=== PATIENT | female | born 1960 | race Caucasian/White ===

== ENCOUNTER 2020-12-31 13:24 | Inpatient (IN) | payer OTHER ==
--- OUTSIDE RECORDS SUMMARY | 2020-12-31 13:26 | XMS REPORT | Continuity of Care Document ---
:1960 Author Organization [facility] t Address [address] [place] [address] Care Team Providers Name Role Phone Unavailable Unavailable Unavailable Problems This patient has no known problems. Allergies, Adverse Reactions, Alerts This patient has no known allergies or adverse reactions. Medications This patient has no known medications. Procedures This patient has no known procedures. Encounters Start End Encounter Admission Attending Care Care Encounter Source Date/Time Date/Time Type Type Clinicians Facility Department ID 2020-11-30 2020-11-30 Outpatient [facility] [id number] [facility] 2020-10-19 2020-10-19 Outpatient [facility] [id number] [facility] 2020-10-19 2020-10-19 Outpatient [facility] [id number] [facility] 2020-08-22 2020-08-22 Outpatient [facility] [id number] [facility] Results This patient has no known results.
[2020-12-31 14:54] LABS: Absolute Lymphocytes (CBC) 1.3 K/uL (0.7-4.9); Basophils % 0.3 % (0-1.3); Hematocrit 36.8 % (36.0-45.0); Lymphocytes % 12.3 % (15.3-44.8); MPV 7.8 fL (7.6-11.3); RBC Red Blood Cell Count 4.13 M/uL (3.86-4.86)
[2020-12-31 15:06] LABS: Potassium 3.5 mmol/L (3.5-5.1)
--- NOTE | 2020-12-31 15:22 | RAD REPORT ---
EXAM DESCRIPTION: RAD - Chest Pa And Lat (2 Views) - 12/31/2020 3:02 pm CLINICAL HISTORY: DYSPNEA COMPARISON: None TECHNIQUE: Frontal and lateral views of the chest were obtained. FINDINGS: The lungs are underinflated. Large body habitus further limits the examination. Bilateral lung base interstitial and alveolar opacities are present. Heart size is upper normal. Vasculature is mildly prominent. No pleural effusion or pneumothorax seen. No acute bony finding noted. No aort ic abnormality. IMPRESSION: Bilateral lung bases present on this baseline examination. Failure or volume overload would be most common etiology. Lung base pneumonia is certainly possible and needs correlation with any clinical or laboratory findings for pneumonia.
[2020-12-31] MEDS ORDERED: METHYLPREDNISOLONE 125 MG INJ ONE ×2 (16:06→18:09)
[2020-12-31] MEDS ORDERED: MORPHINE 2 MG/ML SYR IV PRN (16:46)
[2020-12-31] MEDS ORDERED: ONDANSETRON 4 MG/2 ML VIAL IV PRN (16:46)
[2020-12-31] MEDS ORDERED: ACETAMINOPHEN 500 MG TAB PO PRN (16:46)
--- NOTE | 2020-12-31 16:57 | P.HP ---
Certification for Inpatient Patient admitted to: Inpatient With expected LOS: >2 Midnights Patient will require the following post-hospital care: None Practitioner: I am a practitioner with admitting privileges, knowledge of patient current condition, hospital course, and medical plan of care. Services: Services provided to patient in accordance with Admission requirements found in Title 42 Section 412.3 of the Code of Federal Regulations Patient History Date of Service: 12/31/20 Reason for admission: Hypoxemia History of Present Illness: Patient is a 60-year-old female who presents to the hospital with fever and difficulty breathing. Patient was vaccinated in September of this year by the MODERNA vaccine. She had been doing well up until last week. She thought she had an upper respiratory or allergy symptoms. Patient has been slightly febrile. On chest x-ray patient appears to have a pneumonia and patient's oxygen level are 89%. Patient had a COVID-19 test in the emergency room which is positive. Patient be admitted to the hospital for COVID-19 pneumonia. Allergies No Known Allergies Allergy (Verified 01/01/21 05:04) Home Medications: Bupropion HCl [Wellbutrin Xl] 1 tab PO DAILY 09/05/16 Dexmethylphenidate HCl [Focalin] 1 tab PO DAILY 09/05/16 Icosapent Ethyl [Vascepa] 1 tab PO BID 09/05/16 Lisinopril [Zestril] 1 tab PO DAILY 09/05/16 Multivit-Min/Iron/Folic/Lutein [Centrum Silver Women Tablet] 1 tab PO DAILY 09/05/16 Sertraline [Zoloft*] 1 tab PO DAILY 09/05/16 lamoTRIgine [Lamictal] 100 tab PO DAILY 09/05/16 Atomoxetine HCl 60 mg PO DAILY 01/01/21 Calcium Carbonate [Calcium] 600 mg PO DAILY 01/01/21 Cholecalciferol (Vitamin D3) [Vitamin D3] 2,000 unit PO DAILY 01/01/21 Fish Oil/Borage/Flax/Om3,6,9 1 [[place] 3-6-9 Complex Softgel] 2 g PO BID 01/01/21 Lamotrigine [Lamictal] 150 mg PO DAILY 01/01/21 Metformin HCl 500 mg PO BID 01/01/21 Niacin [Slo-Niacin] 650 mg PO DAILY 01/01/21 - Past Medical/Surgical History -: Depression -: ADD -: Bipolar disorder -: Diabetes type 2 Past Surgical History: Patient denies surgical history - Family History Father Family History: Reviewed- Non-Contributory - Social History Smoking Status: Former smoker Alcohol use: No CD- Drugs: No Review of Systems 10-point ROS is otherwise unremarkable Physical Examination - Vital Signs Temperature: 98 F Blood Pressure: 140/80 Pulse: 80 Respirations: 18 Pulse Ox (%): 99 - Physical Exam General: Alert, In no apparent distress, Confused HEENT: Atraumatic, PERRLA, Mucous membr. moist/pink, EOMI, Sclerae nonicteric Neck: Supple, 2+ carotid pulse no bruit, No LAD, Without JVD or thyroid abnormality Respiratory: Diminished Cardiovascular: Regular rate/rhythm, Normal S1 S2, No murmurs Gastrointestinal: Normal bowel sounds, Soft and benign, Non-distended, No tenderness Musculoskeletal: No clubbing, No swelling, No tenderness Integumentary: No rashes Neurological: Normal gait, Normal speech, Normal strength at 5/5 x4 extr, Normal tone, Sensation intact, Cranial nerves 3-12 intact, Normal affect Lymphatics: No axilla or inguinal lymphadenopathy - Studies Laboratory Data (last 24 hrs) 12/31/20 14:38: Sodium 137, Potassium 3.5, BUN 17, Creatinine 1.05, Glucose 101 12/31/20 14:38: WBC 10.50, Hgb 12.3, Hct 36.8, Plt Count 341 Microbiology Data (last 24 hrs): 12/31/20 14:04 Nasopharnyx Influenza Type A Antigen Screen - Final 12/31/20 14:04 Nasopharnyx Influenza Type B Antigen Screen - Final Assessment & Plan - Problems (Diagnosis) (1) Pneumonia due to COVID-19 virus Current Visit: Yes Status: Acute (2) Hypoxemia Current Visit: Yes Status: Acute - Plan 1. Continue with IV steroids 2. Monitor inflammatory markers 3. Repeat chest x-ray is symptoms are progressively worsening 4. O2 per protocol 5. Pulmonary consultation 6. Continue with albuterol inhaler therapy; also supportive care 7. Monitor LFTs 8. GI and DVT prophylaxis Discharge Plan: Home Plan to discharge in: Greater than 2 days - Advance Directives Does patient have a Living Will: No Does patient have a Durable POA for Healthcare: No - Code Status/Comfort Care Code Status Assessed: Yes Code Status: Full Code Critical Care: No Time Spent Managing PTS Care (In Minutes): 45
[2020-12-31] MEDS: METHYLPREDNISOLONE 125 MG INJ IV SCH ×2 (17:00→21:38)
[2020-12-31] MEDS: NA CHLORIDE 0.9% 1,000 ML IV SCH ×2 (17:00→20:00)
[2020-12-31 18:15] LABS: Protime INR 1.15
[2020-12-31 18:55] LABS: ALT/SGPT 43 U/L (12-78); AST/SGOT 42 U/L (15-37); Albumin 2.5 g/dL (3.4-5.0); Alkaline Phosphatase 54 U/L (45-117); Bilirubin Direct 0.1 mg/dL (0-0.2); Bilirubin Total 0.2 mg/dL (0.2-1.0); Ferritin 415.9 ng/mL (8-388); Lipase 87 U/L (73-393); Troponin (Emerg Dept Use Only) < 0.02 ng/mL (0.0-0.045)
[2020-12-31] MEDS ORDERED: APIXABAN 2.5 MG TABLET PO SCH (21:00)
[2020-12-31] MEDS: FAMOTIDINE 20 MG/2 ML VIAL IV SCH (21:35)
[2020-12-31] MEDS ORDERED: APIXABAN 5 MG TABLET ONE (21:40)
[2020-12-31] MEDS ORDERED: METHYLPREDNISOLONE 40 MG INJ ONE (21:41)
[2020-12-31] MEDS ORDERED: FAMOTIDINE 20 MG/2 ML VIAL IV ONE (21:41)
[2020-12-31 22:18] VITALS: BMI 48.4
[2021-01-01 04:49] LABS: Absolute Lymphocytes (CBC) 0.9 K/uL (0.7-4.9); Basophils % 0.2 % (0-1.3); Hematocrit 35.2 % (36.0-45.0); MPV 7.8 fL (7.6-11.3); RBC Red Blood Cell Count 3.95 M/uL (3.86-4.86)
[2021-01-01 05:29] LABS: Albumin 2.6 g/dL (3.4-5.0); Bilirubin Total 0.2 mg/dL (0.2-1.0); C-Reactive Protein 85.2 mg/L (<3.00); Ferritin 508.2 ng/mL (8-388); Potassium 3.6 mmol/L (3.5-5.1); Protein, Total 7.5 g/dL (6.4-8.2)
[2021-01-01] MEDS: NA CHLORIDE 0.9% 1,000 ML IV SCH ×2 (06:20→19:40)
[2021-01-01 07:12] LABS: Blood Morphology Comment NOT SEEN (NOT SEEN); Platelet Estimate ADEQ; White Blood Cell Scan OK (OK)
--- NOTE | 2021-01-01 08:00 | EKG ---
Test Date: 2020-12-31 Test Time: 18:36:12 Wharf Tender Helper: EDWIN MEASUREMENT RESULTS: Intervals: Rate: 91 NH: 128 QRSD: 84 QT: 370 QTc: 455 [place]: P: 27 NH: 128 QRS: -3 T: 39 INTERPRETIVE STATEMENTS: Normal sinus rhythm Possible Anterior infarct, age undetermined Abnormal ECG No previous ECG available for comparison Electronically Signed On 01-01-21 07:57:43 CDT by Lonnie Cordova
[2021-01-01] MEDS ORDERED: METHYLPREDNISOLONE 40 MG INJ ONE (08:29)
[2021-01-01] MEDS ORDERED: FAMOTIDINE 20 MG/2 ML VIAL IV ONE ×3 (08:29→22:46)
[2021-01-01] MEDS ORDERED: NA CHLORIDE 0.9% 1,000 ML ONE (08:29)
[2021-01-01] MEDS: APIXABAN 5 MG TABLET PO SCH ×2 (09:00→22:51)
[2021-01-01] MEDS: FAMOTIDINE 20 MG/2 ML VIAL IV SCH ×2 (09:00→22:51)
[2021-01-01] MEDS: METHYLPREDNISOLONE 125 MG INJ IV SCH ×2 (09:00→22:51)
--- NOTE | 2021-01-01 17:29 | ER ---
Nurse's Notes [facility] Name: Bette Soto Age: 60 yrs Sex: Female : 1960 Arrival Date: 12/31/2020 Time: 13:26 Bed 20 Private MD: Diagnosis: Hypoxia;Coronavirus infection, unspecified Presentation: 12/31 13:48 Chief complaint: Patient states: SOB and cough x 8 days. Coronavirus screen: Client kg denies travel out of the [place] in the last 14 days. At this time, unable to obtain information related to travel outside the [place] Client presents with at least one sign or symptom that may indicate coronavirus-19. Standard/surgical mask placed on the client. Provider contacted for isolation considerations. Ebola Screen: Patient negative for fever greater than or equal to 101.5 degrees Fahrenheit, and additional compatible Ebola Virus Disease symptoms Patient denies exposure to infectious person. Patient denies travel to an Ebola-affected area in the 21 days before illness onset. Patient positive for the following Ebola Virus Disease associated symptoms:. Initial Sepsis Screen: Does the patient meet any 2 criteria? No. Patient's initial sepsis screen is negative. Does the patient have a suspected source of infection? No. Patient's initial sepsis screen is negative. Risk Assessment: Do you want to hurt yourself or someone else? Patient reports no desire to harm self or others. Onset of symptoms was December 23, 2020. 13:48 Method Of Arrival: Wheelchair kg 13:48 Acuity: JOYCE 3 kg Triage Assessment: 13:51 General: Appears in no apparent distress. Behavior is calm, cooperative, appropriate kg for age, quiet. Pain: Denies pain. EENT: No deficits noted. Respiratory: Reports shortness of breath at rest on exertion since 12/23 cough that is non-productive, Onset: The symptoms/episode began/occurred gradually, the patient has mild shortness of breath. Historical: - Allergies: 13:51 No Known Allergies; kg - PMHx: 13:51 NDDM; Depressive disorder; Anxiety; ADHD; Bipolar disorder; kg - PSHx: 13:51 section; tubal ligation; kg - Immunization history:: Adult Immunizations up to date, Client reports receiving the 2nd dose of the Covid vaccine. - Social history:: Smoking status: Patient denies any tobacco usage or history of. Screenin:11 Abuse screen: Denies threats or abuse. Nutritional screening: No deficits noted. ap3 Tuberculosis screening: No symptoms or risk factors identified. Fall Risk No fall in past 12 months (0 pts). Secondary diagnosis (15 points) impaired mobility, No IV (0 pts). Ambulatory Aid- Crutches/Cane/Walker (15 pts). Gait- Weak (10 pts.). Mental Status- Oriented to own ability (0 pts). Total Trevino Fall Scale indicates Low Risk Score (25-44 pts). Fall prevention measures have been instituted. Side Rails Up X 2 Placed close to Nursing Station Frequent Obs/Assesments occuring As available Patient and Family Educated on Fall Prevention Program and strategies. Assessment: 14:10 General: Appears comfortable, Behavior is calm, cooperative, appropriate for age. ap3 General: Reports feeling ill for > 3 days. Pain: Denies pain. Neuro: Level of Consciousness is awake, alert, obeys commands, Oriented to person, place, time, situation, Appropriate for age Weakness Gait is unsteady, Speech is normal. Cardiovascular: Denies chest pain. Respiratory: Airway is patent Respiratory effort is even, labored, Respiratory pattern is symmetrical, Breath sounds are clear bilaterally. GI: No signs and/or symptoms were reported involving the gastrointestinal system. : No signs and/or symptoms were reported regarding the genitourinary system. EENT: No signs and/or symptoms were reported regarding the EENT system. Derm: No signs and/or symptoms reported regarding the dermatologic system. 14:45 Cardiovascular: Rhythm is regular. ap3 Vital Signs: 13:48 BP 110 / 66; Pulse 94; Resp 21; Temp 98.8(O); Pulse Ox 90% on R/A; Weight 128.19 kg; kg Height 5 ft. 4 in. (162.56 cm) (R); Pain 0/10; 14:21 BP 97 / 85 LA Sitting (auto/lg); Pulse 94; Resp 19; Pulse Ox 93% on 4 lpm NC; ap3 15:31 BP 152 / 93; Pulse 90; Resp 19; Pulse Ox 96% on 4 lpm NC; ap3 13:48 Body Mass Index 48.51 (128.19 kg, 162.56 cm) kg ED Course: 13:26 Patient arrived in ED. rg4 13:44 Purvi Leslie FNP-C is [facility]. kb 13:44 Yusef Hi MD is Attending Physician. kb 13:51 Triage completed. kg 13:51 Arm band placed on. kg 13:52 Georgette Gandhi, RN is Primary Nurse. ap3 14:12 Patient has correct armband on for positive identification. Bed in low position. Call ap3 light in reach. Side rails up X 1. Pulse ox on. NIBP on. Door closed. Noise minimized. 14:45 No provider procedures requiring assistance completed. IV discontinued, intact, ap3 bleeding controlled, No redness/swelling at site. Pressure dressing applied. 15:02 Chest Pa And Lat (2 Views) XRAY In Process Unspecified. EDMS 15:59 Inserted saline lock: 20 gauge in left antecubital area, using aseptic technique. Blood ap3 collected. 16:32 Micky Yadav MD is Hospitalizing Provider. kb 01/04 19:54 Primary Nurse role handed off by Georgette Gandhi, YELITZA mw2 Administered Medications: 12/31 15:46 Drug: SOLU-Medrol (methylPrednisoLONE) 125 mg Route: IVP; Site: right antecubital; ap3 17:59 Follow up: Response: No adverse reaction ap3 18:00 Drug: SOLU-Medrol (methylPrednisoLONE) 125 mg Route: IVP; Site: left antecubital; ap3 19:47 Follow up: Response: No adverse reaction ad5 Outcome: 14:45 Discharged to home ambulatory, with family. ap3 14:45 Condition: good 14:45 Discharge instructions given to patient, family, Instructed on discharge instructions, follow up and referral plans. medication usage, Demonstrated understanding of instructions, follow-up care. 16:32 Decision to Hospitalize by Provider. kb 01/05 21:54 Patient left the ED. mw Signatures: Dispatcher [employer] EDMS Purvi Leslie FNP-C FNP-Ckb Webb, Martha RN YELITZA Zaria Roy rg4 Georgette Gandhi RN RN ap3 Bijal Vences mw2 Kalyn Mosqueda RN RN kg Lui Schmitz ad5
--- NOTE | 2021-01-01 17:29 | EDPHYS ---
Physician Documentation [facility] Name: Bette Soto Age: 60 yrs Sex: Female : 1960 Arrival Date: 12/31/2020 Time: 13:26 Bed 20 Private MD: ED Physician Yusef Hi HPI: 12/31 15:08 This 60 yrs old Female presents to ER via Wheelchair with complaints of kb Shortness Of Breath. 15:08 The patient has shortness of breath at rest. Onset: The symptoms/episode began/occurred kb 8 day(s) ago. Duration: The symptoms are continuous. The patient's shortness of breath is aggravated by exertion, is alleviated by nothing. Associated signs and symptoms: Pertinent positives: non-productive cough, fever. Severity of symptoms: At their worst the symptoms were moderate in the emergency department the symptoms are unchanged. The patient has not experienced similar symptoms in the past. The patient has been recently seen by a physician: the patient's primary care provider, with similar presenting complaints, and was sent to the [facility] Emergency Department for further evaluation. Patient reports shortness of breath and fever. Went to PCP today was sent for outpatient chest x-ray then to the ER for worsening shortness of breath. Historical: - Allergies: 13:51 No Known Allergies; kg - PMHx: 13:51 NDDM; Depressive disorder; Anxiety; ADHD; Bipolar disorder; kg - PSHx: 13:51 section; tubal ligation; kg - Immunization history:: Adult Immunizations up to date, Client reports receiving the 2nd dose of the Covid vaccine. - Social history:: Smoking status: Patient denies any tobacco usage or history of. ROS: 15:09 Abdomen/GI: Negative for abdominal pain, nausea, vomiting, diarrhea, and constipation. kb 15:09 Constitutional: Positive for fever. 15:09 Respiratory: Positive for cough, dyspnea on exertion, shortness of breath. 15:09 All other systems are negative. Exam: 15:09 Constitutional: This is a well developed, well nourished patient who is awake, alert, kb and in no acute distress. Head/Face: Normocephalic, atraumatic. ENT: Moist Mucous membranes Cardiovascular: Regular rate and rhythm with a normal S1 and S2. No gallops, murmurs, or rubs. No pulse deficits. Skin: Warm, dry with normal turgor. Normal color. MS/ Extremity: Pulses equal, no cyanosis. Neurovascular intact. Full, normal range of motion. Neuro: Awake and alert, GCS 15, oriented to person, place, time, and situation. Moves all extremities. Normal gait. Psych: Awake, alert, with orientation to person, place and time. Behavior, mood, and affect are within normal limits. 16:29 Respiratory: mild respiratory distress is noted, Respirations: labored breathing, that kb is mild, Breath sounds: decreased breath sounds, that are mild, are located in both bases. Vital Signs: 13:48 BP 110 / 66; Pulse 94; Resp 21; Temp 98.8(O); Pulse Ox 90% on R/A; Weight 128.19 kg; kg Height 5 ft. 4 in. (162.56 cm) (R); Pain 0/10; 14:21 BP 97 / 85 LA Sitting (auto/lg); Pulse 94; Resp 19; Pulse Ox 93% on 4 lpm NC; ap3 15:31 BP 152 / 93; Pulse 90; Resp 19; Pulse Ox 96% on 4 lpm NC; ap3 13:48 Body Mass Index 48.51 (128.19 kg, 162.56 cm) kg MDM: 14:00 Patient medically screened. kb 15:10 Data reviewed: vital signs, nurses notes. Data interpreted: Pulse oximetry: on room air kb is 89 %. Interpretation: hypoxia. 16:29 Counseling: I had a detailed discussion with the patient and/or guardian regarding: the kb historical points, exam findings, and any diagnostic results supporting the discharge/admit diagnosis, lab results, radiology results, the need for further work-up and treatment in the hospital. 16:29 Physician consultation: Micky Yadav MD was contacted at 16:31, regarding admission, kb to the telemetry unit. patient's condition, and will see patient. 12/31 13:54 Order name: COVID-19 : Document "Date of Symptom Onset" if Symptomatic. 12/31 13:54 Order name: Flu; Complete Time: 15:07 12/31 14:35 Order name: Blood Culture Adult (2) 12/31 14:35 Order name: CBC with Diff; Complete Time: 15:07 12/31 14:35 Order name: Basic Metabolic Panel; Complete Time: 15:07 kb 12/31 14:35 Order name: BNP; Complete Time: 15:07 kb 12/31 16:13 Order name: SARS-COV-2 RT PCR; Complete Time: 16:13 EDMS 12/31 16:27 Order name: C-Reactive Protein; Complete Time: 18:24 kb 12/31 16:27 Order name: D-Dimer; Complete Time: 18:24 kb 12/31 16:27 Order name: Ferritin; Complete Time: 18:24 kb 12/31 16:27 Order name: LFT's; Complete Time: 18:24 kb 12/31 16:27 Order name: Lactate; Complete Time: 18:24 kb 12/31 16:27 Order name: Lipase; Complete Time: 18:24 kb 12/31 16:27 Order name: PT-INR; Complete Time: 18:24 kb 12/31 16:27 Order name: Procalcitonin; Complete Time: 18:24 kb 12/31 16:27 Order name: Ptt, Activated; Complete Time: 18:24 kb 12/31 16:27 Order name: Troponin (emerg Dept Use Only); Complete Time: 18:24 kb 12/31 16:49 Order name: C-Reactive Protein EDMS 12/31 16:49 Order name: C-Reactive Protein; Complete Time: 18:24 EDMS 12/31 16:49 Order name: CBC with Automated Diff 12/31 16:49 Order name: CBC with Automated Diff; Complete Time: 18:24 EDMS 12/31 16:49 Order name: Comprehensive Metabolic Panel ED12/31 16:49 Order name: Comprehensive Metabolic Panel; Complete Time: 18:24 EDMS 12/31 16:49 Order name: Ferritin MS 12/31 16:49 Order name: Ferritin; Complete Time: 18:24 EDMS 12/31 16:49 Order name: Lipid Profile EDMS 12/31 16:49 Order name: Lipid Profile; Complete Time: 18:24 EDMS 01/01 07:12 Order name: CBC Smear Scan; Complete Time: 18:24 EDMS 01/05 05:42 Order name: CBC with Automated Diff EDMS 12/31 14:35 Order name: IV Start; Complete Time: 14:37 kb 12/31 14:42 Order name: Chest Pa And Lat (2 Views) XRAY; Complete Time: 15:22 kb 12/31 16:27 Order name: EKG; Complete Time: 16:27 kb 12/31 16:27 Order name: Cardiac monitoring; Complete Time: 18:35 kb 12/31 16:27 Order name: Droplet/Contact Precautions; Complete Time: 17:29 kb 12/31 16:27 Order name: EKG - Nurse/Tech; Complete Time: 18:35 kb 12/31 16:27 Order name: Labs collected and sent; Complete Time: 17:59 kb 12/31 16:27 Order name: O2 Per Protocol; Complete Time: 17:27 kb 12/31 16:27 Order name: O2 Sat Monitoring; Complete Time: 17:27 kb 12/31 16:49 Order name: CONS Physician Consult EDWA 12/31 16:49 Order name: Heart Healthy [facility] 01/02 10:31 Order name: CT; Complete Time: 18:24 [facility] 01/05 06:01 Order name: Comprehensive Metabolic Panel [facility] 01/05 06:01 Order name: C-Reactive Protein EDWA 01/05 06:01 Order name: Ferritin EDWA 01/05 06:58 Order name: CBC Smear Scan EDWA 01/05 07:43 Order name: RAD EDWA Administered Medications: 15:46 Drug: SOLU-Medrol (methylPrednisoLONE) 125 mg Route: IVP; Site: right antecubital; ap3 17:59 Follow up: Response: No adverse reaction ap3 18:00 Drug: SOLU-Medrol (methylPrednisoLONE) 125 mg Route: IVP; Site: left antecubital; ap3 19:47 Follow up: Response: No adverse reaction ad5 Disposition: 01/06 07:00 Co-signature as Attending Physician, Yusef Hi MD I agree with the assessment and rn plan of care. Attestation: The patient's history, exam findings, diagnostics, and a summary of any interventions or procedures was reviewed in detail with Purvi SINGH. Disposition Summary: 12/31/20 16:32 Hospitalization Ordered Hospitalization Status: Inpatient Admission kb Provider: Micky Yadav Condition: Stable kb Problem: new kb Symptoms: are unchanged kb Bed/Room Type: Standard Location: [facility] ER HOLD(12/31/20 18:59) aa5 Room Assignment: ERHOLD-(12/31/20 18:59) aa5 Diagnosis - Hypoxia kb - Coronavirus infection, unspecified kb Forms: - Medication Reconciliation Form kb - SBAR form kb Signatures: Dispatcher [employer] EDWA Purvi Leslie, FRANCISCO LEIVA-Yusef Castro MD MD rn Calderon, Audri RN RN aa5 Georgette Gandhi RN RN ap3 Kalyn Mosqueda RN RN kg Lui Schmitz Corrections: (The following items were deleted from the chart) 12/31 14:16 13:54 Chest Pa And Lat (2 Views)+[email or web address] ordered. EDMS EDMS 14:58 13:54 CORONAVIRUS ordered. EDMS EDMS 16:29 15:09 Constitutional: This is a well developed, well nourished patient who is awake, kb alert, and in no acute distress. Head/Face: Normocephalic, atraumatic. ENT: Moist Mucous membranes Cardiovascular: Regular rate and rhythm with a normal S1 and S2. No gallops, murmurs, or rubs. No pulse deficits. Respiratory: Respirations even and unlabored. No increased work of breathing, no retractions or nasal flaring. Skin: Warm, dry with normal turgor. Normal color. MS/ Extremity: Pulses equal, no cyanosis. Neurovascular intact. Full, normal range of motion. Neuro: Awake and alert, GCS 15, oriented to person, place, time, and situation. Moves all extremities. Normal gait. Psych: Awake, alert, with orientation to person, place and time. Behavior, mood, and affect are within normal limits. kb 16:31 15:10 Data interpreted: Pulse oximetry: on room air is 90 %. Interpretation: kb borderline. kb 18:59 16:32 Telemetry/MedSurg (Inpatient) kb aa5 18:59 16:32 kb aa5
--- NOTE | 2021-01-01 17:32 | P.PN ---
Subjective Date of Service: 01/01/21 Patient is clinically doing better. Review of Systems 10-point ROS is otherwise unremarkable Physical Examination - Vital Signs Temperature: 98 F Blood Pressure: 140/80 Pulse: 80 Respirations: 18 Pulse Ox (%): 99 - Physical Exam General: Alert, In no apparent distress, Oriented x3 Respiratory: Diminished, Expiratory wheezes Cardiovascular: Regular rate/rhythm, Normal S1 S2, No murmurs Gastrointestinal: Normal bowel sounds, Soft and benign, Non-distended, No tenderness Musculoskeletal: No clubbing, No swelling, No tenderness Neurological: Sensation intact, Cranial nerves 3-12 intact - Studies Microbiology Data (last 24 hrs): 12/31/20 14:04 Nasopharnyx Influenza Type A Antigen Screen - Final 12/31/20 14:04 Nasopharnyx Influenza Type B Antigen Screen - Final Medications List Reviewed: Yes Assessment & Plan - Problems (Diagnosis) (1) Pneumonia due to COVID-19 virus Current Visit: Yes Status: Acute (2) Hypoxemia Current Visit: Yes Status: Acute - Plan Continue with plan of care as mentioned below: 1. Continue with IV steroids 2. Monitor inflammatory markers 3. Repeat chest x-ray is symptoms are progressively worsening 4. O2 per protocol 5. Pulmonary consultation appreciated 6. Continue with albuterol inhaler therapy; also supportive care 7. Monitor LFTs 8. GI and DVT prophylaxis Discharge Plan: Home Plan to discharge in: Greater than 2 days - Advance Directives Does patient have a Living Will: No Does patient have a Durable POA for Healthcare: No - Code Status/Comfort Care Code Status: Full Code Critical Care: No Time Spent Managing PTS Care (In Minutes): 35
--- NOTE | 2021-01-01 21:38 | P.CNS ---
Date of Consult: 01/01/21 (Pt agreed to TV) Reason for Consult: COVID penumonia/ pt vacinated Chief Complaint: COVID penumonia History of Present Illness: Pt is 60 AW COVID penumonia. [place] this year with Moderna/ Feeling well/ AW res p failure and COVID pneumonia Allergies No Known Allergies Allergy (Verified 01/01/21 05:04) Home Medications: Bupropion HCl [Wellbutrin Xl] 1 tab PO DAILY 09/05/16 Dexmethylphenidate HCl [Focalin] 1 tab PO DAILY 09/05/16 Icosapent Ethyl [Vascepa] 1 tab PO BID 09/05/16 Lisinopril [Zestril] 1 tab PO DAILY 09/05/16 Multivit-Min/Iron/Folic/Lutein [Centrum Silver Women Tablet] 1 tab PO DAILY 09/05/16 Sertraline [Zoloft*] 1 tab PO DAILY 09/05/16 lamoTRIgine [Lamictal] 100 tab PO DAILY 09/05/16 Atomoxetine HCl 60 mg PO DAILY 01/01/21 Calcium Carbonate [Calcium] 600 mg PO DAILY 01/01/21 Cholecalciferol (Vitamin D3) [Vitamin D3] 2,000 unit PO DAILY 01/01/21 Fish Oil/Borage/Flax/Om3,6,9 1 [Spencer 3-6-9 Complex Softgel] 2 g PO BID 01/01/21 Lamotrigine [Lamictal] 150 mg PO DAILY 01/01/21 Metformin HCl 500 mg PO BID 01/01/21 Niacin [Slo-Niacin] 650 mg PO DAILY 01/01/21 - Past Medical/Surgical History -: Depression -: ADD -: Bipolar disorder -: Diabetes type 2 -: ADHD - Family History Father Family History: Reviewed- Non-Contributory - Social History Alcohol use: No CD- Drugs: No Place of Residence: Home Review of Systems General: Weakness Respiratory: Shortness of Breath Physical Examination Temp Pulse Resp BP Pulse Ox 98 F 80 18 140/80 99 01/01/21 17:32 01/01/21 17:32 01/01/21 17:32 01/01/21 17:32 01/01/21 17:32 General: Other (looks well, no distress alert coperative and responsive) - Problems (1) Pneumonia due to COVID-19 virus Current Visit: Yes Status: Acute Plan: Age 60 AW COVID penumonia/cSP vacination with Moderna// labs reviewed/Ferrtin and CRP elevated/ Add Barcitnib/ ivermectin/DC IVF/ CT angio am/ LAbs reviewed
[2021-01-01] MEDS ORDERED: METHYLPREDNISOLONE 125 MG INJ ONE (22:00)
[2021-01-01] MEDS ORDERED: APIXABAN 5 MG TABLET ONE (22:00)
[2021-01-01] MEDS: lamoTRIgine 150 MG TAB PO SCH (22:51)
[2021-01-01] MEDS ORDERED: lamoTRIgine 100 MG TAB ONE (22:53)
[2021-01-02] MEDS: METHYLPREDNISOLONE 125 MG INJ IV SCH ×2 (08:58→21:01)
[2021-01-02] MEDS: FAMOTIDINE 20 MG/2 ML VIAL IV SCH ×2 (08:58→21:00)
[2021-01-02] MEDS: APIXABAN 5 MG TABLET PO SCH ×2 (08:58→21:00)
[2021-01-02] MEDS: IVERMECTIN 3 MG TABLET PO SCH (08:58)
[2021-01-02] MEDS ORDERED: FAMOTIDINE 20 MG TAB ONE (09:17)
[2021-01-02] MEDS ORDERED: METHYLPREDNISOLONE 125 MG INJ ONE ×2 (09:17→20:43)
[2021-01-02] MEDS ORDERED: APIXABAN 5 MG TABLET ONE ×2 (09:17→20:43)
[2021-01-02] MEDS: BARICITINIB 2 MG TABLET PO SCH (10:30)
--- NOTE | 2021-01-02 10:31 | RAD REPORT ---
EXAM DESCRIPTION: CT - Chest Angio - 01/02/2021 9:31 am CLINICAL HISTORY: Chest pain. RO PE. DX COVID COMPARISON: No comparisons TECHNIQUE: CT angiogram of the pulmonary arteries was performed with MIP. All CT scans are performed using dose optimization technique as appropriate and may include automated exposure control or mA/KV adjustment according to patient size. FINDINGS: No evidence of pulmonary thromboembolism. No acute aortic finding demonstrated. There is extensive alveolar lung opacities present in both lungs particularly along the periphery. Th is pattern is compatible with COVID-19 infection. No significant pericardial or pleural fluid. No concerning bony finding. Several right adrenal masses are present. IMPRESSION: No evidence of pulmonary thromboembolism. Extensive alveolar lung opacities compatible with underlying COVID-19 infection. Nonspecific right adrenal masses. MRI adrenal protocol would be recommended for further evaluation.
--- NOTE | 2021-01-02 16:49 | P.PN ---
Subjective Date of Service: 01/02/21 Chief Complaint: COVID penumonia Subjective: Worsening (Condition worsening More hypoxic feels better) Review of Systems Respiratory: Shortness of Breath Physical Examination - Vital Signs Temperature: 98.1 F Blood Pressure: 124/72 Pulse: 88 Respirations: 18 Pulse Ox (%): 93 - Physical Exam General: Alert, In no apparent distress, Cooperative - Studies Medications List Reviewed: Yes Assessment & Plan - Problems (Diagnosis) (1) Pneumonia due to COVID-19 virus Current Visit: Yes Status: Acute Plan: Res failure worsening/ CW present TX/ on Barcitinib/ labs rev
--- NOTE | 2021-01-02 18:26 | P.PN ---
Date of Service: 01/02/21 Subjective Patient remains very hypoxic. Patient is tachypneic as well. Started Baricitinib Review of Systems 10-point ROS is otherwise unremarkable Physical Examination - Vital Signs Reviewed - Physical Exam General: Alert, In no apparent distress, Oriented x3 Respiratory: Diminished, Expiratory wheezes Cardiovascular: Regular rate/rhythm, Normal S1 S2, No murmurs Gastrointestinal: Normal bowel sounds, Soft and benign, Non-distended, No tenderness Musculoskeletal: No clubbing, No swelling, No tenderness Neurological: Sensation intact, Cranial nerves 3-12 intact Assessment & Plan - Problems (Diagnosis) (1) Pneumonia due to COVID-19 virus Current Visit: Yes Status: Acute (2) Hypoxemia Current Visit: Yes Status: Acute - Plan Continue with plan of care as mentioned below: 1. Continue with IV steroids 2. Monitor inflammatory markers 3. CT scan with diffuse alveolar infiltrates 4. O2 per protocol; AIRVO 5. Pulmonary consultation appreciated 6. Continue with albuterol inhaler therapy; also supportive care 7. GI and DVT prophylaxis
[2021-01-02] MEDS ORDERED: FAMOTIDINE 20 MG/2 ML VIAL IV ONE ×2 (20:43→21:04)
[2021-01-02] MEDS: lamoTRIgine 150 MG TAB PO SCH (21:00)
[2021-01-03] MEDS: FAMOTIDINE 20 MG/2 ML VIAL IV SCH ×2 (08:41→21:43)
[2021-01-03] MEDS: BARICITINIB 2 MG TABLET PO SCH (08:42)
[2021-01-03] MEDS: METHYLPREDNISOLONE 125 MG INJ IV SCH ×2 (08:42→21:44)
[2021-01-03] MEDS: APIXABAN 5 MG TABLET PO SCH ×2 (08:42→21:44)
[2021-01-03] MEDS ORDERED: FAMOTIDINE 20 MG TAB ONE (09:03)
[2021-01-03] MEDS ORDERED: METHYLPREDNISOLONE 125 MG INJ ONE ×2 (09:03→21:39)
[2021-01-03] MEDS ORDERED: lamoTRIgine 150 MG TAB PO SCH (13:35)
[2021-01-03] MEDS: ATOMOXETINE HCL 60 MG PO SCH (13:46)
[2021-01-03] MEDS: SERTRALINE HCL 50 MG TAB PO SCH (17:05)
[2021-01-03] MEDS ORDERED: METFORMIN HCL 500 MG TAB ONE (21:39)
[2021-01-03] MEDS ORDERED: FAMOTIDINE 20 MG/2 ML VIAL IV ONE (21:39)
[2021-01-03] MEDS: lamoTRIgine 150 MG TAB PO SCH (21:44)
[2021-01-03] MEDS: METFORMIN HCL 500 MG TAB PO SCH (21:44)
[2021-01-03] MEDS: ROSUVASTATIN 10 MG TAB PO SCH (21:44)
--- NOTE | 2021-01-04 06:49 | P.PN ---
Date of Service: 01/03/21 Subjective Patient remains in pretty good spirits. She got to visit with her son who is doing poorly in the intensive care unit. She remains on high-flow at 30 liters/minute and FiO2 of 90%. Her sats her higher today and just talking to her I noticed her sats were going into the 95-99% range. Hopefully we can wean down the FiO2 a little more aggressively. Review of Systems 10-point ROS is otherwise unremarkable Physical Examination - Vital Signs Reviewed - Physical Exam General: Alert, In no apparent distress, Oriented x3 Respiratory: Diminished, Expiratory wheezes Cardiovascular: Regular rate/rhythm, Normal S1 S2, No murmurs Gastrointestinal: Normal bowel sounds, Soft and benign, Non-distended, No t enderness Musculoskeletal: No clubbing, No swelling, No tenderness Neurological: Sensation intact, Cranial nerves 3-12 intact Assessment & Plan - Problems (Diagnosis) (1) Pneumonia due to COVID-19 virus Current Visit: Yes Status: Acute (2) Hypoxemia Current Visit: Yes Status: Acute (3) Metabolic syndrome Current Visit: Yes Status: Chronic (4) Bipolar disorder/depression Current Visit: Yes Status: Chronic (5) ADD Current Visit: Yes Status: Chronic - Plan Continue with plan of care as mentioned below: 1. Continue with IV steroids 2. Monitor inflammatory markers 3. CT scan with diffuse alveolar infiltrates 4. O2 per protocol; AIRVO 5. Pulmonary consultation appreciated 6. Continue with albuterol inhaler therapy; also supportive care 7. Resume bipolar medications and depressive medications 8. Control blood sugar and blood pressure 9. GI and DVT prophylaxis
[2021-01-04] MEDS: ATOMOXETINE HCL 60 MG PO SCH (08:58)
[2021-01-04] MEDS: BARICITINIB 2 MG TABLET PO SCH (08:58)
[2021-01-04] MEDS: IVERMECTIN 3 MG TABLET PO SCH (08:59)
[2021-01-04] MEDS: BUPROPION HCL XL 150 MG TAB PO SCH (08:59)
[2021-01-04] MEDS: NIACIN 500 MG SR TAB PO SCH (08:59)
[2021-01-04] MEDS: lamoTRIgine 100 MG TAB PO SCH (08:59)
[2021-01-04] MEDS: APIXABAN 5 MG TABLET PO SCH ×2 (08:59→20:31)
[2021-01-04] MEDS: DOCOSAHEXANOIC AC/EPA 1000 MG PO SCH (08:59)
[2021-01-04] MEDS: CALCIUM CARBONATE 500 MG TAB PO SCH (09:00)
[2021-01-04] MEDS: FAMOTIDINE 20 MG/2 ML VIAL IV SCH ×2 (09:13→20:37)
[2021-01-04] MEDS: METHYLPREDNISOLONE 125 MG INJ IV SCH ×2 (09:13→20:32)
[2021-01-04] MEDS: VITAMIN D 1000 UNIT TAB PO SCH (09:13)
[2021-01-04] MEDS: METFORMIN HCL 500 MG TAB PO SCH ×2 (09:13→20:31)
[2021-01-04] MEDS: MULTIVITAMIN TAB PO SCH (09:13)
[2021-01-04] MEDS: lisinopriL 10 MG TAB PO SCH (09:13)
[2021-01-04] MEDS ORDERED: METHYLPREDNISOLONE 125 MG INJ ONE (09:29)
[2021-01-04] MEDS ORDERED: MULTIVITAMIN TAB PO ONE (09:29)
[2021-01-04] MEDS ORDERED: FAMOTIDINE 20 MG/2 ML VIAL IV ONE (09:30)
[2021-01-04] MEDS ORDERED: METFORMIN HCL 500 MG TAB ONE ×2 (09:30→20:41)
[2021-01-04] MEDS ORDERED: lisinopriL 10 MG TAB ONE (09:30)
[2021-01-04] MEDS ORDERED: VITAMIN D 1000 UNIT TAB ONE (09:30)
[2021-01-04] MEDS: SERTRALINE HCL 50 MG TAB PO SCH (09:56)
[2021-01-04] MEDS: ROSUVASTATIN 10 MG TAB PO SCH (20:33)
[2021-01-04] MEDS: lamoTRIgine 150 MG TAB PO SCH (20:38)
[2021-01-04] MEDS ORDERED: METHYLPREDNISOLONE 40 MG INJ ONE (20:42)
[2021-01-04] MEDS ORDERED: FAMOTIDINE 20 MG TAB ONE (20:57)
[2021-01-05 05:34] LABS: Absolute Lymphocytes (CBC) 1.9 K/uL (0.7-4.9); Basophils % 0.5 % (0-1.3); Hematocrit 36.8 % (36.0-45.0); Lymphocytes % 11.2 % (15.3-44.8); MPV 7.4 fL (7.6-11.3); RBC Red Blood Cell Count 4.14 M/uL (3.86-4.86)
[2021-01-05 06:01] LABS: Albumin 2.4 g/dL (3.4-5.0); Bilirubin Total 0.3 mg/dL (0.2-1.0); C-Reactive Protein 3.24 mg/L (<3.00); Ferritin 230.2 ng/mL (8-388); Potassium 4.2 mmol/L (3.5-5.1); Protein, Total 6.6 g/dL (6.4-8.2)
[2021-01-05 06:58] LABS: Blood Morphology Comment NOT SEEN (NOT SEEN); Platelet Estimate ADEQ; White Blood Cell Scan OK (OK)
--- NOTE | 2021-01-05 07:42 | RAD REPORT ---
EXAM DESCRIPTION: RAD - Chest Single View - 01/05/2021 7:07 am CLINICAL HISTORY: pneumonia COMPARISON: Chest Pa And Lat (2 Views) dated 12/31/2020; Chest Angio dated 01/02/2021 FINDINGS: Widespread interstitial and airspace opacities bilaterally. The aeration of the lungs has worsened since 12/31/2020 with areas of increased consolidation. Cardiomegaly.No acute osseous abnorm ality. No significant pleural effusions or pneumothorax. IMPRESSION: Worsening airspace disease compared with 01/02/2021 concerning for multifocal pneumonia.
[2021-01-05] MEDS: ATOMOXETINE HCL 60 MG PO SCH (07:45)
[2021-01-05] MEDS: APIXABAN 5 MG TABLET PO SCH ×2 (09:58→20:43)
[2021-01-05] MEDS: DOCOSAHEXANOIC AC/EPA 1000 MG PO SCH (09:58)
[2021-01-05] MEDS: BUPROPION HCL XL 150 MG TAB PO SCH (09:59)
[2021-01-05] MEDS: CALCIUM CARBONATE 500 MG TAB PO SCH (09:59)
[2021-01-05] MEDS: NIACIN 500 MG SR TAB PO SCH (09:59)
[2021-01-05] MEDS: SERTRALINE HCL 50 MG TAB PO SCH (09:59)
[2021-01-05] MEDS: BARICITINIB 2 MG TABLET PO SCH (09:59)
[2021-01-05] MEDS: lamoTRIgine 100 MG TAB PO SCH (09:59)
[2021-01-05] MEDS: FAMOTIDINE 20 MG/2 ML VIAL IV SCH ×2 (10:00→20:43)
[2021-01-05] MEDS: METHYLPREDNISOLONE 125 MG INJ IV SCH ×2 (10:00→20:44)
[2021-01-05] MEDS: METFORMIN HCL 500 MG TAB PO SCH ×2 (10:00→20:43)
[2021-01-05] MEDS: MULTIVITAMIN TAB PO SCH (10:00)
[2021-01-05] MEDS: lisinopriL 10 MG TAB PO SCH (10:00)
[2021-01-05] MEDS: VITAMIN D 1000 UNIT TAB PO SCH (10:01)
[2021-01-05] MEDS ORDERED: METHYLPREDNISOLONE 125 MG INJ ONE (10:13)
[2021-01-05] MEDS ORDERED: MULTIVITAMIN TAB PO ONE (10:13)
[2021-01-05] MEDS ORDERED: METFORMIN HCL 500 MG TAB ONE ×2 (10:14→20:48)
[2021-01-05] MEDS ORDERED: VITAMIN D 1000 UNIT TAB ONE (10:14)
[2021-01-05] MEDS ORDERED: lisinopriL 10 MG TAB ONE (10:14)
[2021-01-05] MEDS ORDERED: FAMOTIDINE 20 MG/2 ML VIAL IV ONE ×2 (10:14→20:49)
--- NOTE | 2021-01-05 11:39 | P.PN ---
Subjective Date of Service: 01/05/21 Chief Complaint: COVID penumonia Subjective: Improving (Doign much better O2 requirement decllining) Review of Systems Respiratory: Shortness of Breath Physical Examination - Vital Signs Temperature: 98.2 F Blood Pressure: 151/80 Pulse: 72 Respirations: 14 Pulse Ox (%): 97 - Physical Exam General: Alert, In no apparent distress, Oriented x3 - Studies Medications List Reviewed: Yes Assessment & Plan - Problems (Diagnosis) (1) Pneumonia due to COVID-19 virus Current Visit: Yes Status: Acute Plan: Much better improving/ titrate O2 down and plan to wean down on O2 / poss Dc AM LD dainionolactone
[2021-01-05] MEDS ORDERED: SPIRONOLACTONE 25 MG TABLET ONE (12:23)
[2021-01-05] MEDS: SPIRONOLACTONE 25 MG TABLET PO SCH (12:35)
[2021-01-05] MEDS ORDERED: APIXABAN 5 MG TABLET ONE (20:48)
[2021-01-05] MEDS ORDERED: METHYLPREDNISOLONE 40 MG INJ ONE (20:49)
[2021-01-05] MEDS: ROSUVASTATIN 10 MG TAB PO SCH (21:00)
[2021-01-05] MEDS: lamoTRIgine 150 MG TAB PO SCH (21:00)
[2021-01-06 08:29] LABS: Absolute Lymphocytes (CBC) 2.3 K/uL (0.7-4.9); Basophils % 0.4 % (0-1.3); Hematocrit 40.3 % (36.0-45.0); Lymphocytes % 12.4 % (15.3-44.8); MPV 7.6 fL (7.6-11.3); RBC Red Blood Cell Count 4.51 M/uL (3.86-4.86)
[2021-01-06 08:54] LABS: Albumin 2.8 g/dL (3.4-5.0); Bilirubin Total 0.3 mg/dL (0.2-1.0); C-Reactive Protein 3.73 mg/L (<3.00); Ferritin 218.4 ng/mL (8-388); Potassium 4.2 mmol/L (3.5-5.1); Protein, Total 7.3 g/dL (6.4-8.2)
[2021-01-06] MEDS: ATOMOXETINE HCL 60 MG PO SCH (09:00)
[2021-01-06] MEDS: METHYLPREDNISOLONE 125 MG INJ IV SCH ×2 (10:17→20:09)
[2021-01-06] MEDS: SPIRONOLACTONE 25 MG TABLET PO SCH (10:17)
[2021-01-06] MEDS: FAMOTIDINE 20 MG/2 ML VIAL IV SCH ×2 (10:17→20:09)
[2021-01-06] MEDS: MULTIVITAMIN TAB PO SCH (10:18)
[2021-01-06] MEDS: VITAMIN D 1000 UNIT TAB PO SCH (10:18)
[2021-01-06] MEDS: APIXABAN 5 MG TABLET PO SCH ×2 (10:18→20:09)
[2021-01-06] MEDS: SERTRALINE HCL 50 MG TAB PO SCH (10:18)
[2021-01-06] MEDS: CALCIUM CARBONATE 500 MG TAB PO SCH (10:18)
[2021-01-06] MEDS: lisinopriL 10 MG TAB PO SCH (10:18)
[2021-01-06] MEDS: METFORMIN HCL 500 MG TAB PO SCH ×2 (10:18→20:09)
[2021-01-06] MEDS: DOCOSAHEXANOIC AC/EPA 1000 MG PO SCH (10:18)
[2021-01-06] MEDS: NIACIN 500 MG SR TAB PO SCH (14:27)
[2021-01-06] MEDS: BUPROPION HCL XL 150 MG TAB PO SCH (14:27)
[2021-01-06] MEDS: BARICITINIB 2 MG TABLET PO SCH (14:27)
[2021-01-06] MEDS: lamoTRIgine 100 MG TAB PO SCH (14:27)
--- NOTE | 2021-01-06 16:36 | P.PN ---
Date of Service: 01/04/21 Subjective We have been able the wean down the FiO2 to 80%. Patient is starting to feel better. Be in pretty good spirits. She was able to will visit with her son earlier in the week Review of Systems 10-point ROS is otherwise unremarkable Physical Examination - Vital Signs Reviewed - Physical Exam General: Alert, In no apparent distress, Oriented x3 Respiratory: Diminished but clear Cardiovascular: Regular rate/rhythm, Normal S1 S2, No murmurs Gastrointestinal: Normal bowel sounds, Soft and benign, Non-distended, No tenderness Musculoskeletal: No clubbing, No swelling, No tenderness Neurological: Sensation intact, Cranial nerves 3-12 intact Assessment & Plan - Problems (Diagnosis) (1) Pneumonia due to COVID-19 virus Current Visit: Yes Status: Acute (2) Hypoxemia Current Visit: Yes Status: Acute (3) Metabolic syndrome Current Visit: Yes Status: Chronic (4) Bipolar disorder/depression Current Visit: Yes Status: Chronic (5) ADD Current Visit: Yes Status: Chronic - Plan Continue with plan of care as mentioned below: 1. Continue with IV steroids 2. Continue monitoring labs 3. CT scan with diffuse alveolar infiltrates 4. O2 per protocol; AIRVO; will continue to wean down 5. Pulmonary consultation appreciated 6. Continue with albuterol inhaler therapy; also supportive care 7. Resume bipolar medications and depressive medications 8. Control blood sugar and blood pressure 9. GI and DVT prophylaxis
--- NOTE | 2021-01-06 16:37 | P.PN ---
Date of Service: 01/05/21 Subjective Patient doing much better. Patient's oxygenation has improved and now on 6 L of oxygen. Continues it to improve. Review of Systems 10-point ROS is otherwise unremarkable Physical Examination - Vital Signs Reviewed - Physical Exam General: Alert, In no apparent distress, Oriented x3 Respiratory: Diminished but clear Cardiovascular: Regular rate/rhythm, Normal S1 S2, No murmurs Gastrointestinal: Normal bowel sounds, Soft and benign, Non-distended, No tenderness Musculoskeletal: No clubbing, No swelling, No tenderness Neurological: Sensation intact, Cranial nerves 3-12 intact Assessment & Plan - Problems (Diagnosis) (1) Pneumonia due to COVID-19 virus Current Visit: Yes Status: Acute (2) Hypoxemia Current Visit: Yes Status: Acute (3) Metabolic syndrome Current Visit: Yes Status: Chronic (4) Bipolar disorder/depression Current Visit: Yes Status: Chronic (5) ADD Current Visit: Yes Status: Chronic - Plan Continue with plan of care as mentioned below: 1. Continue with IV steroids 2. Continue monitoring labs 3. CT scan with diffuse alveolar infiltrates; continue with steroids 4. O2 per protocol; weaned down to 6 L oxygen 5. Pulmonary consultation appreciated 6. Continue with albuterol inhaler therapy; also supportive care 7. Resume bipolar medications and depressive medications 8. Control blood sugar and blood pressure 9. GI and DVT prophylaxis
--- NOTE | 2021-01-06 16:38 | P.PN ---
Date of Service: 01/06/21 Subjective Patient continues to improve. She remains on 5 L oxygen. Hopefully we can decrease it to 3-4 L tomorrow and try to get her ready for discharge over the next 24-48 hrs. Review of Systems 10-point ROS is otherwise unremarkable Physical Examination - Vital Signs Reviewed - Physical Exam General: Alert, In no apparent distress, Oriented x3 Respiratory: Diminished but clear Cardiovascular: Regular rate/rhythm, Normal S1 S2, No murmurs Gastrointestinal: Normal bowel sounds, Soft and benign, Non-distended, No tenderness Musculoskeletal: No clubbing, No swelling, No tenderness Neurological: Sensation intact, Cranial nerves 3-12 intact Assessment & Plan - Problems (Diagnosis) (1) Pneumonia due to COVID-19 virus Current Visit: Yes Status: Acute (2) Hypoxemia Current Visit: Yes Status: Acute (3) Metabolic syndrome Current Visit: Yes Status: Chronic (4) Bipolar disorder/depression Current Visit: Yes Status: Chronic (5) ADD Current Visit: Yes Status: Chronic - Plan Continue with plan of care as mentioned below: 1. Continue with IV steroids; can probably wean down the oral steroids 2. Continue monitoring labs 3. CT scan with diffuse alveolar infiltrates; continue with steroids 4. O2 per protocol; weaned down to 5 L oxygen from 6 L today. 5. Pulmonary consultation appreciated 6. Continue with albuterol inhaler therapy; also supportive care; will go ahead and get nebulizers arranged 7. Resume bipolar medications and depressive medications 8. Control blood sugar and blood pressure 9. GI and DVT prophylaxis
--- NOTE | 2021-01-06 19:10 | RAD REPORT ---
EXAM DESCRIPTION: RAD - Knee Right 2 View - 01/06/2021 6:35 pm CLINICAL HISTORY: knee pain Pain and swelling COMPARISON: No comparisons FINDINGS: No evidence of fracture or dislocation.
[2021-01-06] MEDS: lamoTRIgine 150 MG TAB PO SCH (20:08)
[2021-01-06] MEDS: ROSUVASTATIN 10 MG TAB PO SCH (20:08)
[2021-01-07 03:59] LABS: Absolute Lymphocytes (CBC) 1.6 K/uL (0.7-4.9); Basophils % 0.4 % (0-1.3); Hematocrit 37.4 % (36.0-45.0); Lymphocytes % 9.3 % (15.3-44.8); MPV 7.6 fL (7.6-11.3); RBC Red Blood Cell Count 4.23 M/uL (3.86-4.86)
[2021-01-07 04:22] LABS: Albumin 2.6 g/dL (3.4-5.0); Bilirubin Total 0.3 mg/dL (0.2-1.0); C-Reactive Protein 3.21 mg/L (<3.00); Ferritin 198.2 ng/mL (8-388); Potassium 4.5 mmol/L (3.5-5.1); Protein, Total 6.7 g/dL (6.4-8.2)
[2021-01-07] MEDS: ATOMOXETINE HCL 60 MG PO SCH (09:00)
[2021-01-07] MEDS: DOCOSAHEXANOIC AC/EPA 1000 MG PO SCH (10:26)
[2021-01-07] MEDS: VITAMIN D 1000 UNIT TAB PO SCH (10:26)
[2021-01-07] MEDS: CALCIUM CARBONATE 500 MG TAB PO SCH (10:27)
[2021-01-07] MEDS: APIXABAN 5 MG TABLET PO SCH ×2 (10:27→21:01)
[2021-01-07] MEDS: SPIRONOLACTONE 25 MG TABLET PO SCH (10:27)
[2021-01-07] MEDS: SERTRALINE HCL 50 MG TAB PO SCH (10:27)
[2021-01-07] MEDS: METHYLPREDNISOLONE 125 MG INJ IV SCH ×2 (10:27→21:02)
[2021-01-07] MEDS: MULTIVITAMIN TAB PO SCH (10:28)
[2021-01-07] MEDS: lisinopriL 10 MG TAB PO SCH ×2 (10:28→10:29)
[2021-01-07] MEDS: FAMOTIDINE 20 MG/2 ML VIAL IV SCH ×2 (10:29→21:01)
[2021-01-07] MEDS: METFORMIN HCL 500 MG TAB PO SCH ×2 (10:29→21:01)
[2021-01-07] MEDS: BARICITINIB 2 MG TABLET PO SCH (10:32)
[2021-01-07] MEDS: NIACIN 500 MG SR TAB PO SCH (10:32)
[2021-01-07] MEDS: BUPROPION HCL XL 150 MG TAB PO SCH (10:33)
[2021-01-07] MEDS: lamoTRIgine 100 MG TAB PO SCH (10:33)
--- NOTE | 2021-01-07 17:26 | P.PN ---
Subjective Date of Service: 01/07/21 Chief Complaint: COVID penumonia Subjective: Improving Physical Examination - Vital Signs Temperature: 98.5 F Blood Pressure: 144/77 Pulse: 99 Respirations: 18 Pulse Ox (%): 93 - Studies Medications List Reviewed: Yes Assessment & Plan Discharge Plan: Home Plan to discharge in: Greater than 2 days Physician Review Additional Text: COVID: Positive CT chest: COMPARISON: No comparisons TECHNIQUE: CT angiogram of the pulmonary arteries was performed with MIP. All CT scans are performed using dose optimization technique as appropriate and may include automated exposure control or mA/KV adjustment according to patient size. FINDINGS: No evidence of pulmonary thromboembolism. No acute aortic finding demonstrated. There is extensive alveolar lung opacities present in both lungs particularly along the periphery. This pattern is compatible with COVID-19 infection. No significant pericardial or pleural fluid. No concerning bony finding. Several right adrenal masses are present. IMPRESSION: No evidence of pulmonary thromboembolism. Extensive alveolar lung opacities compatible with underlying COVID-19 infection. Nonspecific right adrenal masses. MRI adrenal protocol would be recommended for further evaluation. Chest x-ray: COMPARISON: Chest Pa And Lat (2 Views) dated 12/31/2020; Chest Angio dated 01/02/2021 FINDINGS: Widespread interstitial and airspace opacities bilaterally. The aeration of the lungs has worsened since 12/31/2020 with areas of increased consolidation. Cardiomegaly.No acute osseous abnormality. No significant pleural effusions or pneumothorax. IMPRESSION: Worsening airspace disease compared with 01/02/2021 concerning for multifocal pneumonia. Physical exam General: Alert, In no apparent distress, Oriented x3 Respiratory: Diminished but clear currently on 4 L per nasal cannula Cardiovascular: Regular rate/rhythm, Normal S1 S2, No murmurs Gastrointestinal: Normal bowel sounds, Soft and benign, Non-distended, No tenderness Musculoskeletal: No clubbing, No swelling, No tenderness Neurological: Sensation intact, Cranial nerves 3-12 intact Impression: Acute respiratory failure secondary to COVID-19 pneumonia with hypoxia Bipolar disorder ADD Hypertension Diabetes mellitus type 2 Hyperlipidemia Plan: Continue with plan of care as mentioned below: 1. Continue with IV steroids; continue supplementation. Patient on baricitinib. 2. Continue monitoring labsCRP and ferritin 3. Will monitor chest x-ray. 4. O2 per protocol; continue to wean off oxygen. 5. Pulmonary consultation appreciated 6. Continue with albuterol inhaler therapy; also supportive care; will go ahead and get nebulizers arranged 7. Resume bipolar medications and depressive medications 8. Control blood sugar and blood pressure 9. GI and DVT prophylaxis 10 continue blood pressure medication. Continue diabetes medication. Will monitor and adjust medication appropriately. Continue cholesterol medication. CODE STATUS: Full code DVT prophylaxis: Lovenox [facility] care [id number] minutes: Home at discharge Time Spent Managing Pts Care (In Minutes): 55
[2021-01-07] MEDS: ROSUVASTATIN 10 MG TAB PO SCH (21:01)
[2021-01-07] MEDS: lamoTRIgine 150 MG TAB PO SCH (21:01)
[2021-01-08 04:31] LABS: Absolute Lymphocytes (CBC) 1.2 K/uL (0.7-4.9); Basophils % 0.2 % (0-1.3); Hematocrit 39.3 % (36.0-45.0); Lymphocytes % 8.2 % (15.3-44.8); MPV 7.7 fL (7.6-11.3); RBC Red Blood Cell Count 4.37 M/uL (3.86-4.86)
[2021-01-08 04:58] LABS: ALT/SGPT 48 U/L (12-78); AST/SGOT 18 U/L (15-37); Albumin 2.6 g/dL (3.4-5.0); Alkaline Phosphatase 65 U/L (45-117); BUN Blood Urea Nitrogen 20 mg/dL (7-18); Bicarbonate 25 mmol/L (21-32); Bilirubin Total 0.3 mg/dL (0.2-1.0); Ferritin 198.1 ng/mL (8-388); Glucose Level 150 mg/dL (74-106); Magnesium 2.2 mg/dL (1.8-2.4); Potassium 4.2 mmol/L (3.5-5.1); Protein, Total 6.7 g/dL (6.4-8.2); Sodium Level 140 mmol/L (136-145)
[2021-01-08 05:10] LABS: C-Reactive Protein < 2.90 mg/L (<3.00)
--- NOTE | 2021-01-08 06:17 | P.PN ---
Subjective Date of Service: 01/08/21 Primary Care Provider: Dr. Sandoval Chief Complaint: COVID penumonia Subjective: Improving, Doing well Physical Examination - Vital Signs Temperature: 97.6 F Blood Pressure: 141/77 Pulse: 92 Respirations: 19 Pulse Ox (%): 92 - Studies Medications List Reviewed: Yes Assessment & Plan Discharge Plan: Home Plan to discharge in: 24 Hours Physician Review Additional Text: COVID: Positive CT chest: COMPARISON: No comparisons TECHNIQUE: CT angiogram of the pulmonary arteries was performed with MIP. All CT scans are performed using dose optimization technique as appropriate and may include automated exposure control or mA/KV adjustment according to patient size. FINDINGS: No evidence of pulmonary thromboembolism. No acute aortic finding demonstrated. There is extensive alveolar lung opacities present in both lungs particularly along the periphery. This pattern is compatible with COVID-19 infection. No significant pericardial or pleural fluid. No concerning bony finding. Several right adrenal masses are present. IMPRESSION: No evidence of pulmonary thromboembolism. Extensive alveolar lung opacities compatible with underlying COVID-19 infection. Nonspecific right adrenal masses. MRI adrenal protocol would be recommended for further evaluation. Chest x-ray: COMPARISON: Chest Pa And Lat (2 Views) dated 12/31/2020; Chest Angio dated 01/02/2021 FINDINGS: Widespread interstitial and airspace opacities bilaterally. The aeration of the lungs has worsened since 12/31/2020 with areas of increased consolidation. Cardiomegaly.No acute osseous abnormality. No significant pleural effusions or pneumothorax. IMPRESSION: Worsening airspace disease compared with 01/02/2021 concerning for multifocal pneumonia. Physical exam General: Alert, In no apparent distress, Oriented x3 Respiratory: Diminished but clear currently on 3 L per nasal cannula Cardiovascular: Regular rate/rhythm, Normal S1 S2, No murmurs Gastrointestinal: Normal bowel sounds, Soft and benign, Non-distended, No tenderness Musculoskeletal: No clubbing, No swelling, No tenderness Neurological: Sensation intact, Cranial nerves 3-12 intact Impression: Acute respiratory failure secondary to COVID-19 pneumonia with hypoxia Bipolar disorder ADD Hypertension Diabetes mellitus type 2 Hyperlipidemia Plan: Continue with plan of care as mentioned below: Home today if able to move appropriately. 1. Continue with IV steroids; continue supplementation. Patient on baricitinib. 2. Continue monitoring labsCRP and ferritin 3. Will monitor chest x-ray. 4. O2 per protocol; continue to wean off oxygen. 5. Pulmonary consultation appreciated 6. Continue with albuterol inhaler therapy; also supportive care; will go ahead and get nebulizers arranged 7. Resume bipolar medications and depressive medications 8. Control blood sugar and blood pressure 9. GI and DVT prophylaxis 10 continue blood pressure medication. Continue diabetes medication. Will monitor and adjust medication appropriately. Continue cholesterol medication. CODE STATUS: Full code DVT prophylaxis: Lovenox Advance care [id number] minutes: Home at discharge Time Spent Managing Pts Care (In Minutes): 55
--- NOTE | 2021-01-08 07:32 | RAD REPORT ---
EXAM DESCRIPTION: RAD - Chest Single View - 01/08/2021 7:21 am CLINICAL HISTORY: Follow-up Covid COMPARISON: Chest Single View dated 01/05/2021; Chest Pa And Lat (2 Views) dated 12/31/2020 FINDINGS: Ill-defined bilateral airspace opacities are similar to 01/05/2021. The heart size is with in normal limits.No acute osseous abnormality. No significant pleural effusions or pneumothorax. IMPRESSION: Bilateral airspace disease concerning for pneumonia and which is similar to 01/05/2021.
[2021-01-08] MEDS: SERTRALINE HCL 50 MG TAB PO SCH (08:45)
[2021-01-08] MEDS: MULTIVITAMIN TAB PO SCH (08:45)
[2021-01-08] MEDS: SPIRONOLACTONE 25 MG TABLET PO SCH (08:45)
[2021-01-08] MEDS: VITAMIN D 1000 UNIT TAB PO SCH (08:46)
[2021-01-08] MEDS: DOCOSAHEXANOIC AC/EPA 1000 MG PO SCH (08:46)
[2021-01-08] MEDS: METHYLPREDNISOLONE 125 MG INJ IV SCH (08:46)
[2021-01-08] MEDS: METFORMIN HCL 500 MG TAB PO SCH (08:46)
[2021-01-08] MEDS: CALCIUM CARBONATE 500 MG TAB PO SCH (08:46)
[2021-01-08] MEDS: lamoTRIgine 100 MG TAB PO SCH (08:46)
[2021-01-08] MEDS: BUPROPION HCL XL 150 MG TAB PO SCH (08:47)
[2021-01-08] MEDS: NIACIN 500 MG SR TAB PO SCH (08:47)
[2021-01-08] MEDS: BARICITINIB 2 MG TABLET PO SCH (08:47)
[2021-01-08] MEDS: ATOMOXETINE HCL 60 MG PO SCH (08:48)
[2021-01-08] MEDS: APIXABAN 5 MG TABLET PO SCH (08:50)
[2021-01-08] MEDS: FAMOTIDINE 20 MG/2 ML VIAL IV SCH (08:51)
[2021-01-08 12:54] VITALS: O2SAT 89
[2021-01-08 13:04] VITALS: BP 141/77; TEMP 97.6
--- NOTE | 2021-01-08 13:06 | P.DS ---
Admission Date: 12/31/20 Discharge Date: 01/08/21 Primary Care Provider: Dr. Sandoval Disposition: ROUTINE DISCHARGE Discharge Condition: GOOD Reason for Admission: COVID penumonia Consultations: Pulmonary-Dr. Gar Procedures: COVID: Positive CT chest: COMPARISON: No comparisons TECHNIQUE: CT angiogram of the pulmonary arteries was performed with MIP. All CT scans are performed using dose optimization technique as appropriate and may include automated exposure control or mA/KV adjustment according to patient size. FINDINGS: No evidence of pulmonary thromboembolism. No acute aortic finding demonstrated. There is extensive alveolar lung opacities present in both lungs particularly along the periphery. This pattern is compatible with COVID-19 infection. No significant pericardial or pleural fluid. No concerning bony finding. Several right adrenal masses are present. IMPRESSION: No evidence of pulmonary thromboembolism. Extensive alveolar lung opacities compatible with underlying COVID-19 infection. Nonspecific right adrenal masses. MRI adrenal protocol would be recommended for further evaluation. Follow up Chest x-ray: CLINICAL HISTORY: Follow-up Covid COMPARISON: Chest Single View dated 01/05/2021; Chest Pa And Lat (2 Views) dated 12/31/2020 FINDINGS: Ill-defined bilateral airspace opacities are similar to 01/05/2021. The heart size is within normal limits.No acute osseous abnormality. No significant pleural effusions or pneumothorax. IMPRESSION: Bilateral airspace disease concerning for pneumonia and which is similar to 01/05/2021. Medical Problem list: Acute respiratory failure secondary to COVID-19 pneumonia with hypoxia, vaccinated Bipolar disorder ADD Hypertension Diabetes mellitus type [address] scan showing nonspecific right adrenal masses Brief History of Present Illness: 60-year-old female presented with increased shortness of breath and fever. Patient was vaccinated in September of this year with maternal vaccine. Patient found to have bilateral Covid pneumonia with hypoxia. Patient admitted for treatment. Hospital Course: Patient presented with acute respiratory failure with hypoxia secondary to COVID-19 pneumonia. Patient had been vaccinated in September of this year. Patient was admitted for treatment. During the course of her stay her condition improved. Patient received IV steroids, vitamin supplementation and bariciti nib. Patient was seen and evaluated by pulmonology. No further intervention was required. The patient continued to improve. At discharge she is currently on 3 L per nasal cannula. At discharge the patient will continue with home oxygen to maintain sats above 93%. Patient currently on 3 L per nasal cannula. Patient will need to limit her activities. At discharge patient will continue with prednisone 20 mg 1 pill twice daily for 7 days then 1 pill once daily for 7 days. The patient will continue with aspirin 81 mg daily, Tessalon Perles 100 mg 3 times a day as needed for cough and albuterol 2 puffs 3 times a day as needed for shortness of breath. The patient will continue with vitamin supplementation including thiamine 100 mg 1 pill twice daily, zinc 220 mg 1 pill daily, vitamin C 500 mg 1 pill 3 times a day and vitamin D 2000 units daily. Recommend to continue COVID-19 quarantine. Patient will continue with proning, incentive spirometer use, facemask use, handwashing and social distancing. Patient will continue with COVID-19 education. At discharge patient will follow up with pulmonology in 1 week to follow-up this hospitalization and continue her care. Pulmonology will help wean her off of oxygen. Recommend follow-up with PCP in 1 week to follow-up this hospitalization as well. Patient with bipolar disorder and ADD. At discharge she will continue with her current medications including atomoxetine 60 mg daily, Wellbutrin XL 300 mg daily, Lamictal 100 mg daily and 150 mg at bedtime, and Zoloft 50 mg daily. Patient with hypertension. At discharge we will continue with her current medicationlisinopril 10 mg daily. Recommend to maintain blood pressure less than 130/80. Further adjustment can be done by her PCP. Patient with diabetes mellitus type 2. At discharge patient will continue with her current medicationMetformin 500 mg 1 pill twice daily. Recommend to maintain blood sugar less than 140 fasting and less than 200 after meals. Recomm end to recheck hemoglobin A1c every 3 months to monitor her progress. Further adjustment in medication can be done by her PCP. Patient with hyperlipidemia. At discharge she will continue with her current medicationniacin 500 mg daily, omega fish oil 2000 mg 1 pill twice daily, and Crestor [address] scan revealed nonspecific right adrenal masses. Recommend follow-up with PCP to further evaluate. Patient will need MRI adrenal protocol in the future to further evaluate. This can be done with the help of her PCP. Vital Signs/Physical Exam: Temp Pulse Resp BP Pulse Ox 97.6 F 92 H 19 141/77 H 92 01/08/21 13:04 01/08/21 13:04 01/08/21 13:04 01/08/21 13:04 01/08/21 13:04 General: Alert, In no apparent distress, Oriented x3, Cooperative HEENT: Atraumatic Neck: Supple Respiratory: Clear to auscultation bilaterally, Other (Currently on 3 L per nasal cannula.) Cardiovascular: Normal pulses, Regular rate/rhythm Gastrointestinal: Normal bowel sounds, No tenderness, No masses, No rebound, No guarding Musculoskeletal: No erythema, No tenderness, No warmth Integumentary: No tenderness/swelling Neurological: Normal speech, Normal strength at 5/5 x4 extr, Normal tone, Normal affect Laboratory Data at Discharge: WBC 14.80 K/uL (4.3-10.9) H D 01/08/21 03:49 Hgb 12.9 g/dL (12.0-15.0) 01/08/21 03:49 Hct 39.3 % (36.0-45.0) 01/08/21 03:49 Plt Count 568 K/uL (152-406) H 01/08/21 03:49 PT 13.3 SECONDS (9.5-12.5) H 12/31/20 17:52 INR 1.15 12/31/20 17:52 APTT 21.6 SECONDS (24.3-36.9) L 12/31/20 17:52 Sodium 140 mmol/L (136-145) 01/08/21 03:49 Potassium 4.2 mmol/L (3.5-5.1) 01/08/21 03:49 BUN 20 mg/dL (7-18) H 01/08/21 03:49 Creatinine 1.00 mg/dL (0.55-1.3) 01/08/21 03:49 Glucose 150 mg/dL (74-106) H 01/08/21 03:49 Magnesium 2.2 mg/dL (1.8-2.4) 01/08/21 03:49 Total Bilirubin 0.3 mg/dL (0.2-1.0) 01/08/21 03:49 AST 18 U/L (15-37) 01/08/21 03:49 ALT 48 U/L (12-78) 01/08/21 03:49 Alkaline Phosphatase 65 U/L (45-117) 01/08/21 03:49 Triglycerides 104 mg/dL (<150) 01/01/21 04:22 Cholesterol 133 mg/dL (<200) 01/01/21 04:22 HDL Cholesterol 28 mg/dL (40-60) L 01/01/21 04:22 Cholesterol/HDL Ratio 4.75 01/01/21 04:22 Lipase 87 U/L (73-393) 12/31/20 17:52 Home Medications: Atomoxetine HCl 60 mg PO DAILY 01/02/21 Bupropion HCl [Wellbutrin Xl] 300 mg PO DAILY 01/02/21 Calcium Carbonate [Calcium] 600 mg PO DAILY 01/02/21 Cholecalciferol (Vitamin D3) [Vitamin D 1000 Iu Tab*] 2,000 unit PO DAILY 01/02/21 Lisinopril [Zestril] 10 mg PO DAILY 01/02/21 Metformin HCl [Glucophage*] 500 mg PO BID 01/02/21 Multivitamin [Daily Multivitamin] 1 tab PO DAILY 01/02/21 Niacinamide [Niacin] 650 mg PO DAILY 01/02/21 [place]-3 Acid Ethyl Esters 2 gm PO BID 01/02/21 Rosuvastatin [Crestor*] 10 mg PO DAILY 01/02/21 Sertraline [Zoloft*] 50 mg PO DAILY 01/02/21 lamoTRIgine [Lamictal*] 100 mg PO DAILY 01/02/21 lamoTRIgine [Lamictal*] 150 mg PO BEDTIME 01/02/21 Albuterol Inhaler [Ventolin Inhaler*] 2 puff IH TID PRN #1 hfa.aer.ad 01/08/21 Ascorbate Calcium [Vitamin C] 500 mg PO TID #90 tablet 01/08/21 Aspirin [Aspirin EC 81 MG] 81 mg PO DAILY #30 tablet. 01/08/21 Benzonatate [Tessalon Perle] 100 mg PO TID PRN #10 cap 01/08/21 Thiamine HCl 100 mg PO BID #60 tablet 01/08/21 Zinc Sulfate [Zinc Sulfate*] 220 mg PO DAILY #30 cap 01/08/21 predniSONE [Prednisone*] 20 mg PO SEECOM #21 tab 01/08/21 New Medications: Aspirin [Aspirin EC 81 MG] 81 mg PO DAILY #30 tablet. predniSONE [Prednisone*] 20 mg PO SEECOM #21 tab Benzonatate [Tessalon Perle] 100 mg PO TID PRN #10 cap PRN Reason: Cough Thiamine HCl 100 mg PO BID #60 tablet Albuterol Inhaler [Ventolin Inhaler*] 2 puff IH TID PRN #1 hfa.aer.ad PRN Reason: Shortness Of Breath Ascorbate Calcium [Vitamin C] 500 mg PO TID #90 tablet Zinc Sulfate [Zinc Sulfate*] 220 mg PO DAILY #30 cap Physician Discharge Instructions: Patient presented with acute respiratory failure with hypoxia secondary to COVID-19 pneumonia. Patient had been vaccinated in September of this year. Patient was admitted for treatment. During the course of her stay her condition improved. Patient received IV steroids, vitamin supplementation and baricitinib. Patient was seen and evaluated by pulmonology. No further intervention was required. The patient continued to improve. At discharge she is currently on 3 L per nasal cannula. At discharge the patient will continue with home oxygen to maintain sats above 93%. Patient currently on 3 L per nasal cannula. Patient will need to limit her activities. At discharge patient will continue with prednisone 20 mg 1 pill twice daily for 7 days then 1 pill once daily for 7 days. The patient will continue with aspirin 81 mg daily, Tessalon Perles 100 mg 3 times a day as needed for cough and albuterol 2 puffs 3 times a day as needed for shortness of breath. The patient will continue with vitamin supplementation including thiamine 100 mg 1 pill twice daily, zinc 220 mg 1 pill daily, vitamin C 500 mg 1 pill 3 times a day and vitamin D 2000 units daily. Recommend to continue COVID-19 quarantine. Patient will continue with proning, incentive spirometer use, facemask use, handwashing and social distancing. Patient will continue with COVID-19 education. At discharge patient will follow up with pulmonology in 1 week to follow-up this hospitalization and continue her care. Pulmonology will help wean her off of oxygen. Recommend follow-up with PCP in 1 week to follow-up this hospitalization as well. Patient with bipolar disorder and ADD. At discharge she will continue with her current medications including atomoxetine 60 mg daily, Wellbutrin XL 300 mg daily, Lamictal 100 mg daily and 150 mg at bedtime, and Zoloft 50 mg daily. Patient with hypertension. At discharge we will continue with her current medicationlisinopril 10 mg daily. Recommend to maintain blood pressure less than 130/80. Further adjustment can be done by her PCP. Patient with diabetes mellitus type 2. At discharge patient will continue with her current medicationMetformin 500 mg 1 pill twice daily. Recommend to maintain blood sugar less than 140 fasting and less than 200 after meals. Recommend to recheck hemoglobin A1c every 3 months to monitor her progress. Further adjustment in medication can be done by her PCP. Patient with hyperlipidemia. At discharge she will continue with her current medicationniacin 500 mg daily, omega fish oil 2000 mg 1 pill twice daily, and Crestor [address] scan revealed nonspecific right adrenal masses. Recommend follow-up with PCP to further evaluate. Patient will need MRI adrenal protocol in the future to further evaluate. This can be done with the help of her PCP. Diet: ADA Activity: Ad wolf Followup: Alpesh Sandoval DO [Primary Care Provider] - Time spent managing pt's care (in minutes): 55
== END 2021-01-08 17:21 | disposition home or self-care (01) | DRG 177 ==
LOC: ER 13:24 → ERHOLD 16:47 → 4TH 01-05 21:39
PROVIDERS: ADMIT Hospitalist; ATTEND Hospitalist
DX: U07.1 COVID-19 (principal); J12.82 Pneumonia due to coronavirus disease 2019; J96.01 Acute respiratory failure with hypoxia; F31.9 Bipolar disorder, unspecified; F98.8 Other specified behavioral and emotional disorders with onset usually occurring in childhood and adolescence; I10 Essential (primary) hypertension; E11.9 Type 2 diabetes mellitus without complications; E78.5 Hyperlipidemia, unspecified; E27.8 Other specified disorders of adrenal gland; E88.81 Metabolic syndrome and other insulin resistance
CPT/HCPCS: 36415; 71045; 71046; 71275; 80048; 80053; 80061; 80076; 82728; 83605; 83690; 83735; 83880; 84145; 84484; 85025; 85379; 85610; 85730; 86140; 87040; 87804; 93005; 94002; 94003; 94760; 99284; J2920; J2930; J7030; Q9967; U0003

== ENCOUNTER 2022-10-16 11:01 | Emergency (ER) | payer OTHER ==
--- OUTSIDE RECORDS SUMMARY | 2022-10-16 11:06 | XMS REPORT | Continuity of Care Document ---
:1960 Author Organization [facility] t Address [address] [facility] [address] [place] [address] Care Team Providers Name Role Phone Alpesh Sandoval Attending Clinician Unavailable Payers Payer Name Policy Type Policy Number Effective Date Expiration Date S ource Ambetter from [id number] 2020 [facility] 00:00:00 - [facility] Ambetter from [id number] 2020 [facility] 00:00:00 - [facility] Ambetter from [id number] 2020 [facility] 00:00:00 [facility] Problems Condition Condition Condition Status Onset Resolution Last Treating Co mments Source Name Details Category Date Date Treatment Clinician Date [id number] Metabolic Problem Com mon syndrome [facility] - [facility] [id number] Hypercalce Problem Com mon chelo [facility] - [facility] [id number] Current Problem Common moderate [facility] episode of - [facility] major depressive [facility] disorder [facility] prior episode [id number] Attention Problem Comm on deficit [facility] hyperactiv - [facility] ity [facility] (ADHD)[facility] inattentiv e type [id number] Type 2 Problem Common diabetes Spirit mellitus - [facility] with hyperglyce [facility] long-term current use of insulin [id number] LADAN Problem Common (generaliz Spirit ed anxiety - [facility] disorder) [facility] [id number] Vitamin D Problem Comm on deficiency Spirit disease - [facility] [id number] Mixed Problem Common hyperlipid Spirit emia - [facility] [id number] 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 [id number] Essential Problem Comm on hypertensi Spirit on - [facility] [id number] Non-season Problem Com mon al [facility] allergic [facility], [id number] Body mass Problem Com [facility] index Spirit [BMI] - [facility] 50.0-59.9, [facility] [id number] Right Problem Commo n [id number] adrenal Spirit mass [facility] Allergies, Adverse Reactions, Alerts This patient has no known allergies or adverse reactions. Social History Social Habit Start Date Stop Date Quantity Comments Source History of Tobacco Use Co mmon [facility] Sex Assigned At Com mon [facility] Smoking Status Start Date Stop Date Source Former Smoker 2022-07-04 00:00:00 2022-07-04 00:00:00 Common S pirit [facility] Medications Ordered Filled Start Stop Current Ordering Indication Dosage Frequency Signature Comments Components Source Medication Medication Date Date Medication? Clinician (SIG) Name Name Lisinopril Lisinopril No 1{table QD Lisinopril 20 MG 20 MG 6-17 t} 20 MG 00:00: 00 Atorvastati Atorvastati No 1{table QD n Calcium n Calcium t} 10 MG 10 MG Naproxen Naproxen No Kori Kori No Lisinopril Lisinopril No 10 MG 10 MG Vitamin D3 Vitamin D3 No buPROPion buPROPion No 1{table QD HCl ER (XL) HCl ER (XL) t_in_th 300 MG 300 MG e_morni ng} Sertraline Sertraline No 1{table QD HCl 50 MG HCl 50 MG t} Acetaminoph Acetaminoph No en en Calcium 500 Calcium 500 No 1{table BID MG MG t_with_ meals} [place]-3-aci [place]-3-aci No d Ethyl d Ethyl Esters 1 GM Esters 1 GM Atorvastati Atorvastati No n Calcium n Calcium 10 MG 10 MG Atomoxetine Atomoxetine No 1{capsu QD HCl 60 MG HCl 60 MG le_in_t he_morn ing} Multivitami Multivitami No n n metFORMIN metFORMIN No 1{table BID HCl 500 MG HCl 500 MG t_with_ a_meal} metFORMIN metFORMIN No HCl 500 MG HCl 500 MG lamoTRIgine lamoTRIgine No QD 100 MG 100 MG Acetaminoph Acetaminoph No en en [place] 3 [place] 3 No Atorvastati Atorvastati No 1{table QD Atorvastat n Calcium n Calcium t} in Calcium 10 MG 10 MG 10 MG Naproxen Naproxen No Naproxen Kori Kori No Kori Lisinopril Lisinopril No Lisinopril 10 MG 10 MG 10 MG Vitamin D3 Vitamin D3 No Vitamin D3 buPROPion buPROPion No 1{table QD buPROPion HCl ER (XL) HCl ER (XL) t_in_th HCl ER 300 MG 300 MG e_morni (XL) 300 ng} MG Sertraline Sertraline No 1{table QD Sertraline HCl 50 MG HCl 50 MG t} HCl 50 MG Acetaminoph Acetaminoph No Acetaminop en en hen Calcium 500 Calcium 500 No 1{table BID Calcium MG MG t_with_ 500 MG meals} [place]-3-aci [place]-3-aci No [place]-3-ac d Ethyl d Ethyl id Ethyl Esters 1 GM Esters 1 GM Esters 1 GM Atorvastati Atorvastati No Atorvastat n Calcium n Calcium in Calcium 10 MG 10 MG 10 MG Atomoxetine Atomoxetine No 1{capsu QD Atomoxetin HCl 60 MG HCl 60 MG le_in_t e HCl 60 he_morn MG ing} Multivitami Multivitami No Multivitam n n in metFORMIN metFORMIN No 1{table BID metFORMIN HCl 500 MG HCl 500 MG t_with_ HCl 500 MG a_meal} metFORMIN metFORMIN No metFORMIN HCl 500 MG HCl 500 MG HCl 500 MG lamoTRIgine lamoTRIgine No QD lamoTRIgin 100 MG 100 MG e 100 MG Acetaminoph Acetaminoph No Acetaminop en en hen [place] 3 [place] 3 No [place] 3 Calcium 500 Calcium 500 No 1{table BID Calcium MG MG t_with_ 500 MG meals} Acetaminoph Acetaminoph No Acetaminop en en hen [place]-3-aci [place]-3-aci No [place]-3-ac d Ethyl d Ethyl id Ethyl Esters 1 GM Esters 1 GM Esters 1 GM Sertraline Sertraline No 1{table QD Sertraline HCl 50 MG HCl 50 MG t} HCl 50 MG lamoTRIgine lamoTRIgine No QD lamoTRIgin 100 MG 100 MG e 100 MG Lisinopril Lisinopril No 1{table QD Lisinopril 10 MG 10 MG t} 10 MG Atomoxetine Atomoxetine No 1{capsu QD Atomoxetin HCl 60 MG HCl 60 MG le_in_t e HCl 60 he_morn MG ing} buPROPion buPROPion No 1{table QD buPROPion HCl ER (XL) HCl ER (XL) t_in_th HCl ER 300 MG 300 MG e_morni (XL) 300 ng} MG metFORMIN metFORMIN No metFORMIN HCl 500 MG HCl 500 MG HCl 500 MG Atorvastati Atorvastati No Atorvastat n Calcium n Calcium in Calcium 10 MG 10 MG 10 MG Acetaminoph Acetaminoph No Acetaminop en en hen Atorvastati Atorvastati No 1{table QD Atorvastat n Calcium n Calcium t} in Calcium 10 MG 10 MG 10 MG metFORMIN metFORMIN No 1{table BID metFORMIN HCl 500 MG HCl 500 MG t_with_ HCl 500 MG a_meal} Naproxen Naproxen No Naproxen Multivitami Multivitami No Multivitam n n in Kori Kori No Kori Lisinopril Lisinopril No Lisinopril 20 MG 20 MG 20 MG [place] 3 [place] 3 No [place] 3 Vitamin D3 Vitamin D3 No Vitamin D3 Vitamin C Vitamin C No Vitamin C 500 MG 500 MG 500 MG Calcium 500 Calcium 500 No 1{table BID Calcium MG MG t_with_ 500 MG meals} metFORMIN metFORMIN No 1{table BID metFORMIN HCl 500 MG HCl 500 MG t_with_ HCl 500 MG a_meal} [place]-3-aci [place]-3-aci No [place]-3-ac d Ethyl d Ethyl id Ethyl Esters 1 GM Esters 1 GM Esters 1 GM Naproxen Naproxen No Naproxen [place] 3 [place] 3 No [place] 3 lamoTRIgine lamoTRIgine No QD lamoTRIgin 100 MG 100 MG e 100 MG Atorvastati Atorvastati No Atorvastat n Calcium n Calcium in Calcium 10 MG 10 MG 10 MG Atorvastati Atorvastati No 1{table QD Atorvastat n Calcium n Calcium t} in Calcium 10 MG 10 MG 10 MG Kori Kori No Kori Sertraline Sertraline No 1{table QD Sertraline HCl 50 MG HCl 50 MG t} HCl 50 MG Vitamin C Vitamin C No Vitamin C 500 MG 500 MG 500 MG Multivitami Multivitami No Multivitam n n in Atomoxetine Atomoxetine No 1{capsu QD Atomoxetin HCl 60 MG HCl 60 MG le_in_t e HCl 60 he_morn MG ing} Lisinopril Lisinopril No 1{table QD Lisinopril 10 MG 10 MG t} 10 MG buPROPion buPROPion No 1{table QD buPROPion HCl ER (XL) HCl ER (XL) t_in_th HCl ER 300 MG 300 MG e_morni (XL) 300 ng} MG Lisinopril Lisinopril No Lisinopril 10 MG 10 MG 10 MG metFORMIN metFORMIN No metFORMIN HCl 500 MG HCl 500 MG HCl 500 MG Vitamin D3 Vitamin D3 No Vitamin D3 Acetaminoph Acetaminoph No Acetaminop en en hen Acetaminoph Acetaminoph No Acetaminop en en hen [place] 3 [place] 3 No [place] 3 Calcium 500 Calcium 500 No 1{table BID Calcium MG MG t_with_ 500 MG meals} [place]-3-aci [place]-3-aci No [place]-3-ac d Ethyl d Ethyl id Ethyl Esters 1 GM Esters 1 GM Esters 1 GM Naproxen Naproxen No Naproxen Lisinopril Lisinopril No 1{table QD Lisinopril 20 MG 20 MG t} 20 MG lamoTRIgine lamoTRIgine No QD lamoTRIgin 100 MG 100 MG e 100 MG Atorvastati Atorvastati No Atorvastat n Calcium n Calcium in Calcium 10 MG 10 MG 10 MG Atorvastati Atorvastati No 1{table QD Atorvastat n Calcium n Calcium t} in Calcium 10 MG 10 MG 10 MG Kori Kori No Kori Sertraline Sertraline No 1{table QD Sertraline HCl 50 MG HCl 50 MG t} HCl 50 MG Vitamin C Vitamin C No Vitamin C 500 MG 500 MG 500 MG Multivitami Multivitami No Multivitam n n in Atomoxetine Atomoxetine No 1{capsu QD Atomoxetin HCl 60 MG HCl 60 MG le_in_t e HCl 60 he_morn MG ing} Acetaminoph Acetaminoph No Acetaminop en en hen buPROPion buPROPion No 1{table QD buPROPion HCl ER (XL) HCl ER (XL) t_in_th HCl ER 300 MG 300 MG e_morni (XL) 300 ng} MG Lisinopril Lisinopril No Lisinopril 10 MG 10 MG 10 MG metFORMIN metFORMIN No metFORMIN HCl 500 MG HCl 500 MG HCl 500 MG Vitamin D3 Vitamin D3 No Vitamin D3 Acetaminoph Acetaminoph No Acetaminop en en hen metFORMIN metFORMIN No 1{table BID metFORMIN HCl 500 MG HCl 500 MG t_with_ HCl 500 MG a_meal} buPROPion buPROPion No 1{table QD buPROPion HCl ER (XL) HCl ER (XL) t_in_th HCl ER 300 MG 300 MG e_morni (XL) 300 ng} MG Acetaminoph Acetaminoph No Acetaminop en en hen Atomoxetine Atomoxetine No 1{capsu QD Atomoxetin HCl 60 MG HCl 60 MG le_in_t e HCl 60 he_morn MG ing} Vitamin C Vitamin C No Vitamin C 500 MG 500 MG 500 MG [place] 3 [place] 3 No [place] 3 Vitamin D3 Vitamin D3 No Vitamin D3 Acetaminoph Acetaminoph No Acetaminop en en hen Sertraline Sertraline No 1{table QD Sertraline HCl 50 MG HCl 50 MG t} HCl 50 MG Lisinopril Lisinopril No Lisinopril 10 MG 10 MG 10 MG Calcium 500 Calcium 500 No 1{table BID Calcium MG MG t_with_ 500 MG meals} Multivitami Multivitami No Multivitam n n in metFORMIN metFORMIN No 1{table BID metFORMIN HCl 500 MG HCl 500 MG t_with_ HCl 500 MG a_meal} Kori Kori No Kori Lisinopril Lisinopril No 1{table QD Lisinopril 10 MG 10 MG t} 10 MG Atorvastati Atorvastati No Atorvastat n Calcium n Calcium in Calcium 10 MG 10 MG 10 MG [place]-3-aci [place]-3-aci No [place]-3-ac d Ethyl d Ethyl id Ethyl Esters 1 GM Esters 1 GM Esters 1 GM metFORMIN metFORMIN No metFORMIN HCl 500 MG HCl 500 MG HCl 500 MG lamoTRIgine lamoTRIgine No QD lamoTRIgin 100 MG 100 MG e 100 MG Atorvastati Atorvastati No 1{table QD Atorvastat n Calcium n Calcium t} in Calcium 10 MG 10 MG 10 MG Naproxen Naproxen No Naproxen buPROPion buPROPion No 1{table QD buPROPion HCl ER (XL) HCl ER (XL) t_in_th HCl ER 300 MG 300 MG e_morni (XL) 300 ng} MG Acetaminoph Acetaminoph No Acetaminop en en hen Atomoxetine Atomoxetine No 1{capsu QD Atomoxetin HCl 60 MG HCl 60 MG le_in_t e HCl 60 he_morn MG ing} Vitamin C Vitamin C No Vitamin C 500 MG 500 MG 500 MG [place] 3 [place] 3 No [place] 3 Vitamin D3 Vitamin D3 No Vitamin D3 Acetaminoph Acetaminoph No Acetaminop en en hen Sertraline Sertraline No 1{table QD Sertraline HCl 50 MG HCl 50 MG t} HCl 50 MG Lisinopril Lisinopril No Lisinopril 10 MG 10 MG 10 MG Calcium 500 Calcium 500 No 1{table BID Calcium MG MG t_with_ 500 MG meals} Multivitami Multivitami No Multivitam n n in metFORMIN metFORMIN No 1{table BID metFORMIN HCl 500 MG HCl 500 MG t_with_ HCl 500 MG a_meal} Kori Kori No Kori Lisinopril Lisinopril No 1{table QD Lisinopril 10 MG 10 MG t} 10 MG Atorvastati Atorvastati No Atorvastat n Calcium n Calcium in Calcium 10 MG 10 MG 10 MG [place]-3-aci [place]-3-aci No [place]-3-ac d Ethyl d Ethyl id Ethyl Esters 1 GM Esters 1 GM Esters 1 GM metFORMIN metFORMIN No metFORMIN HCl 500 MG HCl 500 MG HCl 500 MG lamoTRIgine lamoTRIgine No QD lamoTRIgin 100 MG 100 MG e 100 MG Atorvastati Atorvastati No 1{table QD Atorvastat n Calcium n Calcium t} in Calcium 10 MG 10 MG 10 MG Naproxen Naproxen No Naproxen [place] 3 [place] 3 No [place] 3 buPROPion buPROPion No 1{table QD buPROPion HCl ER (XL) HCl ER (XL) t_in_th HCl ER 300 MG 300 MG e_morni (XL) 300 ng} MG Acetaminoph Acetaminoph No Acetaminop en en hen Vitamin C Vitamin C No Vitamin C 500 MG 500 MG 500 MG Atomoxetine Atomoxetine No 1{capsu QD Atomoxetin HCl 60 MG HCl 60 MG le_in_t e HCl 60 he_morn MG ing} metFORMIN metFORMIN No metFORMIN HCl 500 MG HCl 500 MG HCl 500 MG Sertraline Sertraline No 1{table QD Sertraline HCl 50 MG HCl 50 MG t} HCl 50 MG Vitamin D3 Vitamin D3 No Vitamin D3 Calcium 500 Calcium 500 No 1{table BID Calcium MG MG t_with_ 500 MG meals} Multivitami Multivitami No Multivitam n n in metFORMIN metFORMIN No 1{table BID metFORMIN HCl 500 MG HCl 500 MG t_with_ HCl 500 MG a_meal} Kori Kori No Kori Naproxen Naproxen No Naproxen Atorvastati Atorvastati No Atorvastat n Calcium n Calcium in Calcium 10 MG 10 MG 10 MG [place]-3-aci [place]-3-aci No [place]-3-ac d Ethyl d Ethyl id Ethyl Esters 1 GM Esters 1 GM Esters 1 GM lamoTRIgine lamoTRIgine No QD lamoTRIgin 100 MG 100 MG e 100 MG Atorvastati Atorvastati No 1{table QD Atorvastat n Calcium n Calcium t} in Calcium 10 MG 10 MG 10 MG Acetaminoph Acetaminoph No Acetaminop en en hen [place] 3 [place] 3 No [place] 3 buPROPion buPROPion No 1{table QD buPROPion HCl ER (XL) HCl ER (XL) t_in_th HCl ER 300 MG 300 MG e_morni (XL) 300 ng} MG Acetaminoph Acetaminoph No Acetaminop en en hen Vitamin C Vitamin C No Vitamin C 500 MG 500 MG 500 MG Atomoxetine Atomoxetine No 1{capsu QD Atomoxetin HCl 60 MG HCl 60 MG le_in_t e HCl 60 he_morn MG ing} Kori Kori No Kori metFORMIN metFORMIN No metFORMIN HCl 500 MG HCl 500 MG HCl 500 MG Sertraline Sertraline No 1{table QD Sertraline HCl 50 MG HCl 50 MG t} HCl 50 MG Vitamin D3 Vitamin D3 No Vitamin D3 Calcium 500 Calcium 500 No 1{table BID Calcium MG MG t_with_ 500 MG meals} [place]-3-aci [place]-3-aci No 2{capsu BID [place]-3-ac d Ethyl d Ethyl les} id Ethyl Esters 1 GM Esters 1 GM Esters 1 GM metFORMIN metFORMIN No 1{table BID metFORMIN HCl 500 MG HCl 500 MG t_with_ HCl 500 MG a_meal} Atorvastati Atorvastati No 1{table QD Atorvastat n Calcium n Calcium t} in Calcium 10 MG 10 MG 10 MG Naproxen Naproxen No Naproxen Lisinopril Lisinopril No Lisinopril 20 MG 20 MG 20 MG Multivitami Multivitami No Multivitam n n in lamoTRIgine lamoTRIgine No QD lamoTRIgin 100 MG 100 MG e 100 MG Atorvastati Atorvastati No Atorvastat n Calcium n Calcium in Calcium 10 MG 10 MG 10 MG Acetaminoph Acetaminoph No Acetaminop en en hen [place] 3 [place] 3 No [place] 3 buPROPion buPROPion No 1{table QD buPROPion HCl ER (XL) HCl ER (XL) t_in_th HCl ER 300 MG 300 MG e_morni (XL) 300 ng} MG Acetaminoph Acetaminoph No Acetaminop en en hen Vitamin C Vitamin C No Vitamin C 500 MG 500 MG 500 MG Atomoxetine Atomoxetine No 1{capsu QD Atomoxetin HCl 60 MG HCl 60 MG le_in_t e HCl 60 he_morn MG ing} Kori Kori No Kori metFORMIN metFORMIN No metFORMIN HCl 500 MG HCl 500 MG HCl 500 MG Sertraline Sertraline No 1{table QD Sertraline HCl 50 MG HCl 50 MG t} HCl 50 MG Vitamin D3 Vitamin D3 No Vitamin D3 Calcium 500 Calcium 500 No 1{table BID Calcium MG MG t_with_ 500 MG meals} [place]-3-aci [place]-3-aci No 2{capsu BID [place]-3-ac d Ethyl d Ethyl les} id Ethyl Esters 1 GM Esters 1 GM Esters 1 GM metFORMIN metFORMIN No 1{table BID metFORMIN HCl 500 MG HCl 500 MG t_with_ HCl 500 MG a_meal} Atorvastati Atorvastati No 1{table QD Atorvastat n Calcium n Calcium t} in Calcium 10 MG 10 MG 10 MG Naproxen Naproxen No Naproxen Lisinopril Lisinopril No Lisinopril 20 MG 20 MG 20 MG Multivitami Multivitami No Multivitam n n in lamoTRIgine lamoTRIgine No QD lamoTRIgin 100 MG 100 MG e 100 MG Atorvastati Atorvastati No Atorvastat n Calcium n Calcium in Calcium 10 MG 10 MG 10 MG Acetaminoph Acetaminoph No Acetaminop en en hen [place] 3 [place] 3 No [place] 3 buPROPion buPROPion No 1{table QD buPROPion HCl ER (XL) HCl ER (XL) t_in_th HCl ER 300 MG 300 MG e_morni (XL) 300 ng} MG Acetaminoph Acetaminoph No Acetaminop en en hen Vitamin C Vitamin C No Vitamin C 500 MG 500 MG 500 MG Atomoxetine Atomoxetine No 1{capsu QD Atomoxetin HCl 60 MG HCl 60 MG le_in_t e HCl 60 he_morn MG ing} Kori Kori No Kori metFORMIN metFORMIN No metFORMIN HCl 500 MG HCl 500 MG HCl 500 MG Sertraline Sertraline No 1{table QD Sertraline HCl 50 MG HCl 50 MG t} HCl 50 MG Vitamin D3 Vitamin D3 No Vitamin D3 Calcium 500 Calcium 500 No 1{table BID Calcium MG MG t_with_ 500 MG meals} [place]-3-aci [place]-3-aci No 2{capsu BID [place]-3-ac d Ethyl d Ethyl les} id Ethyl Esters 1 GM Esters 1 GM Esters 1 GM metFORMIN metFORMIN No 1{table BID metFORMIN HCl 500 MG HCl 500 MG t_with_ HCl 500 MG a_meal} Atorvastati Atorvastati No 1{table QD Atorvastat n Calcium n Calcium t} in Calcium 10 MG 10 MG 10 MG Naproxen Naproxen No Naproxen Lisinopril Lisinopril No Lisinopril 20 MG 20 MG 20 MG Multivitami Multivitami No Multivitam n n in lamoTRIgine lamoTRIgine No QD lamoTRIgin 100 MG 100 MG e 100 MG Atorvastati Atorvastati No Atorvastat n Calcium n Calcium in Calcium 10 MG 10 MG 10 MG Acetaminoph Acetaminoph No Acetaminop en en hen metFORMIN metFORMIN No metFORMIN HCl 500 MG HCl 500 MG HCl 500 MG Lisinopril Lisinopril No 1{table QD Lisinopril 10 MG 10 MG t} 10 MG Atorvastati Atorvastati No Atorvastat n Calcium n Calcium in Calcium 10 MG 10 MG 10 MG Vitamin D3 Vitamin D3 No Vitamin D3 metFORMIN metFORMIN No 1{table BID metFORMIN HCl 500 MG HCl 500 MG t_with_ HCl 500 MG a_meal} Lisinopril Lisinopril No Lisinopril 20 MG 20 MG 20 MG lamoTRIgine lamoTRIgine No QD lamoTRIgin 100 MG 100 MG e 100 MG Multivitami Multivitami No Multivitam n n in [place]-3-aci [place]-3-aci No 2{capsu BID [place]-3-ac d Ethyl d Ethyl les} id Ethyl Esters 1 GM Esters 1 GM Esters 1 GM buPROPion buPROPion No 1{table QD buPROPion HCl ER (XL) HCl ER (XL) t_in_th HCl ER 300 MG 300 MG e_morni (XL) 300 ng} MG Atorvastati Atorvastati No 1{table QD Atorvastat n Calcium n Calcium t} in Calcium 10 MG 10 MG 10 MG Sertraline Sertraline No 1{table QD Sertraline HCl 50 MG HCl 50 MG t} HCl 50 MG Calcium 500 Calcium 500 No 1{table BID Calcium MG MG t_with_ 500 MG meals} Acetaminoph Acetaminoph No Acetaminop en en hen Acetaminoph Acetaminoph No Acetaminop en en hen Kori Kori No Kori Atomoxetine Atomoxetine No 1{capsu QD Atomoxetin HCl 60 MG HCl 60 MG le_in_t e HCl 60 he_morn MG ing} Vitamin C Vitamin C No Vitamin C 500 MG 500 MG 500 MG Naproxen Naproxen No Naproxen [place] 3 [place] 3 No [place] 3 Sertraline Sertraline No 1{table QD Sertraline HCl 50 MG HCl 50 MG t} HCl 50 MG lamoTRIgine lamoTRIgine No QD lamoTRIgin 100 MG 100 MG e 100 MG metFORMIN metFORMIN No 1{table BID metFORMIN HCl 500 MG HCl 500 MG t_with_ HCl 500 MG a_meal} Lisinopril Lisinopril No Lisinopril 20 MG 20 MG 20 MG Atomoxetine Atomoxetine No 1{capsu QD Atomoxetin HCl 60 MG HCl 60 MG le_in_t e HCl 60 he_morn MG ing} Calcium 500 Calcium 500 No 1{table BID Calcium MG MG t_with_ 500 MG meals} Lisinopril Lisinopril No 1{table QD Lisinopril 10 MG 10 MG t} 10 MG Naproxen Naproxen No Naproxen Acetaminoph Acetaminoph No Acetaminop en en hen Multivitami Multivitami No Multivitam n n in metFORMIN metFORMIN No metFORMIN HCl 500 MG HCl 500 MG HCl 500 MG Atorvastati Atorvastati No 1{table QD Atorvastat n Calcium n Calcium t} in Calcium 10 MG 10 MG 10 MG Vitamin D3 Vitamin D3 No Vitamin D3 Acetaminoph Acetaminoph No Acetaminop en en hen Kori Kori No Kori Atorvastati Atorvastati No Atorvastat n Calcium n Calcium in Calcium 10 MG 10 MG 10 MG buPROPion buPROPion No 1{table QD buPROPion HCl ER (XL) HCl ER (XL) t_in_th HCl ER 300 MG 300 MG e_morni (XL) 300 ng} MG Vitamin C Vitamin C No Vitamin C 500 MG 500 MG 500 MG [place]-3-aci [place]-3-aci No 2{capsu BID [place]-3-ac d Ethyl d Ethyl les} id Ethyl Esters 1 GM Esters 1 GM Esters 1 GM [place] 3 [place] 3 No [place] 3 metFORMIN metFORMIN No metFORMIN HCl 500 MG HCl 500 MG HCl 500 MG Lisinopril Lisinopril No 1{table QD Lisinopril 10 MG 10 MG t} 10 MG Atorvastati Atorvastati No Atorvastat n Calcium n Calcium in Calcium 10 MG 10 MG 10 MG Vitamin D3 Vitamin D3 No Vitamin D3 metFORMIN metFORMIN No 1{table BID metFORMIN HCl 500 MG HCl 500 MG t_with_ HCl 500 MG a_meal} Lisinopril Lisinopril No Lisinopril 20 MG 20 MG 20 MG lamoTRIgine lamoTRIgine No QD lamoTRIgin 100 MG 100 MG e 100 MG Multivitami Multivitami No Multivitam n n in [place]-3-aci [place]-3-aci No 2{capsu BID [place]-3-ac d Ethyl d Ethyl les} id Ethyl Esters 1 GM Esters 1 GM Esters 1 GM buPROPion buPROPion No 1{table QD buPROPion HCl ER (XL) HCl ER (XL) t_in_th HCl ER 300 MG 300 MG e_morni (XL) 300 ng} MG Atorvastati Atorvastati No 1{table QD Atorvastat n Calcium n Calcium t} in Calcium 10 MG 10 MG 10 MG Sertraline Sertraline No 1{table QD Sertraline HCl 50 MG HCl 50 MG t} HCl 50 MG Calcium 500 Calcium 500 No 1{table BID Calcium MG MG t_with_ 500 MG meals} Acetaminoph Acetaminoph No Acetaminop en en hen Acetaminoph Acetaminoph No Acetaminop en en hen Kori Kori No Kori Atomoxetine Atomoxetine No 1{capsu QD Atomoxetin HCl 60 MG HCl 60 MG le_in_t e HCl 60 he_morn MG ing} Vitamin C Vitamin C No Vitamin C 500 MG 500 MG 500 MG Naproxen Naproxen No Naproxen [place] 3 [place] 3 No [place] 3 Immunizations Ordered Immunization Filled Immunization Date Status Commen ts Source Name Name Afluria Afluria 2021-04-08 [facility] Afluria Afluria 2021-04-08 [facility] Afluria Afluria 2021-04-08 [facility]00 [facility] Afluria Afluria 2021-04-08 [facility]00 [facility] Afluria Afluria 2021-04-08 [facility] 10:38[facility]00 [facility] Afluria Afluria 2021-04-08 [facility] 10:38:00 [facility] Afluria Afluria 2021-04-08 [facility]pleted [facility] 10:38:00 [facility] Afluria Afluria 2021-04-08 [facility]pleted [facility] 10:38:00 [facility] Afluria Afluria 2021-04-08 Completed [facility] 10:38:00 [facility] Afluria Afluria 2021-04-08 Com[facility]38:[facility] Afluria Afluria 2021-04-08 Com[facility] Afluria Afluria 2021-04-08 Completed [facility] 10:38:00 - [facility] Shingrix Shingrix 2020-06-07 Completed [facility] 11:13:[facility] - [facility] Shingrix Shingrix 2020-06-07 Completed [facility]:13:[facility] Shingrix Shingrix 2020-06-07 Com[facility]:13:[facility] Shingrix Shingrix 2020-06-07 Com[facility]:13:[facility] - [facility] Shingrix Shingrix 2020-06-07 Completed [facility]:13:[facility] Shingrix Shingrix 2020-06-07 Com[facility]:13:[facility] - [facility] Shingrix Shingrix 2020-06-07 Com[facility]:13:[facility] Shingrix Shingrix 2020-06-07 Com[facility]:13:[facility] Shingrix Shingrix 2020-06-07 Completed [facility]:13:[facility] Shingrix Shingrix 2020-06-07 Com[facility]:13:[facility] - [facility] Shingrix Shingrix 2020-06-07 Completed [facility]:13:00 - [facility] Shingrix Shingrix 2020-06-07 Completed [facility]:13:[facility] - [facility] Shingrix Shingrix 2020-06-07 Com[facility]:13:[facility] - [facility] Shingrix Shingrix 2020-06-07 Completed [facility]:13:00 - [facility] Prevnar 13 (PCV13) Prevnar 13 (PCV13) 2020-06-07 Completed [facility]:12:[facility] - [facility] Prevnar 13 (PCV13) Prevnar 13 (PCV13) 2020-06-07 Completed [facility]:12:[facility] Prevnar 13 (PCV13) Prevnar 13 (PCV13) 2020-06-07 Completed [facility]:12:00 - [facility] Prevnar 13 (PCV13) Prevnar 13 (PCV13) 2020-06-07 Completed [facility] 11:12:00 - [facility] Prevnar 13 (PCV13) Prevnar 13 (PCV13) 2020-06-07 [facility]pleted [facility] 11:12:00 - [facility] Prevnar 13 (PCV13) Prevnar 13 (PCV13) 2020-06-07 Completed [facility]:12:00 - [facility] Prevnar 13 (PCV13) Prevnar 13 (PCV13) 2020-06-07 Completed [facility] 11:12:00 - [facility] Prevnar 13 (PCV13) Prevnar 13 (PCV13) 2020-06-07 Completed [facility] 11:12:00 - [facility] Prevnar 13 (PCV13) Prevnar 13 (PCV13) 2020-06-07 Completed [facility] 11:12:00 - [facility] Prevnar 13 (PCV13) Prevnar 13 (PCV13) 2020-06-07 Completed [facility] 11:12:00 - [facility] Prevnar 13 (PCV13) Prevnar 13 (PCV13) 2020-06-07 Completed [facility] 11:12:00 - [facility] Prevnar 13 (PCV13) Prevnar 13 (PCV13) 2020-06-07 Completed [facility] 11:12:00 - [facility] Prevnar 13 (PCV13) Prevnar 13 (PCV13) 2020-06-07 Completed [facility] 11:12:00 - [facility] Prevnar 13 (PCV13) Prevnar 13 (PCV13) 2020-06-07 Completed [facility] 11:12:00 - [facility] Afluria single dose Afluria single dose 2020-04-07 Completed [facility] 11:12:00 - [facility] Afluria single dose Afluria single dose 2020-04-07 Completed [facility] 11:12:00 - [facility] Afluria single dose Afluria single dose 2020-04-07 Completed [facility] 11:12:00 - [facility] Afluria single dose Afluria single dose 2020-04-07 Completed [facility] 11:12:00 [facility] Afluria single dose Afluria single dose 2020-04-07 Completed [facility] 11:12:00 [facility] Afluria single dose Afluria single dose 2020-04-07 Completed [facility] 11:12:00 [facility] Afluria single dose Afluria single dose 2020-04-07 Completed [facility] 11:12:00 [facility] Afluria single dose Afluria single dose 2020-04-07 Completed [facility] 11:12:00 [facility] Afluria single dose Afluria single dose 2020-04-07 Completed [facility] 11:12:00 [facility] Afluria single dose Afluria single dose 2020-04-07 Completed [facility] 11:12:00 [facility] Afluria single dose Afluria single dose 2020-04-07 Completed [facility] 11:12:00 [facility] Afluria single dose Afluria single dose 2020-04-07 Completed [facility] 11:12:00 [facility] Afluria single dose Afluria single dose 2020-04-07 Completed [facility] 11:12:00 [facility] Afluria single dose Afluria single dose 2020-04-07 Completed [facility] 11:12:00 [facility] Vital Signs Vital Name Observation Time Observation Value Comments Source height 2022-07-08 09:40:00 64 [in_i] [facility] weight 2022-07-08 09:40:00 297.8 [lb_av] [facility] temperature 2022-07-08 09:40:00 96.6 [degF] [facility] bmi 2022-07-08 09:40:00 51.11 kg/m2 [facility] oximetry 2022-07-08 09:40:00 99 % [facility] respiratory rate 2022-07-08 09:40:00 18 /min Comm on [facility] blood pressure 2022-07-08 09:40:00 124 mm[Hg] [facility] blood pressure 2022-07-08 09:40:00 77 mm[Hg] [facility] - diastolic [facility] height 2022-03-04 15:50:00 64 [in_i] [facility] weight 2022-03-04 15:50:00 285.6 [lb_av] [facility] temperature 2022-03-04 15:50:00 96.4 [degF] [facility] bmi 2022-03-04 15:50:00 49.02 kg/m2 [facility] oximetry 2022-03-04 15:50:00 96 % [facility] respiratory rate 2022-03-04 15:50:00 17 /min Comm on [facility] blood pressure 2022-03-04 15:50:00 138 mm[Hg] [facility] - systolic [facility] blood pressure 2022-03-04 15:50:00 71 mm[Hg] [facility] - diastolic [facility] height 2021-11-05 08:30:00 64 [in_i] [facility] weight 2021-11-05 08:30:00 294.2 [lb_av] [facility] temperature 2021-11-05 08:30:00 98.1 [degF] [facility] bmi 2021-11-05 08:30:00 50.49 kg/m2 [facility] oximetry 2021-11-05 08:30:00 97 % [facility] respiratory rate 2021-11-05 08:30:00 17 /min Comm on [facility] blood pressure 2021-11-05 08:30:00 133 mm[Hg] [facility] - systolic [facility] blood pressure 2021-11-05 08:30:00 68 mm[Hg] [facility] - diastolic [facility] height 2021-08-07 08:30:00 64 [in_i] [facility] weight 2021-08-07 08:30:00 298.8 [lb_av] [facility] temperature 2021-08-07 08:30:00 97.7 [degF] [facility] bmi 2021-08-07 08:30:00 51.28 kg/m2 [facility] oximetry 2021-08-07 08:30:00 94 % [facility] respiratory rate 2021-08-07 08:30:00 16 /min Comm on [facility] blood pressure 2021-08-07 08:30:00 135 mm[Hg] [facility] - systolic [facility] blood pressure 2021-08-07 08:30:00 67 mm[Hg] [facility] diastolic [facility] height 2021-05-06 10:30:00 64 [in_i] [facility] weight 2021-05-06 10:30:00 293.0 [lb_av] [facility] temperature 2021-05-06 10:30:00 98.2 [degF] [facility] bmi 2021-05-06 10:30:00 50.29 kg/m2 [facility] oximetry 2021-05-06 10:30:00 96 % [facility] respiratory rate 2021-05-06 10:30:00 18 /min Comm on [facility] blood pressure 2021-05-06 10:30:00 136 mm[Hg] [facility] systolic [facility] blood pressure 2021-05-06 10:30:00 76 mm[Hg] [facility] diastolic [facility] Procedures This patient has no known procedures. Encounters Start End Encounter Admission Attending Care Care Encounter Source Date/Time Date/Time Type Type Clinicians Facility Department ID 2022-07-04 Outpatient Sandoval, [facility] [id number] [facility] 10:20:01 [facility] [id number] [facility] 2021-11-18 Outpatient Sandoval, STLMLC ST[facility]C [id number] [facility] 14:16:[id number] [facility] 2021-07-03 Outpatient Sandoval, STLMLC STLMLC [id number] [facility] 13:30:[id number] [facility] 2021-07-03 Outpatient Sandoval, STLMLC STLMLC [id number] [facility] 12:41:[id number] [facility] 2022-07-08 2022-07-08 OFFICE STLMLC STLMLC [id number] [facility] 00:00:00 00:00:00 VISIT [facility] PT - CHI LEVEL 4 [facility] 2022-03-04 2022-03-04 OFFICE STLMLC STLMLC [id number] Co m[facility] 00:00:00 00:00:00 VISIT [facility] PT - CHI LEVEL 4 [facility] 2022-01-23 2022-01-23 (WEB) STLMLC STLMLC [id number] [facility] 00:00:00 00:00:00 [facility] 2021-12-15 2021-12-15 (WEB) STLMLC STLMLC [id number] [facility] 00:00:00 00:00:00 [facility] 2021-12-15 2021-12-15 (WEB) STLMLC STLMLC [id number] [facility] 00:00:00 00:00:00 [facility] 2021-11-22 2021-11-22 (WEB) STLMLC STLMLC [id number] [facility] 00:00:00 00:00:00 [facility] 2021-11-15 2021-11-15 (TEL) STLMLC STLMLC [id number] [facility] 00:00:00 00:00:00 [facility] 2021-11-05 2021-11-05 PREV VISIT STLMLC STLMLC [id number] [facility] 00:00:00 00:00:00 EST AGE [facility] [id number] [facility] 2021-08-25 2021-08-25 (WEB) STLMLC ST[facility]C [id number] [facility] 00:00:00 00:00:00 [facility] 2021-08-07 2021-08-07 OFFICE STLMLC STLMLC [id number] [facility] 00:00:00 00:00:00 VISIT [facility] PT - CHI LEVEL 4 [facility] 2021-05-06 2021-05-06 OFFICE STLMLC STLMLC [id number] [facility] 00:00:00 00:00:00 VISIT [facility] PT - CHI LEVEL 4 [facility] 2021-04-17 2021-04-17 (WEB) STLMLC STLMLC [id number] [facility] 00:00:00 00:00:00 [facility] 2021-04-17 2021-04-17 (WEB) STLMLC ST[facility]C [id number] [facility] 00:00:00 00:00:00 [facility] 2021-02-27 2021-02-27 Outpatient [facility]C ST[facility]C [id number] [facility] 00:00:00 00:00:00 [facility] 2021-02-22 2021-02-22 Outpatient STLMLC ST[facility]C [id number] [facility] 00:00:00 00:00:00 [facility] 2021-01-22 2021-01-22 Outpatient [facility]C ST[facility] [id number] [facility] 00:00:00 00:00:00 [facility] 2021-01-15 2021-01-15 Outpatient [facility]C [facility]C [id number] [facility] 00:00:00 00:00:00 [facility] 2021-01-09 2021-01-09 Outpatient [facility]LMLC ST[facility]C [id number] [facility] 00:00:00 00:00:00 [facility] 2020-12-31 2020-12-31 Outpatient STLMLC ST[facility]C [id number] [facility] 00:00:00 00:00:00 [facility] 2020-12-31 2020-12-31 Outpatient STLMLC ST[facility]C [id number] [facility] 00:00:00 00:00:00 [facility] 2020-11-30 2020-11-30 Outpatient STLMLC ST[facility]C [id number] [facility] 00:00:00 00:00:00 [facility] 2020-10-19 2020-10-19 Outpatient [facility]LMLC ST[facility]C [id number] [facility] 00:00:00 00:00:00 [facility] 2020-10-19 2020-10-19 Outpatient STLMLC STL[facility]C [id number] [facility] 00:00:00 00:00:00 [facility] 2020-08-22 2020-08-22 Outpatient STLMLC STLMLC [id number] [facility] 00:00:00 00:00:00 [facility] Results This patient has no known results.
[2022-10-16 11:43] LABS: Absolute Lymphocytes (CBC) 2.4 K/uL (0.7-4.9); Lymphocytes % 26.7 % (15.3-44.8); MPV 8.1 fL (7.6-11.3); RBC Red Blood Cell Count 4.22 M/uL (3.86-4.86)
[2022-10-16 12:04] LABS: Albumin 3.4 g/dL (3.4-5.0); Bilirubin Total 0.1 mg/dL (0.2-1.0); Potassium 3.9 mEq/L (3.5-5.1); Protein, Total 7.1 g/dL (6.4-8.2); Troponin High Sensitivity 6.4 pg/mL (<58.9)
--- NOTE | 2022-10-16 12:13 | RAD REPORT ---
EXAM DESCRIPTION: MARIA LChest Single View10/16/2022 12:03 pm CLINICAL HISTORY: edema COMPARISON: Chest Single View dated 01/08/2021; Chest Single View dated 01/05/2021; Chest Pa And Lat (2 Views) dated 12/31/2020 TECHNIQUE: Portable AP view of the chest. FINDINGS: The lungs are clear, with near complete resolution of bilateral patchy opacities. No pneum othorax or effusion. The cardiomediastinal contours are unremarkable. IMPRESSION: No acute cardiopulmonary process.
--- NOTE | 2022-10-16 12:34 | ER ---
Nurse's Notes [facility] Name: Bette Soto Age: 62 yrs Sex: Female : 1960 Arrival Date: 10/16/2022 Time: 11:01 Bed 12 Private MD: Diagnosis: Lymphedema, not elsewhere classified Presentation: 10/16 11:17 Chief complaint: Patient states: he has swelling and blisters on her legs X 4 weeks. iw Coronavirus screen: At this time, the client does not indicate any symptoms associated with coronavirus-19. Ebola Screen: Patient negative for fever greater than or equal to 101.5 degrees Fahrenheit, and additional compatible Ebola Virus Disease symptoms Patient denies exposure to infectious person. Patient denies travel to an Ebola-affected area in the 21 days before illness onset. No symptoms or risks identified at this time. Initial Sepsis Screen: Does the patient meet any 2 criteria? No. Patient's initial sepsis screen is negative. Does the patient have a suspected source of infection? No. Patient's initial sepsis screen is negative. Risk Assessment: Do you want to hurt yourself or someone else? Patient reports no desire to harm self or others. Onset of symptoms was August 2022. 11:17 Method Of Arrival: Ambulatory iw 11:17 Acuity: JOYCE 3 iw Historical: - Allergies: 11:20 No Known Allergies; iw - PMHx: 11:18 adhd; Anxiety; Bipolar disorder; depressive disorder; NDDM; iw - PSHx: 11:18 section; tubal ligation; iw - Family history:: not pertinent. Screenin:41 [facility] ED Fall Risk Assessment (Adult) History of falling in the last 3 months, iw including since admission. Abuse screen: Denies threats or abuse. Denies injuries from another. Nutritional screening: No deficits noted. Tuberculosis screening: No symptoms or risk factors identified. Assessment: 11:40 General: Appears in no apparent distress. Behavior is calm, cooperative. Pain: Denies iw pain. Neuro: Level of Consciousness is awake, alert, obeys commands, Oriented to person, place, time, situation, Moves all extremities. Full function. Cardiovascular: Derm:. Musculoskeletal: Range of motion: intact in all extremities, Swelling present in right leg and left leg. 12:30 Visitor restriction implemented due to in-person visitations may lead to the iw transmission of an infectious agent. Restricted visitation is valid for not more than 5 days unless renewed by the attending provider. Reassessment: Patient appears in no apparent distress at this time. Patient and/or family updated on plan of care and expected duration. Pain level reassessed. Patient is alert, oriented x 3, equal unlabored respirations, skin warm/dry/pink. Vital Signs: 11:17 BP 141 / 80; Pulse 96; Resp 18; Temp 97.5; Pulse Ox 98% on R/A; iw ED Course: 11:05 Patient arrived in ED. mr 11:06 Curtis Mathew MD is Attending Physician. rt 11:18 Triage completed. iw 11:19 Arm band placed on. iw 11:40 Galina Gonzales RN is Primary Nurse. iw 11:43 Initial lab(s) drawn, by me. Inserted saline lock: 20 gauge in right antecubital area, iw using aseptic technique. Blood collected. 12:04 Chest Single View XRAY In Process Unspecified. EDMS 12:30 Patient has correct armband on for positive identification. iw 12:54 No provider procedures requiring assistance completed. IV discontinued, intact, iw bleeding controlled, No redness/swelling at site. Pressure dressing applied. Administered Medications: No medications were administered Medication: 11:41 VIS not applicable for this client. iw Outcome: 12:33 Discharge ordered by . rt 12:54 Discharged to home ambulatory. iw 12:54 Condition: good 12:54 Discharge instructions given to patient, Instructed on discharge instructions, follow up and referral plans. medication usage, Demonstrated understanding of instructions, follow-up care, medications, Prescriptions given X 1. 12:54 Patient left the ED. iw Signatures: Dispatcher [employer] [facility] Sandy Barnett mr Galina Gonzales, RN RN iw Curtis Mathew MD MD rt
--- NOTE | 2022-10-16 12:34 | EDPHYS ---
Physician Documentation [facility] Name: Bette Soto Age: 62 yrs Sex: Female : 1960 Arrival Date: 10/16/2022 Time: 11:01 Bed 12 Private MD: ED Physician Curtis Mathew HPI: 10/16 12:04 This 62 yrs old Female presents to ER via Ambulatory with complaints of Leg Swelling. rt 12:04 Presents to the ED with 4 weeks of symmetric bilateral lower extremity edema with some rt fluid blistering. She denies any chest pain, shortness of breath. She is not currently taking any diuretics. She denies other symptoms at this time. States that her PCP did treat her for cellulitis and that some of the redness has improved. Denies any fever, chills, other acute complaints. Symptoms are moderate in severity, no other aggravating or alleviating factors.. Historical: - Allergies: 11:20 No Known Allergies; iw - PMHx: 11:18 adhd; Anxiety; Bipolar disorder; depressive disorder; NDDM; iw - PSHx: 11:18 section; tubal ligation; iw - Family history:: not pertinent. ROS: 12:04 Constitutional: Negative for fever, chills, and weight loss, Respiratory: Negative for rt shortness of breath, cough, wheezing, and pleuritic chest pain, Abdomen/GI: Negative for abdominal pain, nausea, vomiting, diarrhea, and constipation, Skin: Negative for injury, rash, and discoloration, Neuro: Negative for headache, weakness, numbness, tingling, and seizure, Psych: Negative for depression, anxiety, suicide ideation, homicidal ideation, and hallucinations. 12:04 Cardiovascular: Positive for edema, Negative for chest pain. 12:04 MS/extremity: Positive for swelling, Negative for injury or acute deformity. Exam: 12:04 Constitutional: This is a well developed, well nourished patient who is awake, alert, rt and in no acute distress. Chest/axilla: Normal chest wall appearance and motion. Nontender with no deformity. No lesions are appreciated. Cardiovascular: Regular rate and rhythm with a normal S1 and S2. No gallops, murmurs, or rubs. Normal PMI, no JVD. No pulse deficits. Respiratory: Lungs have equal breath sounds bilaterally, clear to auscultation and percussion. No rales, rhonchi or wheezes noted. No increased work of breathing, no retractions or nasal flaring. Abdomen/GI: Soft, non-tender, with normal bowel sounds. No distension or tympany. No guarding or rebound. No evidence of tenderness throughout. Neuro: Awake and alert, GCS 15, oriented to person, place, time, and situation. Cranial nerves II-XII grossly intact. Motor strength 5/5 in all extremities. Sensory grossly intact. Cerebellar exam normal. Normal gait. Psych: Awake, alert, with orientation to person, place and time. Behavior, mood, and affect are within normal limits. 12:04 ECG was reviewed by the Attending Physician. 12:04 Musculoskeletal/extremity: 3+ pitting bilateral lower extremity edema with no skin changes consistent with a cellulitis, pulses, motor, sensation intact, no tenderness.. Vital Signs: 11:17 BP 141 / 80; Pulse 96; Resp 18; Temp 97.5; Pulse Ox 98% on R/A; iw MDM: 11:22 Patient medically screened. rt 13:24 Differential Diagnosis CHF, DVT, lymphedema. Data reviewed: vital signs, lab test rt result(s), EKG, radiologic studies. Consideration of Admission/Observation Escalation of care including admission/observation considered. Independent interpretation of the following test(s) in the Emergency Department X-Ray: My interpretation is No edema seen on my interpretation of the chest x-ray images. Test considered but Not performed: Ultrasound Swelling is bilateral, symmetric, not consistent with DVT, ultrasound not indicated. Care significantly affected by the following chronic conditions: Diabetes. Counseling: I had a detailed discussion with the patient and/or guardian regarding: the historical points, exam findings, and any diagnostic results supporting the discharge/admit diagnosis, lab results, radiology results, the need for outpatient follow up. 10/16 11:23 Order name: CBC with Diff; Complete Time: 12:09 rt 10/16 11:23 Order name: CMP; Complete Time: 12:09 rt 10/16 11:23 Order name: Troponin High Sensitivity; Complete Time: 12:09 rt 10/16 11:23 Order name: BNP; Complete Time: 12:09 rt 10/16 11:23 Order name: Chest Single View XRAY; Complete Time: 12:15 rt 10/16 11:23 Order name: EKG; Complete Time: 24 rt 10/16 11:23 Order name: EKG - Nurse/Tech; Complete Time: 11:45 rt EC:04 Rate is 88 beats/min. Rhythm is regular, Normal Sinus Rhythm with No ectopy. Left axis rt deviation noted. SD interval is normal. QRS interval is normal. QT interval is normal. No Q waves. Clinical impression: NSR w/ Non-specific ST/T Changes. Interpreted by me. Administered Medications: No medications were administered Disposition Summary: 10/16/22 12:33 Discharge Ordered Location: Home rt Problem: new rt Symptoms: are unchanged rt Condition: Stable rt Diagnosis - Lymphedema, not elsewhere classified rt Followup: rt - With: Private Physician - When: 5 - 6 days - Reason: Discharge Instructions: - Discharge Summary Sheet rt - Lymphedema rt Forms: - Medication Reconciliation Form rt - Thank You Letter rt - Antibiotic Education rt - Prescription Opioid Use rt Prescriptions: - Lasix 40 mg Oral Tablet - take 1 tablet by ORAL route once daily for 7 days; 7 tablet; Refills: 0, rt Product Selection Permitted Signatures: Dispatcher [employer] Galina Ochoa, Curtis Pérez RN, MD MD rt
[2022-10-16 13:33] VITALS: BP 141/80; TEMP 97.5; O2SAT 98
--- NOTE | 2022-10-17 05:35 | EKG ---
Test Date: 2022-10-16 Test Time: 11:53:18 Child And Adolescent Psychologist: HONG MEASUREMENT RESULTS: Intervals: Rate: 88 OK: 142 QRSD: 90 QT: 368 QTc: 445 [place]: P: 57 OK: 142 QRS: -32 T: 34 INTERPRETIVE STATEMENTS: Normal sinus rhythm Left axis deviation Low voltage QRS Inferior infarct, age undetermined Cannot rule out Anterior infarct, age undetermined Abnormal ECG Compared to ECG 12/31/2020 18:36:12 Left-axis deviation now present Low QRS voltage now present Myocardial infarct finding still present Electronically Signed On 10-17-22 05:33:07 CDT by Lonnie Cordova
--- NOTE | 2022-10-21 07:51 | EKG ---
Test Date: 2022-10-16 Test Time: 11:53:48 [employer] Operator: HONG MEASUREMENT RESULTS: Intervals: Rate: 89 NH: 146 QRSD: 96 QT: 374 QTc: 455 [place]: P: 54 NH: 146 QRS: -32 T: 36 INTERPRETIVE STATEMENTS: Normal sinus rhythm Left axis deviation Low voltage QRS Inferior infarct, age undetermined Cannot rule out Anterior infarct, age undetermined Abnormal ECG Electronically Signed On 10-21-22 07:46:37 CDT by Lonnie Cordova
== END 2022-10-16 12:54 | disposition home or self-care (01) ==
LOC: ER 11:01
DX: I89.0 Lymphedema, not elsewhere classified (principal)
CPT/HCPCS: 36415; 71045; 80053; 83880; 84484; 85025; 93005; 99284

== ENCOUNTER 2023-05-02 08:48 | Inpatient (IN) | payer OTHER ==
--- OUTSIDE RECORDS SUMMARY | 2023-05-02 08:53 | XMS REPORT | Continuity of Care Document ---
:1960 Author Organization [facility] t Address [address] [facility] [address] [place] [id number] Care Team Providers Name Role Phone Alpesh Sandoval Attending Clinician Unavailable [email or web address] Attending Clinician Unavailable [email or web address] Admitting Clinician Unavailable Payers Payer Name Policy Type Policy Number Effective Date Expiration Date S monroe MONTIEL - [id number] AMBETTER FROM [facility] (EPO) Ambetter from [id number] 2020 [facility] 00:00:00 [facility] Ambetter from [id number] [facility] 00:00:00 [facility] Ambetter from [id number] 2020 [facility] 00:00:00 [facility] Problems Condition Condition Condition Status Onset Resolution Last Treating Co mments Source Name Details Category Date Date Treatment Clinician Date [id number] Metabolic Problem Com mon syndrome [facility] [id number] Hypercalce Problem Com mon chelo [facility] [id number] Edema of Problem Comm on lower [facility] extremity [facility] [id number] Cellulitis Problem Co mmon of lower [facility] leg [facility] [id number] Sleep Problem Common apnea in [facility] adult [facility] [id number] Current Problem Common moderate Spirit episode of - [facility] major depressive [facility] disorder [facility] without [facility] prior episode [id number] Attention Problem Comm on deficit Spirit hyperactiv - [facility]I ity disorder 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 [id number] Essential Problem Comm on hypertensi Spirit on - CHI [facility] [id number] Non-season Problem Com mon al [id number] Body mass Problem Com mon index Spirit [BMI] - [facility]I 50.0-59.9, [facility] [id number] Right Problem Commo n [id number] adrenal Spirit mass - [facility] [id number] Type 2 Problem Common diabetes Spirit mellitus - [facility] with [facility] kidney Center disease Allergies, Adverse Reactions, Alerts This patient has no known allergies or adverse reactions. Social History Social Habit Start Date Stop Date Quantity Comments Source History of Tobacco Use Co mmon [facility] Sex Assigned At Com mon [facility] Smoking Status Start Date Stop Date Source Former Smoker 2023-04-23 00:00:00 2023-04-23 00:00:00 [facility] - [facility] Medications Ordered Filled Start Stop Current Ordering Indication Dosage Frequency Signature Comments Components Source Medication Medication Date Date Medication? Clinician (SIG) Name Name Ozempic Ozempic No Ozempic 0.25 or 0.5 0.25 or 0.5 8-23 0.25 or MG/DOSE MG/DOSE 00:00: 0.5 00 MG/DOSE Ozempic Ozempic 2022-0 No Ozempic 0.25 or 0.5 0.25 or 0.5 8-23 0.25 or MG/DOSE MG/DOSE 00:00: 0.5 00 MG/DOSE Ozempic Ozempic 2022-0 No Ozempic 0.25 or 0.5 0.25 or 0.5 8-23 0.25 or MG/DOSE MG/DOSE 00:00: 0.5 00 MG/DOSE Ozempic Ozempic 2022-0 No Ozempic 0.25 or 0.5 0.25 or 0.5 8-23 0.25 or MG/DOSE MG/DOSE 00:00: 0.5 00 MG/DOSE Ozempic Ozempic 2022-0 No Ozempic 0.25 or 0.5 0.25 or 0.5 8-23 0.25 or MG/DOSE MG/DOSE 00:00: 0.5 00 MG/DOSE Ozempic Ozempic 2022-0 No Ozempic 0.25 or 0.5 0.25 or 0.5 8-23 0.25 or MG/DOSE MG/DOSE 00:00: 0.5 00 MG/DOSE Ozempic Ozempic 2022-0 No Ozempic 0.25 or 0.5 0.25 or 0.5 8-23 0.25 or MG/DOSE MG/DOSE 00:00: 0.5 00 MG/DOSE Ozempic Ozempic 2022-0 No Ozempic 0.25 or 0.5 0.25 or 0.5 8-23 0.25 or MG/DOSE MG/DOSE 00:00: 0.5 00 MG/DOSE Furosemide Furosemide 2022-0 No 1{table QD Furosemide 40 MG 40 MG 08-12 t} 40 MG 00:00: 00 Furosemide Furosemide 2022-0 No 1{table QD Furosemide 40 MG 40 MG 08-12 t} 40 MG 00:00: 00 Furosemide Furosemide 2022-0 No 1{table QD Furosemide 40 MG 40 MG 3-07 t} 40 MG 00:00: 00 Furosemide Furosemide 2022-0 No 1{table QD Furosemide 40 MG 40 MG 08-12 t} 40 MG 00:00: 00 Furosemide Furosemide 2022-0 No 1{table QD Furosemide 40 MG 40 MG 3-07 t} 40 MG 00:00: 00 Furosemide Furosemide 2022-0 No 1{table QD Furosemide 40 MG 40 MG 08-12 t} 40 MG 00:00: 00 Furosemide Furosemide 2022-0 No 1{table QD Furosemide 40 MG 40 MG 08-12 t} 40 MG 00:00: 00 Furosemide Furosemide 2022-0 No 1{table QD Furosemide 40 MG 40 MG 08-12 t} 40 MG 00:00: 00 Lisinopril Lisinopril 2021-0 No 1{table QD Lisinopril 20 MG 20 MG 17 t} 20 MG 00:00: 00 Atorvastati Atorvastati [...] No 1{table BID MG MG t_with_ meals} Winslow-3-aci Winslow-3-aci No d Ethyl d Ethyl Esters 1 [...] 100 MG Acetaminoph Acetaminoph No en en Winslow 3 Winslow 3 No Atorvastati Atorvastati No 1{table QD [...] Calcium MG MG t_with_ 500 MG meals} Winslow-3-aci Winslow-3-aci No Winslow-3-ac d Ethyl d Ethyl id Ethyl Esters [...] Acetaminoph Acetaminoph No Acetaminop en en hen Winslow 3 Winslow 3 No Winslow 3 Calcium 500 Calcium 500 No 1{table BID Calcium MG MG t_with_ 500 MG meals} Acetaminoph Acetaminoph No Acetaminop en en hen Winslow-3-aci Winslow-3-aci No Winslow-3-ac d Ethyl d Ethyl id Ethyl Esters [...] Lisinopril 20 MG 20 MG 20 MG Winslow 3 Winslow 3 No Winslow 3 Vitamin D3 Vitamin D3 No Vitamin D3 Vitamin C Vitamin C No Vitamin C 500 MG 500 MG 500 MG Calcium 500 Calcium 500 No 1{table BID Calcium MG MG t_with_ 500 MG meals} metFORMIN metFORMIN No 1{table BID metFORMIN HCl 500 MG HCl 500 MG t_with_ HCl 500 MG a_meal} Winslow-3-aci Winslow-3-aci No Winslow-3-ac d Ethyl d Ethyl id Ethyl Esters 1 GM Esters 1 GM Esters 1 GM Naproxen Naproxen No Naproxen Winslow 3 Winslow 3 No Winslow 3 lamoTRIgine lamoTRIgine No QD lamoTRIgin 100 [...] Acetaminoph Acetaminoph No Acetaminop en en hen Winslow 3 Winslow 3 No Winslow 3 Calcium 500 Calcium 500 No 1{table BID Calcium MG MG t_with_ 500 MG meals} Winslow-3-aci Winslow-3-aci No Winslow-3-ac d Ethyl d Ethyl id Ethyl Esters [...] C 500 MG 500 MG 500 MG Winslow 3 Winslow 3 No Winslow 3 Vitamin D3 Vitamin D3 No Vitamin [...] Calcium 10 MG 10 MG 10 MG Winslow-3-aci Winslow-3-aci No Winslow-3-ac d Ethyl d Ethyl id Ethyl Esters [...] C 500 MG 500 MG 500 MG Winslow 3 Winslow 3 No Winslow 3 Vitamin D3 Vitamin D3 No Vitamin [...] Calcium 10 MG 10 MG 10 MG Winslow-3-aci Winslow-3-aci No Winslow-3-ac d Ethyl d Ethyl id Ethyl Esters 1 GM Esters 1 GM Esters 1 GM metFORMIN metFORMIN No metFORMIN HCl 500 MG HCl 500 MG HCl 500 MG lamoTRIgine lamoTRIgine No QD lamoTRIgin 100 MG 100 MG e 100 MG Atorvastati Atorvastati No 1{table QD Atorvastat n Calcium n Calcium t} in Calcium 10 MG 10 MG 10 MG Naproxen Naproxen No Naproxen Winslow 3 Winslow 3 No Winslow 3 buPROPion buPROPion No 1{table QD buPROPion [...] Calcium 10 MG 10 MG 10 MG Winslow-3-aci Winslow-3-aci No Winslow-3-ac d Ethyl d Ethyl id Ethyl Esters 1 GM Esters 1 GM Esters 1 GM lamoTRIgine lamoTRIgine No QD lamoTRIgin 100 MG 100 MG e 100 MG Atorvastati Atorvastati No 1{table QD Atorvastat n Calcium n Calcium t} in Calcium 10 MG 10 MG 10 MG Acetaminoph Acetaminoph No Acetaminop en en hen Winslow 3 Winslow 3 No Winslow 3 buPROPion buPROPion No 1{table QD buPROPion [...] Calcium MG MG t_with_ 500 MG meals} Winslow-3-aci Winslow-3-aci No 2{capsu BID Winslow-3-ac d Ethyl d Ethyl les} id Ethyl [...] Acetaminoph Acetaminoph No Acetaminop en en hen Winslow 3 Winslow 3 No Winslow 3 buPROPion buPROPion No 1{table QD buPROPion [...] Calcium MG MG t_with_ 500 MG meals} Winslow-3-aci Winslow-3-aci No 2{capsu BID Winslow-3-ac d Ethyl d Ethyl les} id Ethyl [...] Acetaminoph Acetaminoph No Acetaminop en en hen Winslow 3 Winslow 3 No Winslow 3 buPROPion buPROPion No 1{table QD buPROPion [...] Calcium MG MG t_with_ 500 MG meals} Winslow-3-aci Winslow-3-aci No 2{capsu BID Winslow-3-ac d Ethyl d Ethyl les} id Ethyl [...] Multivitami Multivitami No Multivitam n n in Winslow-3-aci Winslow-3-aci No 2{capsu BID Winslow-3-ac d Ethyl d Ethyl les} id Ethyl [...] MG 500 MG Naproxen Naproxen No Naproxen Winslow 3 Winslow 3 No Winslow 3 Sertraline Sertraline No 1{table QD Sertraline [...] C 500 MG 500 MG 500 MG Winslow-3-aci Winslow-3-aci No 2{capsu BID Winslow-3-ac d Ethyl d Ethyl les} id Ethyl Esters 1 GM Esters 1 GM Esters 1 GM Winslow 3 Winslow 3 No Winslow 3 Winslow 3 Winslow 3 No Winslow 3 Sertraline Sertraline No 1{table QD Sertraline HCl 50 MG HCl 50 MG t} HCl 50 MG Vitamin C Vitamin C No Vitamin C 500 MG 500 MG 500 MG Calcium 500 Calcium 500 No 1{table BID Calcium MG MG t_with_ 500 MG meals} Naproxen Naproxen No 1{table Naproxen 250 MG 250 MG t_with_ 250 MG food_or _milk} metFORMIN metFORMIN No 1{table BID metFORMIN HCl 500 MG HCl 500 MG t_with_ HCl 500 MG a_meal} Acetaminoph Acetaminoph No Acetaminop en en hen Winslow-3-aci Winslow-3-aci No Winslow-3-ac d Ethyl d Ethyl id Ethyl Esters 1 GM Esters 1 GM Esters 1 GM Atorvastati Atorvastati No Atorvastat n Calcium n Calcium in Calcium 10 MG 10 MG 10 MG Lisinopril Lisinopril No 1{table QD Lisinopril 10 MG 10 MG t} 10 MG lamoTRIgine lamoTRIgine No QD lamoTRIgin 100 MG 100 MG e 100 MG Kori Kori No Kori Atomoxetine Atomoxetine No 1{capsu QD Atomoxetin HCl 60 MG HCl 60 MG le_in_t e HCl 60 he_morn MG ing} Multivitami Multivitami No Multivitam n n in Vitamin D3 Vitamin D3 No Vitamin D3 Atorvastati Atorvastati No 1{table QD Atorvastat n Calcium n Calcium t} in Calcium 10 MG 10 MG 10 MG Ketoconazol Ketoconazol No 1{appli BID Ketoconazo e 2 % e 2 % cation_ le 2 % to_affe cted_ar ea} metFORMIN metFORMIN No metFORMIN HCl 500 MG HCl 500 MG HCl 500 MG Acetaminoph Acetaminoph No Acetaminop en en hen Lisinopril Lisinopril No 1{table QD Lisinopril 20 MG 20 MG t} 20 MG Winslow 3 Winslow 3 No Winslow 3 Sertraline Sertraline No 1{table QD Sertraline HCl 50 MG HCl 50 MG t} HCl 50 MG Vitamin C Vitamin C No Vitamin C 500 MG 500 MG 500 MG Calcium 500 Calcium 500 No 1{table BID Calcium MG MG t_with_ 500 MG meals} Naproxen Naproxen No 1{table Naproxen 250 MG 250 MG t_with_ 250 MG food_or _milk} metFORMIN metFORMIN No 1{table BID metFORMIN HCl 500 MG HCl 500 MG t_with_ HCl 500 MG a_meal} Acetaminoph Acetaminoph No Acetaminop en en hen Winslow-3-aci Winslow-3-aci No Winslow-3-ac d Ethyl d Ethyl id Ethyl Esters 1 GM Esters 1 GM Esters 1 GM Atorvastati Atorvastati No Atorvastat n Calcium n Calcium in Calcium 10 MG 10 MG 10 MG Lisinopril Lisinopril No 1{table QD Lisinopril 10 MG 10 MG t} 10 MG lamoTRIgine lamoTRIgine No QD lamoTRIgin 100 MG 100 MG e 100 MG Kori Kori No Kori Atomoxetine Atomoxetine No 1{capsu QD Atomoxetin HCl 60 MG HCl 60 MG le_in_t e HCl 60 he_morn MG ing} Multivitami Multivitami No Multivitam n n in Vitamin D3 Vitamin D3 No Vitamin D3 Atorvastati Atorvastati No 1{table QD Atorvastat n Calcium n Calcium t} in Calcium 10 MG 10 MG 10 MG Ketoconazol Ketoconazol No 1{appli BID Ketoconazo e 2 % e 2 % cation_ le 2 % to_affe cted_ar ea} metFORMIN metFORMIN No metFORMIN HCl 500 MG HCl 500 MG HCl 500 MG Acetaminoph Acetaminoph No Acetaminop en en hen Lisinopril Lisinopril No 1{table QD Lisinopril 20 MG 20 MG t} 20 MG Winslow 3 Winslow 3 No Winslow 3 Sertraline Sertraline No 1{table QD Sertraline HCl 50 MG HCl 50 MG t} HCl 50 MG Vitamin C Vitamin C No Vitamin C 500 MG 500 MG 500 MG Calcium 500 Calcium 500 No 1{table BID Calcium MG MG t_with_ 500 MG meals} Naproxen Naproxen No 1{table Naproxen 250 MG 250 MG t_with_ 250 MG food_or _milk} metFORMIN metFORMIN No 1{table BID metFORMIN HCl 500 MG HCl 500 MG t_with_ HCl 500 MG a_meal} Acetaminoph Acetaminoph No Acetaminop en en hen Winslow-3-aci Winslow-3-aci No Winslow-3-ac d Ethyl d Ethyl id Ethyl Esters 1 GM Esters 1 GM Esters 1 GM Atorvastati Atorvastati No Atorvastat n Calcium n Calcium in Calcium 10 MG 10 MG 10 MG Lisinopril Lisinopril No 1{table QD Lisinopril 10 MG 10 MG t} 10 MG lamoTRIgine lamoTRIgine No QD lamoTRIgin 100 MG 100 MG e 100 MG Kori Kori No Kori Atomoxetine Atomoxetine No 1{capsu QD Atomoxetin HCl 60 MG HCl 60 MG le_in_t e HCl 60 he_morn MG ing} Multivitami Multivitami No Multivitam n n in Vitamin D3 Vitamin D3 No Vitamin D3 Atorvastati Atorvastati No 1{table QD Atorvastat n Calcium n Calcium t} in Calcium 10 MG 10 MG 10 MG Ketoconazol Ketoconazol No 1{appli BID Ketoconazo e 2 % e 2 % cation_ le 2 % to_affe cted_ar ea} metFORMIN metFORMIN No metFORMIN HCl 500 MG HCl 500 MG HCl 500 MG Acetaminoph Acetaminoph No Acetaminop en en hen Lisinopril Lisinopril No 1{table QD Lisinopril 20 MG 20 MG t} 20 MG Winslow 3 Winslow 3 No Winslow 3 Sertraline Sertraline No 1{table QD Sertraline HCl 50 MG HCl 50 MG t} HCl 50 MG Vitamin C Vitamin C No Vitamin C 500 MG 500 MG 500 MG Calcium 500 Calcium 500 No 1{table BID Calcium MG MG t_with_ 500 MG meals} Naproxen Naproxen No 1{table Naproxen 250 MG 250 MG t_with_ 250 MG food_or _milk} metFORMIN metFORMIN No 1{table BID metFORMIN HCl 500 MG HCl 500 MG t_with_ HCl 500 MG a_meal} Acetaminoph Acetaminoph No Acetaminop en en hen Winslow-3-aci Winslow-3-aci No Winslow-3-ac d Ethyl d Ethyl id Ethyl Esters 1 GM Esters 1 GM Esters 1 GM Atorvastati Atorvastati No Atorvastat n Calcium n Calcium in Calcium 10 MG 10 MG 10 MG Lisinopril Lisinopril No 1{table QD Lisinopril 10 MG 10 MG t} 10 MG lamoTRIgine lamoTRIgine No QD lamoTRIgin 100 MG 100 MG e 100 MG Kori Kori No Kori Atomoxetine Atomoxetine No 1{capsu QD Atomoxetin HCl 60 MG HCl 60 MG le_in_t e HCl 60 he_morn MG ing} Multivitami Multivitami No Multivitam n n in Vitamin D3 Vitamin D3 No Vitamin D3 Atorvastati Atorvastati No 1{table QD Atorvastat n Calcium n Calcium t} in Calcium 10 MG 10 MG 10 MG Ketoconazol Ketoconazol No 1{appli BID Ketoconazo e 2 % e 2 % cation_ le 2 % to_affe cted_ar ea} metFORMIN metFORMIN No metFORMIN HCl 500 MG HCl 500 MG HCl 500 MG Acetaminoph Acetaminoph No Acetaminop en en hen Lisinopril Lisinopril No 1{table QD Lisinopril 20 MG 20 MG t} 20 MG Winslow 3 Winslow 3 No Winslow 3 Sertraline Sertraline No 1{table QD Sertraline HCl 50 MG HCl 50 MG t} HCl 50 MG Vitamin C Vitamin C No Vitamin C 500 MG 500 MG 500 MG Calcium 500 Calcium 500 No 1{table BID Calcium MG MG t_with_ 500 MG meals} Naproxen Naproxen No 1{table Naproxen 250 MG 250 MG t_with_ 250 MG food_or _milk} metFORMIN metFORMIN No 1{table BID metFORMIN HCl 500 MG HCl 500 MG t_with_ HCl 500 MG a_meal} Acetaminoph Acetaminoph No Acetaminop en en hen Winslow-3-aci Winslow-3-aci No Winslow-3-ac d Ethyl d Ethyl id Ethyl Esters 1 GM Esters 1 GM Esters 1 GM Atorvastati Atorvastati No Atorvastat n Calcium n Calcium in Calcium 10 MG 10 MG 10 MG Lisinopril Lisinopril No 1{table QD Lisinopril 10 MG 10 MG t} 10 MG lamoTRIgine lamoTRIgine No QD lamoTRIgin 100 MG 100 MG e 100 MG Kori Kori No Kori Atomoxetine Atomoxetine No 1{capsu QD Atomoxetin HCl 60 MG HCl 60 MG le_in_t e HCl 60 he_morn MG ing} Multivitami Multivitami No Multivitam n n in Vitamin D3 Vitamin D3 No Vitamin D3 Atorvastati Atorvastati No 1{table QD Atorvastat n Calcium n Calcium t} in Calcium 10 MG 10 MG 10 MG Ketoconazol Ketoconazol No 1{appli BID Ketoconazo e 2 % e 2 % cation_ le 2 % to_affe cted_ar ea} metFORMIN metFORMIN No metFORMIN HCl 500 MG HCl 500 MG HCl 500 MG Acetaminoph Acetaminoph No Acetaminop en en hen Lisinopril Lisinopril No 1{table QD Lisinopril 20 MG 20 MG t} 20 MG Winslow 3 Winslow 3 No Winslow 3 Sertraline Sertraline No 1{table QD Sertraline HCl 50 MG HCl 50 MG t} HCl 50 MG Vitamin C Vitamin C No Vitamin C 500 MG 500 MG 500 MG Calcium 500 Calcium 500 No 1{table BID Calcium MG MG t_with_ 500 MG meals} Naproxen Naproxen No 1{table Naproxen 250 MG 250 MG t_with_ 250 MG food_or _milk} metFORMIN metFORMIN No 1{table BID metFORMIN HCl 500 MG HCl 500 MG t_with_ HCl 500 MG a_meal} Acetaminoph Acetaminoph No Acetaminop en en hen Winslow-3-aci Winslow-3-aci No Winslow-3-ac d Ethyl d Ethyl id Ethyl Esters 1 GM Esters 1 GM Esters 1 GM Atorvastati Atorvastati No Atorvastat n Calcium n Calcium in Calcium 10 MG 10 MG 10 MG Lisinopril Lisinopril No 1{table QD Lisinopril 10 MG 10 MG t} 10 MG lamoTRIgine lamoTRIgine No QD lamoTRIgin 100 MG 100 MG e 100 MG Kori Kori No Kori Atomoxetine Atomoxetine No 1{capsu QD Atomoxetin HCl 60 MG HCl 60 MG le_in_t e HCl 60 he_morn MG ing} Multivitami Multivitami No Multivitam n n in Vitamin D3 Vitamin D3 No Vitamin D3 Atorvastati Atorvastati No 1{table QD Atorvastat n Calcium n Calcium t} in Calcium 10 MG 10 MG 10 MG Ketoconazol Ketoconazol No 1{appli BID Ketoconazo e 2 % e 2 % cation_ le 2 % to_affe cted_ar ea} metFORMIN metFORMIN No metFORMIN HCl 500 MG HCl 500 MG HCl 500 MG Acetaminoph Acetaminoph No Acetaminop en en hen Lisinopril Lisinopril No 1{table QD Lisinopril 20 MG 20 MG t} 20 MG Winslow 3 Winslow 3 No Winslow 3 Sertraline Sertraline No 1{table QD Sertraline HCl 50 MG HCl 50 MG t} HCl 50 MG Vitamin C Vitamin C No Vitamin C 500 MG 500 MG 500 MG Calcium 500 Calcium 500 No 1{table BID Calcium MG MG t_with_ 500 MG meals} Naproxen Naproxen No 1{table Naproxen 250 MG 250 MG t_with_ 250 MG food_or _milk} metFORMIN metFORMIN No 1{table BID metFORMIN HCl 500 MG HCl 500 MG t_with_ HCl 500 MG a_meal} Acetaminoph Acetaminoph No Acetaminop en en hen Winslow-3-aci Winslow-3-aci No Winslow-3-ac d Ethyl d Ethyl id Ethyl Esters 1 GM Esters 1 GM Esters 1 GM Atorvastati Atorvastati No Atorvastat n Calcium n Calcium in Calcium 10 MG 10 MG 10 MG Lisinopril Lisinopril No 1{table QD Lisinopril 10 MG 10 MG t} 10 MG lamoTRIgine lamoTRIgine No QD lamoTRIgin 100 MG 100 MG e 100 MG Kori Kori No Kori Atomoxetine Atomoxetine No 1{capsu QD Atomoxetin HCl 60 MG HCl 60 MG le_in_t e HCl 60 he_morn MG ing} Multivitami Multivitami No Multivitam n n in Vitamin D3 Vitamin D3 No Vitamin D3 Atorvastati Atorvastati No 1{table QD Atorvastat n Calcium n Calcium t} in Calcium 10 MG 10 MG 10 MG Ketoconazol Ketoconazol No 1{appli BID Ketoconazo e 2 % e 2 % cation_ le 2 % to_affe cted_ar ea} metFORMIN metFORMIN No metFORMIN HCl 500 MG HCl 500 MG HCl 500 MG Acetaminoph Acetaminoph No Acetaminop en en hen Lisinopril Lisinopril No 1{table QD Lisinopril 20 MG 20 MG t} 20 MG Winslow 3 Winslow 3 No Winslow 3 Sertraline Sertraline No 1{table QD Sertraline HCl 50 MG HCl 50 MG t} HCl 50 MG Vitamin C Vitamin C No Vitamin C 500 MG 500 MG 500 MG Calcium 500 Calcium 500 No 1{table BID Calcium MG MG t_with_ 500 MG meals} Naproxen Naproxen No 1{table Naproxen 250 MG 250 MG t_with_ 250 MG food_or _milk} metFORMIN metFORMIN No 1{table BID metFORMIN HCl 500 MG HCl 500 MG t_with_ HCl 500 MG a_meal} Acetaminoph Acetaminoph No Acetaminop en en hen Winslow-3-aci Winslow-3-aci No Winslow-3-ac d Ethyl d Ethyl id Ethyl Esters 1 GM Esters 1 GM Esters 1 GM Atorvastati Atorvastati No Atorvastat n Calcium n Calcium in Calcium 10 MG 10 MG 10 MG Lisinopril Lisinopril No 1{table QD Lisinopril 10 MG 10 MG t} 10 MG lamoTRIgine lamoTRIgine No QD lamoTRIgin 100 MG 100 MG e 100 MG Kori Kori No Kori Atomoxetine Atomoxetine No 1{capsu QD Atomoxetin HCl 60 MG HCl 60 MG le_in_t e HCl 60 he_morn MG ing} Multivitami Multivitami No Multivitam n n in Vitamin D3 Vitamin D3 No Vitamin D3 Atorvastati Atorvastati No 1{table QD Atorvastat n Calcium n Calcium t} in Calcium 10 MG 10 MG 10 MG Ketoconazol Ketoconazol No 1{appli BID Ketoconazo e 2 % e 2 % cation_ le 2 % to_affe cted_ar ea} metFORMIN metFORMIN No metFORMIN HCl 500 MG HCl 500 MG HCl 500 MG Acetaminoph Acetaminoph No Acetaminop en en hen Lisinopril Lisinopril No 1{table QD Lisinopril 20 MG 20 MG t} 20 MG Winslow-3-aci Winslow-3-aci No Winslow-3-ac d Ethyl d Ethyl id Ethyl Esters 1 GM Esters 1 GM Esters 1 GM Lisinopril Lisinopril No 1{table QD Lisinopril 10 MG 10 MG t} 10 MG Naproxen Naproxen No 1{table Naproxen 250 MG 250 MG t_with_ 250 MG food_or _milk} Acetaminoph Acetaminoph No Acetaminop en en hen Atorvastati Atorvastati No 1{table QD Atorvastat n Calcium n Calcium t} in Calcium 10 MG 10 MG 10 MG lamoTRIgine lamoTRIgine No QD lamoTRIgin 100 MG 100 MG e 100 MG Sertraline Sertraline No 1{table QD Sertraline HCl 50 MG HCl 50 MG t} HCl 50 MG metFORMIN metFORMIN No 1{table BID metFORMIN HCl 500 MG HCl 500 MG t_with_ HCl 500 MG a_meal} Kori Kori No Kori Atomoxetine Atomoxetine No 1{capsu QD Atomoxetin HCl 60 MG HCl 60 MG le_in_t e HCl 60 he_morn MG ing} Multivitami Multivitami No Multivitam n n in Calcium 500 Calcium 500 No 1{table BID Calcium MG MG t_with_ 500 MG meals} Lisinopril Lisinopril No 1{table QD Lisinopril 20 MG 20 MG t} 20 MG Vitamin D3 Vitamin D3 No Vitamin D3 metFORMIN metFORMIN No metFORMIN HCl 500 MG [...] Multivitami Multivitami No Multivitam n n in Winslow-3-aci Winslow-3-aci No 2{capsu BID Winslow-3-ac d Ethyl d Ethyl les} id Ethyl [...] MG 500 MG Naproxen Naproxen No Naproxen Winslow 3 Winslow 3 No Winslow 3 Immunizations Ordered Filled Immunization Date Status Comments Sourc e Immunization Name Name Abilio Afluria 2021-04-08 [facility] Afluria Afluria 2021-04-08 [facility]00 [facility] Afluria Afluria 2021-04-08 [facility] 10:[facility]:00 [facility] Afluria Afluria 2021-04-08 [facility] 10:38:00 [facility] Afluria Afluria 2021-04-08 [facility]pleted [facility] 10:38:00 [facility] Afluria Afluria 2021-04-08 Completed [facility] 10:38:00 [facility] Afluria Afluria 2021-04-08 Completed [facility] 10:38:00 [facility] Afluria Afluria 2021-04-08 Completed [facility] 10:38:00 [facility] Afluria Afluria 2021-04-08 Completed [facility] 10:38:00 [facility] Afluria Afluria 2021-04-08 Completed [facility] 10:38:00 [facility] Afluria Afluria 2021-04-08 Completed [facility] 10:38:00 [facility] Afluria Afluria 2021-04-08 Completed [facility] 10:38:00 [facility] Shingrix Shingrix 2020-06-07 Completed [facility] - [facility] Shingrix Shingrix 2020-06-07 Com[facility] - [facility] Shingrix Shingrix 2020-06-07 Com[facility]:13:[facility] - [facility] Shingrix Shingrix 2020-06-07 Completed [facility]:13:[facility] - [facility] Shingrix Shingrix 2020-06-07 Com[facility]:13:[facility] - [facility] Shingrix Shingrix 2020-06-07 Com[facility]:13:00 - [facility] Shingrix Shingrix 2020-06-07 Completed [facility] 11:13:00 - [facility] Shingrix Shingrix 2020-06-07 Completed [facility] 11:13:00 - [facility] Shingrix Shingrix 2020-06-07 Completed [facility]:13:00 - [facility] Shingrix Shingrix 2020-06-07 Com[facility]:13:00 - [facility] Shingrix Shingrix 2020-06-07 Completed [facility]:13:00 - [facility] Shingrix Shingrix 2020-06-07 Completed [facility]:13:00 - [facility] Shingrix Shingrix 2020-06-07 Completed [facility]:13:00 - [facility] Shingrix Shingrix 2020-06-07 Completed [facility] 11:13:00 - [facility] Prevnar 13 (PCV13) Prevnar 13 (PCV13) 2020-06-07 Completed [facility] 11:12:00 [facility] Prevnar 13 (PCV13) Prevnar 13 (PCV13) 2020-06-07 Completed [facility] 11:12:00 [facility] Prevnar 13 (PCV13) Prevnar 13 (PCV13) 2020-06-07 [facility] 11:12:00 [facility] Prevnar 13 (PCV13) Prevnar 13 (PCV13) 2020-06-07 Completed [facility] 11:12:00 - [facility] Prevnar 13 (PCV13) Prevnar 13 (PCV13) 2020-06-07 Completed [facility] 11:12:00 - [facility] Prevnar 13 (PCV13) Prevnar 13 (PCV13) 2020-06-07 Completed [facility] 11:12:00 - [facility] Prevnar 13 (PCV13) Prevnar 13 (PCV13) 2020-06-07 Completed [facility] 11:12:00 - [facility] Prevnar 13 (PCV13) Prevnar 13 (PCV13) 2020-06-07 Completed [facility] 11:12:00 - [facility] Prevnar 13 (PCV13) Prevnar 13 (PCV13) 2020-06-07 Completed [facility] 11:12:00 - [facility] Prevnar 13 (PCV13) Prevnar 13 (PCV13) 2020-06-07 Completed [facility] 11:12:00 - [facility] Prevnar 13 (PCV13) Prevnar 13 (PCV13) 2020-06-07 Completed [facility] 11:12:00 - [facility] Prevnar 13 (PCV13) Prevnar 13 (PCV13) 2020-06-07 Completed [facility] 11:12:00 - [facility] Prevnar 13 (PCV13) Prevnar 13 (PCV13) 2020-06-07 Completed [facility] 11:12:00 - [facility] Prevnar 13 (PCV13) Prevnar 13 (PCV13) 2020-06-07 Completed [facility] 11:12:00 - [facility] Afluria single dose Afluria single dose 2020-04-07 Completed [facility] 11:12:00 [facility] Afluria single dose Afluria single dose 2020-04-07 Completed [facility] 11:12:00 [facility] Afluria single dose Afluria single dose 2020-04-07 Completed [facility] 11:12:00 [facility] Afluria single dose Afluria single dose 2020-04-07 Completed [facility] 11:12:00 - [facility] Afluria single dose Afluria single dose 2020-04-07 Completed [facility] 11:12:00 [facility] Afluria single dose Afluria single dose 2020-04-07 Completed [facility] 11:12:00 [facility] Afluria single dose Afluria single dose 2020-04-07 Completed [facility] 11:12:00 [facility] Afluria single dose Afluria single dose 2020-04-07 Completed [facility] 11:12:00 [facility] Afluria single dose Afluria single dose 2020-04-07 Completed [facility] 11:12:00 [facility] Afluria single dose Afluria single dose 2020-04-07 Completed [facility] 11:12:00 [facility] Afluria single dose Afluria single dose 2020-04-07 Completed [facility] 11:12:00 [facility] Afluria single dose Afluria single dose 2020-04-07 Completed [facility] 11:12:00 [facility] Afluria single dose Afluria single dose 2020-04-07 Completed [facility] 11:12:00 [facility] Afluria single dose Afluria single dose 2020-04-07 Completed [facility] 11:12:00 [facility] Afluria single dose Afluria single dose Unknown Completed [facility] Shingrix Shingrix Unknown Completed [facility] Afluria Afluria Unknown Completed [facility] Prevnar 13 (PCV13) Prevnar 13 (PCV13) Unknown Completed [facility] Prevnar 13 (PCV13) Prevnar 13 (PCV13) Unknown Completed [facility] Shingrix Shingrix Unknown Completed [facility] Afluria single dose Afluria single dose Unknown Completed [facility] Afluria Afluria Unknown Completed [facility] Afluria single dose Afluria single dose Unknown Completed [facility] Shingrix Shingrix Unknown Completed [facility] Afluria Afluria Unknown Completed [facility] Prevnar 13 (PCV13) Prevnar 13 (PCV13) Unknown Completed [facility] Afluria single dose Afluria single dose Unknown Completed [facility] Shingrix Shingrix Unknown Completed [facility] Afluria Afluria Unknown Completed [facility] Prevnar 13 (PCV13) Prevnar 13 (PCV13) Unknown Completed [facility] Afluria single dose Afluria single dose Unknown Completed [facility] Shingrix Shingrix Unknown Completed [facility] Afluria Afluria Unknown Completed [facility] Prevnar 13 (PCV13) Prevnar 13 (PCV13) Unknown Completed [facility] Afluria single dose Afluria single dose Unknown Completed [facility] Shingrix Shingrix Unknown Completed [facility] Afluria Afluria Unknown Completed [facility] Prevnar 13 (PCV13) Prevnar 13 (PCV13) Unknown Completed [facility] Afluria single dose Afluria single dose Unknown Completed [facility] Shingrix Shingrix Unknown Completed [facility] Afluria Afluria Unknown Completed [facility] Prevnar 13 (PCV13) Prevnar 13 (PCV13) Unknown Completed [facility] Afluria single dose Afluria single dose Unknown Completed [facility] Shingrix Shingrix Unknown Completed [facility] Afluria Afluria Unknown Completed [facility] Prevnar 13 (PCV13) Prevnar 13 (PCV13) Unknown Completed [facility] Afluria single dose Afluria single dose Unknown Completed [facility] Shingrix Shingrix Unknown Completed [facility] Afluria Afluria Unknown Completed [facility] Prevnar 13 (PCV13) Prevnar 13 (PCV13) Unknown Completed [facility] Vital Signs Vital Name Observation Time Observation Value Comments Source height 2022-10-28 09:30:00 64 [in_i] [facility] weight 2022-10-28 09:30:00 305.2 [lb_av] [facility] temperature 2022-10-28 09:30:00 97.7 [degF] [facility] bmi 2022-10-28 09:30:00 52.38 kg/m2 [facility] oximetry 2022-10-28 09:30:00 98 % [facility] respiratory rate 2022-10-28 09:30:00 16 /min Comm on [facility] blood pressure 2022-10-28 09:30:00 136 mm[Hg] Common [facility] - systolic [facility] blood pressure 2022-10-28 09:30:00 82 mm[Hg] Common [facility] - diastolic [facility] height 2022-10-10 08:20:00 64 [in_i] [facility] weight 2022-10-10 08:20:00 296 [lb_av] [facility] temperature 2022-10-10 08:20:00 98.1 [degF] [facility] bmi 2022-10-10 08:20:00 50.8 kg/m2 [facility] oximetry 2022-10-10 08:20:00 95 % [facility] respiratory rate 2022-10-10 08:20:00 18 /min Comm on [facility] blood pressure 2022-10-10 08:20:00 135 mm[Hg] Common [facility] - systolic [facility] blood pressure 2022-10-10 08:20:00 75 mm[Hg] Common [facility] - diastolic [facility] height 2022-08-12 14:00:00 64 [in_i] Common [facility] weight 2022-08-12 14:00:00 302.0 [lb_av] [facility] temperature 2022-08-12 14:00:00 98.4 [degF] [facility] bmi 2022-08-12 14:00:00 51.83 kg/m2 [facility] oximetry 2022-08-12 14:00:00 97 % [facility] 2022-08-12 14:00:00 18 /min Comm on [facility] blood pressure 2022-08-12 14:00:00 130 mm[Hg] Common [facility] - systolic [facility] blood pressure 2022-08-12 14:00:00 65 mm[Hg] Common [facility] - diastolic [facility] height 2022-07-08 09:40:00 64 [in_i] [facility] weight 2022-07-08 09:40:00 297.8 [lb_av] [facility] temperature 2022-07-08 09:40:00 96.6 [degF] [facility] bmi 2022-07-08 09:40:00 51.11 kg/m2 [facility] oximetry 2022-07-08 09:40:00 99 % [facility] respiratory rate 2022-07-08 09:40:00 18 /min Comm on [facility] blood pressure 2022-07-08 09:40:00 124 mm[Hg] Common [facility] - systolic [facility] blood pressure 2022-07-08 09:40:00 77 mm[Hg] Common [facility] diastolic [facility] height 2022-03-04 15:50:00 64 [in_i] Common [facility] weight 2022-03-04 15:50:00 285.6 [lb_av] [facility] temperature 2022-03-04 15:50:00 96.4 [degF] Common [facility] bmi 2022-03-04 15:50:00 49.02 kg/m2 [facility] S [facility] oximetry 2022-03-04 15:50:00 96 % [facility] respiratory rate 2022-03-04 15:50:00 17 /min Comm on [facility] blood pressure 2022-03-04 15:50:00 138 mm[Hg] Common [facility] - systolic [facility] blood pressure 2022-03-04 15:50:00 71 mm[Hg] Common [facility] - diastolic [facility] height 2021-11-05 08:30:00 64 [in_i] Common S [facility] weight 2021-11-05 08:30:00 294.2 [lb_av] Common [facility] temperature 2021-11-05 08:30:00 98.1 [degF] [facility] bmi 2021-11-05 08:30:00 50.49 kg/m2 [facility] S [facility] oximetry 2021-11-05 08:30:00 97 % [facility] respiratory rate 2021-11-05 08:30:00 17 /min Comm on [facility] blood pressure 2021-11-05 08:30:00 133 mm[Hg] Common [facility] - systolic [facility] blood pressure 2021-11-05 08:30:00 68 mm[Hg] [facility] - diastolic [facility] height 2021-08-07 08:30:00 64 [in_i] [facility] 2021-08-07 08:30:00 298.8 [lb_av] [facility] temperature 2021-08-07 08:30:00 97.7 [degF] [facility] bmi 2021-08-07 08:30:00 51.28 kg/m2 [facility] 2021-08-07 08:30:00 94 % [facility] respiratory rate 2021-08-07 08:30:00 16 /min Comm on [facility] blood pressure 2021-08-07 08:30:00 135 mm[Hg] Common [facility] - systolic [facility] blood pressure 2021-08-07 08:30:00 67 mm[Hg] [facility] - diastolic [facility] height 2021-05-06 10:30:00 64 [in_i] [facility] weight 2021-05-06 10:30:00 293.0 [lb_av] [facility] temperature 2021-05-06 10:30:00 98.2 [degF] [facility] bmi 2021-05-06 10:30:00 50.29 kg/m2 [facility] oximetry 2021-05-06 10:30:00 96 % [facility] respiratory rate 2021-05-06 10:30:00 18 /min Comm on [facility] blood pressure 2021-05-06 10:30:00 136 mm[Hg] [facility] systolic [facility] blood pressure 2021-05-06 10:30:00 76 mm[Hg] [facility] diastolic [facility] Procedures This patient has no known procedures. Encounters Start End Encounter Admission Attending Care Care Encounter Source Date/Time Date/Time Type Type Clinicians Facility Department ID 2023-04-24 Outpatient Sandoval, STLMLC STLMLC [id number] [facility] 09:49:00 Alpesh [id number] [facility] 2023-01-26 Outpatient Sandoval, STLMLC STLMLC [id number] [facility] 08:33:00 Alpesh [id number] [facility] 2022-07-04 Outpatient Sandoval, STLMLC STLMLC [id number] [facility] 10:20:01 Alpesh [id number] [facility] 2021-11-18 Outpatient Sandoval, STLMLC STLMLC [id number] [facility] 14:16:02 Alpesh [id number] [facility] 2021-07-03 Outpatient Sandoval, STLMLC STLMLC [id number] Common 13:30:18 Alpesh [id number] [facility] 2021-07-03 Outpatient Sandoval, STLMLC STLMLC [id number] [facility] 12:41:12 Alpesh [id number] [facility] 2023-03-11 2023-03-11 Outpatient GC_GCBZW_Ka PRIV PRIV [id number] [facility] 00:00:00 00:00:00 diyala_S [id number] Medic al 2023-01-08 2023-01-08 Outpatient SFA SFA [id number] Shan 08:44:37 08:44:37 [id number] F Jim 2023-01-08 2023-01-08 Outpatient GC_GCBZW_Ka PRIV PRIV [id number] [facility] 00:00:00 00:00:00 diyala_S [id number] Medic al 2023-01-08 2023-01-08 Outpatient GC_GCBZW_Ka PRIV PRIV [id number] [facility] 00:00:00 00:00:00 diyala_S [id number] Medic al 2022-12-12 2022-12-12 Outpatient SFA SFA [id number] Shan 08:10:50 08:10:50 [id number] F Jim 2022-11-01 2022-11-01 (WEB) STLMLC STLMLC [id number] Co mmon 00:00:00 00:00:00 [facility] 2022-10-28 2022-10-28 (WELLNESS) STLMLC STLMLC [id number] [facility] 00:00:00 00:00:00 [facility] t [facility] 2022-10-10 2022-10-10 OFFICE STLMLC STLMLC [id number] Co mmon 00:00:00 00:00:00 VISIT [facility] LEVEL 3 [facility] 2022-10-08 2022-10-08 (TEL) STLMLC STLMLC [id number] [facility] 00:00:00 00:00:00 [facility] 2022-09-29 2022-09-29 (WEB) STLMLC STLMLC [id number] [facility] 00:00:00 00:00:00 [facility] 2022-09-12 2022-09-12 (WEB) STLMLC STLMLC [id number] [facility] 00:00:00 00:00:00 [facility] 2022-09-07 2022-09-07 (WEB) STLMLC STLMLC [id number] [facility] 00:00:00 00:00:00 [facility] 2022-08-13 2022-08-13 (WEB) STLMLC STLMLC [id number] [facility] 00:00:00 00:00:00 [facility] 2022-08-12 2022-08-12 OFFICE STLMLC STLMLC [id number] [facility] 00:00:00 00:00:00 VISIT [facility] PT - CHI LEVEL 3 [facility] 2022-07-08 2022-07-08 OFFICE STLMLC STLMLC [id number] [facility] 00:00:00 00:00:00 VISIT [facility] PT - CHI LEVEL 4 [facility] 2022-03-04 2022-03-04 OFFICE STLMLC STLMLC [id number] [facility] 00:00:00 00:00:00 VISIT [facility] PT - CHI LEVEL 4 [facility] 2022-01-23 2022-01-23 (WEB) STLMLC STLMLC [id number] [facility] 00:00:00 00:00:00 [facility] 2021-12-15 2021-12-15 (WEB) STLMLC STLMLC [id number] [facility] 00:00:00 00:00:00 [facility] 2021-12-15 2021-12-15 (WEB) STLMLC STLMLC [id number] [facility] 00:00:00 00:00:00 [facility] 2021-11-22 2021-11-22 (WEB) STLMLC STLMLC [id number] [facility] 00:00:00 00:00:00 [facility] 2021-11-15 2021-11-15 (TEL) STLMLC STLMLC [id number] [facility] 00:00:00 00:00:00 [facility] 2021-11-05 2021-11-05 PREV VISIT STLMLC STLMLC [id number] Common 00:00:00 00:00:00 EST AGE [facility] [id number] [facility] 2021-08-25 2021-08-25 (WEB) STLMLC STLMLC [id number] [facility] 00:00:00 00:00:00 [facility] 2021-08-07 2021-08-07 OFFICE STLMLC STLMLC [id number] [facility] 00:00:00 00:00:00 VISIT [facility] PT - CHI LEVEL 4 [facility] 2021-05-06 2021-05-06 OFFICE STLMLC STLMLC [id number] [facility] 00:00:00 00:00:00 VISIT [facility] PT - CHI LEVEL 4 [facility] 2021-04-17 2021-04-17 (WEB) STLMLC STLMLC [id number] [facility] 00:00:00 00:00:00 [facility] 2021-04-17 2021-04-17 (WEB) STLMLC STLMLC [id number] [facility] 00:00:00 00:00:00 [facility] 2021-02-27 2021-02-27 Outpatient STLMLC STLMLC [id number] [facility] 00:00:00 00:00:00 [facility] 2021-02-22 2021-02-22 Outpatient STLMLC STLMLC [id number] [facility] 00:00:00 00:00:00 [facility] 2021-01-22 2021-01-22 Outpatient STLMLC STLMLC [id number] [facility] 00:00:00 00:00:00 [facility] 2021-01-15 2021-01-15 Outpatient STLMLC STLMLC [id number] [facility] 00:00:00 00:00:00 [facility] 2021-01-09 2021-01-09 Outpatient STLMLC STLMLC [id number] [facility] 00:00:00 00:00:00 [facility] 2020-12-31 2020-12-31 Outpatient STLMLC STLMLC [id number] [facility] 00:00:00 00:00:00 [facility] 2020-12-31 2020-12-31 Outpatient STLMLC STLMLC [id number] [facility] 00:00:00 00:00:00 [facility] 2020-11-30 2020-11-30 Outpatient STLMLC STLMLC [id number] [facility] 00:00:00 00:00:00 [facility] 2020-10-19 2020-10-19 Outpatient STLMLC STLMLC [id number] [facility] 00:00:00 00:00:00 [facility] 2020-10-19 2020-10-19 Outpatient STLMLC STLMLC [id number] [facility] 00:00:00 00:00:00 [facility] 2020-08-22 2020-08-22 Outpatient STLMLC STLMLC [id number] [facility] 00:00:00 00:00:00 [facility] Results This patient has no known results.
[2023-05-02 09:45] LABS: Absolute Lymphocytes (CBC) 0.5 K/uL (0.7-4.9); Hematocrit 37.2 % (36.0-45.0); Lymphocytes % 1.7 % (15.3-44.8); MCV 87.7 fL (80-100); MPV 8.5 fL (7.6-11.3); Platelets 351 thou/uL (152-406); RBC Red Blood Cell Count 4.24 M/uL (3.86-4.86)
[2023-05-02 09:48] LABS: Protime INR 1.11
[2023-05-02] MEDS ORDERED: NA CHLORIDE 0.9% 3,000 ML ONE (09:52)
[2023-05-02] MEDS ORDERED: CEFEPIME 1 GM/VIAL ONE (09:52)
[2023-05-02] MEDS ORDERED: NA CHLORIDE 0.9% 100 ML ONE ×2 (09:52→21:48)
[2023-05-02] MEDS ORDERED: VANCOMYCIN 1 GM/VIAL ONE ×2 (09:52→16:11)
[2023-05-02] MEDS ORDERED: NA CHLORIDE 0.9% 500 ML ONE (09:52)
[2023-05-02] MEDS ORDERED: NA CHLORIDE 0.9% 250 ML ONE ×2 (09:52→16:12)
[2023-05-02 10:05] LABS: Albumin 2.4 g/dL (3.4-5.0); Bilirubin Total 0.9 mg/dL (0.2-1.0); Potassium 3.1 mEq/L (3.5-5.1); Protein, Total 7.8 g/dL (6.4-8.2)
[2023-05-02 10:06] LABS: Troponin High Sensitivity 94.7 pg/mL (<58.9)
[2023-05-02 10:15] LABS: Blood Morphology Comment NOT SEEN (NOT SEEN); Platelet Estimate ADEQ; Toxic Granulation PRESENT
--- NOTE | 2023-05-02 10:18 | RAD REPORT ---
EXAM DESCRIPTION: RAD - Chest Single View - 05/02/2023 9:35 am CLINICAL HISTORY: MALAISE Chest pain. COMPARISON: Chest Single View dated 10/16/2022; Chest Single View dated 01/08/2021; Chest Single View d ated 01/05/2021; Chest Pa And Lat (2 Views) dated 12/31/2020 FINDINGS: Portable technique limits examination quality. Mild interstitial pulmonary edema. The heart is moderately enlarged. No displaced fractures. IMPRESSION: Mild CHF.
--- NOTE | 2023-05-02 10:19 | RAD REPORT ---
EXAM DESCRIPTION: US - Extrem Venous W Compress Wallace - 05/02/2023 10:09 am CLINICAL HISTORY: Pain;Swelling Bilateral leg edema and swelling. COMPARISON: No comparisons TECHNIQUE: Real-time sonographic interrogation of the left and right lower extremity deep venous sys tems was performed. FINDINGS: Normal compressibility, flow augmentation, phasic flow and spontaneous flow is identified in both the left and right lower extremity deep venous systems. IMPRESSION: No sonographic evidence of left or right lower extremity deep venous thrombosis.
--- NOTE | 2023-05-02 11:20 | ER ---
Nurse's Notes [facility] Name: Bette Soto Age: 63 yrs Sex: Female : 1960 Arrival Date: 05/02/2023 Time: 08:48 Bed 4 Private MD: Alpesh Sandoval Diagnosis: Septic shock, cellulitis, EDDI, hyponatremia Presentation: 05/02 09:00 Chief complaint: Patient states: B leg swelling with drainage for at least 3 days. ll1 Worse R side. No known fever. Coronavirus screen: Client denies travel out of the [place] in the last 14 days. At this time, the client does not indicate any symptoms associated with coronavirus-19. Ebola Screen: Patient denies travel to an Ebola-affected area in the 21 days before illness onset. 09:00 Method Of Arrival: Wheelchair ll1 09:11 Initial Sepsis Screen: Does the patient meet any 2 criteria? RR > 20 per min. Systolic ll1 BP < 90 mmHg. HR > 90 bpm. No. Patient's initial sepsis screen is negative. Does the patient have a suspected source of infection? Yes: Skin breakdown/wound. Risk Assessment: Do you want to hurt yourself or someone else? Patient reports no desire to harm self or others. Onset of symptoms was April 29, 2023. 09:11 Acuity: JOYCE 2 ll1 Triage Assessment: 09:12 General: Appears distressed, uncomfortable, ill, Behavior is calm, cooperative, ll1 appropriate for age. Pain: Complains of pain in right leg and left leg Pain currently is 10 out of 10 on a pain scale. Quality of pain is described as aching, pressure, squeezing, throbbing, Pain began 2-3 days ago. Derm: redness, drainage B legs. Historical: - Allergies: 09:00 No Known Allergies; ll1 - PMHx: 09:00 adhd; Anxiety; Bipolar disorder; depressive disorder; NDDM; ll1 - PSHx: 09:00 section; tubal ligation; ll1 - Immunization history:: Adult Immunizations up to date. - Social history:: Smoking status: Patient denies any tobacco usage or history of. Screenin:00 [facility] ED Fall Risk Assessment (Adult) Score/Fall Risk Level 0 - 2 = Low Risk. Abuse eh3 screen: Denies threats or abuse. Denies injuries from another. Nutritional screening: No deficits noted. Tuberculosis screening: No symptoms or risk factors identified. Assessment: 09:00 General: Appears in no apparent distress. uncomfortable, Behavior is calm, cooperative, eh3 appropriate for age. Pain: Denies pain. Neuro: Level of Consciousness is awake, alert, obeys commands, Oriented to person, place, time, situation. Cardiovascular: Capillary refill < 3 seconds Patient's skin is warm and dry. Pulses are all present. Edema is 4+ to left midcalf, left ankle, left foot, right midcalf, right ankle and right foot. Respiratory: Airway is patent Respiratory effort is even, unlabored, Respiratory pattern is regular, symmetrical. GI: Abdomen is round non-distended. Derm: Skin is pink, warm \T\ dry. Wound noted lateral aspect of right calf. Musculoskeletal: Circulation, motion, and sensation intact. 10:59 Reassessment: Patient appears in no apparent distress at this time. No changes from kc6 previously documented assessment. Patient and/or family updated on plan of care and expected duration. Pain level reassessed. Patient is alert, oriented x 3, equal unlabored respirations, skin warm/dry/pink. 11:59 Reassessment: Patient appears in no apparent distress at this time. No changes from kc6 previously documented assessment. Patient and/or family updated on plan of care and expected duration. Pain level reassessed. Patient is alert, oriented x 3, equal unlabored respirations, skin warm/dry/pink. Vital Signs: 09:11 BP 83 / 54; Pulse 119; Resp 22; Temp 97.5; Pulse Ox 100% ; Pain 10/10; ll1 09:18 Weight 113.5 kg; eh3 09:30 BP 84 / 50; Pulse 145; Resp 20; Pulse Ox 97% on R/A; eh3 09:45 BP 81 / 51; Pulse 134; eh3 10:00 BP 80 / 45; Pulse 135; Resp 25; Pulse Ox 100% on R/A; eh3 10:15 BP 93 / 59; Pulse 134; eh3 10:30 BP 90 / 59; Pulse 136; eh3 10:45 BP 114 / 63; Pulse 132; eh3 10:58 BP 92 / 57; Pulse 127; Resp 20 S; Pulse Ox 98% on R/A; kc6 11:15 BP 102 / 55; Pulse 128; Resp 20 S; Pulse Ox 95% on R/A; kc6 12:11 BP 93 / 57; Pulse 131; Resp 19 S; Pulse Ox 95% on R/A; kc6 12:49 BP 102 / 55; Pulse 141; Resp 19 S; Pulse Ox 98% on R/A; kc6 09:11 Pain Scale: Adult ll1 ED Course: 08:52 Patient arrived in ED. as 08:53 Brian Snadoval MD is Attending Physician. sp3 08:53 Alpesh Sandoval DO is Private Physician. as 09:00 Patient has correct armband on for positive identification. Bed in low position. Call eh3 light in reach. Side rails up X2. Provided Education on: use of call purcell. Client placed on continuous cardiac and pulse oximetry monitoring. NIBP monitoring applied. 09:03 Arm band placed on. ll1 09:06 Ginger Munoz, RN is Primary Nurse. eh3 09:12 Triage completed. ll1 09:29 Troponin High Sensitivity Sent. bc6 09:29 Blood Culture Adult (2) Sent. bc6 09:29 CBC with Diff Sent. bc6 09:29 CMP Sent. bc6 09:29 Lactate w/ 2H reflex if indic. Sent. bc6 09:29 Protime (+inr) Sent. bc6 09:29 Ptt, Activated Sent. bc6 09:29 Inserted saline lock: 20 gauge in right antecubital area, using aseptic technique. bc6 Blood collected. 09:37 Chest Single View XRAY In Process Unspecified. EDMS 10:00 Inserted saline lock: 20 gauge in left antecubital area, using aseptic technique. eh3 10:08 US Extremity Venous W Compression Wallace In Process Unspecified. EDMS 10:59 Report received from Ginger Munoz RN. kc6 11:18 Alexandro Hi MD is Hospitalizing Provider. sp3 11:54 Tib Fib Right XRAY In Process Unspecified. EDMS 13:10 Bishop cath inserted, using sterile technique, 16 Fr., by va, balloon inflated, to kc6 gravity drainage, clamped. returned clear yellow urine. Patient tolerated well. criticore. 13:45 Assisted provider with central line placement. Set up central line tray. Triple lumen kc6 line placed in right internal jugular. Line placed by Brian Sandoval MD Placement verified by CXR, blood return, Dressed with 4X4s, Tape, Tegaderm, Patient tolerated well. Before procedure, did Practitioner(s) obtain informed consent? Yes. Patient \T\ family education about procedure, CLABSI prevention and S/S of infection? Yes. Time-out/Briefing performed prior to start of procedure? Yes. Was handwashing/sanitizing done immediately prior to procedure? Yes. Was patient positioned to in a way to prevent air embolism? Yes. Was procedure site sterilized? Yes, with Was the site allowed to dry? Yes. Was local anesthetic and/or sedation utilized? Yes. During the procedure, did the Practitioner(s) maintain a sterile field? Yes. Were unused ports clamped during insertion? Yes. Was blood aspirated from each lumen? Yes. After the procedure, did the Practitioner(s) clean the site and apply a sterile dressing? Yes. 14:18 Chest Single View XRAY In Process Unspecified. EDMS 15:04 Patient admitted, IV remains in place. kc6 Administered Medications: 09:35 Drug: NS 0.9% IV (30 ml/kg) 30 ml/kg IV at bolus once; Sepsis Protocol Route: IV; Rate: eh3 bolus; Site: right antecubital; 11:38 Follow up: Response: No adverse reaction; IV Status: Completed infusion; IV Intake: kc6 3500ml 09:35 Drug: Cefepime IVPB 1 grams IVPB at 200 ml/hr once over 30 mins; (mix in NS 100 mL) eh3 Route: IVPB; Rate: 200 ml/hr; Infused Over: 30 mins; Site: right antecubital; 10:05 Follow up: Response: No adverse reaction; IV Status: Completed infusion; IV Intake: eh3 100ml 10:05 Drug: vancoMYCIN IVPB 1 grams IVPB once over 2 hrs Route: IVPB; Infused Over: 2 hrs; eh3 Site: right antecubital; 12:49 Follow up: Response: No adverse reaction; IV Status: Completed infusion; IV Intake: kc6 250ml Medication: 15:04 VIS not applicable for this client. kc6 Intake: 10:05 IV: 100ml; Total: 100ml. eh3 11:38 IV: 3500ml; Total: 3600ml. kc6 12:49 IV: 250ml; Total: 3850ml. kc6 Outcome: 11:19 Decision to Hospitalize by Provider. sp3 15:04 Admitted to ER Hold. Please see [facility] for further documentation. kc6 15:04 Condition: good 15:04 Instructed on the need for admit, 05/03 00:18 Patient left the ED. jb4 Signatures: Dispatcher [employer] EDMonica Gale James RN RN jb4 Jorje Campbell RN RN ll1 Brian Sandoval MD MD sp3 Ginger Munoz RN RN eh3 Sweta Patterson RN RN kc6 Cate Hernandez 6 Corrections: (The following items were deleted from the chart) 05/02 11:18 11:15 BP 120 / 55; Pulse 128bpm; Resp 20bpm; Spontaneous; Pulse Ox 95% RA; kc6 kc6
--- NOTE | 2023-05-02 11:20 | EDPHYS ---
Physician Documentation [facility] Name: Bette Soto Age: 63 yrs Sex: Female : 1960 Arrival Date: 05/02/2023 Time: 08:48 Bed 4 Private MD: Alpesh Sandoval ED Physician Brian Sandoval HPI: 05/02 09:15 This 63 yrs old Female presents to ER via Wheelchair with complaints of Leg Swelling sp3 and rash on right leg. 09:15 63-year-old female with a history of [id number] diabetes, bipolar disease, sp3 anxiety, bilateral chronic lymphedema now presents to the ED with chief complaint right lower extremity rash and increased swelling and pain. Patient sees Dr. Alpesh Sandoval as PCP. She denies any other symptoms including fever, URI symptoms, headache, neck pain, back pain, shortness of breath, chest pain, abdominal pain, vomiting, diarrhea, syncope, near syncope, other neurological deficits, known sick contacts, travel history, or any other signs or symptoms at this time.. Historical: - Allergies: 09:00 No Known Allergies; ll1 - PMHx: 09:00 adhd; Anxiety; Bipolar disorder; depressive disorder; NDDM; ll1 - PSHx: 09:00 section; tubal ligation; ll1 - Immunization history:: Adult Immunizations up to date. - Social history:: Smoking status: Patient denies any tobacco usage or history of. ROS: 09:17 Constitutional: Negative for fever, chills, and weight loss, Eyes: Negative for injury, sp3 pain, redness, and discharge, ENT: Negative for injury, pain, and discharge, Neck: Negative for injury, pain, and swelling, Cardiovascular: Negative for chest pain, palpitations, and edema, Respiratory: Negative for shortness of breath, cough, wheezing, and pleuritic chest pain, Abdomen/GI: Negative for abdominal pain, nausea, vomiting, diarrhea, and constipation, Back: Negative for injury and pain, Neuro: Negative for headache, weakness, numbness, tingling, and seizure, Psych: Negative for depression, anxiety, suicide ideation, homicidal ideation, and hallucinations, Allergy/Immunology: Negative for hives, rash, and allergies, Endocrine: Negative for neck swelling, polydipsia, polyuria, polyphagia, and marked weight changes, 09:17 All other systems are negative, Exam: 09:18 Constitutional: This is a well developed, well nourished patient who is awake, alert, sp3 and in no acute distress. Head/Face: Normocephalic, atraumatic. Eyes: Pupils equal round and reactive to light, extra-ocular motions intact. Lids and lashes normal. Conjunctiva and sclera are non-icteric and not injected. Cornea within normal limits. Periorbital areas with no swelling, redness, or edema. ENT: Nares patent. No nasal discharge, no septal abnormalities noted. External auditory canals are clear. Oropharynx with no redness, swelling, or masses, exudates, or evidence of obstruction, uvula midline. Mucous membranes moist. Neck: Trachea midline, no thyromegaly or masses palpated, and no cervical lymphadenopathy. Supple, full range of motion without nuchal rigidity, or vertebral point tenderness. No Meningismus. Chest/axilla: Normal chest wall appearance and motion. Nontender with no deformity. No lesions are appreciated. Respiratory: Lungs have equal breath sounds bilaterally, clear to auscultation and percussion. No rales, rhonchi or wheezes noted. No increased work of breathing, no retractions or nasal flaring. Abdomen/GI: Soft, non-tender, with normal bowel sounds. No distension or tympany. No guarding or rebound. No evidence of tenderness throughout. Back: No spinal tenderness. No costovertebral tenderness. Full range of motion. Neuro: Awake and alert, GCS 15, oriented to person, place, time, and situation. Cranial nerves II-XII grossly intact. Motor strength 5/5 in all extremities. Sensory grossly intact. Cerebellar exam normal. Normal gait. Psych: Awake, alert, with orientation to person, place and time. Behavior, mood, and affect are within normal limits. 09:18 Cardiovascular: Rate: tachycardic, 09:18 Musculoskeletal/extremity: Chronic lymphedema with excessive drainage noted bilaterally right greater than left. There is erythematous rash also present the entirety of the right lower extremity. Exam limited secondary to profound obesity and extensive lymphedema. Cap refill present bilateral lower extremities.. 10:02 ECG was reviewed by the Attending Physician. EKG demonstrates sinus tachycardia at 144 sp3 bpm with normal intervals with QTc noted to be 427, normal axis, normal QRS with rate related ST/T abnormalities with no evidence of acute ischemia. Vital Signs: 09:11 BP 83 / 54; Pulse 119; Resp 22; Temp 97.5; Pulse Ox 100% ; Pain 10/10; ll1 09:18 Weight 113.5 kg; eh3 09:30 BP 84 / 50; Pulse 145; Resp 20; Pulse Ox 97% on R/A; eh3 09:45 BP 81 / 51; Pulse 134; eh3 10:00 BP 80 / 45; Pulse 135; Resp 25; Pulse Ox 100% on R/A; eh3 10:15 BP 93 / 59; Pulse 134; eh3 10:30 BP 90 / 59; Pulse 136; eh3 10:45 BP 114 / 63; Pulse 132; eh3 10:58 BP 92 / 57; Pulse 127; Resp 20 S; Pulse Ox 98% on R/A; kc6 11:15 BP 102 / 55; Pulse 128; Resp 20 S; Pulse Ox 95% on R/A; kc6 12:11 BP 93 / 57; Pulse 131; Resp 19 S; Pulse Ox 95% on R/A; kc6 12:49 BP 102 / 55; Pulse 141; Resp 19 S; Pulse Ox 98% on R/A; kc6 09:11 Pain Scale: Adult ll1 Procedures: 13:45 Central Line: Right internal jugular central venous line placed triple-lumen by me at sp3 approximately 1340 hrs. patient was prepped in sterile fashion after consent was obtained. Ultrasound guidance was used in standard Seldinger technique and full sterile fashion with 0 blood loss. Post procedure x-ray pending. MDM: 08:53 Patient medically screened. sp3 09:19 Data reviewed: vital signs, nurses notes, old medical records, lab test result(s), EKG, sp3 radiologic studies. ED course: 63-year-old female with PMH above now presents with right lower extremity cellulitis and septic shock. We will aggressively hydrate with IV fluids, start antibiotics and further supportive care as required. And not highly suspicious for cardiac etiology, DVT, vascular occlusion, or any other pathology at this time. Ultrasound bilateral venous study is also pending. Will admit to hospitalist service with location TBD based on patient response to supportive care.. 11:17 ED course: Blood pressure not responding to IV fluids. Current blood pressure 102/55. sp3 Central line on standby in case Levophed or other pressor as needed. Patient is more alert and heart rate is down slightly. Antibiotics are going and we will admit patient at this time.. 05/02 09:12 Order name: Blood Culture Adult (2) [facility] 05/02 09:12 Order name: CBC with Diff; Complete Time: 10: [facility] 05/02 09:12 Order name: CMP; Complete Time: 10: [facility] 05/02 09:12 Order name: Lactate w/ 2H reflex if indic.; Complete Time: 10: [facility] 05/02 09:12 Order name: Protime (+inr); Complete Time: 10: [facility] 05/02 09:12 Order name: Ptt, Activated; Complete Time: 10: [facility] 05/02 09:12 Order name: Urinalysis w/ reflexes; Complete Time: 22:04 [facility] 05/02 09:14 Order name: Troponin High Sensitivity; Complete Time: 10: [facility] 05/02 10:15 Order name: Manual Differential; Complete Time: 10: [facility] 05/02 13:00 Order name: Lactate Sepsis 2 HR Follow-up; Complete Time: 13:37 [facility] 05/02 13:53 Order name: Troponin High Sensitivity [facility] 05/02 13:53 Order name: Troponin High Sensitivity [facility] 05/02 13:53 Order name: Troponin High Sensitivity [facility] 05/02 14:33 Order name: Urine Culture [facility] 05/02 15:03 Order name: CBC with Automated Diff EDMS 05/02 15:03 Order name: CBC with Automated Diff EDMS 05/02 15:03 Order name: CBC with Automated Diff [facility] 05/02 15:03 Order name: CBC with Automated Diff EDMS 05/02 15:03 Order name: CBC with Automated Diff EDMS 05/02 15:03 Order name: Comprehensive Metabolic Panel [facility] 05/02 15:03 Order name: Comprehensive Metabolic Panel [facility] 05/02 15:03 Order name: Comprehensive Metabolic Panel [facility] 05/02 15:03 Order name: Comprehensive Metabolic Panel [facility] 05/02 15:03 Order name: Comprehensive Metabolic Panel [facility] 05/02 15:03 Order name: Lipid Profile [facility] 05/02 15:03 Order name: Lipid Profile [facility] 05/02 15:03 Order name: Magnesium EDMS 05/02 15:03 Order name: Magnesium EDMS 05/02 15:03 Order name: Magnesium EDMS 05/02 15:03 Order name: Magnesium EDMS 05/02 15:03 Order name: Magnesium EDMS 05/02 15:03 Order name: Phosphorus EDMS 05/02 15:03 Order name: Phosphorus EDMS 05/02 15:03 Order name: Phosphorus EDMS 05/02 15:03 Order name: Phosphorus EDMS 05/02 15:03 Order name: Phosphorus EDMS 05/02 15:03 Order name: T4 Free EDMS 05/02 15:03 Order name: T4 Free EDMS 05/02 15:03 Order name: Thyroid Stimulating Hormone EDMS 05/02 15:03 Order name: Thyroid Stimulating Hormone MS 05/02 17:01 Order name: ABG Arterial Blood Gas; Complete Time: 22:04 EDMS 05/02 17:25 Order name: Glucose, Ancillary Testing; Complete Time: 22:04 EDMS 05/02 17:48 Order name: UR SODIUM; Complete Time: 22: EDMS 05/02 17:48 Order name: UR POTASSIUM; Complete Time: 22:04 EDMS 05/02 17:53 Order name: Ur Protein; Complete Time: 22:04 EDMS 05/02 18:01 Order name: Osmolality, Urine; Complete Time: 22:04 MS 05/02 21:40 Order name: Glucose, Ancillary Testing; Complete Time: 22:04 MS 05/02 22:00 Order name: Basic Metabolic Panel [facility] 05/02 22:03 Order name: Phosphorus; Complete Time: 22:04 MS 05/02 22:03 Order name: NT PRO-BNP; Complete Time: 22:04 EDMS 05/02 22:03 Order name: Magnesium; Complete Time: 22:04 EDMS 05/02 22:10 Order name: Vitamin D, 25 (OH), TOTAL EDMS 05/02 22:11 Order name: Creatine Phosphokinase EDNM 05/02 22:16 Order name: PTH Intact [facility] 05/02 22:24 Order name: Fibrinogen [facility] 05/02 09:12 Order name: Chest Single View XRAY; Complete Time: 10:22 sp3 05/02 09:17 Order name: US Extremity Venous W Compression Wallace; Complete Time: 10:22 sp3 05/02 11:29 Order name: Tib Fib Right XRAY; Complete Time: 13:37 la1 05/02 12:50 Order name: Low Extremity Wo Cont; Complete Time: 22:04 EDMS 05/02 13:40 Order name: Chest Single View XRAY; Complete Time: 22:04 em1 05/02 15:03 Order name: Renal Ultrasound-Complete EDMS 05/02 09:12 Order name: EKG; Complete Time: 09:13 sp3 05/02 09:12 Order name: Accucheck; Complete Time: 09:28 sp3 05/02 09:12 Order name: Cardiac monitoring; Complete Time: 09:17 sp3 05/02 09:12 Order name: EKG - Nurse/Tech; Complete Time: 09:48 sp3 05/02 09:12 Order name: IV Saline Lock - Large Bore; Complete Time: 09:28 3 05/02 09:12 Order name: Labs collected and sent; Complete Time: 09:28 3 05/02 09:12 Order name: O2 Per Protocol; Complete Time: 09: sp3 05/02 09:12 Order name: O2 Sat Monitoring; Complete Time: 09:17 sp3 05/02 09:12 Order name: Vital Signs; Complete Time: 09:17 sp3 05/02 10:36 Order name: Central Line Kit; Complete Time: 11:11 sp3 05/02 10:36 Order name: NPO; Complete Time: 10:48 sp3 05/02 12:45 Order name: EKG - Nurse/Tech; Complete Time: 12:49 ga1 05/02 13:23 Order name: Bishop; Complete Time: 13:[facility] 05/02 14:02 Order name: Misc. Order: OK to use Right IJ central line; Complete Time: 14:54 sp3 Administered Medications: 09:35 Drug: NS 0.9% IV (30 ml/kg) 30 ml/kg IV at bolus once; Sepsis Protocol Route: IV; Rate: eh3 bolus; Site: right antecubital; 11:38 Follow up: Response: No adverse reaction; IV Status: Completed infusion; IV Intake: kc6 3500ml 09:35 Drug: Cefepime IVPB 1 grams IVPB at 200 ml/hr once over 30 mins; (mix in NS 100 mL) eh3 Route: IVPB; Rate: 200 ml/hr; Infused Over: 30 mins; Site: right antecubital; 10:05 Follow up: Response: No adverse reaction; IV Status: Completed infusion; IV Intake: eh3 100ml 10:05 Drug: vancoMYCIN IVPB 1 grams IVPB once over 2 hrs Route: IVPB; Infused Over: 2 hrs; eh3 Site: right antecubital; 12:49 Follow up: Response: No adverse reaction; IV Status: Completed infusion; IV Intake: kc6 250ml Disposition Summary: 05/02/23 11:19 Hospitalization Ordered Notes: Hospitalization Status: Inpatient Admission sp3 Provider: Alexandro Hi sp3 Condition: Stable sp3 Problem: an acute exacerbation sp3 Symptoms: have worsened sp3 Bed/Room Type: Standard sp3 Location: Intensive Care Unit(05/02/23 22:47) cg Room Assignment: -(05/02/23 22:48) cg Diagnosis - Septic shock, cellulitis, EDDI, hyponatremia sp3 Forms: - Medication Reconciliation Form sp3 - SBAR form sp3 - Leadership Thank You Letter sp3 Signatures: Dispatcher [employer] EDMS Purvi Leslie, RECRUITING INTERN-C RECRUITING INTERN-Ckb Edwin Lewis em1 Everardo Maldonado, RECRUITING INTERN-C RECRUITING INTERN-Cla1 Farheen Roy, YELITZA RN cg Jorje Campbell RN RN ll1 Brian Sandoval MD MD sp3 Ginger Munoz RN RN eh3 Sweta Patterson RN kc6 Corrections: (The following items were deleted from the chart) 14:09 11:19 Intensive Care Unit sp3 em1 14:09 11:19 sp3 em1 22:47 14:09 [facility] em[facility] cg 22:47 14:09 ERHOLD- em1 cg 22:48 22:47 cg
--- NOTE | 2023-05-02 12:10 | RAD REPORT ---
EXAM DESCRIPTION: RAD - Tib Fib Right - 05/02/2023 11:52 am CLINICAL HISTORY: cellulitis, eval for gas COMPARISON: No comparisons FINDINGS: Significant soft tissue swelling affects the right leg. No underlying cyst bony abnormalit y. No evidence of soft tissue gas. Prominent calcaneal spurs.
--- NOTE | 2023-05-02 13:50 | P.HP ---
Certification for Inpatient Patient admitted to: Inpatient With expected LOS: >2 Midnights Patient will require the following post-hospital care: None Practitioner: I am a practitioner with admitting privileges, knowledge of patient current condition, hospital course, and medical plan of care. Services: Services provided to patient in accordance with Admission requirements found in Title 42 Section 412.3 of the Code of Federal Regulations <Everardo Maldonado - Last Filed: 05/02/23 13:41> Patient History Date of Service: 05/02/23 Reason for admission: Septic shock, right lower extremity cellulitis History of Present Illness: 63-year-old female with history of prediabetes, lymphedema, anxiety/BPD/depression presents emergency department chief complaint of right lower extremity swelling, erythema. She reports the swelling has been going on for the last couple weeks, worsening drainage and pain the last few days. She was evaluated in the emergency department her labs were significant for white blood cell count 30.4 sodium 128 potassium 3.1 chloride 96 bicarb 18 creatinine 3.69 BUN 35 initial lactic acid 4.3 downtrending to 2.4 high- sensitivity opponent 94.7 urinalysis pending Chest x-ray showed mild CHF pattern venous Doppler negative for DVT tib-fib x- ray was performed which showed soft tissue swelling without evidence of soft tissue gas. CT lower extremity pending for further evaluation. Right lower extremity is markedly edematous, erythematous with blisters to the posterior aspect and lateral aspect. Denies similar episodes in the past. She has been hypotensive and tachycardic, ED staff currently inserting central line to start patient on vasopressors. - Past Medical/Surgical History -: Depression -: ADD -: Bipolar disorder -: Prediabetes -: ADHD -: Lymphedema Past Surgical History: Patient denies surgical history Psychosocial/ Personal History: Lives at home with her - Family History Family History: Reviewed- Non-Contributory - Social History Smoking Status: Unknown if ever smoked Alcohol use: No CD- Drugs: No Caffeine use: Yes Place of Residence: Home <Everardo Maldonado - Last Filed: 05/02/23 13:41> Date of Service: 05/02/23 <Alexandro Hi - Last Filed: 05/02/23 16:22> Allergies No Known Allergies Allergy (Verified 01/01/21 05:04) Home Medications: Atomoxetine HCl 60 mg PO DAILY 01/02/21 Calcium Carbonate [Calcium] 600 mg PO DAILY 01/02/21 Cholecalciferol (Vitamin D3) [Vitamin D 1000 Iu Tab*] 2,000 unit PO DAILY 01/02/21 Lisinopril [Zestril] 10 mg PO DAILY 01/02/21 Metformin HCl [Glucophage*] 500 mg PO BID 01/02/21 Multivitamin [Daily Multivitamin] 1 tab PO DAILY 01/02/21 Niacinamide [Niacin] 650 mg PO DAILY 01/02/21 [place]-3 Acid Ethyl Esters 2 gm PO BID 01/02/21 Rosuvastatin [Crestor*] 10 mg PO DAILY 01/02/21 Sertraline [Zoloft*] 50 mg PO DAILY 01/02/21 buPROPion HCL [Wellbutrin Xl] 300 mg PO DAILY 01/02/21 lamoTRIgine [Lamictal*] 100 mg PO DAILY 01/02/21 lamoTRIgine [Lamictal*] 150 mg PO BEDTIME 01/02/21 Albuterol Inhaler [Ventolin Inhaler*] 2 puff IH TID PRN #1 hfa.aer.ad 01/08/21 Ascorbate Calcium [Vitamin C] 500 mg PO TID #90 tablet 01/08/21 Aspirin [Aspirin EC 81 MG] 81 mg PO DAILY #30 tablet. 01/08/21 Benzonatate [Tessalon Perle] 100 mg PO TID PRN #10 cap 01/08/21 Thiamine HCl 100 mg PO BID #60 tablet 01/08/21 Zinc Sulfate [Zinc Sulfate*] 220 mg PO DAILY #30 cap 01/08/21 predniSONE [Prednisone*] 20 mg PO SEECOM #21 tab 01/08/21 Review of Systems 10-point ROS is otherwise unremarkable General: Weakness, Malaise Cardiovascular: Edema Musculoskeletal: Leg Pain <Everardo Maldonado Benson - Last Filed: 05/02/23 13:41> Physical Examination - Physical Exam General: Alert, In no apparent distress, Oriented x3 HEENT: PERRLA Neck: Supple Respiratory: Diminished Cardiovascular: Edema (Right lower extremity edematous with pitting edema, blistering), Irregular heart rate/rhythm (Tachycardia, regular rate 140s) Gastrointestinal: Normal bowel sounds, No tenderness Musculoskeletal: No tenderness Integumentary: Tenderness/swelling, Erythema (Marked edema, erythema to right lower extremity extending from the medial thigh to the foot with blistering edema) Neurological: Normal speech, Normal strength at 5/5 x4 extr, Normal affect - Studies Laboratory Data (last 24 hrs) 05/02/23 05/02/23 05/02/23 09:25 09:25 09:25 WBC 30.40 H Hgb 12.2 Hct 37.2 Plt Count 351 PT 12.2 INR 1.11 APTT 27.4 Sodium 128 L Potassium 3.1 L BUN 35 H Creatinine 3.69 H Glucose 136 H Total Bilirubin 0.9 AST 107 H ALT 38 Alkaline Phosphatase 82 <Everardo Maldonado - Last Filed: 05/02/23 13:41> - Studies Laboratory Data (last 24 hrs) 05/02/23 05/02/23 05/02/23 09:25 09:25 09:25 WBC 30.40 H Hgb 12.2 Hct 37.2 Plt Count 351 PT 12.2 INR 1.11 APTT 27.4 Sodium 128 L Potassium 3.1 L BUN 35 H Creatinine 3.69 H Glucose 136 H Total Bilirubin 0.9 AST 107 H ALT 38 Alkaline Phosphatase 82 <Alexandro Hi - Last Filed: 05/02/23 16:22> Assessment and Plan - Plan Assessment: Septic shock secondary to right lower extremity cellulitis complicated with underlying chronic lymphedema EDDI with metabolic acidosis, mild hyponatremia secondary to septic shock Prediabetes Elevated troponin Plan: Septic shock secondary to right lower extremity cellulitis complicated with underlying chronic lymphedema Blood cultures obtained, initial lactate 4.7 now downtrending Received 30 cc/kg IV fluid bolus in ED-blood pressure remained low Tachycardic 130s Central line being placed in ED, Levophed ordered Continue broad-spectrum antibiotics with Merrem, vancomycin General surgery consult in place-attending spoke with prior to admission X-ray right tib-fib negative for soft tissue gas, CT pending for further evaluation EDDI with metabolic acidosis, mild hyponatremia secondary to septic shock Received 30 cc/kg IV fluid bolus in ED continue gentle IV fluids nephrology consult in place, notified Obtain renal ultrasound Prediabetes ACHS Accu-Chek, mild sliding scale Elevated troponin Suspect demand ischemia from septic shock Trend troponins, monitor on telemetry Consider cardiology consult for significantly elevated troponin DVT PPX: Heparin subcu Code status: DNR Discharge Plan: Home Plan to discharge in: Greater than 2 days - Advance Directives Does patient have a Living Will: No Does patient have a Durable POA for Healthcare: No - Code Status/Comfort Care Code Status Assessed: Yes (DNR) Critical Care: No Time Spent Managing Pts Care (In Minutes): 70 <Everardo Maldonado - Last Filed: 05/02/23 13:41> - Plan Patient seen and examined in the ED with HIGHWAY RESEARCH ENGINEER Erica. Agree with plan as noted above with the following additions/corrections: Septic shock secondary to RLE cellulitis Severe cellulitis/skin thickening, high risk for necrotizing fasciitis No evidence of compartment syndrome at this time Central line to be placed by ED physician Continue empiric antibiotics, Merrem and vancomycin IV fluids Tachycardia, check EKG Nephrology consulted for EDDI, which is likely prerenal/in setting of shock General surgery, Dr. Lewis consulted, spoke with him around the case and the concern of the severity of this leg Admit to the ICU Physician Review: Patient Assessed, Agree with Above Assessment and Plan <Alexandro Hi - Last Filed: 05/02/23 16:22>
--- NOTE | 2023-05-02 14:25 | RAD REPORT ---
EXAM DESCRIPTION: RAD - Chest Single View - 05/02/2023 2:16 pm CLINICAL HISTORY: central line placement Chest pain. COMPARISON: Chest Single View dated 05/02/2023; Chest Single View dated 10/16/2022; Chest Single View dated 01/08/2021; Chest Single View dated 01/05/2021 FINDINGS: Portable technique limits examination quality. The lungs are grossly clear. The heart is mildly enlarged in size. Right-sided IJ catheter its tip in the SVC.No postprocedure pneumothorax.
[2023-05-02 14:27] LABS: Specific Gravity 1.012 (1.005-1.030); Urine Bacteria <20 /HPF (<20); Urine Bilirubin NEGATIVE (Negative); Urine Blood 3+ (OVER) (Negative); Urine Clarity Extremely Turbid (Clear); Urine Color Yellow (Yellow); Urine Crystals Unidentified Few /HPF (None Seen); Urine Glucose NEGATIVE (Negative); Urine Mucus Slight /HPF (None Seen); Urine Protein 1+ (Negative); Urine RBC 21-50 /HPF (None Seen); Urine Urobilinogen Normal (Normal); Urine pH 5.5 (5.0-7.0)
[2023-05-02] MEDS: NA CHLORIDE 0.9% 1,000 ML IV SCH (15:00)
[2023-05-02] MEDS ORDERED: ONDANSETRON 4 MG/2 ML VIAL IV PRN (15:00)
[2023-05-02] MEDS ORDERED: ACETAMINOPHEN 500 MG TAB PO PRN (15:00)
[2023-05-02] MEDS ORDERED: VANCOMYCIN 1 GM in NA CHLORIDE 0.9% 250 ML IVPB ONE (15:30)
--- NOTE | 2023-05-02 15:40 | P.CNS ---
Date of Consult: 05/02/23 Reason for Consult: Renal failure Requesting Physician: Alexandro Hi Chief Complaint: Septic shock, right lower extremity cellulitis History of Present Illness: 63F w/ PMHx of bipolar disorder, depression, ADHD, prediabetes, and chronic bilateral lower extremity lymphedema, who p/w pain, erythema, drainage, & Increased edema of bilateral lower extremities for the last few days, found to be in septic shock secondary to lower extremity cellulitis. She is referred to nephrology for EDDI. Serum creatinine 3.7 on admission. She has hyponatremia with serum sodium 128 on admission. She received IV fluids and started on empiric IV antibiotics. Allergies No Known Allergies Allergy (Verified 01/01/21 05:04) Home Medications: Atomoxetine HCl 60 mg PO DAILY 01/02/21 Calcium Carbonate [Calcium] 600 mg PO DAILY 01/02/21 Cholecalciferol (Vitamin D3) [Vitamin D 1000 Iu Tab*] 2,000 unit PO DAILY 01/02/21 Lisinopril [Zestril] 10 mg PO DAILY 01/02/21 Metformin HCl [Glucophage*] 500 mg PO BID 01/02/21 Multivitamin [Daily Multivitamin] 1 tab PO DAILY 01/02/21 Niacinamide [Niacin] 650 mg PO DAILY 01/02/21 [place]-3 Acid Ethyl Esters 2 gm PO BID 01/02/21 Rosuvastatin [Crestor*] 10 mg PO DAILY 01/02/21 Sertraline [Zoloft*] 50 mg PO DAILY 01/02/21 buPROPion HCL [Wellbutrin Xl] 300 mg PO DAILY 01/02/21 lamoTRIgine [Lamictal*] 100 mg PO DAILY 01/02/21 lamoTRIgine [Lamictal*] 150 mg PO BEDTIME 01/02/21 Albuterol Inhaler [Ventolin Inhaler*] 2 puff IH TID PRN #1 hfa.aer.ad 01/08/21 Ascorbate Calcium [Vitamin C] 500 mg PO TID #90 tablet 01/08/21 Aspirin [Aspirin EC 81 MG] 81 mg PO DAILY #30 tablet. 01/08/21 Benzonatate [Tessalon Perle] 100 mg PO TID PRN #10 cap 01/08/21 Thiamine HCl 100 mg PO BID #60 tablet 01/08/21 Zinc Sulfate [Zinc Sulfate*] 220 mg PO DAILY #30 cap 01/08/21 predniSONE [Prednisone*] 20 mg PO SEECOM #21 tab 01/08/21 - Past Medical/Surgical History -: Depression -: ADD -: Bipolar disorder -: Prediabetes -: ADHD -: Lymphedema Psychosocial/ Personal History: Lives at home with her - Social History Alcohol use: No CD- Drugs: No Caffeine use: Yes Place of Residence: Home Review of Systems is unable to be obtained (d/t AMS) Physical Examination General: Other (chronically ill-appearing) HEENT: Atraumatic, Normocephalic Neck: Supple Respiratory: Other (symmetric chest expansion) Cardiovascular: No rubs, No murmurs Gastrointestinal: Soft and benign, No guarding Musculoskeletal: Swelling (both lower extremities), Erythema (both lower extremities) Integumentary: Erythema (both legs) Neurological: Normal tone Urinary: Other (no bladder distention) External genitalia: Deferred Rectal: Deferred Laboratory Data (last 24 hrs) 05/02/23 05/02/23 05/02/23 09:25 09:25 09:25 WBC 30.40 H Hgb 12.2 Hct 37.2 Plt Count 351 PT 12.2 INR 1.11 APTT 27.4 Sodium 128 L Potassium 3.1 L BUN 35 H Creatinine 3.69 H Glucose 136 H Total Bilirubin 0.9 AST 107 H ALT 38 Alkaline Phosphatase 82 Conclusions/Impression: # EDDI 2/2 ATN/septic shock + CRS1 from atrial flutter SCr 3.7 on adm Baseline serum creatinine 0.8-1.0 as of October 2022 Urinalysis with proteinuria, hematuria, and pyuria Titrate vasopressor/s to maintain MAP > 65 Hold lisinopril IV hydration # AGMA + acute respi alkalosis ABG pH wnl on 05/02 Monitor # Hypokalemia KCl repletion prn # Septic shock 2/2 BLE cellulitis IV abx Local wound care & multilayer compression therapy F/u cultures # Atrial flutter New-onset Per other services # Prediabetes Per primary team Time spent > 35 minutes
[2023-05-02] MEDS ORDERED: AMIODARONE HCL 150 MG in D5W 100 ML IV STA (15:51)
--- NOTE | 2023-05-02 15:51 | RAD REPORT ---
EXAM DESCRIPTION: CT - Low Extremity Wo Cont - 05/02/2023 3:33 pm CLINICAL HISTORY: RLE cellultis, septic shock COMPARISON: Tib Fib Right dated 05/02/2023 FINDINGS: There is quite severe skin thickening and subcutaneous inflammation involving the entire r ight lower extremity, greatest distally. No soft tissue gas is seen. There is a 4 cm crescentic skin based fluid collection just above the knee level right lateral thigh. This may be a focal pustule. A soft tissue abscess is not identified. No osteomyelitis is seen. No fracture. Mildly enlarged inguinal lymph nodes likely reactive. All CT scans are performed using dose optimization technique as appropriate and may include automated exposure control or mA/KV adjustment according to patient size. IMPRESSION: Quite severe skin thickening subcutaneous inflammation and edema involving the right low er extremity as detailed. There is a possible focal skin based pustule or other fluid collection supe rior to the knee right lateral thigh. Direct inspection may be considered. No definitive soft tissue or deep abscess. No soft tissue gas is present.
[2023-05-02] MEDS ORDERED: NOREPINEPHRINE BITARTRATE/D5W 4 MG/250 ML BAG IV ONE ×2 (16:12→21:48)
[2023-05-02] MEDS ORDERED: NA CHLORIDE 0.9% 1,000 ML ONE (16:12)
[2023-05-02] MEDS ORDERED: AMIODARONE HCL 150 MG/3 ML INJ IV ONE (16:12)
[2023-05-02] MEDS ORDERED: D5W 100 ML IV ONE (16:14)
[2023-05-02] MEDS: INSULIN REGULAR (HUMAN) 100 UNIT/ML SQ SCH ×2 (16:30→21:00)
[2023-05-02] MEDS: NOREPINEPHRINE BITARTRATE/D5W 4 MG/250 ML BAG IV SCH (16:30)
[2023-05-02] MEDS: AMIODARONE HCL 900 MG in Dextrose 5%-Water 482 ML IV SCH (16:38)
[2023-05-02 16:59] LABS: Arterial Blood Carboxyhemoglob 0.9 % (0-1.5); Blood Gas Oxyhemoglobin 93.1 % (94-97); Blood O2 Saturation 95.6 % (92-98.5)
[2023-05-02 17:53] LABS: UR PROTEIN 131.4 mg/dL (<11.9); Urine Protein/Creatinine Ratio 1.34 ratio (<0.15)
--- NOTE | 2023-05-02 20:46 | CON ---
Date of Consultation: 05/02/2023 Diagnoses: Cellulitis, lymphedema, right lower extremity. History Of Present Illness: This is a case of a female with multiple medical problems including bipo lar disorder, diabetes, chronic lymphedema bilaterally who comes to us with cellulitis and exacerbati on of lymphedema of the right lower extremity with fever. Patient was admitted to the hospital for I V antibiotics and a surgical consult was obtained. She does not recall any trauma. She has been [place] more than usual. It is obviously the holiday, sometimes given week, but she states she has not deviated too much from her diet. She has history of chronic lymphedema, but she has not been followe d by any clinic at this moment. Allergies: NONE. Past Medical History: Anxiety; bipolar depressive disorder; diabetes, noninsulin dependent; daquan rausch. Past Surgical History: Include C-sections and tubal ligation. Social History: She does not smoke. She does not drink alcohol. Family History: Noncontributory. Review of Systems: Legs swelling with redness and increased temperature. 10 points are otherwise unremarkable. Physical Examination: General: Patient is awake, alert. HEENT: Pupils are equal and reactive. Anicteric. Neck: Supple. Chest: Clear. Heart: S1, S2. Abdomen: Soft and depressible. Extremities: Right lower extremity shows cellulitis of the thigh and also leg region with lymphedema . Multiple blisters that were partially open were removed with a 4 x 4's in the ER. No cyanosis. D orsalis pedis pulses still present. No Homans signs. Laboratory Data: Blood work shows WBC count of 30, with hemoglobin of 12.2 and platelets of 351. Blood work is still pending. Lactic acid came down from 4.3 to 2.4. Venous Doppler negative for DVT s. Assessment: A -wbrf-fks patient with cellulitis of the entire lower extremity lymphedema a ssociated with it. Multiple blisters partially open. No fluctuance present at this moment. Plan: Antibiotics, leg elevation, Silvadene over the leg with dry gauze on top. We going to see how this delineates. She might have to have surgical intervention for debridement once delineation happ ens. Antibiotics per Infectious Disease. HM/MODL Voice ID: [id number] Report ID: [id number]
[2023-05-02] MEDS ORDERED: ACETAMINOPHEN 500 MG TAB ONE (20:55)
[2023-05-02] MEDS: Meropenem 1,000 MG in NA CHLORIDE 0.9% 100 ML IV SCH (21:00)
[2023-05-02] MEDS: HEPARIN 5000 UNIT/ML 1 ML VIAL SQ SCH (21:00)
[2023-05-02] MEDS ORDERED: HEPARIN 5000 UNIT/ML 1 ML VIAL ONE (21:48)
[2023-05-02] MEDS ORDERED: Meropenem 1000 MG/VIAL IV ONE (21:48)
[2023-05-02 22:00] LABS: Potassium 2.8 mEq/L (3.5-5.1)
[2023-05-02 22:03] LABS: Magnesium 1.8 mg/dL (1.6-2.4); Phosphorus 2.8 mg/dL (2.5-4.9)
[2023-05-02] MEDS ORDERED: METOPROLOL TARTRATE 5 MG/5 ML INJ IV PRN (22:12)
[2023-05-02] MEDS ORDERED: METOPROLOL TARTRATE 5 MG/5 ML INJ IV ONE (22:34)
--- NOTE | 2023-05-02 22:38 | P.PN ---
Date of Service: 05/02/23 Troponin I were slightly more elevated. Patient withAdmission for sepsis and atrial flutter. Patient with stress-induced ischemia. Cardiology input pending.
[2023-05-03] MEDS: NOREPINEPHRINE BITARTRATE/D5W 4 MG/250 ML BAG IV SCH ×2 (02:00→11:18)
[2023-05-03] MEDS: NA CHLORIDE 0.9% 1,000 ML IV SCH (03:30)
[2023-05-03 05:39] LABS: Hematocrit 31.9 % (36.0-45.0); MPV 8.8 fL (7.6-11.3); Platelets 321 thou/uL (152-406); RBC Red Blood Cell Count 3.71 M/uL (3.86-4.86)
[2023-05-03] MEDS ORDERED: VANCOMYCIN 1 GM/VIAL ONE (05:54)
[2023-05-03] MEDS ORDERED: VANCOMYCIN 500 MG/VIAL ONE (05:56)
[2023-05-03 06:00] LABS: Albumin 1.6 g/dL (3.4-5.0); Bilirubin Total 0.8 mg/dL (0.2-1.0); Magnesium 1.9 mg/dL (1.6-2.4); Phosphorus 3.2 mg/dL (2.5-4.9); Protein, Total 6.1 g/dL (6.4-8.2); Thyroid Stimulating Hormone 0.989 uIU/mL (0.358-3.740)
[2023-05-03] MEDS ORDERED: KCL 20 MEQ/100 mL IVPB 20 MEQ/100 ML BAG IV SCH (07:00)
[2023-05-03] MEDS: INSULIN REGULAR (HUMAN) 100 UNIT/ML SQ SCH ×4 (07:30→21:00)
[2023-05-03 07:45] LABS: Platelet Estimate ADEQ; Platelets, Giant FEW; Toxic Granulation PRESENT
[2023-05-03 07:52] LABS: Blood Morphology Comment NOT SEEN (NOT SEEN)
--- NOTE | 2023-05-03 08:30 | RAD REPORT ---
EXAM DESCRIPTION: US - Renal Ultrasound-Complete - 05/03/2023 6:15 am CLINICAL HISTORY: tonny COMPARISON: Mri Abdomen W/Wo Cont dated 02/22/2021 TECHNIQUE: Sonographic grayscale and color flow images of the kidneys and bladder were obtained. FINDINGS: Both kidneys are normal in size, shape, and echotexture. Poor penetration limits evaluatio n. The right kidney measures 11.1 cm in length. No hydronephrosis, focal mass, or echogenic calculi. The left kidney measures 11.7 cm in length. No hydronephrosis, focal mass, or echogenic calculi. The urinary bladder is decompressed with Bishop catheter in place. IMPRESSION: Unremarkable renal sonogram allowing for a degree of poor penetration. Bladder is decomp ressed with Bishop catheter in place.
[2023-05-03] MEDS: HEPARIN 5000 UNIT/ML 1 ML VIAL SQ SCH ×2 (08:35→20:10)
[2023-05-03] MEDS: SILVER SULFADIAZINE 1% 50 GM TOP SCH ×2 (08:35→20:12)
[2023-05-03] MEDS ORDERED: Meropenem 1000 MG/VIAL IV ONE ×2 (09:03→20:18)
[2023-05-03] MEDS: Meropenem 1,000 MG in NA CHLORIDE 0.9% 100 ML IV SCH ×2 (09:23→20:10)
[2023-05-03] MEDS ORDERED: NA CHLORIDE 0.9% 100 ML ONE ×2 (09:39→20:19)
--- NOTE | 2023-05-03 11:25 | P.CNS ---
Date of Consult: 05/03/23 Reason for Consult: Atrial flutter Chief Complaint: Septic shock, right lower extremity cellulitis History of Present Illness: Status this is a 63 years old female with past medical history of morbid obesity, prediabetes left lower extremity lymphedema who is here with worsening lower extremity swelling and redness as well as fluid discharge from the legs. Patient was found to be in septic shock tachycardic and was in a flutter with RVR. Patient was admitted to the ICU was started on broad-spectrum antibiotics and Levophed. Allergies No Known Allergies Allergy (Verified 01/01/21 05:04) Home Medications: Atomoxetine HCl 60 mg PO DAILY 01/02/21 Calcium Carbonate [Calcium] 600 mg PO DAILY 01/02/21 Cholecalciferol (Vitamin D3) [Vitamin D 1000 Iu Tab*] 2,000 unit PO DAILY 01/02/21 Lisinopril [Zestril] 10 mg PO DAILY 01/02/21 Metformin HCl [Glucophage*] 500 mg PO BID 01/02/21 Multivitamin [Daily Multivitamin] 1 tab PO DAILY 01/02/21 Niacinamide [Niacin] 650 mg PO DAILY 01/02/21 [place]-3 Acid Ethyl Esters 2 gm PO BID 01/02/21 Rosuvastatin [Crestor*] 10 mg PO DAILY 01/02/21 Sertraline [Zoloft*] 50 mg PO DAILY 01/02/21 buPROPion HCL [Wellbutrin Xl] 300 mg PO DAILY 01/02/21 lamoTRIgine [Lamictal*] 100 mg PO DAILY 01/02/21 lamoTRIgine [Lamictal*] 150 mg PO BEDTIME 01/02/21 Albuterol Inhaler [Ventolin Inhaler*] 2 puff IH TID PRN #1 hfa.aer.ad 01/08/21 Ascorbate Calcium [Vitamin C] 500 mg PO TID #90 tablet 01/08/21 Aspirin [Aspirin EC 81 MG] 81 mg PO DAILY #30 tablet. 01/08/21 Benzonatate [Tessalon Perle] 100 mg PO TID PRN #10 cap 01/08/21 Thiamine HCl 100 mg PO BID #60 tablet 01/08/21 Zinc Sulfate [Zinc Sulfate*] 220 mg PO DAILY #30 cap 01/08/21 predniSONE [Prednisone*] 20 mg PO SEECOM #21 tab 01/08/21 - Past Medical/Surgical History -: Depression -: ADD -: Bipolar disorder -: Prediabetes -: ADHD -: Lymphedema Psychosocial/ Personal History: Lives at home with her - Social History Alcohol use: No CD- Drugs: No Caffeine use: Yes Place of Residence: Home Review of Systems 10-point ROS is otherwise unremarkable Physical Examination Temp Pulse Resp BP Pulse Ox 98.9 F 129 H 24 H 101/56 L 98 05/03/23 07:45 05/03/23 10:00 05/03/23 10:00 05/03/23 10:00 05/03/23 10:15 General: Oriented x3 HEENT: Atraumatic Neck: Supple Respiratory: Clear to auscultation bilaterally Cardiovascular: Edema Gastrointestinal: Normal bowel sounds Neurological: Normal speech Conclusions/Impression: 1. Atrial Flutter with RVR: New onset likely triggered by the septic shock, continue with amiodarone drip till tomorrow. If A-fib persists and then may need to do AWAIS cardioversion. Recommend full dose anticoagulation 2. Septic shock: Likely secondary to cellulitis on broad-spectrum antibiotics per primary team, wean off pressors as tolerated 3. EDDI: Likely secondary to septic shock has been volume resuscitated. 4. Cellulitis: On broad-spectrum antibiotics as above
[2023-05-03] MEDS ORDERED: NOREPINEPHRINE BITARTRATE/D5W 4 MG/250 ML BAG IV ONE (11:27)
--- NOTE | 2023-05-03 11:53 | P.PN ---
Date of Service: 05/03/23 Subjective: Feeling about the same, slightly less pain Erythema in leg improving No acute events overnight ROS: 10 point ROS as noted above, otherwise negative Physical exam GEN: Alert, oriented, NAD HEENT: Normal conjunctiva, sclera anicteric CV: Atrial flutter rate 120s Pulm: Nonlabored respirations on room air ABD: Soft, nontender, nondistended MSK: No joint tenderness Integumentary: Significant erythema, swelling, weeping of right lower extremity from medial mid thigh to foot with blisters present Neuro: Normal speech, normal affect Vitals reviewed Problem List Assessment: Septic shock secondary to right lower extremity cellulitis complicated with underlying chronic lymphedema EDDI with metabolic acidosis, mild hyponatremia secondary to septic shock Atrial flutter-new onset Prediabetes Elevated troponin Plan: Septic shock secondary to right lower extremity cellulitis complicated with underlying chronic lymphedema Blood cultures obtained preliminary 09/09 + for gram + cocci prs/chns, repeat blood cultures ordered on levophed since 05/01-continue to wean Continue broad-spectrum antibiotics with Merrem, vancomycin Surgery following, ID consulted Ct on 05/02 of right lower extremity shows severe skin thickening subcutaneous inflammation and edema-no signs of abscess or gas Atrial flutter-new onset Continue IV amiodarone Continue monitor on telemetry Echocardiogram and cardiology consult in place Monitor electrolytes-replace as needed No known history of atrial fibrillation Rate improving ~120s EDDI with metabolic acidosis, mild hyponatremia secondary to septic shock Improving continue gentle IV fluids nephrology consult in place, notified Prediabetes ACHS Accu-Chek, mild sliding scale Elevated troponin Suspect demand ischemia from septic shock troponins trended flat, monitor on telemetry Consider cardiology consult for significantly elevated troponin VTE: DVT dose heprin subq for now-may need anticoagulation with afib Code: DNR Dispo: Home >2days Time Spent Managing Pts Care (In Minutes): 35 <Everardo Maldonado - Last Filed: 05/03/23 11:47> Patient seen and examined on rounds this morning. Plan of care discussed with BUDGET COORDINATOR Erica. Agree with plan as noted above with the following additions/corrections: Continues on Levophed Erythema improving, swelling improving Dark, dusky appearing heel ulcer appears larger, fluctuant Continue to monitor closely in ICU Continue empiric antibiotics <Alexandro Hi - Last Filed: 05/03/23 15:21>
--- NOTE | 2023-05-03 15:37 | P.PN ---
Subjective Date of Service: 05/03/23 Chief Complaint: Septic shock, right lower extremity cellulitis Subjective: Other (no complaints of dysuria or flank pain.) Physical Examination - Vital Signs Temperature: 98.2 F Blood Pressure: 116/58 Pulse: 124 Respirations: 20 Pulse Ox (%): 96 - Physical Exam General: Other (appears her stated age) HEENT: Atraumatic, Normocephalic Neck: Supple Respiratory: Other (symmetric chest expansion) Cardiovascular: No rubs, No murmurs Gastrointestinal: Soft and benign, No guarding Musculoskeletal: No clubbing Integumentary: No warmth Neurological: Normal speech, Normal tone Urinary: Other (no bladder distention) External genitalia: Deferred Rectal: Deferred Assessment And Plan - Plan # EDDI 2/2 ATN/septic shock + CRS1 from atrial flutter SCr 3.7 on adm, improved to 2.4 today Baseline serum creatinine 0.8-1.0 as of October 2022 Urinalysis with proteinuria, hematuria, and pyuria Titrate vasopressor/s to maintain MAP > 65 Hold lisinopril Dc IV fluid [place] by mouth fluid intake at least 2 L per day # AGMA + acute respi alkalosis ABG pH wnl on 05/02 Monitor # Hypokalemia KCl repletion prn # Hyponatremia Serum Na 128 on adm, improved to 133 # Septic shock 2/2 BLE cellulitis Wean off levo IV abx Local wound care & multilayer compression therapy F/u cultures # Atrial flutter New-onset Per other services # Prediabetes Per primary team Time spent > 35 minutes Physician Review: Patient Assessed, Agree with Above Assessment and Plan
--- NOTE | 2023-05-03 15:50 | PN ---
Date of Progress Note: 05/03/2023 Reason For Service: Cellulitis and blisters, right lower extremity, history of lymphedema. Subjective: The patient doing better. She has a good attitude. Objective: Vital Signs: Reviewed. Chest: Clear. Abdomen: Soft and depressible. Extremities: Redness over the right lower extremity from the thigh all the way down to the leg. Ras e blisters were removed yesterday. Starting to diminish the erythema in that area. Plan: We will take her tomorrow to do further evaluation of the wounds and debridement. NPO after m idnight. Continue antibiotics per ID and primary doctor. HM/MODL Voice ID: [id number] Report ID: [id number]
[2023-05-03] MEDS ORDERED: AMIODARONE IN DEXTROSE,ISO-OSM 360 MG/200 ML BAG IV ONE (16:22)
[2023-05-03] MEDS: AMIODARONE HCL 900 MG in Dextrose 5%-Water 482 ML IV SCH (19:53)
--- NOTE | 2023-05-03 21:52 | RAD REPORT ---
EXAM DESCRIPTION: US - Upper Lower Extrem Art Multi - 05/03/2023 9:14 pm CLINICAL HISTORY: assess ankle brachial index bilaterally COMPARISON: Extrem Venous W Compress Wallace dated 05/02/2023 TECHNIQUE: Bilateral lower extremity ankle brachial pressure measurements. FINDINGS: Symmetric brachial pressure measurements are noted. Right ankle brachial index measures 0.97, borderline. Left ankle brachial index measures 1.07, normal. IMPRESSION: The ankle brachial index measurements as above.
[2023-05-04 05:22] LABS: Hematocrit 30.3 % (36.0-45.0); Lymphocytes % 4.1 % (15.3-44.8); MCV 85.6 fL (80-100); MPV 8.3 fL (7.6-11.3); Platelets 333 thou/uL (152-406); RBC Red Blood Cell Count 3.54 M/uL (3.86-4.86)
[2023-05-04] MEDS: VANCOMYCIN 2 GM in NA CHLORIDE 0.9% 500 ML IVPB SCH (05:27)
[2023-05-04] MEDS ORDERED: AMIODARONE IN DEXTROSE,ISO-OSM 360 MG/200 ML BAG IV ONE ×2 (05:50→19:23)
[2023-05-04 06:03] LABS: Albumin 1.3 g/dL (3.4-5.0); Bilirubin Total 0.4 mg/dL (0.2-1.0); Phosphorus 2.4 mg/dL (2.5-4.9); Potassium 2.9 mEq/L (3.5-5.1)
[2023-05-04] MEDS: INSULIN REGULAR (HUMAN) 100 UNIT/ML SQ SCH ×4 (07:30→21:00)
--- NOTE | 2023-05-04 07:53 | P.PN ---
Date of Service: 05/04/23 subjective: feeling better today off levo since ~2100 last night swelling/redness of lower extremities slowly improving NPO for possible I&D with Dr. Lewis today afebrile ROS: 10 point ROS as noted above, otherwise negative Physical exam GEN: Alert, oriented, NAD HEENT: Normal conjunctiva, sclera anicteric CV: Atrial flutter rate 120s Pulm: Nonlabored respirations on room air ABD: Soft, nontender, nondistended MSK: No joint tenderness Integumentary: Significant erythema, swelling, weeping of right lower extremity from medial mid thigh to foot with blisters present Neuro: Normal speech, normal affect Vitals reviewed Problem List Septic shock secondary to right lower extremity cellulitis complicated with underlying chronic lymphedema Gram-positive Bacteremia Atrial flutter-new onset Elevated troponin EDDI with metabolic acidosis, mild hyponatremia secondary to septic shock Prediabetes Plan: Septic shock secondary to right lower extremity cellulitis complicated with underlying chronic lymphedema Gram-positive Bacteremia Ct lower extremity (05/02) of right lower extremity shows severe skin thickening subcutaneous inflammation and edema-no signs of abscess or gas Blood cx (05/02): obtained preliminary 4/4 + for gram + cocci prs/chns, repeat blood cultures (05/04): pending urine cx (05/02):: no growth wound cx (05/03): 4+ application design engineer on levophed since 05/01 - continue to wean as tolerated Continue empiric Merrem / vancomycin (05/02-) Surgery following, ID consulted NPO for possible I&D today Atrial flutter-new onset Continue IV amiodarone per cardio, consider transition once taking po Continue monitor on telemetry Echocardiogram and cardiology consult in place No known history of atrial fibrillation; suspect secondary to sepsis Rate improving ~120s Elevated troponin Suspect demand ischemia from septic shock / aflutter troponins trended flat, monitor on telemetry Cardio following EDDI with metabolic acidosis, mild hyponatremia secondary to septic shock nephrology consulted IV fluids dc'd Continue to monitor renal function Improving Prediabetes ACHS Accu-Chek, mild sliding scale VTE: DVT dose heprin subq for now-may need anticoagulation with afib Code: DNR Dispo: Home >2days
[2023-05-04] MEDS ORDERED: ALBUMIN HUM 5% 250 ML IV ONE (08:30)
[2023-05-04] MEDS: HEPARIN 5000 UNIT/ML 1 ML VIAL SQ SCH ×2 (08:37→21:50)
[2023-05-04] MEDS ORDERED: NA CHLORIDE 0.9% 100 ML ONE ×2 (08:37→21:02)
[2023-05-04] MEDS: KCL 20 MEQ/100 mL IVPB 20 MEQ/100 ML BAG IV SCH ×2 (08:37→10:00)
[2023-05-04] MEDS ORDERED: Meropenem 1000 MG/VIAL IV ONE ×2 (08:37→21:02)
[2023-05-04] MEDS ORDERED: KCL 20 MEQ/100 mL IVPB 200 ML IV ONE (08:37)
[2023-05-04] MEDS: Meropenem 1,000 MG in NA CHLORIDE 0.9% 100 ML IV SCH ×2 (08:37→21:49)
--- NOTE | 2023-05-04 08:54 | P.CNS ---
Date of Consult: 05/04/23 Reason for Consult: septic shock, RLE cellulitis Chief Complaint: Septic shock, right lower extremity cellulitis History of Present Illness: Patient is a 63-year-old female with a past medical history of morbid obesity, diabetes, chronic lymphedema, bipolar disorder who presented to the ED with complaints of lymphedema exacerbation of the right lower extremity with fever. Patient was admitted for septic shock secondary to right lower extremity cellulitis and atrial flutter. Blood cultures obtained, patient started on empiric antibiotics and admitted to the ICU. Infectious disease was consulted. Allergies No Known Allergies Allergy (Verified 01/01/21 05:04) Home medications list reviewed: Yes Home Medications: Atomoxetine HCl 80 mg PO DAILY 01/02/21 Lisinopril [Zestril] 20 mg PO BEDTIME 01/02/21 Metformin HCl [Glucophage*] 500 mg PO BID 01/02/21 Multivitamin [Daily Multivitamin] 1 tab PO DAILY 01/02/21 [place]-3 Acid Ethyl Esters 2 gm PO BID 01/02/21 Rosuvastatin [Crestor*] 10 mg PO DAILY 01/02/21 Sertraline [Zoloft*] 50 mg PO DAILY 01/02/21 lamoTRIgine [Lamictal*] 100 mg PO DAILY 01/02/21 lamoTRIgine [Lamictal*] 150 mg PO BEDTIME 01/02/21 - Past Medical/Surgical History -: Depression -: ADD -: Bipolar disorder -: Prediabetes -: ADHD -: Lymphedema Psychosocial/ Personal History: Lives at home with her - Social History Alcohol use: No CD- Drugs: No Caffeine use: Yes Place of Residence: Home Physical Examination Temp Pulse Resp BP Pulse Ox 98.2 F 115 H 17 106/57 L 97 05/04/23 06:00 05/04/23 07:00 05/04/23 07:00 05/04/23 07:00 05/04/23 07:00 Laboratory data -Reviewed Microbiology data -Reviewed Imagings Data: -Reviewed Conclusions/Impression: Problem list Septic shock Cellulitis, RLE Gram-Positive Bacteremia Atrial Flutter Acute Kidney Injury Septic Shock secondary to Cellulitis of Right Lower Extremity Gram-Positive Bacteremia -Currently on meropenem and vancomycin (05/02-) -Blood cultures 05/02: Gram-positive cocci in 4 of 4 bottles -Repeat blood cultures 05/04: Pending -Urine culture 05/03: No growth to date -Leukocytosis (WBC 24.9) -Afebrile - 05/04 s/p Excisional debridement down to subQ of Right thigh [id number], R Leg [id number], and Right foot [id number] by Dr. Lewis right thigh/leg/foot cellulitis, infected necrotic wound circumferential Recommendations - Continue Meropenem and Vancomycin for now. - Awaiting blood culture speciation and sensitivity results. Will adjust antibiotics as appropriate - Gram positive bacteremia: Recommend continuing antibiotic therapy for 2 weeks following negative blood culture. - Monitor WBC and fever trends - Wound care per Dr. Lewis Case discussed with Trini Lu
[2023-05-04] MEDS ORDERED: POTASSIUM PHOS IN 0.9 % NACL 15 MMOL/250 ML BAG IV ONE (09:00)
[2023-05-04] MEDS: NYSTATIN PWDR 100000 UNIT/GM TOP SCH ×2 (09:00→21:49)
[2023-05-04] MEDS: SILVER SULFADIAZINE 1% 50 GM TOP SCH ×2 (09:00→21:50)
[2023-05-04] MEDS ORDERED: POTASSIUM CL 40 MEQ in NA CHLORIDE 0.9% 500 ML IV SCH (09:00)
[2023-05-04] MEDS ORDERED: NA CHLORIDE 0.9% 1,000 ML ONE (11:19)
[2023-05-04] MEDS ORDERED: LIDOCAINE 1% MPF 5 ML VIAL ONE (11:21)
[2023-05-04] MEDS ORDERED: FENTANYL CITR 100 MCG/2 ML ONE (11:21)
[2023-05-04] MEDS ORDERED: propofoL 200 MG/20 ML VIAL IV ONE (11:21)
[2023-05-04] MEDS ORDERED: ONDANSETRON 4 MG/2 ML VIAL ONE (11:21)
[2023-05-04] MEDS ORDERED: MIDAZOLAM HCL 2 MG/2 ML INJ ONE (11:22)
[2023-05-04] MEDS ORDERED: NS 0.9% VIAL 10 ML ONE (12:44)
[2023-05-04] MEDS ORDERED: Phenylephrine HCl 10 MG/ML 1 ML VIAL ONE (12:44)
[2023-05-04] MEDS ORDERED: SILVER SULFADIAZINE 1% 25 GM TOP ONE ×2 (12:56→13:06)
--- NOTE | 2023-05-04 13:04 | P.BOP ---
Preoperative diagnosis: right thigh, le g,foot cellulitis, infected necrotic wound circumferentiall Postoperative diagnosis: same, septic shock Primary procedure: Escixional debridement down to subQ: 1. Right thigh [id number] Secondary procedure: 2. R Leg [id number] 3. Right foot [id number] Estimated blood loss: <50cc Specimen: skin Findings: multiple necrotic wounds Anesthesia: MAC Complications: None Drain(s): Other Transferred to: Recovery Room Condition: Good
[2023-05-04 15:26] VITALS: BMI 52.1
--- NOTE | 2023-05-04 16:53 | EKG ---
Test Date: 2023-05-02 Test Time: 12:56:55 Rock Contractor: JONE MEASUREMENT RESULTS: Intervals: Rate: 135 VA: QRSD: 76 QT: 254 QTc: 381 [place]: P: 55 VA: QRS: 29 T: 87 INTERPRETIVE STATEMENTS: Atrial flutter with variable AV block with premature ventricular or aberrantly conducted complexes Low voltage QRS Abnormal ECG Compared to ECG 10/16/2022 11:53:48 Ventricular premature complex(es) now present Sinus rhythm no longer present Left-axis deviation no longer present Myocardial infarct finding no longer present Electronically Signed On 05-04-23 16:51:52 QUALITY CONTROL LEAD by Chris Branch
--- NOTE | 2023-05-04 18:40 | PN ---
Date of Progress Note: 05/04/2023 Subjective: Seen by bedside. She converted to sinus rhythm. Review of Systems: No chest pain, shortness of breath, orthopnea, or cough. No nausea, vomiting, or diarrhea. All othe r systems were reviewed, they were negative. Objective: Vital Signs: Reviewed. Head and Neck: Pupils are equal, reactive to light. Intact eye movements. No JVD. No cervical lym phadenopathy. Neck is supple. Thyroid is not enlarged. Lungs: Clear to auscultation bilaterally. No rhonchi, wheezing, or crackles. No accessory muscle u se. Heart: Regular rate and rhythm. No extra sounds. Abdomen: Soft, nontender. Bowel sounds positive. No organomegaly. No masses or hernia. No rigidi ty or rebound. Extremities: Massive edema bilaterally. No clubbing or cyanosis. Intact pulses. Skin: No rash or nodule. Neurologic: Alert, awake, oriented x3. No acute focal deficit appreciated. Lymph Nodes: No cervical or axillary lymphadenopathy. Investigations: BUN is 35, creatinine is 1.87. Troponin peaked at 117. Assessment And Recommendations: 1.Atrial flutter/fibrillation with rapid ventricular response. She converted to sinus rhythm. Once the 24 hours of the amiodarone is completed to switch mg twice a day and I recommend to s tart her on Eliquis 2.5 mg twice a day as well for stroke prevention. 2.Septic shock and this is being managed with wide-spectrum antibiotics. 3.Elevated troponin, borderline. No chest pain. We will plan for ischemia workup as an outpatient. /MAXIMILIAN Voice ID: [id number] Report ID: [id number]
[2023-05-04] MEDS ORDERED: AMIODARONE HCL 200 MG TAB ONE (21:02)
[2023-05-04] MEDS: AMIODARONE HCL 200 MG TAB PO SCH (21:50)
--- NOTE | 2023-05-04 23:16 | PN ---
Date of Progress Note: 05/04/2023 Chief Complaint: Septic shock, lower extremity cellulitis. Subjective: The patient is undergoing debridement today. Nephrology is following the patient for ac abhishek kidney injury due to ATN, septic shock, and cardiorenal syndrome from atrial flutter. On admissi on serum creatinine level was up to 3.7. Serum creatinine level is gradually improving. Patient has nonoliguric urine output without proteinuria, hematuria, and pyuria. Review of Systems: Denies chest pain, palpitation. Denies headache, vision changes. Physical Examination: Vital Signs: Blood pressure 116/58, heart rate , respiratory rate 20, SpO2 96%. Lungs: Equal chest expansion. No wheezing. Heart: S1, S2. Abdomen: Soft and no rebound. No guarding. Extremities: Slight edema in both legs. Impression And Plan: 1.Acute kidney injury secondary to septic shock and ATN, complicated by cardiorenal syndrome from at rial flutter. Serum creatinine level is gradually improving. Monitor urine output and fluid balance . Patient had urinalysis done without active urinary sediment. Patient has ATN secondary to sepsis and ROMULO inhibitor effect. ROMULO inhibitor is on hold. 2.IV fluids were adjusted. Continue to monitor fluid balance. 3.Hypokalemia. Potassium chloride repletion as needed. 4.Septic shock secondary to bilateral lower extremity cellulitis. Wean off Levophed. Continue IV a ntibiotics. Continue local wound care and debridement per primary team and surgery. 5.Atrial fibrillation, new onset per Cardiology. 6.Prediabetes, per primary team. 7.Hyponatremia. Serum sodium level was 128 on admission, improved gradually to 133. Continue to monitor electrolytes and plan IV fluids according to lab results. EB/MODL Voice ID: [id number] Report ID: [id number]
[2023-05-05 05:54] LABS: Absolute Lymphocytes (CBC) 1.3 K/uL (0.7-4.9); Hematocrit 29.4 % (36.0-45.0); Lymphocytes % 5.1 % (15.3-44.8); MCV 85.9 fL (80-100); MPV 8.3 fL (7.6-11.3); Platelets 374 thou/uL (152-406); RBC Red Blood Cell Count 3.42 M/uL (3.86-4.86)
[2023-05-05 05:58] LABS: Albumin 1.5 g/dL (3.4-5.0); Bilirubin Total 0.3 mg/dL (0.2-1.0); Magnesium 2.2 mg/dL (1.6-2.4); Phosphorus 2.7 mg/dL (2.5-4.9); Potassium 3.3 mEq/L (3.5-5.1); Protein, Total 6.3 g/dL (6.4-8.2)
[2023-05-05] MEDS: INSULIN REGULAR (HUMAN) 100 UNIT/ML SQ SCH ×3 (07:30→21:00)
[2023-05-05] MEDS ORDERED: AMIODARONE HCL 200 MG TAB ONE ×2 (08:30→21:27)
[2023-05-05] MEDS ORDERED: Meropenem 1000 MG/VIAL IV ONE ×2 (08:30→21:27)
[2023-05-05] MEDS: Meropenem 1,000 MG in NA CHLORIDE 0.9% 100 ML IV SCH ×2 (08:30→21:29)
[2023-05-05] MEDS ORDERED: NA CHLORIDE 0.9% 100 ML ONE ×2 (08:31→21:27)
[2023-05-05] MEDS: KCL 20 MEQ/100 mL IVPB 20 MEQ/100 ML BAG IV SCH ×2 (08:31→09:00)
[2023-05-05] MEDS: HEPARIN 5000 UNIT/ML 1 ML VIAL SQ SCH ×2 (08:31→21:29)
[2023-05-05] MEDS ORDERED: SILVER SULFADIAZINE 1% 25 GM TOP ONE (08:31)
[2023-05-05] MEDS: AMIODARONE HCL 200 MG TAB PO SCH ×2 (08:31→21:29)
[2023-05-05] MEDS: NYSTATIN PWDR 100000 UNIT/GM TOP SCH ×2 (08:32→21:00)
[2023-05-05 09:27] LABS: Blood Morphology Comment NOTED (NOT SEEN); Dohle Bodies PRESENT; Platelet Estimate ADEQ; Toxic Granulation 1+
--- NOTE | 2023-05-05 11:37 | RAD REPORT ---
EXAM DESCRIPTION: RADChest Single View05/05/2023 10:42 am CLINICAL HISTORY: wheezing COMPARISON: Chest Single View dated 05/02/2023; Chest Single View dated 05/02/2023; Chest Single Vie w dated 10/16/2022; Chest Single View dated 01/08/2021 TECHNIQUE: Portable AP view of the chest. FINDINGS: Right IJ CVC unchanged in position. Decreased inspiratory effort somewhat limits evaluatio n. The lungs are clear. No pneumothorax or effusion. The cardiomediastinal contours are unremarkable . IMPRESSION: No acute cardiopulmonary process.
--- NOTE | 2023-05-05 13:21 | ECHO ---
HEIGHT: 5 ft 4 in WEIGHT: 303 lb 11.2 oz DATE OF STUDY: 05/05/[address]: Everardo Maldonado NP 2-DIMENSIONAL: YES M.MODE: YES DOPPLER: YES COLOR FLOW: YES TDS: PORTABLE: YES DEFINITY: BUBBLE STUDY: DIAGNOSIS: NEW ONSET ATRIAL FLUTTER CARDIAC HISTORY: CATHERIZATION: NO SURGERY: NO PROSTHETIC VALVE: NO PACEMAKER: NO MEASUREMENTS (cm) DIASTOLIC (NORMALS) SYSTOLIC (NORMALS) IVSd 1.4 (0.6-1.2) LA Diam 2.9 (1.9-4.0) LVEF 59% LVIDd 4.7 (3.5-5.7) LVIDs 3.2 (2.0-3.5) %FS 31% LVPWd 1.5 (0.6-1.2) Ao Diam 2.6 (2.0-3.7) 2 DIMENSIONAL ASSESSMENT: RIGHT ATRIUM: NORMAL LEFT ATRIUM: NORMAL RIGHT VENTRICLE: NORMAL LEFT VENTRICLE: NORMAL TRICUSPID VALVE: MILD TRICUSPID REGURGITATION MITRAL VALVE: NORMAL PULMONIC VALVE: NORMAL AORTIC VALVE: NORMAL PERICARDIAL EFFUSION: NONE AORTIC ROOT: NORMAL LEFT VENTRICULAR WALL MOTION: NORMAL DOPPLER/COLOR FLOW: SEE BELOW COMMENTS: 1. NORMAL LEFT VENTRICULAR EJECTION FRACTION 55-60% WITH NORMAL WALL MOTION 2. NORMAL DIASTIOLIC FUNCTION 3. MILD TRICUSPID REGURGITATION 4. MILD PULMONARY HYPERTENSION WITH RIGHT VENTRICULAR SYSTOLIC PRESSURE OF 40-45mmHg TECHNOLOGIST: MARINA LEE
[2023-05-05] MEDS ORDERED: FUROSEMIDE 40 MG/4 ML VIAL IV ONE (13:42)
--- NOTE | 2023-05-05 14:10 | P.PN ---
Date of Service: 05/05/23 Chief Complaint: Septic shock, right lower extremity cellulitis Subjective: Improving. patient seen and examined at bedside. In no apparent distress. Denies any new or worsening complaints at this time. s/p debridement of right lower extremity yesterday. Physical Examination Temp Pulse Resp BP Pulse Ox 97.0 F 100 H 22 H 146/81 H 100 05/05/23 11:00 05/05/23 12:00 05/05/23 12:00 05/05/23 12:00 05/05/23 12:00 General: In no apparent distress. Alert and oriented x3. HEENT: Normocephalic. Atraumatic. Corrective lenses. Resp: Unlabored respirations on 2L nasal cannula. CV: Irregular rate/rhythm. BLE edema. Abd: Soft. Non-tender. Non-distended. Normoactive bowel sounds. Skin: RLE dressing is clean dry and intact. No rashes. Laboratory data -Reviewed Microbiology data -Reviewed Imagings Data: -Reviewed Medications list: Reviewed Assessment and Plan Problem list Septic shock Cellulitis, RLE Gram-Positive Bacteremia Lymphedema Atrial Flutter Acute Kidney Injury Septic Shock secondary to Cellulitis of Right Lower Extremity Gram-Positive Bacteremia -Currently on meropenem and vancomycin (05/02-) -Blood cultures 05/02: Gram-positive cocci in pairs and chains - 4 of 4 bottles -Repeat blood cultures 05/04: Pending -Urine culture 05/03: No growth to date -Leukocytosis -Afebrile - 05/04 s/p Excisional debridement down to subQ of Right thigh [id number], R Leg [id number], and Right foot [id number] by Dr. Lewis right thigh/leg/foot cellulitis, infected necrotic wound circumferential Recommendations - Gram positive bacteremia: Recommend continuing antibiotic therapy for 2 weeks following negative blood culture. - Repeat blood culture pending. Follow up with results. - Continue Meropenem and Vancomycin for now. - Monitor WBC and fever trends - RLE wound care per Dr. Lewis Case discussed with Trini Lu
--- NOTE | 2023-05-05 14:36 | P.PN ---
Subjective Date of Service: 05/05/23 Chief Complaint: Septic shock, right lower extremity cellulitis Patient denies any new complain. Patient blood pressure has improved, Levophed drip weaned off. No recorded fever. Physical Examination - Vital Signs Temperature: 97.0 F Blood Pressure: 146/81 Pulse: 100 Respirations: 22 Pulse Ox (%): 100 - Studies Microbiology Data (last 24 hrs): 05/03/23 02:10 Wound - L Leg (Lower) Gram Stain - Final Assessment And Plan - Plan Physical exam GEN: Alert, oriented, NAD HEENT: Normal conjunctiva, sclera anicteric CV: Irregular rhythm, rapid rate. Pulm: Clear to auscultation bilaterally ABD: Soft, nontender, nondistended MSK: No joint tenderness Integumentary: Significant erythema, right lower extremity is wrapped with dressing. Neuro: Normal speech, normal affect, no focal motor deficit. Vitals reviewed Diagnosis Septic shock secondary to right lower extremity cellulitis complicated with underlying chronic lymphedema Gram-positive Bacteremia Atrial flutter-new onset Elevated troponin EDDI with metabolic acidosis, mild hyponatremia secondary to septic shock Prediabetes Plan: Septic shock secondary to right lower extremity cellulitis complicated with underlying chronic lymphedema Gram-positive Bacteremia Ct lower extremity (05/02) of right lower extremity shows severe skin thickening subcutaneous inflammation and edema-no signs of abscess or gas Blood cx (05/02): Beta Streptococcus. repeat blood cultures (05/04): pending urine cx (05/02):: no growth wound cx (05/03): Staph aureus Weaned off Levophed. Continue empiric Merrem / vancomycin (05/02-) Surgery following, ID consulted Status postdebridement by general surgery Dr. Lewis. Continue wound care. Atrial flutter-new onset Status post IV amiodarone per cardio, transitioned to oral amiodarone. Cardiology input appreciated. Continue monitor on telemetry Echocardiogram is pending Elevated troponin Suspect demand ischemia from septic shock / aflutter troponins trended flat, monitor on telemetry Cardio following EDDI with metabolic acidosis, mild hyponatremia secondary to septic shock nephrology Dr. Hummel consulted IV fluids dc'd. Intermittent IV Lasix as per nephrology Serum creatinine is improving. Continue to monitor renal function Prediabetes ACHS Accu-Chek, mild sliding scale VTE: heprin subq for now-may need anticoagulation with afib Code: DNR
[2023-05-05] MEDS: SILVER SULFADIAZINE 1% 50 GM TOP SCH ×2 (15:00→21:00)
[2023-05-05] MEDS ORDERED: FUROSEMIDE 40 MG/4 ML VIAL ONE (15:13)
--- NOTE | 2023-05-05 15:22 | PN ---
Date of Progress Note: 05/05/2023 Subjective: The patient was admitted to the hospital with acute kidney injury, septic shock, anasarca, and cardiorenal syndrome. The patient's creatinine upon admission was 3.7. The patient being on diuresis, responding very well. Objective: Vital Signs: Blood pressure 146/81, pulse of 100, afebrile. The patient had urine output of 2400. The patient even balance. Chest: Crackles bilateral, more prominent on the right base. Heart: S1, S2. Systolic murmur. Abdomen: Soft, nontender. Extremities: Lymphedema with cellulitis both lower extremities. +2 edema. Neurologic: Alert. No focality. Laboratory Data: Chest x-ray, cardiomegaly with congestion compared to old x- ray back on the , look to me slightly more improved. WBC 26.1, hemoglobin 9.7, sodium 140, potassium 3.3, bicarb 23, BUN 30, creatinine 1.4, GFR of 42, calcium 8.7, phosphorus 2.7, magnesium 2.2, albumin 1.5, corrected calcium is 10.7. Current Medications: The patient on include meropenem 1 g b.i.d., nystatin, vancomycin 2 g every 36 hours, amiodarone, Zofran, KCl. Assessment And Plan: 1. Acute kidney injury secondary to poor perfusion ATN secondary to septic shock secondary to cellulitis. Continue to recover, nonoliguric. Looked to me slightly on the over volume side. I am going to go ahead and give single dose of Lasix today and we will follow up the response for the patient. 2. We will keep avoiding any ROMULO inhibitor or ARB. 3. We will try to achieve better volume control. 4. Hypertension, status post septic shock. Hold all blood pressure medication. We will use only 1 single dose of Lasix to establish better volume control. 5. Hypokalemia, we will supplement. 6. Hypercalcemia. The patient is not on any supplement mostly secondary to immobilization. I am going to send for vitamin D and PTH and we will follow up. 7. Atrial fibrillation. Follow up with Cardiology. 8. Hyponatremia secondary to dilutional, currently sodium normalized. We will follow up. time spend exam the patient face to face reviewing data lab and radiology placing order , discussing with the patient , discussing with the retail team member including hospitalist and nursing staff >35 min AMANDA/MAXIMILIAN Voice ID: [id number] Report ID: [id number] RIMA
[2023-05-05] MEDS: VANCOMYCIN 2 GM in NA CHLORIDE 0.9% 500 ML IVPB SCH (18:49)
[2023-05-05] MEDS ORDERED: ACETAMINOPHEN 500 MG TAB ONE (21:27)
[2023-05-06] MEDS: INSULIN REGULAR (HUMAN) 100 UNIT/ML SQ SCH ×4 (07:30→21:00)
[2023-05-06 08:24] LABS: Absolute Lymphocytes (CBC) 1.5 K/uL (0.7-4.9); Hematocrit 30.2 % (36.0-45.0); Lymphocytes % 4.7 % (15.3-44.8); MCV 85.7 fL (80-100); MPV 7.8 fL (7.6-11.3); Platelets 413 thou/uL (152-406); RBC Red Blood Cell Count 3.52 M/uL (3.86-4.86)
[2023-05-06] MEDS: Meropenem 1,000 MG in NA CHLORIDE 0.9% 100 ML IV SCH (08:25)
[2023-05-06] MEDS: AMIODARONE HCL 200 MG TAB PO SCH ×2 (08:26→21:13)
[2023-05-06] MEDS: NYSTATIN PWDR 100000 UNIT/GM TOP SCH ×2 (08:26→21:00)
[2023-05-06] MEDS: HEPARIN 5000 UNIT/ML 1 ML VIAL SQ SCH ×2 (08:26→21:14)
[2023-05-06] MEDS: SILVER SULFADIAZINE 1% 50 GM TOP SCH ×2 (08:27→21:13)
[2023-05-06 08:51] LABS: Albumin 1.4 g/dL (3.4-5.0); Bilirubin Total 0.3 mg/dL (0.2-1.0); Phosphorus 3.6 mg/dL (2.5-4.9); Potassium 3.4 mEq/L (3.5-5.1); Protein, Total 6.3 g/dL (6.4-8.2); Thyroid Stimulating Hormone 1.62 uIU/mL (0.358-3.740); Uric Acid 5.6 mg/dL (2.6-6.0)
--- NOTE | 2023-05-06 09:35 | P.PN ---
Date of Service: 05/06/23 Chief Complaint: Septic shock, right lower extremity cellulitis Subjective: Resting comfortably in bed. + Left leg pain No acute events reported overnight. Physical Examination Temp Pulse Resp BP Pulse Ox 98.2 F 101 H 20 129/59 L 96 05/06/23 00:00 05/06/23 01:08 05/06/23 01:08 05/06/23 01:08 05/06/23 01:08 General: In no apparent distress. Alert and oriented x3. HEENT: Normocephalic. Atraumatic. Corrective lenses. Resp: Unlabored respirations on 2L nasal cannula. CV: Irregular rate/rhythm. BLE edema. Abd: Soft. Non-tender. Non-distended. Normoactive bowel sounds. Skin: RLE dressing is clean dry and intact. No rashes. Laboratory data -Reviewed Microbiology data 05/02/23 09:25 Blood - Blood Aerobic Blood Culture - Final Streptococcus Pyogenes 05/02/23 09:25 Blood - Blood Blood Culture Gram Stain - Final 05/02/23 09:25 Blood - Blood Anaerobic Blood Culture - Final Streptococcus Pyogenes 05/02/23 09:25 Blood - Blood Gram Stain - Final 05/02/23 10:39 Blood - Blood Aerobic Blood Culture - Final Streptococcus Pyogenes 05/02/23 10:39 Blood - Blood Blood Culture Gram Stain - Final 05/02/23 10:39 Blood - Blood Anaerobic Blood Culture - Final Streptococcus Pyogenes 05/02/23 10:39 Blood - Blood Gram Stain - Final 05/03/23 02:10 Wound - L Leg (Lower) Gram Stain - Final 05/03/23 02:10 Wound - L Leg (Lower) Culture & Sensitivity - Preliminary Staph Aureus Streptococcus Pyogenes 05/02/23 14:10 Clean Catch Urine [place] Count - Final No growth. 05/02/23 14:10 Clean Catch Urine - Final No growth. Imagings Data: -Reviewed Medications list: Acetaminophen (Acetaminophen 500 Mg Tab) 500 mg PO Q4HP PRN PRN Reason: Pain scale 2-4 (Mild) Last Admin: 05/02/23 20:43 Dose: 500 mg Amiodarone HCl (Amiodarone Hcl 200 Mg Tab) 200 mg PO BID [facility] Last Admin: 05/06/23 08:26 Dose: 200 mg Heparin Sodium (Porcine) (Heparin 5000 Unit/Ml 1 Ml Vial) 5,000 unit SQ Q12HR [facility] Last Admin: 05/06/23 08:26 Dose: 5,000 unit Meropenem 1,000 mg/ Sodium (Chloride) 100 mls @ 200 mls/hr IV Q12HR [facility] Last Admin: 05/06/23 08:25 Dose: 100 mls Norepinephrine/Dextrose (Levophed 4 Mg/250 Ml-D5w) 4 mg in 250 mls @ 42.563 mls/hr IV TITR [facility]BERLE[facility]; Protocol Last Titration: 05/03/23 21:00 Dose: 0 mcg/kg/min, 0 mls/hr Vancomycin HCl 2 gm/ Sodium (Chloride) 500 mls @ 250 mls/hr IVPB Q24H [facility] Insulin Human Regular (Insulin Regular (Human) 100 Unit/Ml) 0 unit SQ ACHS [facility]; Protocol Last Admin: 05/06/23 07:30 Dose: Not Given Nystatin (Nystatin Pwdr [id number] Unit/Gm) 1 appl TOP BID [facility] Last Admin: 05/06/23 08:26 Dose: 1 appl Ondansetron HCl (Ondansetron 4 Mg/2 Ml Vial) 4 mg IV Q6HP PRN PRN Reason: NAUSEA / VOMITING Silver Sulfadiazine (Silver Sulfadiazine 1% 50 Gm) 1 appl TOP BID [facility] Last Admin: 05/06/23 08:27 Dose: 1 appl Assessment and Plan Problem list Septic shock Cellulitis, RLE Gram-Positive Bacteremia Lymphedema Atrial Flutter Acute Kidney Injury Septic Shock secondary to Cellulitis of Right Lower Extremity Streptococcus pyogenes Bacteremia -Blood cultures 05/02: Streptococcus pyogenes in 4 of 4 bottles -Repeat blood cultures 05/04: Pending - Wound cultures 05/03: Staphyloccus aureus and Streptococcus pyogenes -Leukocytosis worsening (WBC 24.9 -> 26.1 -> 30.7) -Afebrile - 05/04 s/p Excisional debridement down to subQ of Right thigh [id number], R Leg [id number], and Right foot [id number] by Dr. Lewis right thigh/leg/foot cellulitis, infected necrotic wound circumferential -Currently on meropenem and vancomycin (05/02-) -> Vancomycin levels have been subtherapeutic due to fluctuating renal function/dosing challenges Recommendations - Wound culture with staph aureus and strep pyogenes. Susceptible to oxacillin Leukocytosis worsening despite Meropenem and Vancomycin. However Vancomycin levels have been subtherapeutic due to fluctuating renal function/dosing challenges -> recommend switching to Unasyn at this time. Pharmacy to dose. - Strep pyogenes bacteremia: Recommend continuing antibiotic therapy for 2 weeks following negative blood culture. - Repeat blood culture pending. Follow up with results. - Monitor WBC and fever trends - RLE surgical debridement wound care per Dr. Lewis Case discussed with Nicole Lu who is in agreement with plan.
[2023-05-06 09:44] LABS: Blood Morphology Comment NOTED (NOT SEEN); Platelet Estimate ADEQ; Toxic Granulation 1+
[2023-05-06 09:45] LABS: Polychromasia SLIGHT
[2023-05-06] MEDS ORDERED: POTASSIUM CL SA 10 MEQ TAB PO ONE (11:00)
[2023-05-06] MEDS: AMPICILLIN/SULBACT 3 GM in NA CHLORIDE 0.9% 100 ML IV SCH ×2 (11:06→16:00)
--- NOTE | 2023-05-06 14:31 | PN ---
Date of Progress Note: 05/06/2023 Subjective: Patient was admitted to the hospital with acute kidney injury secondary to cardiorenal, anasarca, and over volume. Patient being on diuresis. Kidney function has been improved significantly. Patient yesterday was given extra dose of Lasix, has good urine output. Physical Examination: Vital Signs: When I saw the patient, blood pressure 150/83, pulse of 93, afebrile. Patient had good urine output of 4 L, negative of 2300. Chest: Decreased entry bilateral base. Heart: S1, S2. Systolic murmur. Abdomen: Soft, nontender. Extremities: +2 edema. Neurologic: Alert. No focality. Laboratory Data: Chest x-ray: Cardiomegaly with congestion. Sodium 139, potassium 3.4, bicarb 23, BUN 32, creatinine 1.1. GFR of 52. Calcium 8.5. Phosphorus 3.6. Hemoglobin 9.9, WBC 30. Current Medications: The patient is on include: 1. Zosyn. 2. Nystatin. 3. Amiodarone. 4. Lasix. Assessment And Plan: 1. Acute kidney injury secondary to cardiorenal. Patient is still on the over volume side. I am going to continue Lasix on a daily basis, and we will monitor the patient. 2. Hypertension, uncontrolled, not optimal. I will utilize blood pressure for more diuresis. 3. Hyponatremia, dilutional. We will continue diuresis. 4. Hypokalemia. We will supplement. We will start the patient on Aldactone, and we will follow up the patient. 5. Hypercalcemia, marginal PTH. Appropriate. Vitamin D is still pending mostly secondary to immobilization. We will follow up after aggressive diuresis. time spend exam the patient face to face reviewing data lab and radiology placing order , discussing with the patient , discussing with the team truck driver including hospitalist and nursing staff >35 min AMANDA/MAXIMILIAN Voice ID: [id number] Report ID: [id number] MTDD
--- NOTE | 2023-05-06 16:01 | P.PN ---
Subjective Date of Service: 05/06/23 Chief Complaint: Septic shock, right lower extremity cellulitis Patient has no new complain. No recorded fever. Physical Examination - Vital Signs Temperature: 97.6 F Blood Pressure: 154/68 Pulse: 96 Respirations: 18 Pulse Ox (%): 97 - Studies Microbiology Data (last 24 hrs): 05/02/23 09:25 Blood - Blood Aerobic Blood Culture - Final Streptococcus Pyogenes 05/02/23 09:25 Blood - Blood Blood Culture Gram Stain - Final 05/02/23 09:25 Blood - Blood Anaerobic Blood Culture - Final Streptococcus Pyogenes 05/02/23 09:25 Blood - Blood Gram Stain - Final 05/02/23 10:39 Blood - Blood Aerobic Blood Culture - Final Streptococcus Pyogenes 05/02/23 10:39 Blood - Blood Blood Culture Gram Stain - Final 05/02/23 10:39 Blood - Blood Anaerobic Blood Culture - Final Streptococcus Pyogenes 05/02/23 10:39 Blood - Blood Gram Stain - Final 05/03/23 02:10 Wound - L Leg (Lower) Gram Stain - Final Assessment And Plan - Plan Physical exam GEN: Alert, oriented, NAD HEENT: Normal conjunctiva, sclera anicteric CV: Irregular rhythm, rapid rate. Pulm: Clear to auscultation bilaterally ABD: Soft, nontender, nondistended MSK: No joint tenderness Integumentary: Significant erythema, right lower extremity is wrapped with dressing. Neuro: Normal speech, normal affect, no focal motor deficit. Vitals reviewed Diagnosis Septic shock secondary to right lower extremity cellulitis complicated with underlying chronic lymphedema Gram-positive Bacteremia Atrial flutter-new onset Elevated troponin EDDI with metabolic acidosis, mild hyponatremia secondary to septic shock Prediabetes Plan: Septic shock secondary to right lower extremity cellulitis complicated with underlying chronic lymphedema Gram-positive Bacteremia Ct lower extremity (05/02) of right lower extremity shows severe skin thickening subcutaneous inflammation and edema-no signs of abscess or gas Blood cx (05/02): Streptococcus pyogenes. repeat blood cultures (05/04): No growth urine cx (05/02):: no growth wound cx (05/03): MSSA and Streptococcus pyogenes Weaned off Levophed. Antibiotics changed to nafcillin and clindamycin. Clindamycin added to treat Streptococcus toxigenic effect. Status postdebridement by general surgery Dr. Lewis. Surgery following and monitoring for possible repeat debridement. ID input appreciated. Continue wound care. Atrial flutter-new onset Status post IV amiodarone per cardio, transitioned to oral amiodarone. Cardiology input appreciated. Continue monitor on telemetry Echocardiogram is pending Elevated troponin Suspect demand ischemia from septic shock / aflutter troponins trended flat, monitor on telemetry Cardiology following EDDI with metabolic acidosis, mild hyponatremia secondary to septic shock nephrology Dr. Hummel consulted IV fluids dc'd. Intermittent IV Lasix as per nephrology Serum creatinine continue to improve. Continue to monitor renal function Prediabetes ACHS Accu-Chek, mild sliding scale VTE: heprin subq for now given impending surgical debridement-may need anticoagulation with afib Code: DNR
[2023-05-06] MEDS: OXACILLIN SODIUM 2 GM in NA CHLORIDE 0.9% 100 ML IV SCH ×2 (17:14→21:12)
[2023-05-06] MEDS ORDERED: VANCOMYCIN 2 GM in NA CHLORIDE 0.9% 500 ML IVPB SCH (18:00)
[2023-05-06] MEDS: CLINDAMYCIN 900MG/D5W 900 MG/50 ML IVPB IV SCH (21:11)
[2023-05-06] MEDS ORDERED: NA CHLORIDE 0.9% 0 ML ONE (21:19)
[2023-05-06] MEDS ORDERED: NA CHLORIDE 0.9% 100 ML ONE ×2 (21:20→21:45)
[2023-05-07] MEDS: OXACILLIN SODIUM 2 GM in NA CHLORIDE 0.9% 100 ML IV SCH ×6 (01:45→21:37)
[2023-05-07 03:24] LABS: Albumin 1.4 g/dL (3.4-5.0); Potassium 3.4 mEq/L (3.5-5.1)
[2023-05-07] MEDS: INSULIN REGULAR (HUMAN) 100 UNIT/ML SQ SCH ×4 (07:30→21:00)
--- NOTE | 2023-05-07 08:05 | P.PN ---
Date of Service: 05/07/23 Chief Complaint: Septic shock, right lower extremity cellulitis Subjective: Patient seen and examined at bedside. No acute events reported overnight. In no apparent distress. + right lower extremity pain + shortness of breath + sore throat + oral/tongue lesions Physical Examination Temp Pulse Resp BP Pulse Ox 98.3 F 97 H 18 153/71 H 97 05/07/23 00:00 05/07/23 00:00 05/07/23 00:00 05/07/23 00:00 05/07/23 00:00 General: In no apparent distress. Alert and oriented x3. HEENT: Normocephalic. Atraumatic. Corrective lenses. Oral and tongue lesions with erythema of soft palate Resp: + rhonchi upper lung reyes. Diminished at bases. Unlabored respirations on 2L nasal cannula. CV: Irregular rate/rhythm. BLE edema. Abd: Soft. Non-tender. Non-distended. Normoactive bowel sounds. Skin: RLE dressing is clean dry and intact. Laboratory data -Reviewed Microbiology data 05/02/23 09:25 Blood - Blood Aerobic Blood Culture - Final Streptococcus Pyogenes 05/02/23 09:25 Blood - Blood Blood Culture Gram Stain - Final 05/02/23 09:25 Blood - Blood Anaerobic Blood Culture - Final Streptococcus Pyogenes 05/02/23 09:25 Blood - Blood Gram Stain - Final 05/02/23 10:39 Blood - Blood Aerobic Blood Culture - Final Streptococcus Pyogenes 05/02/23 10:39 Blood - Blood Blood Culture Gram Stain - Final 05/02/23 10:39 Blood - Blood Anaerobic Blood Culture - Final Streptococcus Pyogenes 05/02/23 10:39 Blood - Blood Gram Stain - Final 05/03/23 02:10 Wound - L Leg (Lower) Gram Stain - Final 05/03/23 02:10 Wound - L Leg (Lower) Culture & Sensitivity - Preliminary Staph Aureus Streptococcus Pyogenes 05/02/23 14:10 Clean Catch Urine [place] Count - Final No growth. Imagings Data: -Reviewed Medications list: Acetaminophen (Acetaminophen 500 Mg Tab) 500 mg PO Q4HP PRN PRN Reason: Pain scale 2-4 (Mild) Last Admin: 05/02/23 20:43 Dose: 500 mg Amiodarone HCl (Amiodarone Hcl 200 Mg Tab) 200 mg PO BID KIMBERLEE Last Admin: 05/06/23 21:13 Dose: 200 mg Furosemide (Furosemide 40 Mg/4 Ml Vial) 40 mg IV DAILY [facility] Heparin Sodium (Porcine) (Heparin 5000 Unit/Ml 1 Ml Vial) 5,000 unit SQ Q12HR [facility] Last Admin: 05/06/23 21:14 Dose: 5,000 unit Norepinephrine/Dextrose (Levophed 4 Mg/250 Ml-D5w) 4 mg in 250 mls @ 42.563 mls/hr IV TITR [facility]; Protocol Last Titration: 05/03/23 21:00 Dose: 0 mcg/kg/min, 0 mls/hr Oxacillin Sodium 2 gm/ Sodium (Chloride) 100 mls @ 200 mls/hr IV Q4HR [facility] Last Admin: 05/07/23 04:49 Dose: 100 mls Clindamycin HCl/Dextrose (Cleocin 900 Mg/D5w 50 Ml Iv) 900 mg in 50 mls @ 100 mls/hr IV TID [facility] Last Admin: 05/06/23 21:11 Dose: 50 mls Insulin Human Regular (Insulin Regular (Human) 100 Unit/Ml) 0 unit SQ ACHS [facility]; Protocol Last Admin: 05/06/23 21:00 Dose: Not Given Nystatin (Nystatin Pwdr [id number] Unit/Gm) 1 appl TOP BID [facility] Last Admin: 05/06/23 21:00 Dose: 1 appl Ondansetron HCl (Ondansetron 4 Mg/2 Ml Vial) 4 mg IV Q6HP PRN PRN Reason: NAUSEA / VOMITING Potassium Chloride (Potassium Cl Sa 10 Meq Tab) 40 meq PO 1X ONE Stop: 05/07/23 09:01 Silver Sulfadiazine (Silver Sulfadiazine 1% 50 Gm) 1 appl TOP BID [facility] Last Admin: 05/06/23 21:13 Dose: 1 appl Spironolactone (Spironolactone 25 Mg Tablet) 25 mg PO DAILY [facility] Assessment and Plan Problem list Septic shock Cellulitis, RLE Gram-Positive Bacteremia Lymphedema Atrial Flutter Acute Kidney Injury Septic Shock secondary to Cellulitis of Right Lower Extremity Streptococcus pyogenes Bacteremia -Blood cultures 05/02: Streptococcus pyogenes in 4 of 4 bottles -Repeat blood cultures 05/04: no growth to date - Wound cultures 05/03: Staphyloccus aureus and Streptococcus pyogenes - 05/04 s/p Excisional debridement down to subQ of Right thigh [id number], R Leg [id number], and Right foot [id number] by Dr. Lewis right thigh/leg/foot cellulitis, infected necrotic wound circumferential -Previously on Meropenem and Vancomycin (05/02-05/06). Vancomycin levels have been subtherapeutic due to fluctuating renal function/dosing challenges. --> switched to Oxacillin and Clindamycin - Chest XR 05/05: "No acute cardiopulmonary process." -Leukocytosis worsening -Afebrile Recommendations - Sore throat, oral/tongue lesions: throat culture ordered. Follow up. - Wound culture with staph aureus and strep pyogenes. Susceptible to oxacillin Leukocytosis worsening despite Meropenem and Vancomycin. However Vancomycin levels have been subtherapeutic due to fluctuating renal function/dosing challenges -> Continue Oxacillin and Vancomycin for now. - Strep pyogenes bacteremia: Recommend continuing antibiotic therapy for 14 days (05/03-05/17) - Monitor WBC and fever trends - RLE wound care per Dr. Lewis Case discussed with Nicole Lu who is in agreement with plan.
[2023-05-07] MEDS: CLINDAMYCIN 900MG/D5W 900 MG/50 ML IVPB IV SCH ×3 (08:26→21:25)
[2023-05-07] MEDS: NYSTATIN PWDR 100000 UNIT/GM TOP SCH ×2 (08:26→21:00)
[2023-05-07] MEDS: AMIODARONE HCL 200 MG TAB PO SCH ×2 (08:26→21:26)
[2023-05-07] MEDS: HEPARIN 5000 UNIT/ML 1 ML VIAL SQ SCH ×2 (08:26→21:25)
[2023-05-07] MEDS: SILVER SULFADIAZINE 1% 50 GM TOP SCH ×2 (08:27→21:38)
[2023-05-07] MEDS ORDERED: SPIRONOLACTONE 25 MG TABLET PO SCH (09:00)
[2023-05-07] MEDS ORDERED: FUROSEMIDE 40 MG/4 ML VIAL IV SCH (09:00)
[2023-05-07] MEDS ORDERED: POTASSIUM CL SA 10 MEQ TAB PO ONE (09:00)
[2023-05-07 12:24] LABS: Absolute Lymphocytes (CBC) 1.8 K/uL (0.7-4.9); Hematocrit 30.7 % (36.0-45.0); Lymphocytes % 5.7 % (15.3-44.8); MCV 85.3 fL (80-100); MPV 7.8 fL (7.6-11.3); Platelets 431 thou/uL (152-406)
[2023-05-07 13:21] LABS: Platelet Estimate ADEQ
[2023-05-07 13:22] LABS: Blood Morphology Comment NOT SEEN (NOT SEEN)
--- NOTE | 2023-05-07 15:35 | EKG ---
Test Date: 2023-05-02 Test Time: 09:31:39 [place]ounter [employer]arinets: ALPHONSO MEASUREMENT RESULTS: Intervals: Rate: 144 MT: QRSD: 74 QT: 276 QTc: 427 [place]: P: 262 MT: QRS: -11 T: 44 INTERPRETIVE STATEMENTS: Atrial flutter with 2:1 AV conduction Anterior infarct, age undetermined Marked ST abnormality, possible inferior subendocardial injury Abnormal ECG Compared to ECG 10/16/2022 11:53:48 ST (T wave) deviation now present Sinus rhythm no longer present Left-axis deviation no longer present Myocardial infarct finding still present Electronically Signed On 05-07-23 15:18:51 [employer] MANAGER by Chris Branch
--- NOTE | 2023-05-07 15:59 | P.PN ---
Subjective Date of Service: 05/07/23 Chief Complaint: Septic shock, right lower extremity cellulitis No significant improvement in clinical status compared to yesterday. Patient still has severe leukocytosis. She is complaining of sores in her mouth. No recorded fever. Physical Examination - Vital Signs Temperature: 98.0 F Blood Pressure: 170/82 Pulse: 92 Respirations: 16 Pulse Ox (%): 97 - Studies Microbiology Data (last 24 hrs): 05/03/23 02:10 Wound - L Leg (Lower) Gram Stain - Final 05/03/23 02:10 Wound - L Leg (Lower) Culture & Sensitivity - Final Staph Aureus Streptococcus Pyogenes Assessment And Plan - Plan Physical exam GEN: Alert, oriented, NAD HEENT: Normal conjunctiva, sclera anicteric, crusted sores on the lips, sores on the tongue. CV: Irregular rhythm, rapid rate. Pulm: Clear to auscultation bilaterally ABD: Soft, nontender, nondistended Integumentary: Significant erythema, right lower extremity is wrapped with dressing. Neuro: Normal speech, normal affect, no focal motor deficit. Vitals reviewed Diagnosis Septic shock secondary to right lower extremity cellulitis complicated with underlying chronic lymphedema Gram-positive Bacteremia Atrial flutter-new onset Elevated troponin EDDI with metabolic acidosis, mild hyponatremia secondary to septic shock Prediabetes Plan: Septic shock secondary to right lower extremity cellulitis complicated with underlying chronic lymphedema Gram-positive Bacteremia Ct lower extremity (05/02) of right lower extremity shows severe skin thickening subcutaneous inflammation and edema-no signs of abscess or gas Blood cx (05/02): Streptococcus pyogenes. repeat blood cultures (05/04): No growth urine cx (05/02):: no growth wound cx (05/03): MSSA and Streptococcus pyogenes Weaned off Levophed. Antibiotics changed to nafcillin and clindamycin. Clindamycin added to treat Streptococcus toxigenic effect. Status postdebridement by general surgery Dr. Lewis. Surgery following and monitoring for possible repeat debridement. ID is following. Continue wound care. Atrial flutter-new onset Status post IV amiodarone per cardio, transitioned to oral amiodarone. Cardiology input appreciated. Continue monitor on telemetry Echocardiogram: Normal EF, mild pulmonary hypertension, no mention of thrombus endocarditis. Elevated troponin Suspect demand ischemia from septic shock / aflutter troponins trended flat, monitor on telemetry Cardiology following EDDI with metabolic acidosis, mild hyponatremia secondary to septic shock nephrology Dr. Hummel consulted IV fluids dc'd. EDDI resolved IV Lasix as per nephrology Continue to monitor renal function Prediabetes ACHS Accu-Chek, mild sliding scale VTE: heparin subq for now given impending surgical debridement-may need anticoagulation with afib Code: DNR
--- NOTE | 2023-05-07 21:12 | PN ---
Date of Progress Note: 05/07/2023 Subjective: The patient was admitted to the hospital with acute kidney injury secondary to cardiorenal, over volume with anasarca, septic shock secondary to cellulitis. The patient being diuresed very well. Kidney function has been improved. Blood pressure is still elevated. Physical Examination: Vital Signs: Blood pressure 170/82, pulse of 92, afebrile. The patient had good urine output of 4 L, negative of 2 L. Chest: Decreased air entry at bilateral base. Heart: S1, S2. Systolic murmur. Abdomen: Morbidly obese. Could not appreciate any organomegaly. Extremities: Lymphedema, bilateral. Dressing on the right leg. Neurologic: Alert. No focality. Laboratory Data: Hemoglobin 10.3. Sodium 140, potassium 3.4, bicarb 24, BUN 29, creatinine 1, GFR of 61, calcium 8.8, phosphorus 3, albumin 1.4, corrected calcium is 10.8. Current Medications: The patient on include, 1. Clindamycin. 2. Nystatin. 3. Oxacillin. 4. Heparin. 5. Amiodarone. 6. Spironolactone 25 daily. 7. KCl. Assessment And Plan: 1. Acute kidney injury secondary to cardiorenal. The patient is still on the over volume side. I am going to go ahead and increase the Lasix to b.i.d. and we will increase the spironolactone to have better volume control. 2. Hypokalemia. We will supplement and we will increase the spironolactone. 3. Hypertension, not controlled. Increase Lasix and spironolactone. 4. Congestive heart failure with exacerbation, anasarca. Continue diuresis as above, adjusting the diuresis. 5. Septic shock secondary to cellulitis and bacteremia. Continue current antibiotic. We will follow up with primary. time spend exam the patient face to face reviewing data lab and radiology placing order , discussing with the patient , discussing with the juice bar team member including hospitalist and nursing staff >35 min AMANDA/MAXIMILIAN Voice ID: [id number] Report ID: [id number] RIMA
[2023-05-07] MEDS: FUROSEMIDE 40 MG/4 ML VIAL IV SCH (21:25)
[2023-05-08] MEDS: OXACILLIN SODIUM 2 GM in NA CHLORIDE 0.9% 100 ML IV SCH ×6 (01:01→21:05)
[2023-05-08 07:20] LABS: Albumin 1.4 g/dL (3.4-5.0); Phosphorus 3.5 mg/dL (2.5-4.9); Potassium 3.5 mEq/L (3.5-5.1)
[2023-05-08] MEDS: INSULIN REGULAR (HUMAN) 100 UNIT/ML SQ SCH ×4 (07:30→21:00)
--- NOTE | 2023-05-08 07:54 | P.PN ---
Date of Service: 05/08/23 Chief Complaint: Septic shock, right lower extremity cellulitis Subjective: Patient seen and examined at bedside. + decreased appetite No nausea, vomiting, diarrhea or abdominal pain. Denies cough, chest pain or shortness of breath. Physical Examination Temp Pulse Resp BP Pulse Ox 97.9 F 80 18 167/83 H 98 05/08/23 04:00 05/08/23 04:00 05/08/23 04:00 05/08/23 04:00 05/08/23 04:00 General: In no apparent distress. Alert and oriented x3. HEENT: Normocephalic. Atraumatic. Corrective lenses. Oral and tongue lesions with erythema of soft palate Respiratory:: + rhonchi upper lung reyes. Diminished at bases. Unlabored respirations on 2L nasal cannula. Cardiovascular: Regular rate and rhythm. BLE edema/lymphedema. Abdomen: Soft. Non-tender. Non-distended. Normoactive bowel sounds. Integumentary: RLE dressing is clean dry and intact. BLE lymphedema. : [place] catheter Laboratory data -Reviewed Microbiology data - Reviewed Imagings Data: -Reviewed Medications list: Reviewed Assessment and Plan Problem list Septic shock Cellulitis, RLE Gram-Positive Bacteremia Lymphedema Atrial Flutter Acute Kidney Injury Septic Shock secondary to Cellulitis of Right Lower Extremity Streptococcus pyogenes Bacteremia -Blood cultures 05/02: Streptococcus pyogenes in 4 of 4 bottles -Repeat blood cultures 05/04: no growth to date - Wound cultures 05/03: Staphyloccus aureus and Streptococcus pyogenes - 05/04 s/p Excisional debridement down to subQ of Right thigh [id number], R Leg [id number], and Right foot [id number] by Dr. Lewis right thigh/leg/foot cellulitis, infected necrotic wound circumferential -Previously on Meropenem and Vancomycin (05/02-05/06). Vancomycin levels have been subtherapeutic due to fluctuating renal function/dosing challenges. --> switched to Oxacillin and Clindamycin - Chest XR 05/05: "No acute cardiopulmonary process." -Leukocytosis worsening -Afebrile Recommendations - Wound culture with staph aureus and strep pyogenes: Continue Oxacillin and Clindamycin for now. - Sore throat, oral/tongue lesions: throat culture ordered; Follow up. - Strep pyogenes bacteremia: Recommend continuing antibiotic therapy for 14 days (05/03-05/17) - Monitor WBC and fever trends - RLE wound care per Dr. Lewis Case discussed with Nicole Lu who is in agreement with plan.
[2023-05-08] MEDS: NYSTATIN PWDR 100000 UNIT/GM TOP SCH ×2 (09:00→21:00)
[2023-05-08] MEDS: SILVER SULFADIAZINE 1% 50 GM TOP SCH ×2 (09:00→21:08)
[2023-05-08 09:18] LABS: Hematocrit 31.9 % (36.0-45.0); MCV 86.1 fL (80-100); MPV 7.6 fL (7.6-11.3); Platelets 457 thou/uL (152-406)
[2023-05-08] MEDS: CLINDAMYCIN 900MG/D5W 900 MG/50 ML IVPB IV SCH ×3 (09:59→21:05)
[2023-05-08] MEDS: SPIRONOLACTONE 25 MG TABLET PO SCH (09:59)
[2023-05-08] MEDS: FUROSEMIDE 40 MG/4 ML VIAL IV SCH ×2 (10:00→21:06)
[2023-05-08] MEDS: AMIODARONE HCL 200 MG TAB PO SCH ×2 (10:00→21:06)
[2023-05-08] MEDS: HEPARIN 5000 UNIT/ML 1 ML VIAL SQ SCH ×2 (10:00→21:06)
[2023-05-08 10:25] LABS: Blood Morphology Comment NOT SEEN (NOT SEEN); Platelet Estimate ADEQ
--- NOTE | 2023-05-08 14:00 | P.PN ---
Subjective Date of Service: 05/07/23 Chief Complaint: Septic shock, right lower extremity cellulitis Subjective: Tolerating diet, Improving Physical Examination - Vital Signs Temperature: 97.4 F Blood Pressure: 149/80 Pulse: 85 Respirations: 16 Pulse Ox (%): 96 - Physical Exam General: Alert, In no apparent distress, Oriented x3 HEENT: PERRLA Neck: Supple Gastrointestinal: Soft and benign Integumentary: Erythema (better), [place] Neurological: Normal speech - Studies Microbiology Data (last 24 hrs): 05/03/23 02:10 Wound - L Leg (Lower) Gram Stain - Final 05/03/23 02:10 Wound - L Leg (Lower) Culture & Sensitivity - Final Staph Aureus Streptococcus Pyogenes Assessment And Plan - Plan cont Dressing changes ABX per ID OOB Physician Review: Patient Assessed, Agree with Above Assessment and Plan
--- NOTE | 2023-05-08 14:36 | P.PN ---
Subjective Date of Service: 05/08/23 Chief Complaint: Septic shock, right lower extremity cellulitis Patient states she feels better compared to yesterday. Leukocytosis trending down. No recorded fever. Physical Examination - Vital Signs Temperature: 97.4 F Blood Pressure: 149/80 Pulse: 85 Respirations: 16 Pulse Ox (%): 96 Assessment And Plan - Plan Physical exam GEN: Alert, oriented, NAD HEENT: Normal conjunctiva, sclera anicteric, crusted sores on the lips, sores on the tongue. CV: Irregular rhythm, rapid rate. Pulm: Clear to auscultation bilaterally ABD: Soft, nontender, nondistended Integumentary: Significant erythema, right lower extremity venous stasis ulcers, macerated skin.\ Musculoskeletal: Bilateral lower extremity lymphedema. Neuro: Normal speech, normal affect, no focal motor deficit. Vitals reviewed Diagnosis Septic shock secondary to right lower extremity cellulitis complicated with underlying chronic lymphedema Gram-positive Bacteremia Atrial flutter-new onset Elevated troponin EDDI with metabolic acidosis, mild hyponatremia secondary to septic shock Prediabetes Plan: Septic shock secondary to right lower extremity cellulitis complicated with underlying chronic lymphedema Gram-positive Bacteremia Ct lower extremity (05/02) of right lower extremity shows severe skin thickening subcutaneous inflammation and edema-no signs of abscess or gas Blood cx (05/02): Streptococcus pyogenes. repeat blood cultures (05/04): No growth urine cx (05/02):: no growth wound cx (05/03): MSSA and Streptococcus pyogenes Weaned off Levophed. Antibiotics changed to nafcillin and clindamycin. Clindamycin added to treat Streptococcus toxigenic effect. Status postdebridement by general surgery Dr. Lewis. Surgery following and monitoring for possible repeat debridement. ID is following. Continue wound care. Atrial flutter-new onset Status post IV amiodarone per cardio, transitioned to oral amiodarone. Cardiology input appreciated. Heart rate improved. Continue monitor on telemetry Echocardiogram: Normal EF, mild pulmonary hypertension, no mention of thrombus endocarditis. Elevated troponin Suspect demand ischemia from septic shock / aflutter troponins trended flat, monitor on telemetry Cardiology following EDDI with metabolic acidosis, mild hyponatremia secondary to septic shock nephrology Dr. Hummel consulted IV fluids dc'd. EDDI resolved IV Lasix as per nephrology Continue to monitor renal function Prediabetes ACHS Accu-Chek, mild sliding scale VTE: heparin subq for now given impending surgical debridement-may need anticoagulation with afib Code: DNR
--- NOTE | 2023-05-08 16:52 | PN ---
Date of Progress Note: 05/08/2023 Subjective: Patient has a history of septic shock with cellulitis and multiple ulcers and open wound s in the right lower extremity. Patient is doing better. No fever. No nausea. No shortness of stephanie ath. No chest pain. Objective: Chest: Clear. Abdomen: Soft and depressible. Extremities: Right lower extremity, patient has multiple open wounds, from the foot all the way down to the thigh. Assessment And Plan: We have seen improvement in erythema, improvement in her wounds. There are alexander e areas that may need some a further debridement in the future probably early next week if she is sti ll in this hospital. In the meantime, continue current treatment. ABRAHAM/MAXIMILIAN Voice ID: [id number] Report ID: [id number]
--- NOTE | 2023-05-08 17:21 | P.PN ---
Subjective Date of Service: 05/08/23 Chief Complaint: Septic shock, right lower extremity cellulitis Subjective: No new changes Physical Examination - Vital Signs Temperature: 97.4 F Blood Pressure: 149/80 Pulse: 85 Respirations: 16 Pulse Ox (%): 96 - Physical Exam General: Other (appears as her stated age) HEENT: Atraumatic, Normocephalic Neck: Supple Respiratory: Other (symmetric chest expansion) Cardiovascular: No rubs, No murmurs Gastrointestinal: Soft and benign, No guarding Musculoskeletal: No clubbing, Swelling Integumentary: Skin breakdown Neurological: Normal speech, Normal tone Urinary: Other (no bladder distention) External genitalia: Deferred Rectal: Deferred Assessment And Plan - Plan # EDDI 2/2 ATN/septic shock + CRS1 from atrial flutter SCr 3.7 on adm, improved to 1.1 today Baseline serum creatinine 0.8-1.0 as of October 2022 Urinalysis with proteinuria, hematuria, and pyuria Keep MAP > 65 [place] by mouth fluid intake at least 2 L per day # AGMA + acute respi alkalosis Improved, monitor # Hyponatremia Improved, monitor # Septic shock 2/2 BLE cellulitis Shock resolved On abx Local wound care & multilayer compression therapy F/u cultures # Atrial flutter Per other services # Prediabetes Per primary team Physician Review: Patient Assessed, Agree with Above Assessment and Plan
[2023-05-09] MEDS: OXACILLIN SODIUM 2 GM in NA CHLORIDE 0.9% 100 ML IV SCH ×6 (00:50→21:13)
[2023-05-09 04:04] LABS: Absolute Lymphocytes (CBC) 1.9 K/uL (0.7-4.9); Hematocrit 28.4 % (36.0-45.0); Lymphocytes % 7.9 % (15.3-44.8); MCV 85.1 fL (80-100); MPV 7.6 fL (7.6-11.3); Platelets 422 thou/uL (152-406); RBC Red Blood Cell Count 3.34 M/uL (3.86-4.86)
[2023-05-09 04:24] LABS: Albumin 1.5 g/dL (3.4-5.0); Phosphorus 3.5 mg/dL (2.5-4.9); Potassium 3.2 mEq/L (3.5-5.1)
[2023-05-09] MEDS: POTASSIUM 25 MEQ EFFERV TAB PO ONE ×2 (05:50→06:00)
[2023-05-09] MEDS: INSULIN REGULAR (HUMAN) 100 UNIT/ML SQ SCH ×4 (07:30→21:00)
[2023-05-09] MEDS ORDERED: POTASSIUM CL SA 10 MEQ TAB PO ONE ×2 (07:30→16:00)
[2023-05-09] MEDS: SPIRONOLACTONE 25 MG TABLET PO SCH (10:37)
[2023-05-09] MEDS: FUROSEMIDE 40 MG/4 ML VIAL IV SCH ×2 (10:38→21:21)
[2023-05-09] MEDS: CLINDAMYCIN 900MG/D5W 900 MG/50 ML IVPB IV SCH ×3 (10:38→21:08)
[2023-05-09] MEDS: HEPARIN 5000 UNIT/ML 1 ML VIAL SQ SCH ×2 (10:38→21:21)
[2023-05-09] MEDS: AMIODARONE HCL 200 MG TAB PO SCH ×2 (10:38→21:21)
[2023-05-09] MEDS: SILVER SULFADIAZINE 1% 50 GM TOP SCH ×2 (10:39→21:25)
[2023-05-09] MEDS: NYSTATIN PWDR 100000 UNIT/GM TOP SCH ×3 (13:18→21:23)
--- NOTE | 2023-05-09 14:18 | P.PN ---
Subjective Date of Service: 05/09/23 Chief Complaint: Septic shock, right lower extremity cellulitis Today No overnight events K replaced cont lasix and aldactone Cont Abx and wound care Cleared for PICC line placement Physical exam General: Awake, NAD HEENT: Atraumatic, Normocephalic Neck: Supple, no elevated JVD Respiratory: CTAB Cardiovascular: No rubs, No murmurs Gastrointestinal: Soft and benign, Non-distended Ext: swelling, rt leg wound , with heel black discloration A/P # EDDI 2/2 ATN/septic shock + CRS1 from atrial flutter SCr 3.7 on adm, improved to 1.1 today Baseline serum creatinine 0.8-1.0 as of October 2022 Urinalysis with proteinuria, hematuria, and pyuria Keep MAP > 65 #Edema cont lasix and Aldactone #Hypokalemia replace prn monitor Mg Cont Aldactone # AGMA + acute respi alkalosis Improved, monitor # Hyponatremia resolved Improved, monitor # Septic shock 2/2 BLE cellulitis Shock resolved On abx Cont wound care # Atrial flutter Per other services # Prediabetes Per primary team Physical Examination - Vital Signs Temperature: 97.4 F Blood Pressure: 149/80 Pulse: 85 Respirations: 16 Pulse Ox (%): 96 Assessment And Plan Physician Review: Patient Assessed, Agree with Above Assessment and Plan
[2023-05-09] MEDS: FLUCONAZOLE 200mg IVPB 200 MG/100 ML BAG IV SCH (15:10)
--- NOTE | 2023-05-09 15:26 | P.PN ---
Subjective Date of Service: 05/09/23 Chief Complaint: Septic shock, right lower extremity cellulitis Leukocytosis continue to trend down. Patient reports no change compared to yesterday. No recorded fever. She is tolerating diet. Physical Examination - Vital Signs Temperature: 97.4 F Blood Pressure: 149/80 Pulse: 85 Respirations: 16 Pulse Ox (%): 96 Assessment And Plan - Plan Physical exam GEN: Alert, oriented, NAD HEENT: Normal conjunctiva, sclera anicteric, crusted sores on the lips, sores on the tongue. CV: Irregular rhythm, rapid rate. Pulm: Clear to auscultation bilaterally ABD: Soft, nontender, nondistended Integumentary: Right lower extremity venous stasis ulcers, macerated skin. Musculoskeletal: Bilateral lower extremity lymphedema. Neuro: Normal speech, normal affect, no focal motor deficit. Vitals reviewed Diagnosis Septic shock secondary to right lower extremity cellulitis complicated with underlying chronic lymphedema Gram-positive Bacteremia Atrial flutter-new onset Elevated troponin EDDI with metabolic acidosis, mild hyponatremia secondary to septic shock Prediabetes Plan: Septic shock secondary to right lower extremity cellulitis complicated with underlying chronic lymphedema Gram-positive Bacteremia Ct lower extremity (05/02) of right lower extremity shows severe skin thickening subcutaneous inflammation and edema-no signs of abscess or gas Blood cx (05/02): Streptococcus pyogenes. repeat blood cultures (05/04): No growth urine cx (05/02):: no growth wound cx (05/03): MSSA and Streptococcus pyogenes S/p Levophed. Continue nafcillin and clindamycin. Status postdebridement by general surgery Dr. Lewis. Surgery following and monitoring for possible repeat debridement if needed. ID is following. Continue wound care. Atrial flutter-new onset Status post IV amiodarone per cardio, transitioned to oral amiodarone. Cardiology input appreciated. Heart rate improved. Continue monitor on telemetry Echocardiogram: Normal EF, mild pulmonary hypertension, no mention of thrombus or endocarditis. Elevated troponin Suspect demand ischemia from septic shock / aflutter troponins trended flat, monitor on telemetry Cardiology following EDDI with metabolic acidosis, mild hyponatremia secondary to septic shock nephrology Dr. Hummel consulted IV fluids dc'd. EDDI resolved IV Lasix as per nephrology Continue to monitor renal function Prediabetes ACHS Accu-Chek, mild sliding scale. Oral candidiasis IV Diflucan. VTE: heparin subq for now given impending surgical debridement-may need anticoagulation with afib Code: DNR
[2023-05-09 18:32] LABS: Vitamin D 1,25-Dihydroxy Total 70 pg/mL (18-72); Vitamin D,1,25-OH2, D2 <8 pg/mL
[2023-05-10] MEDS: OXACILLIN SODIUM 2 GM in NA CHLORIDE 0.9% 100 ML IV SCH ×6 (00:46→20:49)
[2023-05-10 06:00] LABS: Absolute Lymphocytes (CBC) 2.2 K/uL (0.7-4.9); Hematocrit 28.7 % (36.0-45.0); Lymphocytes % 11.9 % (15.3-44.8); MCV 85.8 fL (80-100); MPV 7.8 fL (7.6-11.3); Platelets 467 thou/uL (152-406); RBC Red Blood Cell Count 3.34 M/uL (3.86-4.86)
[2023-05-10 06:04] LABS: Albumin 1.6 g/dL (3.4-5.0); Phosphorus 3.2 mg/dL (2.5-4.9); Potassium 3.3 mEq/L (3.5-5.1)
[2023-05-10] MEDS: INSULIN REGULAR (HUMAN) 100 UNIT/ML SQ SCH ×4 (07:30→20:58)
[2023-05-10] MEDS ORDERED: POTASSIUM CL SA 10 MEQ TAB PO ONE (09:00)
[2023-05-10] MEDS: AMIODARONE HCL 200 MG TAB PO SCH ×2 (09:35→20:51)
[2023-05-10] MEDS: CLINDAMYCIN 900MG/D5W 900 MG/50 ML IVPB IV SCH ×3 (09:36→20:52)
[2023-05-10] MEDS: FUROSEMIDE 40 MG/4 ML VIAL IV SCH ×2 (09:36→20:51)
[2023-05-10] MEDS: SPIRONOLACTONE 25 MG TABLET PO SCH ×2 (09:36→20:50)
[2023-05-10] MEDS: HEPARIN 5000 UNIT/ML 1 ML VIAL SQ SCH ×2 (09:36→20:51)
[2023-05-10] MEDS: NYSTATIN PWDR 100000 UNIT/GM TOP SCH ×2 (09:45→20:58)
[2023-05-10] MEDS: SILVER SULFADIAZINE 1% 50 GM TOP SCH ×2 (09:45→20:57)
--- NOTE | 2023-05-10 13:27 | P.PN ---
Subjective Date of Service: 05/10/23 Chief Complaint: Septic shock, right lower extremity cellulitis Today No overnight events K replaced cont lasix and aldactone, will increase to bid will consider to switch to po lasix in 1-2 days Cont Abx and wound care Cleared for PICC line placement Physical exam General: Awake, NAD HEENT: Atraumatic, Normocephalic Neck: Supple, no elevated JVD Respiratory: CTAB Cardiovascular: No rubs, No murmurs Gastrointestinal: Soft and benign, Non-distended Ext: swelling, rt leg wound , with heel black discloration A/P # EDDI 2/2 ATN/septic shock + CRS1 from atrial flutter SCr 3.7 on adm, improved to 1.1 today Baseline serum creatinine 0.8-1.0 as of October 2022 Urinalysis with proteinuria, hematuria, and pyuria Keep MAP > 65 #Edema cont lasix and Aldactone cont lasix and aldactone, will increase to bid will consider to switch to po lasix in 1-2 days #Hypokalemia replace prn monitor Mg Cont Aldactone # AGMA + acute respi alkalosis Improved, monitor # Hyponatremia resolved Improved, monitor # Septic shock 2/2 BLE cellulitis Shock resolved On abx Cont wound care # Atrial flutter Per other services # Prediabetes Per primary team Physical Examination - Vital Signs Temperature: 97.8 F Blood Pressure: 140/60 Pulse: 82 Respirations: 20 Pulse Ox (%): 93 Assessment And Plan Physician Review: Patient Assessed, Agree with Above Assessment and Plan
--- NOTE | 2023-05-10 15:09 | P.PN ---
Subjective Date of Service: 05/10/23 Chief Complaint: Septic shock, right lower extremity cellulitis Patient has no new complaint No recorded fever. She is tolerating diet. Leukocytosis continues to trend down. Lower extremity swelling have improved. Physical Examination - Vital Signs Temperature: 97.8 F Blood Pressure: 140/60 Pulse: 82 Respirations: 20 Pulse Ox (%): 93 Assessment And Plan - Plan Physical exam GEN: Alert, oriented, NAD HEENT: Normal conjunctiva, sclera anicteric, crusted sores on the lips. CV: Irregular rhythm, rapid rate. Pulm: Clear to auscultation bilaterally ABD: Soft, nontender, nondistended Integumentary: Right lower extremity venous stasis ulcers, macerated skin. Musculoskeletal: Bilateral lower extremity lymphedema. Lower extremity edema improved. Neuro: Normal speech, normal affect, no focal motor deficit. Vitals reviewed Diagnosis Septic shock secondary to right lower extremity cellulitis complicated with underlying chronic lymphedema Gram-positive Bacteremia Atrial flutter-new onset Elevated troponin EDDI with metabolic acidosis, mild hyponatremia secondary to septic shock Prediabetes Plan: Septic shock secondary to right lower extremity cellulitis complicated with unde rlying chronic lymphedema Gram-positive Bacteremia Ct lower extremity (05/02) of right lower extremity shows severe skin thickening subcutaneous inflammation and edema-no signs of abscess or gas Blood cx (05/02): Streptococcus pyogenes. repeat blood cultures (05/04): No growth urine cx (05/02):: no growth wound cx (05/03): MSSA and Streptococcus pyogenes S/p Levophed. Leukocytosis trending down. Continue nafcillin and clindamycin. Status postdebridement by general surgery Dr. Lewis. Surgery following and monitoring for possible repeat debridement if needed. ID is following. Continue wound care. Atrial flutter-new onset Status post IV amiodarone per cardio, transitioned to oral amiodarone. Cardiology input appreciated. Heart rate improved. Continue monitor on telemetry Echocardiogram: Normal EF, mild pulmonary hypertension, no mention of thrombus or endocarditis. Elevated troponin Suspect demand ischemia from septic shock / aflutter troponins trended flat, monitor on telemetry Cardiology following EDDI with metabolic acidosis, mild hyponatremia secondary to septic shock nephrology Dr. Hummel consulted IV fluids dc'd. EDDI resolved IV Lasix as per nephrology Continue to monitor renal function Prediabetes ACHS Accu-Chek, mild sliding scale. Oral candidiasis IV Diflucan. VTE: heparin subq for now given impending surgical debridement-may need anticoagulation with afib Code: DNR
[2023-05-10] MEDS: FLUCONAZOLE 200mg IVPB 200 MG/100 ML BAG IV SCH (16:17)
[2023-05-11] MEDS: OXACILLIN SODIUM 2 GM in NA CHLORIDE 0.9% 100 ML IV SCH ×6 (00:40→21:37)
[2023-05-11 06:25] LABS: Absolute Lymphocytes (CBC) 2.4 K/uL (0.7-4.9); Hematocrit 28.8 % (36.0-45.0); Lymphocytes % 16.3 % (15.3-44.8); MPV 7.8 fL (7.6-11.3); Platelets 453 thou/uL (152-406); RBC Red Blood Cell Count 3.35 M/uL (3.86-4.86)
[2023-05-11 06:39] LABS: Albumin 1.7 g/dL (3.4-5.0); Phosphorus 4.2 mg/dL (2.5-4.9); Potassium 3.6 mEq/L (3.5-5.1)
[2023-05-11] MEDS: INSULIN REGULAR (HUMAN) 100 UNIT/ML SQ SCH ×4 (07:30→21:00)
[2023-05-11] MEDS ORDERED: POTASSIUM CL SA 10 MEQ TAB PO ONE (09:00)
--- NOTE | 2023-05-11 09:06 | P.PN ---
Date of Service: 05/11/23 Chief Complaint: Septic shock, right lower extremity cellulitis Subjective: Improving. Patient seen and examined at bedside. Reports improvement in oral lesions and improvement in appetite. No acute events overnight. Physical Examination Temp Pulse Resp BP Pulse Ox 97.2 F 79 18 120/63 98 05/11/23 04:00 05/11/23 04:00 05/11/23 04:00 05/11/23 04:00 05/11/23 04:00 General: In no apparent distress. Alert and oriented x3. HEENT: Normocephalic. Atraumatic. Corrective lenses. Oral and tongue lesions with erythema of soft palate Respiratory: Diminished at bases. Breathing comfortably on room air. Cardiovascular: Regular rate and rhythm. BLE edema/lymphedema. Abdomen: Soft. Non-tender. Non-distended. Normoactive bowel sounds. Integumentary: RLE dressing is clean dry and intact. BLE lymphedema. : Bishop catheter Laboratory data -Reviewed Microbiology data - Reviewed Imagings Data: - Chest XR 05/05: "No acute cardiopulmonary process." Medications list: Reviewed Assessment and Plan Problem list Septic shock Cellulitis, RLE Gram-Positive Bacteremia Lymphedema Atrial Flutter Acute Kidney Injury Septic Shock secondary to Cellulitis of Right Lower Extremity Streptococcus pyogenes Bacteremia -Blood cultures 05/02: Streptococcus pyogenes in 4 of 4 bottles -Repeat blood cultures 05/04 & 05/08: no growth to date - Wound cultures 05/03: Staphyloccus aureus and Streptococcus pyogenes - 05/04 s/p Excisional debridement down to subQ of Right thigh [id number], R Leg [id number], and Right foot [id number] by Dr. Lewis right thigh/leg/foot cellulitis, infected necrotic wound circumferential -Previously on Meropenem and Vancomycin (05/02-05/06). Vancomycin levels had been subtherapeutic due to fluctuating renal function/dosing challenges. --> switched to Oxacillin and Clindamycin on 05/06. improving. - Leukocytosis improving -Afebrile Recommendations - Cellulitis/Wound culture with staph aureus and strep pyogenes: Continue Oxacillin and Clindamycin for now - Strep pyogenes bacteremia: Recommend continuing antibiotic therapy for 14 days (05/04-05/18) - Monitor WBC and fever trends - RLE wound care per Dr. Lewis Case discussed with Nicole Lu who is in agreement with plan.
[2023-05-11 11:01] LABS: Blood Morphology Comment NOT SEEN (NOT SEEN); Platelet Estimate INCR; Platelets, Giant FEW PRESENT
[2023-05-11] MEDS: FUROSEMIDE 40 MG/4 ML VIAL IV SCH ×2 (11:10→21:32)
[2023-05-11] MEDS: HEPARIN 5000 UNIT/ML 1 ML VIAL SQ SCH (11:10)
[2023-05-11] MEDS: Mupirocin NASAL 2 APPL/1 GM TUBE NAS SCH ×2 (11:10→21:37)
[2023-05-11] MEDS: CLINDAMYCIN 900MG/D5W 900 MG/50 ML IVPB IV SCH ×3 (11:11→21:34)
[2023-05-11] MEDS: SPIRONOLACTONE 25 MG TABLET PO SCH ×2 (11:11→21:33)
[2023-05-11] MEDS: SILVER SULFADIAZINE 1% 50 GM TOP SCH ×2 (11:11→21:00)
[2023-05-11] MEDS: AMIODARONE HCL 200 MG TAB PO SCH ×2 (11:11→21:33)
[2023-05-11] MEDS: NYSTATIN PWDR 100000 UNIT/GM TOP SCH ×2 (11:12→21:00)
[2023-05-11] MEDS: FLUCONAZOLE 200mg IVPB 200 MG/100 ML BAG IV SCH (13:58)
--- NOTE | 2023-05-11 15:57 | P.PN ---
Subjective Date of Service: 05/11/23 Chief Complaint: Septic shock, right lower extremity cellulitis No significant change from yesterday except improvement in leukocytosis. No recorded fever. She is tolerating diet. Physical Examination - Vital Signs Temperature: 97.5 F Blood Pressure: 128/66 Pulse: 84 Respirations: 20 Pulse Ox (%): 98 Assessment And Plan - Plan Physical exam GEN: Alert, oriented, NAD HEENT: Normal conjunctiva, sclera anicteric, crusted sores on the lips, sores and ulcers on the hard and soft palates and the tongue. CV: Irregular rhythm, rapid rate. Pulm: Clear to auscultation bilaterally ABD: Soft, nontender, nondistended Integumentary: Right lower extremity venous stasis ulcers, macerated skin- healing. Musculoskeletal: Bilateral lower extremity lymphedema. Lower extremity edema improved. Neuro: Normal speech, normal affect, no focal motor deficit. Vitals reviewed Diagnosis Septic shock secondary to right lower extremity cellulitis complicated with underlying chronic lymphedema Gram-positive Bacteremia Atrial flutter-new onset Elevated troponin EDDI with metabolic acidosis, mild hyponatremia secondary to septic shock Prediabetes Plan: Septic shock secondary to right lower extremity cellulitis complicated with underlying chronic lymphedema Gram-positive Bacteremia Ct lower extremity (05/02) of right lower extremity shows severe skin thickening subcutaneous inflammation and edema-no signs of abscess or gas Blood cx (05/02): Streptococcus pyogenes. repeat blood cultures (05/04): No growth urine cx (05/02):: no growth wound cx (05/03): MSSA and Streptococcus pyogenes S/p Levophed. Leukocytosis continue to trend down. Continue nafcillin and clindamycin. Status postdebridement by general surgery Dr. Lewis. Surgery following and monitoring for possible repeat debridement if needed. ID is following. Continue wound care. PICC line for outpatient IV antibiotics requested to replace right IJ central venous catheter. Atrial flutter-new onset Status post IV amiodarone per cardio, transitioned to oral amiodarone. Cardiology input appreciated. Heart rate improved. Continue monitor on telemetry Echocardiogram: Normal EF, mild pulmonary hypertension, no mention of thrombus or endocarditis. Start Eliquis Elevated troponin Suspect demand ischemia from septic shock / aflutter troponins trended flat, monitor on telemetry Cardiology following EDDI with metabolic acidosis, mild hyponatremia secondary to septic shock nephrology Dr. Hummel consulted IV fluids dc'd. EDDI resolved IV Lasix as per nephrology Continue to monitor renal function Prediabetes ACHS Accu-Chek, mild sliding scale. Oral candidiasis/aphthous ulcers IV Diflucan. Patient to complete 2 weeks of Diflucan. May transition to oral Diflucan once sores in the mouth heal. Magic mouthwash for pain control. VTE: Eliquis Code: DNR
--- NOTE | 2023-05-11 20:13 | RAD REPORT ---
EXAM DESCRIPTION: RAD - Chest Single View - 05/11/2023 8:00 pm CLINICAL HISTORY: PICC line placement Chest pain. COMPARISON: Chest Single View dated 05/05/2023; Chest Single View dated 05/02/2023; Chest Single Vie w dated 05/02/2023; Chest Single View dated 10/16/2022 FINDINGS: Portable technique limits examination quality. Left-sided PICC line appears in the left axilla to fold upon itself and extend into a left arm vein. Recommend removal.
[2023-05-11] MEDS: APIXABAN 5 MG TABLET PO SCH (21:33)
--- NOTE | 2023-05-11 21:44 | RAD REPORT ---
EXAM DESCRIPTION: RAD - Chest Single View - 05/11/2023 9:38 pm CLINICAL HISTORY: PICC line placement COMPARISON: Chest Single View dated 05/11/2023; Chest Single View dated 05/05/2023; Chest Single View dated 05/02/2023; Chest Single View dated 05/02/2023 FINDINGS: Portable chest was obtained following placement of a right upper extremity PICC line. The catheter tip projects over the SVC.
[2023-05-12] MEDS: OXACILLIN SODIUM 2 GM in NA CHLORIDE 0.9% 100 ML IV SCH ×6 (00:25→21:01)
--- NOTE | 2023-05-12 03:56 | PN ---
Date of Progress Note: 05/11/2023 Chief Complaint: Septic shock, lower extremity cellulitis. Subjective: The patient denies complaints today. She has nonoliguric urine output. She was found t o have acute kidney injury secondary to septic shock and cardiorenal syndrome from atrial flutter. S kristi creatinine level was 3.7 and improved to 1.1. Review of Systems: Denies chest pain, palpitation. Physical Examination: Lungs: Clear to auscultation bilaterally. Heart: S1, S2. Abdomen: Soft. Extremities: Swelling present, right leg wound with heel and leg discoloration. Impression And Plan: 1.Acute kidney injury due to acute tubular necrosis and cardiorenal syndrome from atrial flutter. S kristi creatinine level has improved to previous baseline. Previous baseline was ranging from 0.8 to 1 .0 as of October 2022. Urinalysis showed pyuria, hematuria, and proteinuria. Continue to monitor urine culture. Check to evaluate proteinuria. 2.Hypokalemia. Continue Aldactone. 3.Acute respiratory alkalosis, improved. The patient was on BiPAP. 4.Septic shock secondary to bilateral lower extremity cellulitis. Continue antibiotics. Adjust ant ibiotic dose to renal function. 5.Hyponatremia, resolved. Monitor and avoid HCTZ and avoid nonsteroidal anti-inflammatory medicatio n. 6.Atrial flutter per Cardiology. 7.Prediabetes, per primary team. PRIYA/JEDL Voice ID: [id number] Report ID: [id number]
[2023-05-12 04:48] LABS: Absolute Lymphocytes (CBC) 2.7 K/uL (0.7-4.9); Hematocrit 30.7 % (36.0-45.0); Lymphocytes % 19.1 % (15.3-44.8); MCV 86.3 fL (80-100); MPV 7.7 fL (7.6-11.3); Platelets 512 thou/uL (152-406); RBC Red Blood Cell Count 3.55 M/uL (3.86-4.86)
[2023-05-12 04:59] LABS: Albumin 1.8 g/dL (3.4-5.0); Phosphorus 4.4 mg/dL (2.5-4.9); Potassium 3.5 mEq/L (3.5-5.1)
[2023-05-12] MEDS ORDERED: POTASSIUM CL SA 10 MEQ TAB PO ONE (06:00)
[2023-05-12] MEDS: INSULIN REGULAR (HUMAN) 100 UNIT/ML SQ SCH ×4 (07:30→21:00)
--- NOTE | 2023-05-12 08:25 | P.PN ---
Date of Service: 05/12/23 Chief Complaint: Septic shock, right lower extremity cellulitis Subjective: No acute events reported overnight. Reports some improvement in oral ulcerations, able to eat/swallow. RLE cellulitis improving. Physical Examination Temp Pulse Resp BP Pulse Ox 99.5 F 75 20 126/59 L 92 05/12/23 04:00 05/12/23 04:00 05/12/23 04:00 05/12/23 04:00 05/12/23 04:00 General: In no apparent distress. Alert and oriented x3. HEENT: Normocephalic. Atraumatic. Corrective lenses. Oral ulcerations. Respiratory: Diminished at bases. Breathing comfortably on room air. Cardiovascular: Regular rate and rhythm. BLE edema/lymphedema. Abdomen: Soft. Non-tender. Non-distended. Normoactive bowel sounds. Integumentary: RLE dressing is clean dry and intact. BLE lymphedema. : Bishop catheter Laboratory data -Reviewed Microbiology data - Reviewed Imagings Data: - Chest XR 05/05: "No acute cardiopulmonary process." Medications list: Reviewed Assessment and Plan Problem list Septic shock Cellulitis, RLE Gram-Positive Bacteremia Lymphedema Atrial Flutter Acute Kidney Injury Septic Shock secondary to Cellulitis of Right Lower Extremity Streptococcus pyogenes Bacteremia -Blood cultures 05/02: Streptococcus pyogenes in 4 of 4 bottles -Repeat blood cultures 05/04 & 05/08: no growth to date - Wound cultures 05/03: Staphyloccus aureus and Streptococcus pyogenes - 05/04 s/p Excisional debridement down to subQ of Right thigh [id number], R Leg [id number], and Right foot [id number] by Dr. Lewis right thigh/leg/foot cellulitis, infected necrotic wound circumferential -Previously on Meropenem and Vancomycin (05/02-05/06). Vancomycin levels had been subtherapeutic due to fluctuating renal function/dosing challenges. --> switched to Oxacillin and Clindamycin on 05/06. - WBC down-trending (WBC 14.2 today) -Afebrile Recommendations - Cellulitis/Wound culture with staph aureus and strep pyogenes: Continue Oxacillin and Clindamycin for now - Strep pyogenes bacteremia: Recommend continuing antibiotic therapy for 14 days (05/04-05/18) - Monitor WBC and fever trends - RLE wound care per Dr. Lewis - Renally dose mediations Case discussed with Nicole Lu who is in agreement with plan.
[2023-05-12] MEDS: CLINDAMYCIN 900MG/D5W 900 MG/50 ML IVPB IV SCH ×3 (09:00→21:02)
[2023-05-12] MEDS: SPIRONOLACTONE 25 MG TABLET PO SCH ×2 (10:09→21:03)
[2023-05-12] MEDS: FUROSEMIDE 40 MG/4 ML VIAL IV SCH (10:10)
[2023-05-12] MEDS: APIXABAN 5 MG TABLET PO SCH ×2 (10:10→21:04)
[2023-05-12] MEDS: AMIODARONE HCL 200 MG TAB PO SCH ×2 (10:10→21:04)
[2023-05-12] MEDS: NYSTATIN PWDR 100000 UNIT/GM TOP SCH ×2 (10:19→21:14)
[2023-05-12] MEDS: SILVER SULFADIAZINE 1% 50 GM TOP SCH ×2 (10:19→21:14)
--- NOTE | 2023-05-12 10:41 | P.PN ---
Date of Service: 05/12/23 Subjective: Feeling about the same, slightly less pain Legs much improved Having trouble eating with oral ulcerations/pain No acute events overnight ROS: 10 point ROS as noted above, otherwise negative Physical exam GEN: Alert, oriented, NAD HEENT: Normal conjunctiva, sclera anicteric, crusted sores on the lips, sores and ulcers on the hard and soft palates and the tongue. CV: Irregular rhythm, rapid rate. Pulm: Clear to auscultation bilaterally ABD: Soft, nontender, nondistended Integumentary: Right lower extremity venous stasis ulcers, macerated skin- healing. Musculoskeletal: Bilateral lower extremity lymphedema. Lower extremity edema improved. Neuro: Normal speech, normal affect, no focal motor deficit. Vitals reviewed Problem List Septic shock secondary to right lower extremity cellulitis complicated with underlying chronic lymphedema Gram-positive Bacteremia Atrial flutter-new onset Elevated troponin EDDI with metabolic acidosis, mild hyponatremia secondary to septic shock Prediabetes Plan: Septic shock secondary to right lower extremity cellulitis complicated with underlying chronic lymphedema Gram-positive Bacteremia Ct lower extremity (05/02) of right lower extremity shows severe skin thickening subcutaneous inflammation and edema-no signs of abscess or gas Blood cx (05/02): Streptococcus pyogenes. repeat blood cultures (05/04): No growth urine cx (05/02):: no growth wound cx (05/03): MSSA and Streptococcus pyogenes S/p Levophed. Leukocytosis continue to trend down. Continue nafcillin and clindamycin. 05/04 s/p Excisional debridement down to subQ of Right thigh [id number], R Leg [id number], and Right foot [id number] by Dr. Lewis Surgery following and monitoring for possible repeat debridement if needed. ID is following. Continue wound care. PICC in place will DC IJ catheter Continue Oxacillin and Clindamycin for now Strep pyogenes bacteremia: Recommend continuing antibiotic therapy for 14 days (05/04-05/18) Atrial flutter-new onset Status post IV amiodarone per cardio, transitioned to oral amiodarone. Cardiology input appreciated. Heart rate improved. Continue monitor on telemetry Echocardiogram: Normal EF, mild pulmonary hypertension, no mention of thrombus or endocarditis. Start Eliquis Elevated troponin Suspect demand ischemia from septic shock / aflutter troponins trended flat, monitor on telemetry Cardiology following EDDI with metabolic acidosis, mild hyponatremia secondary to septic shock nephrology Dr. Hummel consulted IV fluids dc'd. EDDI resolved IV Lasix as per nephrology Continue to monitor renal function Prediabetes ACHS Accu-Chek, mild sliding scale. Oral candidiasis/aphthous ulcers Still having pain, difficulty eating solids added ensure/dietary consults IV Diflucan. Patient to complete 2 weeks of Diflucan. May transition to oral Diflucan once sores in the mouth heal. Magic mouthwash for pain control. VTE: Eliquis Code: DNR Time Spent Managing Pts Care (In Minutes): 35
[2023-05-12] MEDS: ENSURE MAX PROTEIN 330 ML LIQUID PO SCH (14:00)
[2023-05-12] MEDS: Mupirocin NASAL 2 APPL/1 GM TUBE NAS SCH ×2 (14:03→21:04)
--- NOTE | 2023-05-12 14:08 | PN ---
Date of Progress Note: 05/12/2023 Subjective: The patient was admitted to the hospital with acute kidney injury secondary to cardioren al and septic shock, over volume with anasarca, diuresed very well, responded very good. Physical Examination: Vital Signs: Blood pressure 147/70, pulse of 78, afebrile. Good urine output of 2500, negative of 1 L. Weight smith, the patient lost 6 pounds in the last 3 days. Chest: Clear to auscultation. Heart: S1, S2. Systolic murmur. Abdomen: Soft, nontender. Extremities: Compression dressing for leg, more on the right side. Edema has been subsided with wri nkling skin. Neurological: Alert and oriented x3. No focality. Laboratory Data: WBC 14.2, hemoglobin of 10. Chest x-ray, congestion has been improved. Sodium 140 , potassium 3.5, bicarb 28, BUN 24, creatinine 1.5, calcium 8.4, phosphorus 1.4, albumin 1.8, correct ed calcium is 10. Current Medications: The patient is on include: 1.Clindamycin. 2.Fluconazole. 3.Oxacillin. 4.Eliquis. 5.Amiodarone. 6.Spironolactone 50 b.i.d. 7.Lasix 40 b.i.d. 8.Naprosyn. 9.Magic mouth wash. 10.KCl. Assessment And Plan: 1.Acute kidney injury secondary to cardiorenal. Looked to me the patient on the normal volume, so I am going to go ahead and change the Lasix to oral and we will follow up. 2.Hypertension, controlled, optimal. Continue current treatment. 3.Anasarca secondary to cardiorenal. Continue Lasix, spironolactone, change Lasix to oral. 4.Hypokalemia. We will supplement. Continue spironolactone. MA/MODL Voice ID: [id number] Report ID: [id number]
[2023-05-12] MEDS ORDERED: NA CHLORIDE 0.9% 250 ML ONE (14:10)
[2023-05-12] MEDS: FLUCONAZOLE 200mg IVPB 200 MG/100 ML BAG IV SCH (14:34)
[2023-05-12] MEDS: FUROSEMIDE 40 MG TABLET PO SCH ×2 (18:08→18:10)
[2023-05-13] MEDS: OXACILLIN SODIUM 2 GM in NA CHLORIDE 0.9% 100 ML IV SCH ×6 (00:24→21:07)
[2023-05-13 04:54] LABS: Albumin 1.8 g/dL (3.4-5.0); Bilirubin Total 0.2 mg/dL (0.2-1.0); Hematocrit 29.7 % (36.0-45.0); MPV 7.8 fL (7.6-11.3); Platelets 539 thou/uL (152-406); Potassium 3.4 mEq/L (3.5-5.1); Protein, Total 7.2 g/dL (6.4-8.2); RBC Red Blood Cell Count 3.41 M/uL (3.86-4.86)
[2023-05-13] MEDS ORDERED: POTASSIUM CL SA 10 MEQ TAB PO ONE ×2 (06:00→12:10)
[2023-05-13] MEDS: INSULIN REGULAR (HUMAN) 100 UNIT/ML SQ SCH ×4 (07:30→21:00)
[2023-05-13] MEDS: Mupirocin NASAL 2 APPL/1 GM TUBE NAS SCH ×2 (08:36→21:10)
[2023-05-13] MEDS: SPIRONOLACTONE 25 MG TABLET PO SCH (08:36)
[2023-05-13] MEDS: CLINDAMYCIN 900MG/D5W 900 MG/50 ML IVPB IV SCH ×3 (08:36→21:07)
[2023-05-13] MEDS: AMIODARONE HCL 200 MG TAB PO SCH ×2 (08:36→21:08)
[2023-05-13] MEDS: NYSTATIN PWDR 100000 UNIT/GM TOP SCH ×2 (08:37→21:00)
[2023-05-13] MEDS: FUROSEMIDE 40 MG TABLET PO SCH ×2 (08:37→17:19)
[2023-05-13] MEDS: APIXABAN 5 MG TABLET PO SCH ×2 (08:37→21:08)
[2023-05-13] MEDS: ENSURE MAX PROTEIN 330 ML LIQUID PO SCH (08:37)
[2023-05-13] MEDS: SILVER SULFADIAZINE 1% 50 GM TOP SCH ×2 (08:38→21:00)
--- NOTE | 2023-05-13 09:06 | P.PN ---
Date of Service: 05/13/23 Subjective: Feeling about the same, slightly less pain Legs much improved Having trouble eating with oral ulcerations/pain No acute events overnight ROS: 10 point ROS as noted above, otherwise negative Physical exam GEN: Alert, oriented, NAD HEENT: Normal conjunctiva, sclera anicteric, crusted sores on the lips, sores and ulcers on the hard and soft palates and the tongue. CV: Irregular rhythm, rapid rate. Pulm: Clear to auscultation bilaterally ABD: Soft, nontender, nondistended Integumentary: Right lower extremity venous stasis ulcers, macerated skin- healing. Musculoskeletal: Bilateral lower extremity lymphedema. Lower extremity edema improved. Neuro: Normal speech, normal affect, no focal motor deficit. Vitals reviewed Problem List Septic shock secondary to right lower extremity cellulitis complicated with underlying chronic lymphedema Gram-positive Bacteremia Atrial flutter-new onset Elevated troponin EDDI with metabolic acidosis, mild hyponatremia secondary to septic shock Prediabetes Plan: Septic shock secondary to right lower extremity cellulitis complicated with underlying chronic lymphedema Gram-positive Bacteremia Ct lower extremity (05/02) of right lower extremity shows severe skin thickening subcutaneous inflammation and edema-no signs of abscess or gas Blood cx (05/02): Streptococcus pyogenes. repeat blood cultures (05/04): No growth urine cx (05/02):: no growth wound cx (05/03): MSSA and Streptococcus pyogenes S/p Levophed. Leukocytosis continue to trend down. Continue nafcillin and clindamycin. 05/04 s/p Excisional debridement down to subQ of Right thigh 20p38nv, R Leg 68x03vv, and Right foot 49s85kx by Dr. Lewis Surgery following and monitoring for possible repeat debridement if needed. ID is following. Continue wound care. PICC in place will DC IJ catheter Continue Oxacillin and Clindamycin for now Strep pyogenes bacteremia: Recommend continuing antibiotic therapy for 14 days (05/04-05/18) Atrial flutter-new onset Status post IV amiodarone per cardio, transitioned to oral amiodarone. Cardiology input appreciated. Heart rate improved. Continue monitor on telemetry Echocardiogram: Normal EF, mild pulmonary hypertension, no mention of thrombus or endocarditis. Start Eliquis Elevated troponin Suspect demand ischemia from septic shock / aflutter troponins trended flat, monitor on telemetry Cardiology following EDDI with metabolic acidosis, mild hyponatremia secondary to septic shock nephrology Dr. Hummel consulted IV fluids dc'd. EDDI resolved IV Lasix as per nephrology Continue to monitor renal function Prediabetes ACHS Accu-Chek, mild sliding scale. Oral candidiasis/aphthous ulcers Still having pain, difficulty eating solids added ensure/dietary consults IV Diflucan. Patient to complete 2 weeks of Diflucan. May transition to oral Diflucan once sores in the mouth heal. Magic mouthwash for pain control. Debility Prior to hospitalization patient was ambulatory, used to walk up 13 steps at home to get to her house Walk to kitchen, bathroom without assistive devices Patient now working with PT, walking with a walker with minimal assistance short distances In order to go home patient would have to be able to walk up 13 steps Continue PT, patient may benefit with rehab/SNF prior to DC VTE: Eliquis Code: DNR Time Spent Managing Pts Care (In Minutes): 35
--- NOTE | 2023-05-13 09:07 | P.PN ---
Date of Service: 05/13/23 Chief Complaint: Septic shock, right lower extremity cellulitis Subjective: Improving. Patient seen and examined at bedside. In no apparent distress. No acute events reported overnight. + sore mouth / oral lesions Physical Examination Temp Pulse Resp BP Pulse Ox 97.8 F 78 19 121/62 97 05/13/23 08:00 05/13/23 08:00 05/13/23 08:00 05/13/23 08:00 05/13/23 08:00 General: In no apparent distress. Alert and oriented x3. HEENT: Normocephalic. Atraumatic. Corrective lenses. Oral ulcerations, oral candidiasis Respiratory: Diminished at bases. Breathing comfortably on room air. Cardiovascular: Regular rate and rhythm. BLE edema/lymphedema. Abdomen: Soft. Non-tender. Non-distended. Normoactive bowel sounds. Integumentary: RLE dressing is clean dry and intact. BLE lymphedema. : Bishop catheter Laboratory data -Reviewed Microbiology data - Reviewed Imagings Data: - Chest XR 05/05: "No acute cardiopulmonary process." Medications list: Reviewed Assessment and Plan Problem list Septic shock Cellulitis, RLE Gram-Positive Bacteremia Lymphedema Atrial Flutter Acute Kidney Injury Septic Shock secondary to Cellulitis of Right Lower Extremity Streptococcus pyogenes Bacteremia -Blood cultures 05/02: Streptococcus pyogenes in 4 of 4 bottles -Repeat blood cultures 05/04 & 05/08: no growth to date - Wound cultures 05/03: Staphyloccus aureus and Streptococcus pyogenes - 05/04 s/p Excisional debridement down to subQ of Right thigh [id number], R Leg 23y60qw, and Right foot 76m37gy by Dr. Lewis right thigh/leg/foot cellulitis, infected necrotic wound circumferential -Previously on Meropenem and Vancomycin (05/02-05/06). Vancomycin levels had been subtherapeutic due to fluctuating renal function/dosing challenges. --> switched to Oxacillin and Clindamycin on 05/06. - WBC remaining in 14s -Afebrile Recommendations - Cellulitis/Wound culture with staph aureus and strep pyogenes: Continue Oxacillin and Clindamycin for now. WBC remains elevated. Pending possible debridement today. - Strep pyogenes bacteremia: Recommend continuing antibiotic therapy for 14 days (05/04-05/18) - Oral candidiasis: On fluconazole IV. Switch to PO as tolerated. (05/09-05/22) - Monitor WBC and fever trends - RLE wound care per Dr. Lewis - Renally dose mediations Case discussed with Nicole Lu who is in agreement with plan.
[2023-05-13] MEDS ORDERED: ENSURE ENLIVE 237 ML CAN PO SCH (11:00)
--- NOTE | 2023-05-13 12:35 | PN ---
Date of Progress Note: 05/13/2023 Subjective: Patient was admitted to the hospital with acute kidney injury, anasarca, and cardiorenal syndrome. Patient has been diuresed very well in the last couple of days. Kidney function bounced back. Physical Examination: Vital Signs: Blood pressure 121/62, pulse of 78. Afebrile. Chest: Clear to auscultation. Heart: S1, S2. Regular. Abdomen: Nontender, morbidly obese, could not appreciate any organomegaly. Extremities: Dressing compression on the right leg. Swelling on the left, but much better with wrin kled skin. Neuro: Alert. No focality. Laboratory Data: Hemoglobin of 10. Sodium 137, potassium 3.4, bicarb 28, BUN 31, creatinine 1.7, ca lcium 8.3. Current Medications: The patient is on include: 1.Amiodarone. 2.Spironolactone 50 b.i.d. 3.Lasix 40 b.i.d. 4.Magic wash. 5.Mupirocin. Assessment And Plan: 1.Acute kidney injury secondary to cardiorenal. Looked to me, currently on the normal volume side. I am going to decrease spironolactone to once a day. 2.Hypertension, controlled, optimal. Continue current treatment. Decrease spironolactone as above. 3.Hypokalemia. We will supplement. 4.Anasarca secondary to cardiorenal. We will continue diuresis. AMANDA/MAXIMILIAN Voice ID: [id number] Report ID: [id number]
[2023-05-13] MEDS: MUPIROCIN 2% OINT 22GM TUBE TOP SCH ×2 (13:03→23:17)
[2023-05-13] MEDS: FLUCONAZOLE 100 MG TAB PO SCH (13:04)
--- NOTE | 2023-05-13 13:13 | OP ---
Date of Procedure: 05/13/2023 Surgeon: Jerry Lewis MD Preoperative Diagnoses: Right thigh, leg, foot cellulitis, infected necrotic wound, circumferential, septic shock. Postoperative Diagnoses: Right thigh, leg, foot cellulitis, infected necrotic wound, circumferential , septic shock. Procedure: Excisional debridement down to subcutaneous of: 1.Right thigh 20 x 30 cm. 2.Right leg 30 x 30 cm. 3.Right foot 20 x 15 cm. Estimated Blood Loss: Less than 50 cc. Specimen: Skin and necrotic tissue. Anesthesia: MAC plus local. Complications: None. Indication For Procedure: This is the case of a female who came to us in septic shock, found to have large necrotic areas on the foot. Patient was stabilized and taken to surgery for excisional debrid ement of those areas already mentioned above. The benefits, alternatives, and risks fully explained, which include, but not limited to, infection, bleeding, damage to adjacent structures, anesthesia co mplication, recurrence, [place], and even . She also understands this may not relieve any symptoms. She might need more than one surgical intervention. She also understands that she needs to control her lymphedema and diabetes, and also she [facility] t several months after discharge. She also was advised the importance of following up with [facility] and contact her Vascular providers. She understood, signed a consent. Description Of Procedure: Patient was brought to the operating room and placed in supine position. Anesthesia was done without complication. A time-out was called. After that, we prepped the right l eg in the usual sterile fashion. Local anesthesia was applied. Then, we proceeded to do that she siddiqi d many blisters, many areas of devitalized tissue that was already delineated. We proceeded to remov e that with the help of a sharp knife and a curette. Then, after that, we obtained hemostasis, each one was done individually and then we wrapped them with the help of a Silvadene and also a sterile ga uze. Patient tolerated the procedure well. Patient was sent to Recovery in stable condition. ABRAHAM/MAXIMILIAN Voice ID: [id number] Report ID: [id number]
[2023-05-13] MEDS: LACTOBACILLUS/ACIDOPHILUS TAB PO SCH (17:19)
[2023-05-14] MEDS: OXACILLIN SODIUM 2 GM in NA CHLORIDE 0.9% 100 ML IV SCH ×6 (01:28→21:28)
[2023-05-14 05:16] LABS: MCV 86.6 fL (80-100); MPV 7.7 fL (7.6-11.3); Platelets 592 thou/uL (152-406); RBC Red Blood Cell Count 3.34 M/uL (3.86-4.86)
[2023-05-14 05:23] LABS: Albumin 1.9 g/dL (3.4-5.0); Bilirubin Total 0.1 mg/dL (0.2-1.0); Magnesium 2.3 mg/dL (1.6-2.4); Phosphorus 4.8 mg/dL (2.5-4.9); Protein, Total 7.3 g/dL (6.4-8.2)
[2023-05-14] MEDS: INSULIN REGULAR (HUMAN) 100 UNIT/ML SQ SCH ×3 (07:30→21:00)
[2023-05-14] MEDS: ENSURE MAX PROTEIN 330 ML LIQUID PO SCH (09:00)
[2023-05-14] MEDS: Mupirocin NASAL 2 APPL/1 GM TUBE NAS SCH ×2 (09:00→21:33)
--- NOTE | 2023-05-14 09:01 | P.PN ---
Date of Service: 05/14/23 Chief Complaint: Septic shock, right lower extremity cellulitis Subjective: Improving. Patient seen and examined at bedside. Consumed 100% of breakfast. No new or worsening complaints at this time. Pending SNF placement / rehab. Physical Examination Temp Pulse Resp BP Pulse Ox 96.9 F 70 17 110/55 L 97 05/14/23 04:00 05/14/23 04:00 05/14/23 04:00 05/14/23 04:00 05/14/23 04:00 General: In no apparent distress. Alert and oriented x3. HEENT: Normocephalic. Atraumatic. Corrective lenses. Oral ulcerations, oral candidiasis Respiratory: Diminished at bases. Breathing comfortably on room air. Cardiovascular: Regular rate and rhythm. BLE edema/lymphedema. Abdomen: Soft. Non-tender. Non-distended. Normoactive bowel sounds. Integumentary: RLE dressing is clean dry and intact. BLE lymphedema. : Bishop catheter Laboratory data -Reviewed Microbiology data - Reviewed Imagings Data: - Chest XR 05/05: "No acute cardiopulmonary process." Medications list: Reviewed Assessment and Plan Problem list Septic shock Cellulitis, RLE Gram-Positive Bacteremia Lymphedema Atrial Flutter Acute Kidney Injury Septic Shock secondary to Cellulitis of Right Lower Extremity Streptococcus pyogenes Bacteremia -Blood cultures 05/02: Streptococcus pyogenes in 4 of 4 bottles -Repeat blood cultures 05/04 & 05/08: no growth to date - Wound cultures 05/03: Staphyloccus aureus and Streptococcus pyogenes - 05/04 s/p Excisional debridement down to subQ of Right thigh 23u10wy, R Leg 76g67lq, and Right foot 44n20bk by Dr. Lewis right thigh/leg/foot cellulitis, infected necrotic wound circumferential -Previously on Meropenem and Vancomycin (05/02-05/06). Vancomycin levels had been subtherapeutic due to fluctuating renal function/dosing challenges. --> switched to Oxacillin and Clindamycin on 05/06. - WBC improving (14.8 -> 12.3) -Afebrile Recommendations - Cellulitis/Wound culture with staph aureus and strep pyogenes: Continue Oxacillin and Clindamycin for now. - RLE wound care/debridement site care per Dr. Lewis - Strep pyogenes bacteremia: Recommend continuing antibiotic therapy for 14 days (05/04-05/18) - Oral candidiasis: On fluconazole IV. Switch to PO as tolerated. (05/09-05/22) - Monitor WBC and fever trends - Renally dose mediations - Physical therapy. Case discussed with Nicole Lu who is in agreement with plan.
--- NOTE | 2023-05-14 09:19 | P.PN ---
Date of Service: 05/14/23 Subjective: Feeling about the same, slightly less pain Legs much improved able to tolerate solid foods more today No acute events overnight ROS: 10 point ROS as noted above, otherwise negative Physical exam GEN: Alert, oriented, NAD HEENT: Normal conjunctiva, sclera anicteric, crusted sores on the lips, sores and ulcers on the hard and soft palates and the tongue. CV: Irregular rhythm, rapid rate. Pulm: Clear to auscultation bilaterally ABD: Soft, nontender, nondistended Integumentary: Right lower extremity venous stasis ulcers, macerated skin- healing. Musculoskeletal: Bilateral lower extremity lymphedema. Lower extremity edema improved. Neuro: Normal speech, normal affect, no focal motor deficit. Vitals reviewed Problem List Septic shock secondary to right lower extremity cellulitis complicated with underlying chronic lymphedema Gram-positive Bacteremia Atrial flutter-new onset Elevated troponin EDDI with metabolic acidosis, mild hyponatremia secondary to septic shock Prediabetes Plan: Septic shock secondary to right lower extremity cellulitis complicated with underlying chronic lymphedema Gram-positive Bacteremia Ct lower extremity (05/02) of right lower extremity shows severe skin thickening subcutaneous inflammation and edema-no signs of abscess or gas Blood cx (05/02): Streptococcus pyogenes. repeat blood cultures (05/04): No growth urine cx (05/02):: no growth wound cx (05/03): MSSA and Streptococcus pyogenes S/p Levophed. Leukocytosis continue to trend down. Continue nafcillin and clindamycin. 05/04 s/p Excisional debridement down to subQ of Right thigh 18p20cg, R Leg 56y86mb, and Right foot 87b43uv by Dr. Lewis Surgery following and monitoring for possible repeat debridement if needed. ID is following. Continue wound care. PICC in place will DC IJ catheter Continue Oxacillin and Clindamycin for now Strep pyogenes bacteremia: Recommend continuing antibiotic therapy for 14 days (05/04-05/18) Atrial flutter-new onset Status post IV amiodarone per cardio, transitioned to oral amiodarone. Cardiology input appreciated. Heart rate improved. Continue monitor on telemetry Echocardiogram: Normal EF, mild pulmonary hypertension, no mention of thrombus or endocarditis. Start Eliquis Elevated troponin Suspect demand ischemia from septic shock / aflutter troponins trended flat, monitor on telemetry Cardiology following EDDI with metabolic acidosis, mild hyponatremia secondary to septic shock nephrology Dr. Hummel consulted IV fluids dc'd. EDDI resolved IV Lasix as per nephrology Continue to monitor renal function Prediabetes ACHS Accu-Chek, mild sliding scale. Oral candidiasis/aphthous ulcers Improving added ensure/dietary consults Switched to PO diflucan-will need 2 weeks total Magic mouthwash for pain control. Debility Prior to hospitalization patient was ambulatory, used to walk up 13 steps at home to get to her house Walk to kitchen, bathroom without assistive devices Patient now working with PT, walking with a walker with minimal assistance short distances In order to go home patient would have to be able to walk up 13 steps Continue PT, patient may benefit with rehab/SNF prior to DC Did better with PT yesterday VTE: Eliquis Code: DNR Time Spent Managing Pts Care (In Minutes): 35
[2023-05-14] MEDS: AMIODARONE HCL 200 MG TAB PO SCH ×2 (09:33→21:46)
[2023-05-14] MEDS: APIXABAN 5 MG TABLET PO SCH ×2 (09:34→21:46)
[2023-05-14] MEDS: FUROSEMIDE 40 MG TABLET PO SCH ×2 (09:34→17:26)
[2023-05-14] MEDS: SPIRONOLACTONE 25 MG TABLET PO SCH (09:39)
[2023-05-14] MEDS: FLUCONAZOLE 100 MG TAB PO SCH (09:41)
[2023-05-14] MEDS: NYSTATIN PWDR 100000 UNIT/GM TOP SCH ×2 (09:43→21:00)
[2023-05-14] MEDS: MUPIROCIN 2% OINT 22GM TUBE TOP SCH ×2 (09:43→21:36)
[2023-05-14 10:06] LABS: UR PROTEIN 22.4 mg/dL (<11.9); Urine Protein/Creatinine Ratio 0.33 ratio (<0.15)
[2023-05-14] MEDS: CLINDAMYCIN 900MG/D5W 900 MG/50 ML IVPB IV SCH ×3 (11:25→21:27)
[2023-05-14] MEDS: LACTOBACILLUS/ACIDOPHILUS TAB PO SCH (11:25)
[2023-05-14] MEDS: SILVER SULFADIAZINE 1% 50 GM TOP SCH ×2 (11:34→21:00)
[2023-05-14] MEDS ORDERED: ACETAMINOPHEN 500 MG TAB PO PRN (12:20)
[2023-05-14] MEDS ORDERED: ONDANSETRON 4 MG/2 ML VIAL IV PRN (12:21)
--- NOTE | 2023-05-14 15:38 | PN ---
Date of Progress Note: 05/14/2023 Subjective: Patient was admitted to the hospital with anasarca secondary to cardiorenal, acute kidne y injury secondary to cardiorenal. Patient had septic shock, treated, recovered. Physical Examination: Vital Signs: When I saw the patient, blood pressure was 110/62, pulse of 76, afebrile. Chest: Clear to auscultation. Heart: S1, S2. Regular. Abdomen: Soft, nontender. Extremities: Dressing on the right leg, compression dressing, lymphedema on the left, and improving significantly with wrinkling skin. Neuro: Alert. No focality. Laboratory Data: Hemoglobin 9.8. Sodium 139, potassium 4, bicarb 25, BUN 37, creatinine 1.7, calciu m 8.9. Phosphorus 4.8, magnesium 2.3. Albumin 1.9. Corrected calcium is 10.5. Current Medications: The patient is on include: 1.Eliquis. 2.Amiodarone. 3.Spironolactone 50 daily. 4.Lasix 40 b.i.d. 5.Ensure. 6.Zofran. 7.KCl. Assessment And Plan: 1.Acute kidney injury secondary to cardiorenal, recovered. Yesterday, overdiuresed. Adjust the Las ix and decrease the spironolactone. Patient had better creatinine plateau. 2.Hypertension, controlled, optimal. Continue current treatment. 3.Hyponatremia, resolved. 4.Hypercalcemia secondary to immobilization. Discontinue calcium supplement. 5.Hypokalemia, resolved. Continue current spironolactone dose and supplement pmehul WEISS Voice ID: [id number] Report ID: [id number]
[2023-05-15] MEDS: OXACILLIN SODIUM 2 GM in NA CHLORIDE 0.9% 100 ML IV SCH ×7 (01:40→22:08)
[2023-05-15 06:19] LABS: MCV 87.1 fL (80-100); MPV 7.6 fL (7.6-11.3); Platelets 369 thou/uL (152-406); RBC Red Blood Cell Count 3.79 M/uL (3.86-4.86)
[2023-05-15 06:29] LABS: Albumin 2.1 g/dL (3.4-5.0); Bilirubin Total 0.1 mg/dL (0.2-1.0); Potassium 3.8 mEq/L (3.5-5.1); Protein, Total 7.8 g/dL (6.4-8.2)
[2023-05-15] MEDS: INSULIN REGULAR (HUMAN) 100 UNIT/ML SQ SCH ×4 (07:30→21:00)
--- NOTE | 2023-05-15 08:50 | P.PN ---
Date of Service: 05/15/23 Chief Complaint: Septic shock, right lower extremity cellulitis Subjective: Improving. No acute events reported overnight. In no apparent distress. Denies any new or worsening complaints at this time. Physical Examination Temp Pulse Resp BP Pulse Ox 97.2 F 72 18 109/61 98 05/15/23 04:00 05/15/23 04:00 05/15/23 04:00 05/15/23 04:00 05/15/23 04:00 General: In no apparent distress. Alert and oriented x3. HEENT: Normocephalic. Atraumatic. Corrective lenses. Oral ulcerations, oral candidiasis improving. Respiratory: clear to auscultation bilaterally. Nonlabored respirations on room air. Cardiovascular: Regular rate and rhythm. BLE edema/lymphedema. Abdomen: Soft. Non-tender. Non-distended. Normoactive bowel sounds. Integumentary: RLE dressing is clean dry and intact. Onychomycosis. Laboratory data -Reviewed Microbiology data - Reviewed Imagings Data: - Chest XR 05/05: "No acute cardiopulmonary process." Medications list: Reviewed Assessment and Plan Problem list Septic shock Cellulitis, RLE Gram-Positive Bacteremia Lymphedema Atrial Flutter Acute Kidney Injury Septic Shock secondary to Cellulitis of Right Lower Extremity Streptococcus pyogenes Bacteremia -Blood cultures 05/02: Streptococcus pyogenes in 4 of 4 bottles -Repeat blood cultures 05/04 & 05/08: no growth to date - Wound cultures 05/03: Staphyloccus aureus and Streptococcus pyogenes - 05/04 s/p Excisional debridement down to subQ of Right thigh 55s40nt, R Leg 47r41ac, and Right foot 24a61sh by Dr. Lewis right thigh/leg/foot cellulitis, infected necrotic wound circumferential -Previously on Meropenem and Vancomycin (05/02-05/06). Vancomycin levels had been subtherapeutic due to fluctuating renal function/dosing challenges. --> switched to Oxacillin and Clindamycin on 05/06. - WBC improving (14.8 -> 12.3 -> 8.2) -Afebrile Recommendations - Strep pyogenes bacteremia: Recommend continuing antibiotic therapy for 14 days (05/04-05/18) - Cellulitis: Continue Oxacillin and Clindamycin for now. - RLE wound care/debridement site care per Dr. Lewis - Oral candidiasis: On fluconazole PO. Continue for 14 days (05/09-05/22) - Monitor WBC and fever trends - Renally dose mediations - Physical therapy. Case discussed with Nicole Lu who is in agreement with plan.
[2023-05-15] MEDS: MUPIROCIN 2% OINT 22GM TUBE TOP SCH ×2 (09:00→21:00)
[2023-05-15] MEDS: LACTOBACILLUS/ACIDOPHILUS TAB PO SCH (09:00)
[2023-05-15] MEDS: SILVER SULFADIAZINE 1% 50 GM TOP SCH ×2 (09:00→21:00)
[2023-05-15] MEDS: CLINDAMYCIN 900MG/D5W 900 MG/50 ML IVPB IV SCH ×4 (09:00→21:00)
[2023-05-15] MEDS: ENSURE MAX PROTEIN 330 ML LIQUID PO SCH (09:00)
[2023-05-15] MEDS: Mupirocin NASAL 2 APPL/1 GM TUBE NAS SCH ×2 (09:38→22:09)
[2023-05-15] MEDS: SPIRONOLACTONE 25 MG TABLET PO SCH (09:38)
[2023-05-15] MEDS: AMIODARONE HCL 200 MG TAB PO SCH ×2 (09:38→22:09)
[2023-05-15] MEDS: FLUCONAZOLE 100 MG TAB PO SCH (09:39)
[2023-05-15] MEDS: FUROSEMIDE 40 MG TABLET PO SCH ×2 (09:39→17:43)
[2023-05-15] MEDS: APIXABAN 5 MG TABLET PO SCH ×2 (09:39→22:08)
[2023-05-15] MEDS: NYSTATIN PWDR 100000 UNIT/GM TOP SCH (09:40)
--- NOTE | 2023-05-15 09:53 | P.PN ---
Date of Service: 05/15/23 Subjective: Legs much improved able to tolerate solid foods more today No acute events overnight ROS: 10 point ROS as noted above, otherwise negative Physical exam GEN: Alert, oriented, NAD HEENT: Normal conjunctiva, sclera anicteric, crusted sores on the lips, sores and ulcers on the hard and soft palates and the tongue. CV: Irregular rhythm, rapid rate. Pulm: Clear to auscultation bilaterally ABD: Soft, nontender, nondistended Integumentary: Right lower extremity venous stasis ulcers, macerated skin- healing. Musculoskeletal: Bilateral lower extremity lymphedema. Lower extremity edema improved. Neuro: Normal speech, normal affect, no focal motor deficit. Vitals reviewed Problem List Septic shock secondary to right lower extremity cellulitis complicated with underlying chronic lymphedema Gram-positive Bacteremia Atrial flutter-new onset Elevated troponin EDDI with metabolic acidosis, mild hyponatremia secondary to septic shock Prediabetes Plan: Septic shock secondary to right lower extremity cellulitis complicated with underlying chronic lymphedema Gram-positive Bacteremia Ct lower extremity (05/02) of right lower extremity shows severe skin thickening subcutaneous inflammation and edema-no signs of abscess or gas Blood cx (05/02): Streptococcus pyogenes. repeat blood cultures (05/04): No growth urine cx (05/02):: no growth wound cx (05/03): MSSA and Streptococcus pyogenes S/p Levophed. Leukocytosis continue to trend down. Continue nafcillin and clindamycin. 05/04 s/p Excisional debridement down to subQ of Right thigh 94y19ia, R Leg 81m99cc, and Right foot 62u51he by Dr. Lewis Surgery following and monitoring for possible repeat debridement if needed. ID is following. Continue wound care. PICC in place, Right IJ dc'd Continue Oxacillin and Clindamycin until 05/18 Strep pyogenes bacteremia: Recommend continuing antibiotic therapy for 14 days (05/04-05/18) Atrial flutter-new onset Status post IV amiodarone per cardio, transitioned to oral amiodarone. Cardiology input appreciated. Heart rate improved. Continue monitor on telemetry Echocardiogram: Normal EF, mild pulmonary hypertension, no mention of thrombus or endocarditis. continue eliquis Elevated troponin Suspect demand ischemia from septic shock / aflutter troponins trended flat, monitor on telemetry Cardiology following EDDI with metabolic acidosis, mild hyponatremia secondary to septic shock nephrology Dr. Hummel consulted IV fluids dc'd. EDDI resolved IV Lasix as per nephrology Continue to monitor renal function Prediabetes ACHS Accu-Chek, mild sliding scale. Oral candidiasis/aphthous ulcers Improving added ensure/dietary consults Switched to PO diflucan-will need 2 weeks total Magic mouthwash for pain control. Debility Prior to hospitalization patient was ambulatory, used to walk up 13 steps at home to get to her house Walk to kitchen, bathroom without assistive devices Patient now working with PT, walking with a walker with minimal assistance short distances In order to go home patient would have to be able to walk up 13 steps Continue PT, patient may benefit with rehab/SNF prior to DC Did better with PT yesterday VTE: Eliquis Code: DNR Time Spent Managing Pts Care (In Minutes): 35
[2023-05-15] MEDS ORDERED: ALTEPLASE 2 MG/VIAL IV ONE (11:00)
--- NOTE | 2023-05-15 16:23 | P.PN ---
Subjective Date of Service: 05/15/23 Chief Complaint: Septic shock, right lower extremity cellulitis Subjective: No new changes Physical Examination - Vital Signs Temperature: 97.4 F Blood Pressure: 129/68 Pulse: 76 Respirations: 16 Pulse Ox (%): 95 - Physical Exam General: Other (appears as her stated age) HEENT: Atraumatic, Normocephalic Neck: Supple Respiratory: Other (symmetric chest expansion ) Cardiovascular: No rubs, No murmurs Gastrointestinal: Soft and benign, No guarding Musculoskeletal: No clubbing Integumentary: No warmth Neurological: Normal tone Urinary: Other (no bladder distention) External genitalia: Deferred Rectal: Deferred Assessment And Plan - Plan # EDDI 2/2 ATN/septic shock + CRS1 from atrial flutter SCr 3.7 on adm, improved to 1.1, increased to / plateaued at 1.7 Baseline serum creatinine 0.8-1.0 as of October 2022 Urinalysis with proteinuria, hematuria, and pyuria Keep MAP > 65 [place] by mouth fluid intake at least 2 L per day # AGMA + acute respi alkalosis Improved, monitor # Hyponatremia Improved, monitor # Septic shock 2/2 BLE cellulitis Shock resolved On abx Local wound care & multilayer compression therapy F/u cultures # Atrial flutter Per other services # Prediabetes Per primary team Physician Review: Patient Assessed, Agree with Above Assessment and Plan
[2023-05-15] MEDS ORDERED: CLINDAMYCIN 900MG/D5W 900 MG/50 ML IVPB IV ONE (21:09)
--- NOTE | 2023-05-15 21:11 | PN ---
Date of Progress Note: 05/15/2023 Reason For Service: Septic shock with bilateral lower extremity cellulitis and venous stasis ulcer a nd infected ulcer. Subjective: Patient is doing great, feeling comfortable. Objective: Vital Signs: Stable. Chest: Clear. Abdomen: Soft and depressible. Extremities: Good capillary refill. Intact surgical sites. Redness is improved. Swelling is marke dly improved. No calf tenderness. Plan: From the surgical standpoint, continue dressing changes. We will like to see the patient in [facility] once she gets discharged. Antibiotics per ID. We explained to her once tg rivera the importance of lymphedema and venous stasis disease treatment to diminish the chance of recurren ce of this infection. ABRAHAM/MAXIMILIAN Voice ID: [id number] Report ID: [id number]
[2023-05-16] MEDS: OXACILLIN SODIUM 2 GM in NA CHLORIDE 0.9% 100 ML IV SCH ×6 (01:45→20:45)
[2023-05-16 06:29] LABS: Hematocrit 31.4 % (36.0-45.0); MCV 86.6 fL (80-100); MPV 7.6 fL (7.6-11.3); Platelets 715 thou/uL (152-406); RBC Red Blood Cell Count 3.63 M/uL (3.86-4.86)
[2023-05-16 06:37] LABS: Albumin 2.2 g/dL (3.4-5.0); Bilirubin Total 0.2 mg/dL (0.2-1.0); Potassium 3.7 mEq/L (3.5-5.1); Protein, Total 8.2 g/dL (6.4-8.2)
[2023-05-16] MEDS: INSULIN REGULAR (HUMAN) 100 UNIT/ML SQ SCH ×4 (07:30→21:00)
[2023-05-16] MEDS: SILVER SULFADIAZINE 1% 50 GM TOP SCH ×2 (08:40→20:48)
[2023-05-16] MEDS: APIXABAN 5 MG TABLET PO SCH ×2 (08:41→20:47)
[2023-05-16] MEDS: SPIRONOLACTONE 25 MG TABLET PO SCH (08:41)
[2023-05-16] MEDS: MUPIROCIN 2% OINT 22GM TUBE TOP SCH ×2 (08:41→21:04)
[2023-05-16] MEDS: AMIODARONE HCL 200 MG TAB PO SCH ×2 (08:41→20:47)
[2023-05-16] MEDS: FLUCONAZOLE 100 MG TAB PO SCH (08:41)
[2023-05-16] MEDS: FUROSEMIDE 40 MG TABLET PO SCH ×2 (08:41→17:30)
[2023-05-16] MEDS: ENSURE MAX PROTEIN 330 ML LIQUID PO SCH (08:41)
[2023-05-16] MEDS: LACTOBACILLUS/ACIDOPHILUS TAB PO SCH (08:41)
--- NOTE | 2023-05-16 08:52 | P.PN ---
Date of Service: 05/16/23 Subjective: Oral blisters much improved able to tolerate solid foods more today No acute events overnight ROS: 10 point ROS as noted above, otherwise negative Physical exam GEN: Alert, oriented, NAD HEENT: Normal conjunctiva, sclera anicteric, crusted sores on the lips, sores and ulcers on the hard and soft palates and the tongue. CV: Irregular rhythm, rapid rate. Pulm: Clear to auscultation bilaterally ABD: Soft, nontender, nondistended Integumentary: Right lower extremity venous stasis ulcers, macerated skin- healing. Musculoskeletal: Bilateral lower extremity lymphedema. Lower extremity edema improved. Neuro: Normal speech, normal affect, no focal motor deficit. Vitals reviewed Problem List Septic shock secondary to right lower extremity cellulitis complicated with underlying chronic lymphedema Gram-positive Bacteremia Atrial flutter-new onset Elevated troponin EDDI with metabolic acidosis, mild hyponatremia secondary to septic shock Prediabetes Plan: Septic shock secondary to right lower extremity cellulitis complicated with underlying chronic lymphedema Gram-positive Bacteremia Ct lower extremity (05/02) of right lower extremity shows severe skin thickening subcutaneous inflammation and edema-no signs of abscess or gas Blood cx (05/02): Streptococcus pyogenes. repeat blood cultures (05/04): No growth urine cx (05/02):: no growth wound cx (05/03): MSSA and Streptococcus pyogenes S/p Levophed. Leukocytosis continue to trend down. Continue nafcillin and clindamycin. 05/04 s/p Excisional debridement down to subQ of Right thigh [id number], R Leg 00w04gv, and Right foot [id number] by Dr. Lewis Surgery following and monitoring for possible repeat debridement if needed. ID is following. Continue wound care. PICC in place, Right IJ dc'd Continue Oxacillin and Clindamycin until 05/18 Strep pyogenes bacteremia: Recommend continuing antibiotic therapy for 14 days (05/04-05/18) Working on SNF-possible [facility] Atrial flutter-new onset Status post IV amiodarone per cardio, transitioned to oral amiodarone. Cardiology input appreciated. Heart rate improved. Continue monitor on telemetry Echocardiogram: Normal EF, mild pulmonary hypertension, no mention of thrombus or endocarditis. continue eliquis Elevated troponin Suspect demand ischemia from septic shock / aflutter troponins trended flat, monitor on telemetry DEDI with metabolic acidosis, mild hyponatremia secondary to septic shock nephrology Dr. Hummel consulted IV fluids dc'd. EDDI resolved IV Lasix as per nephrology Continue to monitor renal function Prediabetes ACHS Accu-Chek, mild sliding scale. Oral candidiasis/aphthous ulcers Improving added ensure/dietary consults Switched to PO diflucan-will need 2 weeks total Magic mouthwash for pain control. Debility Prior to hospitalization patient was ambulatory, used to walk up 13 steps at home to get to her house Walk to kitchen, bathroom without assistive devices Patient now working with PT, walking with a walker with minimal assistance short distances In order to go home patient would have to be able to walk up 13 steps Continue PT, patient may benefit with rehab/SNF prior to DC VTE: Eliquis Code: DNR Time Spent Managing Pts Care (In Minutes): 35
[2023-05-16] MEDS ORDERED: POTASSIUM CL SA 10 MEQ TAB PO ONE (09:00)
[2023-05-16] MEDS: CLINDAMYCIN 900MG/D5W 900 MG/50 ML IVPB IV SCH ×3 (11:14→20:46)
--- NOTE | 2023-05-16 11:23 | PN ---
Date of Progress Note: 05/16/2023 Subjective: The patient was admitted with septic shock secondary to cellulitis. The patient had lymphedema. The patient had over volume. The patient treated, recovered. Cardiorenal syndrome has improved. The patient been diuresed very well. Physical Examination: Vital Signs: Blood pressure 126/57, pulse of 76, afebrile, the patient had good urine output of 2300, negative of 900. Chest: Clear to auscultation. Heart: S1, S2, regular. Abdomen: Morbidly obese, could not appreciate any organomegaly. Extremities: Dressing on the right leg, lymphedema on the left with wrinkling. Lab: Hemoglobin 13.4. Sodium 138, potassium 3.7, bicarb 24, BUN 43, creatinine 1.8, GFR of 31. Calcium 9.3. Current Medications: 1. Oxacillin. 2. Fluconazole. 3. Clindamycin. 4. Eliquis. 5. Spironolactone 50 daily. 6. Amiodarone. 7. Ensure. 8. Lasix 40 b.i.d. 9. Magic wash. 10. Zofran. Assessment And Plan: 1. Acute kidney injury secondary to cardiorenal. I am going to continue current diuresis dose. Maybe this is her new baseline. We will follow up. 2. Hypertension. Continue to dialyze the blood pressure for more diuresis. 3. Hypokalemia. Continue spironolactone, p.r.n. supplement. 4. Hyponatremia, dilutional, resolved. 5. Hypercalcemia, resolved. 6. Cellulitis, status post treatment. 7. Cardiorenal syndrome. We will optimize diuresis as above. 8. Deconditioning. Continue PT/OT. time spend exam the patient face to face reviweing data lab and radiology , placing order , disccussing the case with the [facility] [employer] including hopsitalist and nursing staff >35 min AMANDA/MAXIMILIAN Voice ID: [id number] Report ID: [id number] MTDTasha
[2023-05-17] MEDS: OXACILLIN SODIUM 2 GM in NA CHLORIDE 0.9% 100 ML IV SCH ×6 (01:28→23:44)
[2023-05-17 06:24] LABS: Hematocrit 31.2 % (36.0-45.0); MCV 86.3 fL (80-100); MPV 7.8 fL (7.6-11.3); Platelets 693 thou/uL (152-406); RBC Red Blood Cell Count 3.61 M/uL (3.86-4.86)
[2023-05-17 06:38] LABS: Potassium 3.6 mEq/L (3.5-5.1)
[2023-05-17] MEDS: INSULIN REGULAR (HUMAN) 100 UNIT/ML SQ SCH ×4 (07:30→20:49)
[2023-05-17] MEDS: FLUCONAZOLE 100 MG TAB PO SCH (08:50)
[2023-05-17] MEDS: APIXABAN 5 MG TABLET PO SCH ×2 (08:50→20:48)
[2023-05-17] MEDS: FUROSEMIDE 40 MG TABLET PO SCH ×2 (08:51→18:37)
[2023-05-17] MEDS: SPIRONOLACTONE 25 MG TABLET PO SCH (08:51)
[2023-05-17] MEDS: AMIODARONE HCL 200 MG TAB PO SCH ×2 (08:51→20:48)
[2023-05-17] MEDS: CLINDAMYCIN 900MG/D5W 900 MG/50 ML IVPB IV SCH ×3 (08:52→20:48)
[2023-05-17] MEDS: LACTOBACILLUS/ACIDOPHILUS TAB PO SCH (08:53)
[2023-05-17] MEDS: ENSURE MAX PROTEIN 330 ML LIQUID PO SCH (08:53)
[2023-05-17] MEDS: MUPIROCIN 2% OINT 22GM TUBE TOP SCH ×2 (08:53→20:49)
[2023-05-17] MEDS: SILVER SULFADIAZINE 1% 50 GM TOP SCH ×2 (08:54→20:49)
[2023-05-17] MEDS ORDERED: POTASSIUM CL SA 10 MEQ TAB PO ONE (09:20)
--- NOTE | 2023-05-17 09:26 | P.PN ---
Date of Service: 05/17/23 Subjective: Oral blisters much improved able to tolerate solid foods more today No acute events overnight ROS: 10 point ROS as noted above, otherwise negative Physical exam GEN: Alert, oriented, NAD HEENT: Normal conjunctiva, sclera anicteric, crusted sores on the lips, sores and ulcers on the hard and soft palates and the tongue. CV: Irregular rhythm, rapid rate. Pulm: Clear to auscultation bilaterally ABD: Soft, nontender, nondistended Integumentary: Right lower extremity venous stasis ulcers, macerated skin- healing. Musculoskeletal: Bilateral lower extremity lymphedema. Lower extremity edema improved. Neuro: Normal speech, normal affect, no focal motor deficit. Vitals reviewed Problem List Septic shock secondary to right lower extremity cellulitis complicated with underlying chronic lymphedema Gram-positive Bacteremia Atrial flutter-new onset Elevated troponin EDDI with metabolic acidosis, mild hyponatremia secondary to septic shock Prediabetes Plan: Septic shock secondary to right lower extremity cellulitis complicated with underlying chronic lymphedema Gram-positive Bacteremia Ct lower extremity (05/02) of right lower extremity shows severe skin thickening subcutaneous inflammation and edema-no signs of abscess or gas Blood cx (05/02): Streptococcus pyogenes. repeat blood cultures (05/04): No growth urine cx (05/02):: no growth wound cx (05/03): MSSA and Streptococcus pyogenes S/p Levophed. Leukocytosis continue to trend down. Continue nafcillin and clindamycin. 05/04 s/p Excisional debridement down to subQ of Right thigh 34g52hs, R Leg 98s12yp, and Right foot 19m77dt by Dr. Lewis Surgery following and monitoring for possible repeat debridement if needed. ID is following. Continue wound care. PICC in place, Right IJ dc'd Continue Oxacillin and Clindamycin until 05/18 Strep pyogenes bacteremia: Recommend continuing antibiotic therapy for 14 days (05/04-05/18) Working on SNF-possible [facility] Still pending auth Atrial flutter-new onset Status post IV amiodarone per cardio, transitioned to oral amiodarone. Cardiology input appreciated. Heart rate improved. Continue monitor on telemetry Echocardiogram: Normal EF, mild pulmonary hypertension, no mention of thrombus or endocarditis. continue eliquis Elevated troponin Suspect demand ischemia from septic shock / aflutter troponins trended flat, monitor on telemetry EDDI with metabolic acidosis, mild hyponatremia secondary to septic shock nephrology Dr. Hummel consulted IV fluids dc'd. EDDI resolved IV Lasix as per nephrology Continue to monitor renal function Prediabetes ACHS Accu-Chek, mild sliding scale. Oral candidiasis/aphthous ulcers Improving added ensure/dietary consults Switched to PO diflucan-will need 2 weeks total Magic mouthwash for pain control. Debility Prior to hospitalization patient was ambulatory, used to walk up 13 steps at home to get to her house Walk to kitchen, bathroom without assistive devices Patient now working with PT, walking with a walker with minimal assistance short distances In order to go home patient would have to be able to walk up 13 steps Continue PT, patient may benefit with rehab/SNF prior to DC VTE: Eliquis Code: DNR Time Spent Managing Pts Care (In Minutes): 35
--- NOTE | 2023-05-17 13:02 | PN ---
Date of Progress Note: 05/17/2023 Subjective: The patient was admitted to the hospital with septic shock, anasarca, cellulitis. The patient being diuresis very well. The patient has lymphedema. The patient tolerated diuresis. Physical Examination: Vital Signs: Blood pressure 140/67, pulse of 80, afebrile. Chest: Decreased entry bilateral base. Heart: S1, S2. Systolic murmur. Abdomen: Soft, nontender. Extremities: Lymphedema bilateral with wrinkling skin secondary to improvement in the edema dressing, compression dressing on the right leg. Neurologic: Alert. No focality. Laboratory Data: Hemoglobin 10.5. Sodium 136, potassium of 3.6, bicarb 24, BUN 48, creatinine 1.8, calcium 9.2. Current Medications: The patient is on include clindamycin, fluconazole, oxacillin, Eliquis, spironolactone, 50 daily, amiodarone, Lasix 40 b.i.d. Assessment And Plan: 1. Acute kidney injury secondary to toxic acute tubular necrosis secondary to sepsis/cardiorenal. Continue to recover. I am going to continue to monitor the patient given the bounce back in the kidney function, I am going to hold the spironolactone for the time being and we will follow up the patient. 2. Hypertension, controlled, optimal. We the present of blood pressure for more diuresis with current kidney function. I am going to hold spironolactone. 3. Hypokalemia. We will supplement. Hold spironolactone. 4. Anasarca, lymphedema. Continue diuresis as above. Holding spironolactone. 5. Cellulitis, sepsis, recover. Continue current antibiotic, dose appropriate. time spend exam the patient face to face reviweing data lab and radiology , placing order , disccussing the case with the front desk team member including hopsitalist and nursing staff >35 min AMANDA/MAXIMILIAN Voice ID: [id number] Report ID: [id number] RIMA
[2023-05-18] MEDS: OXACILLIN SODIUM 2 GM in NA CHLORIDE 0.9% 100 ML IV SCH ×6 (02:14→22:50)
[2023-05-18 06:17] LABS: MCV 86.8 fL (80-100); MPV 7.8 fL (7.6-11.3); Platelets 732 thou/uL (152-406); RBC Red Blood Cell Count 3.68 M/uL (3.86-4.86)
[2023-05-18 06:24] LABS: Potassium 3.7 mEq/L (3.5-5.1)
[2023-05-18] MEDS ORDERED: POTASSIUM 25 MEQ EFFERV TAB PO ONE (07:30)
[2023-05-18] MEDS: INSULIN REGULAR (HUMAN) 100 UNIT/ML SQ SCH ×4 (07:30→21:00)
[2023-05-18] MEDS: CLINDAMYCIN 900MG/D5W 900 MG/50 ML IVPB IV SCH ×3 (08:19→21:00)
[2023-05-18] MEDS: MUPIROCIN 2% OINT 22GM TUBE TOP SCH ×4 (08:19→22:48)
[2023-05-18] MEDS: FUROSEMIDE 40 MG TABLET PO SCH ×2 (08:19→16:31)
[2023-05-18] MEDS: FLUCONAZOLE 100 MG TAB PO SCH (08:20)
[2023-05-18] MEDS: LACTOBACILLUS/ACIDOPHILUS TAB PO SCH (08:20)
[2023-05-18] MEDS: AMIODARONE HCL 200 MG TAB PO SCH ×2 (08:20→22:47)
[2023-05-18] MEDS: APIXABAN 5 MG TABLET PO SCH ×2 (08:20→22:46)
[2023-05-18] MEDS: SILVER SULFADIAZINE 1% 50 GM TOP SCH ×2 (08:21→22:50)
[2023-05-18] MEDS: ENSURE MAX PROTEIN 330 ML LIQUID PO SCH (08:21)
--- NOTE | 2023-05-18 08:23 | P.PN ---
Date of Service: 05/18/23 Chief Complaint: Septic shock, right lower extremity cellulitis Subjective: Improving. Denies any new or worsening complaints at this time. No acute events reported over the weekend. Physical Examination Temp Pulse Resp BP Pulse Ox 97.2 F 78 18 102/62 98 05/18/23 08:00 05/18/23 08:00 05/18/23 08:00 05/18/23 08:00 05/18/23 08:00 General: In no apparent distress. Alert and oriented x3. HEENT: Normocephalic. Atraumatic. Corrective lenses. Oral ulcerations/lesions improving. Respiratory: clear to auscultation bilaterally. Nonlabored respirations on room air. Cardiovascular: Regular rate and rhythm. BLE edema/lymphedema. Abdomen: Soft. Non-tender. Non-distended. Normoactive bowel sounds. Integumentary: RLE dressing is clean dry and intact. Onychomycosis. Laboratory data -Reviewed Microbiology data - Reviewed Imagings Data: - Chest XR 05/05: "No acute cardiopulmonary process." Medications list: Reviewed Assessment and Plan Problem list Septic shock Cellulitis, RLE Gram-Positive Bacteremia Lymphedema Atrial Flutter Acute Kidney Injury Septic Shock secondary to Cellulitis of Right Lower Extremity Streptococcus pyogenes Bacteremia -Blood cultures 05/02: Streptococcus pyogenes in 4 of 4 bottles -Repeat blood cultures 05/04 & 05/08: no growth to date - Wound cultures 05/03: Staphyloccus aureus and Streptococcus pyogenes - 05/04 s/p Excisional debridement down to subQ of Right thigh 16x93ie, R Leg 51k40lf, and Right foot 41t61fb by Dr. Lewis right thigh/leg/foot cellulitis, infected necrotic wound circumferential -Previously on Meropenem and Vancomycin (05/02-05/06). Vancomycin levels had been subtherapeutic due to fluctuating renal function/dosing challenges. --> switched to Oxacillin and Clindamycin on 05/06. - Leukocytosis resolved -Afebrile Recommendations - Cellulitis: On antibiotic day 13 of 14. - Strep pyogenes bacteremia: Continue antibiotic therapy for 14 days. - On day 14 of antibiotic therapy (05/04-05/18) - Oral candidiasis: On fluconazole PO. Continue for 14 days (05/09-05/22) - RLE wound care/debridement site care per Dr. Lewis - Monitor WBC and fever trends - Physical therapy. Case discussed with Trini Lu
--- NOTE | 2023-05-18 09:49 | P.PN ---
Date of Service: 05/18/23 Subjective: Oral blisters much improved able to tolerate solid foods No acute events overnight looking forward to working with PT ROS: 10 point ROS as noted above, otherwise negative Physical exam GEN: Alert, oriented, NAD HEENT: Normal conjunctiva, sclera anicteric, crusted sores on the lips, sores and ulcers on the hard and soft palates and the tongue. CV: Irregular rhythm, rapid rate. Pulm: Clear to auscultation bilaterally ABD: Soft, nontender, nondistended Integumentary: Right lower extremity venous stasis ulcers, macerated skin- healing. Musculoskeletal: Bilateral lower extremity lymphedema. Lower extremity edema improved. Neuro: Normal speech, normal affect, no focal motor deficit. Vitals reviewed Problem List Septic shock secondary to right lower extremity cellulitis complicated with underlying chronic lymphedema Gram-positive Bacteremia Atrial flutter-new onset Elevated troponin EDDI with metabolic acidosis, mild hyponatremia secondary to septic shock Prediabetes Plan: Septic shock secondary to right lower extremity cellulitis complicated with underlying chronic lymphedema Gram-positive Bacteremia Ct lower extremity (05/02) of right lower extremity shows severe skin thickening subcutaneous inflammation and edema-no signs of abscess or gas Blood cx (05/02): Streptococcus pyogenes. repeat blood cultures (05/04): No growth urine cx (05/02):: no growth wound cx (05/03): MSSA and Streptococcus pyogenes S/p Levophed. Leukocytosis continue to trend down. Continue nafcillin and clindamycin. 05/04 s/p Excisional debridement down to subQ of Right thigh 66a29sh, R Leg 45d96dc, and Right foot 01g40mo by Dr. Lewis Surgery following and monitoring for possible repeat debridement if needed. ID is following. Continue wound care. PICC in place, Right IJ dc'd Continue Oxacillin and Clindamycin until 05/18 Strep pyogenes bacteremia: Recommend continuing antibiotic therapy for 14 days (05/04-05/18) Working on SNF-possible [facility] Still pending auth Atrial flutter-new onset Status post IV amiodarone per cardio, transitioned to oral amiodarone. Cardiology input appreciated. Heart rate improved. Continue monitor on telemetry Echocardiogram: Normal EF, mild pulmonary hypertension, no mention of thrombus or endocarditis. continue eliquis Elevated troponin Suspect demand ischemia from septic shock / aflutter troponins trended flat, monitor on telemetry EDDI with metabolic acidosis, mild hyponatremia secondary to septic shock nephrology Dr. Hummel consulted IV fluids dc'd. EDDI resolved IV Lasix as per nephrology Continue to monitor renal function Prediabetes ACHS Accu-Chek, mild sliding scale. Oral candidiasis/aphthous ulcers Improving added ensure/dietary consults Switched to PO diflucan-will need 2 weeks total ending 05/22 Magic mouthwash for pain control. Debility Prior to hospitalization patient was ambulatory, used to walk up 13 steps at home to get to her house Walk to kitchen, bathroom without assistive devices Patient now working with PT, walking with a walker with minimal assistance short distances In order to go home patient would have to be able to walk up 13 steps Continue PT, patient may benefit with rehab/SNF prior to DC VTE: Eliquis Code: DNR Time Spent Managing Pts Care (In Minutes): 35
[2023-05-18] MEDS: MAGIC MOUTHWASH 180 ML BTL PO PRN (12:56)
--- NOTE | 2023-05-19 01:38 | PN ---
Date of Progress Note: 05/18/2023 Chief Complaint: Acute kidney injury secondary to ATN, nonoliguric, complicated by sepsis and cardio renal syndrome. History Of Present Illness: The patient was admitted to the hospital with septic shock, anasarca, ce llulitis of the lower extremity. She required diuretic treatment for lymphedema and fluid overload. The patient tolerated diuresis. Renal function is gradually improving. The patient has underlying chronic kidney disease stage 3. Review of Systems: Denies chest pain, palpitations. Physical Examination: Lungs: Decreased breath sounds bilaterally at bases. Heart: S1, S2. Abdomen: Soft, nontender. Extremities: Lymphedema, bilateral compression dressing in the right leg. Laboratory Data: Sodium 136, creatinine 1.8, BUN 48, calcium 9.2. Impression And Plan: 1.Acute kidney injury secondary to acute tubular necrosis in setting of sepsis complicated by cardio renal syndrome. The patient will continue diuretic. Spironolactone is currently on hold. Monitor e lectrolytes. Continue to monitor potassium, phosphorus, and magnesium. 2.Hypertension, controlled. Continue current medication. 3.Hypokalemia. Supplementation for potassium as needed according to lab results. 4.Anasarca lymphedema. Continue diuretics. 5.Cellulitis complicated by sepsis. Antibiotics per primary team. EB/MODL Voice ID: [id number] Report ID: [id number]
[2023-05-19 01:49] VITALS: O2SAT 99
[2023-05-19] MEDS: OXACILLIN SODIUM 2 GM in NA CHLORIDE 0.9% 100 ML IV SCH ×4 (01:49→13:46)
[2023-05-19 02:20] LABS: Hematocrit 31.1 % (36.0-45.0); MCV 86.8 fL (80-100); MPV 7.6 fL (7.6-11.3); Platelets 665 thou/uL (152-406); RBC Red Blood Cell Count 3.58 M/uL (3.86-4.86)
[2023-05-19 02:29] LABS: Potassium 3.3 mEq/L (3.5-5.1)
[2023-05-19] MEDS: INSULIN REGULAR (HUMAN) 100 UNIT/ML SQ SCH ×2 (07:30→11:30)
--- NOTE | 2023-05-19 08:39 | P.PN ---
Date of Service: 05/19/23 Chief Complaint: Septic shock, right lower extremity cellulitis Subjective: In no apparent distress. No new or worsening complaints. Pending SNF/Rehab placement. Physical Examination Temp Pulse Resp BP Pulse Ox 97.0 F 75 18 125/63 97 05/19/23 04:00 05/19/23 04:00 05/19/23 04:00 05/19/23 04:00 05/19/23 04:00 General: In no apparent distress. Alert and oriented x3. HEENT: Normocephalic. Atraumatic. Corrective lenses. Oral ulcerations/lesions improving. Respiratory: clear to auscultation bilaterally. Cardiovascular: Regular rate and rhythm. BLE edema/lymphedema. Abdomen: Soft. Non-tender. Non-distended. Normoactive bowel sounds. Integumentary: RLE dressing is clean dry and intact. Onychomycosis. Laboratory data -Reviewed Microbiology data - Reviewed Imagings Data: - Chest XR 05/05: "No acute cardiopulmonary process." Medications list: Reviewed Assessment and Plan Problem list Septic shock Cellulitis, RLE Gram-Positive Bacteremia Lymphedema Atrial Flutter Acute Kidney Injury Septic Shock secondary to Cellulitis of Right Lower Extremity Streptococcus pyogenes Bacteremia -Blood cultures 05/02: Streptococcus pyogenes in 4 of 4 bottles -Repeat blood cultures 05/04 & 05/08: no growth to date - Wound cultures 05/03: Staphyloccus aureus and Streptococcus pyogenes - 05/04 s/p Excisional debridement down to subQ of Right thigh 58w26sl, R Leg 56e02uf, and Right foot 26b41mx by Dr. Lewis right thigh/leg/foot cellulitis, infected necrotic wound circumferential -Previously on Meropenem and Vancomycin (05/02-05/06). Vancomycin levels had been subtherapeutic due to fluctuating renal function/dosing challenges. --> switched to Oxacillin and Clindamycin on 05/06. - Completed 14 days antibiotic therapy (05/04-05/19) - Leukocytosis resolved -Afebrile Recommendations - Bacteremia, Cellulitis: Completed 14 days of antibiotic therapy (05/04-05/19) - Continue RLE wound care per Dr. Lewis. - oral/esophageal candidiasis: On fluconazole PO. Continue for 14 days (05/09- 05/22) - Physical therapy Case discussed with Trini Lu
[2023-05-19] MEDS: LACTOBACILLUS/ACIDOPHILUS TAB PO SCH (08:46)
[2023-05-19] MEDS: FLUCONAZOLE 100 MG TAB PO SCH (08:46)
[2023-05-19] MEDS: AMIODARONE HCL 200 MG TAB PO SCH (08:46)
[2023-05-19] MEDS: APIXABAN 5 MG TABLET PO SCH (08:46)
[2023-05-19] MEDS: FUROSEMIDE 40 MG TABLET PO SCH (08:46)
[2023-05-19] MEDS: SILVER SULFADIAZINE 1% 50 GM TOP SCH (08:46)
[2023-05-19] MEDS: ENSURE MAX PROTEIN 330 ML LIQUID PO SCH (08:47)
[2023-05-19] MEDS ORDERED: POTASSIUM CL SA 10 MEQ TAB PO ONE ×2 (09:00→16:12)
[2023-05-19] MEDS: MAGIC MOUTHWASH 180 ML BTL PO PRN (10:42)
--- NOTE | 2023-05-19 14:56 | P.DS ---
Admission Date: 05/03/23 Discharge Date: 05/19/23 Disposition: TRANSFER TO SNF - REHAB Discharge Condition: FAIR Reason for Admission: Septic shock, right lower extremity cellulitis Brief History of Present Illness: 63-year-old female with history of prediabetes, lymphedema, anxiety/BPD/depression presented to the emergency department chief complaint of right lower extremity swelling, erythema. She reports the swelling present for a couple weeks, with worsening drainage and pain. She was evaluated in the emergency department her labs were significant for white blood cell count 30.4 sodium 128 potassium 3.1 chloride 96 bicarb 18 creatinine 3.69 BUN 35 initial lactic acid 4.3 downtrending to 2.4 high- sensitivity opponent 94.7 urinalysis pending Chest x-ray showed mild CHF pattern venous Doppler negative for DVT tib-fib x-ray was performed which showed soft tissue swelling without evidence of soft tissue gas. CT lower extremity pending for further evaluation. Right lower extremity was markedly edematous, erythematous with blisters to the posterior aspect and lateral aspect. Denies similar episodes in the past. She was hypotensive and tachycardic. Patient diagnosed with septic shock, started on antibiotics and IV fluid. Central line placed and patient started on vasopressors. She was admitted to the ICU for further management. Hospital Course: Diagnosis Septic shock secondary to right lower extremity cellulitis complicated with underlying chronic lymphedema Gram-positive Bacteremia Atrial flutter-new onset Elevated troponin EDDI with metabolic acidosis, mild hyponatremia secondary to septic shock Prediabetes Patient admitted to the medical floor and the following medical problems addressed: Septic shock secondary to right lower extremity cellulitis complicated with underlying chronic lymphedema Gram-positive Bacteremia Ct lower extremity (05/02) of right lower extremity shows severe skin thickening subcutaneous inflammation and edema-no signs of abscess or gas Patient initially treated with vasopressor-Levophed, broad-spectrum antibiotics- ampicillin and vancomycin. She developed marked leukocytosis. Blood cx (05/02): Streptococcus pyogenes. repeat blood cultures (05/04): No growth urine cx (05/02):: no growth wound cx (05/03): MSSA and Streptococcus pyogenes. 05/04 s/p Excisional debridement down to subQ of Right thigh [id number], R Leg [id number], and Right foot [id number] by Dr. Lewis Antibiotics transition to Oxacillin and clindamycin. Leukocytosis then trended down and resolved. Sepsis resolved. ID assisted with management. Wound care done with Silvadene cream and wrapping the leg with gauze. PICC in place, Right IJ dc'd Patient completed 2 weeks oxacillin and Clindamycin per ID recommendation. Right lower extremity wound and swelling significantly improved, wounds are healing. Atrial flutter-new onset Patient seen by cardiology Dr. Branch. She was treated with IV amiodarone drip and then transitioned to oral amiodarone. Heart rate improved. Continue monitor on telemetry Echocardiogram: Normal EF, mild pulmonary hypertension, no mention of thrombus or endocarditis. Patient placed on Eliquis for A-fib atrial flutter anticoagulation. Elevated troponin Secondary to demand ischemia from septic shock / aflutter. No ACS. EDDI with metabolic acidosis, mild hyponatremia secondary to septic shock nephrology Dr. Hummel consulted Patient briefly treated with IV fluid and later started on Lasix for lower extremity edema. EDDI resolved while on Lasix. Aldactone added to improve diuresis Serum creatinine then started trending up. Lasix dose decreased on discharge, Aldactone discontinued. Patient is on lisinopril which was held during the hospital stay and not resumed on discharge. Prediabetes Managed with ACHS Accu-Chek and insulin sliding scale. Home dose oral metformin resumed on discharge. Oral candidiasis/aphthous ulcers Treated with IV Diflucan and later transitioned to oral Diflucan She is prescribed 3 more days of Diflucan to complete 14 days of treatment. Magic mouthwash was prescribed for pain control. Debility Prior to hospitalization patient was ambulatory, used to walk up 13 steps at home to get to her house without assistive devices. Her functional status decreased considerably. Patient nworked with PT, walking with a walker with minimal assistance short distances Skilled rehab recommended. Patient has been accepted to [facility] bed. She has clinically improved and deemed stable for discharge. Vital Signs/Physical Exam: Temp Pulse Resp BP Pulse Ox 97.9 F 98 H 18 117/63 99 05/19/23 12:00 05/19/23 12:00 05/19/23 12:00 05/19/23 12:00 05/19/23 12:00 General: Alert, In no apparent distress, Oriented x3 HEENT: Mucous membr. moist/pink Neck: JVD not distended Respiratory: Clear to auscultation bilaterally, Normal air movement Cardiovascular: Normal S1 S2, Edema (Significantly improved and almost resolved.), Irregular heart rate/rhythm Gastrointestinal: Normal bowel sounds, Soft and benign, Non-distended Integumentary: Other (Right lower extremity with healing wounds from foot to thigh) Neurological: Normal strength at 5/5 x4 extr Laboratory Data at Discharge: WBC 9.10 thou/uL (4.3-10.9) 05/19/23 01:55 Hgb 10.2 g/dL (12.0-15.0) L 05/19/23 01:55 Hct 31.1 % (36.0-45.0) L 05/19/23 01:55 Plt Count 665 thou/uL (152-406) H 05/19/23 01:55 PT 12.2 SECONDS (9.5-12.5) 05/02/23 09:25 INR 1.11 05/02/23 09:25 APTT 27.4 SECONDS (24.3-36.9) 05/02/23 09:25 Sodium 137 mEq/L (136-145) 05/19/23 01:55 Potassium 3.3 mEq/L (3.5-5.1) L 05/19/23 01:55 BUN 56 mg/dL (7-18) H 05/19/23 01:55 Creatinine 2.01 mg/dL (0.55-1.02) H 05/19/23 01:55 Glucose 136 mg/dL (74-106) H 05/19/23 01:55 Uric Acid 5.6 mg/dL (2.6-6.0) 05/06/23 08:08 Phosphorus Cancelled 05/14/23 05:00 Magnesium Cancelled 05/14/23 05:00 Total Bilirubin 0.2 mg/dL (0.2-1.0) 05/16/23 06:02 AST 20 U/L (15-37) 05/16/23 06:02 ALT 29 U/L (13-56) 05/16/23 06:02 Alkaline Phosphatase 79 U/L (45-117) 05/16/23 06:02 Triglycerides 227 mg/dL (<150) H 05/03/23 04:50 Cholesterol 76 mg/dL (<200) 05/03/23 04:50 HDL Cholesterol 9 mg/dL (40-60) L 05/03/23 04:50 Cholesterol/HDL Ratio 8.44 05/03/23 04:50 Home Medications: Atomoxetine HCl 80 mg PO DAILY 01/02/21 Metformin HCl [Glucophage*] 500 mg PO BID 01/02/21 Multivitamin [Daily Multivitamin] 1 tab PO DAILY 01/02/21 [place]-3 Acid Ethyl Esters 2 gm PO BID 01/02/21 Rosuvastatin [Crestor*] 10 mg PO DAILY 01/02/21 Sertraline [Zoloft*] 50 mg PO DAILY 01/02/21 lamoTRIgine [Lamictal*] 100 mg PO DAILY 01/02/21 lamoTRIgine [Lamictal*] 150 mg PO BEDTIME 01/02/21 Amiodarone HCl [Cordarone*] 200 mg PO BID tab 05/19/23 Apixaban [Eliquis] 5 mg PO BID 05/19/23 Ensure Max Protein 330 ml PO DAILY can 05/19/23 Fluconazole [Diflucan] 200 mg PO DAILY #3 tab 05/19/23 Furosemide [Lasix*] 40 mg PO DAILY #30 tab 05/19/23 Insulin -Regular Human [Novolin -R*] See Protocol SQ ACHS ml 05/19/23 Mupirocin Oint [Bactroban 2% Ointment*] 1 appl TOP BID tube 05/19/23 Silver Sulfadiazine Crm [Silvadene*] 1 appl TOP BID tube 05/19/23 New Medications: Fluconazole [Diflucan] 200 mg PO DAILY #3 tab Physician Discharge Instructions: Wound care: silvadene and gauze to right leg and thigh daily. You need to follow-up with the experimental physicist Dr. Hummel for repeat kidney function blood test for diuretics/lasix adjustments. You needs to follow-up with surgery Dr. Lewis regarding your right leg wounds and for further wound care instructions as needed. You need to follow-up with cardiology Dr. Branch regarding the atrial fibrillation diagnosed during the hospital stay. You have been started on a blood thinner-Eliquis to reduce your risk of stroke with atrial fibrillation. Compliance to medications recommended. Diet: ADA Activity: Fall precautions Followup: Aixa Hummel MD [ACTIVE - CAN ADMIT] - (Within 2 weeks) Jerry Lewis MD [ACTIVE - CAN ADMIT] - 1-2 Weeks Alpesh Sandoval, [Primary Care Provider] - 1-2 Weeks Chris Branch MD [ACTIVE - CAN ADMIT] - (Within 2 weeks) Time spent managing pt's care (in minutes): 40
[2023-05-19 16:51] VITALS: BP 119/62; TEMP 97.5
--- NOTE | 2023-05-19 20:04 | PN ---
Date of Progress Note: 05/19/2023 Subjective: The patient was admitted with anasarca and lymphedema. The patient had acute kidney inj ury secondary to cardiorenal and toxic ATN. The patient is being on diuresis. Kidney function gradu ally started declining. Physical Examination: Vital Signs: Blood pressure 117/63, pulse of 98, afebrile. Chest: Clear to auscultation. Heart: S1, S2. Regular. Abdomen: Soft, nontender. Morbidly obese. Extremities: Lymphedema, bilateral with significant improvement and wrinkling skin with compression dressing on the right. Neurologic: Alert. No focality. Laboratory Data: Hemoglobin 10.2. Sodium 137, potassium 3.3, bicarb 25, BUN 56, creatinine up to 2, GFR 27, calcium 9.1. Current Medications: The patient was on spironolactone, has been discontinued yesterday; fluconazole ; Eliquis 5 mg b.i.d.; amiodarone; Lasix 40 b.i.d.; Magic wash. Assessment And Plan: 1.Acute kidney injury secondary to cardiorenal bounce back, possible over diuresed. We discontinued spironolactone yesterday. I am going to decrease Lasix to once a day, and we will follow up. 2.Hypertension, controlled, optimal. Decrease Lasix as above. 3.Lymphedema, congestive heart failure with exacerbation. Continue diuresis. We will decrease the Lasix. 4.Hypokalemia. I am going to go ahead and supplement. 5.Lymphedema. As above, we will continue diuresis at the current dosage. Continue compression sock s. 6.Deconditioning. Continue physical therapy and occupational therapy. AMANDA/MAXIMILIAN Voice ID: [id number] Report ID: [id number]
[2023-05-20] MEDS ORDERED: FUROSEMIDE 40 MG TABLET PO SCH (09:00)
== END 2023-05-19 16:45 | DRG 853 ==
LOC: ER 08:48 → ERHOLD 15:08 → 3RD-ICU 05-03 01:02 → OBSVTOIN 05-03 16:39 → 2ND 05-06 03:05
PROVIDERS: ADMIT Hospitalist; ATTEND Internal Medicine
PROC: 02HV33Z Insertion of Infusion Device into Superior Vena Cava, Percutaneous Approach (ICD-10-PCS; 2023-05-11)
PROC: 3E043XZ Introduction of Vasopressor into Central Vein, Percutaneous Approach (ICD-10-PCS; 2023-05-11)
PROC: 0JBL0ZZ Excision of Right Upper Leg Subcutaneous Tissue and Fascia, Open Approach (ICD-10-PCS; principal; 2023-05-13)
PROC: 0JBQ0ZZ Excision of Right Foot Subcutaneous Tissue and Fascia, Open Approach (ICD-10-PCS; 2023-05-13)
PROC: 0JBN0ZZ Excision of Right Lower Leg Subcutaneous Tissue and Fascia, Open Approach (ICD-10-PCS; 2023-05-13)
DX: A40.0 Sepsis due to streptococcus, group A (principal); N17.0 Acute kidney failure with tubular necrosis; R65.21 Severe sepsis with septic shock; E87.1 Hypo-osmolality and hyponatremia; I48.92 Unspecified atrial flutter; L03.115 Cellulitis of right lower limb; E87.3 Alkalosis; Z68.42 Body mass index [BMI] 45.0-49.9, adult; E87.4 Mixed disorder of acid-base balance; B37.0 Candidal stomatitis; I24.89 Other forms of acute ischemic heart disease; A41.01 Sepsis due to Methicillin susceptible Staphylococcus aureus; Z66 Do not resuscitate; I89.0 Lymphedema, not elsewhere classified; E87.6 Hypokalemia; B35.1 Tinea unguium; E66.01 Morbid (severe) obesity due to excess calories; K12.0 Recurrent oral aphthae; I27.20 Pulmonary hypertension, unspecified; R73.03 Prediabetes; R31.9 Hematuria, unspecified; Z98.51 Tubal ligation status; Z79.84 Long term (current) use of oral hypoglycemic drugs; Z79.82 Long term (current) use of aspirin; Z79.52 Long term (current) use of systemic steroids; Z79.899 Other long term (current) drug therapy
CPT/HCPCS: 36415; 36600; 51702; 71045; 73700; 76770; 80048; 80053; 80061; 80069; 80202; 81001; 82306; 82550; 82570; 82652; 82805; 82947; 83605; 83735; 83880; 83935; 83970; 84100; 84132; 84156; 84300; 84439; 84443; 84484; 84550; 85025; 85027; 85384; 85610; 85730; 87040; 87070; 87077; 87086; 87088; 87186; 87205; 93005; 93306; 93923; 93970; 96365; 96366; 96367; 96368; 97110; 97116; 97161; 97530; 99285; A4216; G0378; J0282; J0295; J0692; J1450; J1644; J1940; J2001; J2185; J2250; J2371; J2405; J2700; J2704; J2997; J3010; J3480; J7030; J7040; J7050; J7060; P9045

== ENCOUNTER 2024-07-11 11:14 | Emergency (ER) | payer MEDICARE ==
--- OUTSIDE RECORDS SUMMARY | 2024-07-11 11:19 | XMS REPORT | Continuity of Care Document ---
Author Name Unknown Address [address] [facility] [address] [place] [address] [facility] thconnect Address [address] [facility] [place] [address] Care Team Providers Care Sales Performance Manager Name Role Phone Alpesh Sandoval Attending Clinician Unavailable Comfort Escalante Attending Clinician [email or web address] Attending Clinician Unavaila ble [email or web address]_[email or web address] Admitting Clinician Unavaila ble Payers Payer Name Policy Type Policy Number Effective Date Expirati on Date Source [place] - AMBETTER FROM [facility] [id number] Ambetter from [facility] [id number] 2020 00:00:00 [facility] Ambetter from [facility] [id number] 2020 00:00:00 [facility] Ambetter from [facility] [id number] 2020 00:00:00 [facility] Problems Condition Name Condition Details Condition Category Status Onset Date Resolution Date Last Treatment Date Treating Clinician Comments Source Major depressive disorder Major Depressive Disorder Problem Active 2023-06 00:00: 00 [facility] Bipolar disorder Bipolar Disorder Problem Active 2023-06 00:00: 00 [facility] Anxiety Anxiety Problem Active 2023-06 00:00: 00 [facility] Depressive disorder Depressive Disorder Problem Active 2023-06 00:00: 00 [facility] Attention deficit hyperactiv ity disorder Attention Deficit Hyperactiv ity Disorder Problem Active 2023-06 00:00: 00 [facility] Hypertensi ve disorder Hypertensi ve Disorder Problem Active 2023-06 00:00: 00 [facility] Atrial fibrillati on Atrial Fibrillati on Problem Active 2023-06 00:00: 00 [facility] Lymphedema Lymphedema Problem Active 2023-06 00:00: 00 [facility] Female stress incontinen ce Female Stress Incontinen ce Problem Active 2023-06 00:00: 00 [facility] Osteoporos is Osteoporos is Problem Active 2023-06 00:00: 00 [facility] Hyperchole sterolemia Hyperchole sterolemia Problem Active 2023-06 00:00: 00 [facility] Screening mammograph y Screening Mammograph y Problem Active 2021-06 003 00:00: 00 [facility] Mixed urinary incontinen ce Mixed Urinary Incontinen ce Problem Active 5-31 00:00: 00 [facility] Essential hypertensi on Essential Hypertensi on Problem Active 5-23 00:00: 00 [facility] Genuine stress incontinen ce Genuine Stress Incontinen ce Problem Active 5-02 00:00: 00 [facility] Constipati on Constipati on Problem Active 4-18 00:00: 00 [facility] Atrophic vaginitis Atrophic Vaginitis Problem Active 4-18 00:00: 00 [facility] Sensation as if urinary bladder still full Sensation as If Urinary Bladder Still Full Problem Active 4-18 00:00: 00 [facility] Overactive urinary bladder Overactive Urinary Bladder Problem Active 4-18 00:00: 00 [facility] Screening for malignant neoplasm of colon Screening for Malignant Neoplasm of Colon Problem Active 03-07 00:00: 00 [facility] Body mass index 40+ - severely obese Body Mass Index 40+ - Severely Obese Problem Active 03-07 00:00: 00 [facility] Menopause present Menopause Present Problem Active 7-24 00:00: 00 [facility] Severe obesity Severe Obesity Problem Active 01-17 00:00: 00 [facility] Urinary incontinen ce Urinary Incontinen ce Problem Active 01-17 00:00: 00 [facility] Gynecologi josh examinatio n abnormal Gynecologi josh Examinatio n Abnormal Problem Active 01-04 00:00: 00 [facility] Urgent desire to urinate Urgent Desire to Urinate Problem Active 01-04 00:00: 00 [facility] Dysmenorrh ea Dysmenorrh ea Problem Active 07-23 00:00: 00 [facility] Inconclusi ve mammograph y finding Inconclusi ve Mammograph y Finding Problem Active 07-23 00:00: 00 [facility] Abnormal findings on diagnostic imaging of breast Abnormal Findings on Diagnostic Imaging of Breast Problem Active 07-23 00:00: 00 [facility] Gynecologi c examinatio n Gynecologi c Examinatio n Problem Active 07-23 00:00: 00 [facility] [id number] Atrial flutter, unspecifie d type Problem [facility] Type II diabetes mellitus without complicati on Encounter for diabetic foot exam Problem [facility] Lymphedema due to chronic inflammati on Lymphedema due to chronic inflammati on Problem [facility] [id number] Anemia, unspecifie d type Problem [facility] [id number] Metabolic syndrome Problem [facility] [id number] Hypercalce chelo Problem [facility] [id number] Edema of lower extremity Problem [facility] [id number] Cellulitis of lower leg Problem [facility] [id number] Sleep apnea in adult Problem [facility] [id number] Current moderate episode of major depressive disorder without prior episode Problem [facility] [id number] Attention deficit hyperactiv ity disorder (ADHD), predominan tly inattentiv e type Problem [facility] [id number] Type 2 diabetes mellitus with hyperglyce chelo, without long-term current use of insulin Problem [facility] [id number] LADAN (generaliz ed anxiety disorder) Problem [facility] [id number] Vitamin D deficiency disease Problem [facility] [id number] Mixed hyperlipid emia Problem [facility] [id number] Adenoma of right adrenal gland Problem [facility] [id number] Bipolar affective disorder, currently depressed, moderate Problem [facility] [id number] Non-season al allergic rhinitis, unspecifie d trigger Problem [facility] [id number] Right adrenal mass Problem [facility] [id number] Type 2 diabetes mellitus with diabetic chronic kidney disease Problem [facility] Social History Social Habit Start Date Stop Date Quantity Comments Source History of Tobacco Use [facility] Sex Assigned At [facility] Smoking Status Start Date Stop Date Source Never Smoker [facility] Former Smoker 2024-05-17 00:00:00 2024-05-17 00:00:00 [facility] Medications Ordered Medication Name Filled Medication Name Start Date Stop Date Current Medication? Ordering Clinician Indication Dosage Frequency Signature (SIG) Comments Components Source Lancets 30G - Lancets 30G - 2023-06 00:00: 00 No Lancets 30G - OneTouch Verio - OneTouch Verio - 2023-06 00:00: 00 No OneTouch Verio - OneTouch Verio - OneTouch Verio - 2023-06 00:00: 00 No OneTouch Verio - Bactrim DS 800-160 MG Bactrim DS 800-160 MG 2023-06 00:00: 00 No 1{table t} BID Bactrim DS 800-160 MG Kenalog (Triamcinol one) Kenalog (Triamcinol one) 2023-06 00:00: 00 No 40mg [facility] omega-3-aci d ethyl esters 1 gm capsule omega-3-aci d ethyl esters 1 gm capsule Yes [facility] lisinopril 10 mg tablet lisinopril 10 mg tablet Yes [facility] sertraline hcl 50 mg tablet sertraline hcl 50 mg tablet Yes [facility] amiodarone amiodarone No amiodarone [facility] atorvastati n atorvastati n No atorvastat in [facility] Eliquis Eliquis No Eliquis P [facility] furosemide furosemide No furosemide [facility] Lactobacill us acidophilus Lactobacill us acidophilus No Lactobacil luc acidophilu s [facility] lisinopril 20 mg tablet Take 1 tablet every day by oral route. lisinopril 20 mg tablet Take 1 tablet every day by oral route. No 1 Q1D lisinopril 20 mg tablet Take 1 tablet every day by oral route. [facility] Multiple Vitamin, Womens Multiple Vitamin, Womens No Multiple Vitamin, Womens [facility] Kilbourne 3 Kilbourne 3 No Kilbourne [address] [facility] sertraline 50 mg tablet Take 1 tablet every day by oral route. sertraline 50 mg tablet Take 1 tablet every day by oral route. No 1 Q1D sertraline 50 mg tablet Take 1 tablet every day by oral route. [facility] spironolact one spironolact one No spironolac tone [facility] Tylenol Tylenol No Tylenol P [facility] Vitamin D3 Vitamin D3 No Vitamin D3 [facility] ELIQUIS 5 MG TABLET ELIQUIS 5 MG TABLET Yes [facility] Vitamin D3 Vitamin D3 No 10 {ml_a s_neede d} TID Vitamin D3 Eliquis 5 MG Eliquis 5 MG No 1{table t} BID Eliquis 5 MG Amiodarone HCl 200 MG Amiodarone HCl 200 MG No 1{table t} BID Amiodarone HCl 200 MG Sertraline HCl 50 MG Sertraline HCl 50 MG No 1{table t} QD Sertraline HCl 50 MG Furosemide 40 MG Furosemide 40 MG No 1{table t} QD Furosemide 40 MG Atorvastati n Calcium 10 MG Atorvastati n Calcium 10 MG No 1{table t} QD Atorvastat in Calcium 10 MG Spironolact one 25 MG Spironolact one 25 MG No 1{table t} QD Spironolac tone 25 MG furosemide 40 mg tablet furosemide 40 mg tablet Yes [facility] Lisinopril 10 MG Lisinopril 10 MG No 1{table t} QD Lisinopril 10 MG Atomoxetine HCl 60 MG Atomoxetine HCl 60 MG No 1{capsu le_in_t he_morn ing} QD Atomoxetin e HCl 60 MG lamoTRIgine 100 MG lamoTRIgine 100 MG No QD lamoTRIgin e 100 MG Magnesium Oxide 400 MG Magnesium Oxide 400 MG No 1{table t} QD Magnesium Oxide 400 MG Kilbourne-3-aci d Ethyl Esters 1 GM Kilbourne-3-aci d Ethyl Esters 1 GM No [place]-3-ac id Ethyl Esters 1 GM Potassium Chloride ER 20 MEQ Potassium Chloride ER 20 MEQ No 1{table t_with_ food} QD Potassium Chloride ER 20 MEQ amiodarone hcl 200 mg tablet amiodarone hcl 200 mg tablet Yes [facility] spironolact one 25 mg tablet spironolact one 25 mg tablet Yes [facility] atorvastati n calcium 10 mg tablet atorvastati n calcium 10 mg tablet Yes [facility] Immunizations Ordered Immunization Name Filled Immunization Name Date Status Comments Source [facility] 2021-04-08 10:38:00 Completed [facility] 2021-04-08 10:38:00 Completed [facility] 2021-04-08 10:38:00 Completed [facility] 2021-04-08 10:38:00 Completed [facility] 2020-06-07 11:13:00 Completed [facility] 2020-06-07 11:13:00 [facility]:13:00 Com[facility] 2020-06-07 11:13:00 Completed [facility] Prevnar 13 (PCV13) Prevnar 13 (PCV13) 2020-06-07 11:12:00 Completed [facility] Prevnar 13 (PCV13) Prevnar 13 (PCV13) 2020-06-07 11:12:00 Completed [facility] Prevnar 13 (PCV13) Prevnar 13 (PCV13) 2020-06-07 11:12:00 Completed [facility] Prevnar 13 (PCV13) Prevnar 13 (PCV13) 2020-06-07 11:12:00 Completed [facility] Afluria single dose Afluria single dose 11:12:00 Completed [facility] Afluria single dose Afluria single dose 11:12:00 Completed [facility] Afluria single dose Afluria single dose 11:12:00 Completed [facility] Afluria single dose Afluria single dose 11:12:00 Completed [facility] Afluria (IIV4) - 3 years and older - SDS - 0.5mL Afluria (IIV4) - 3 years and older - SDS - 0.5mL Unknown Completed [facility] Sh[facility] Shingrix Unknown Completed [facility] Afluria Afluria Unknown Completed [facility] Prevnar 13 (PCV13) Prevnar 13 (PCV13) Unknown Completed [facility] Afluria (IIV4) - 3 years and older - SDS - 0.5mL Afluria (IIV4) - 3 years and older - SDS - 0.5mL Unknown Completed [facility] Shingrix Unknown Completed [facility] Afluria Afluria Unknown Completed [facility] Prevnar 13 (PCV13) Prevnar 13 (PCV13) Unknown Completed [facility] Afluria (IIV4) - 3 years and older - SDS - 0.5mL Afluria (IIV4) - 3 years and older - SDS - 0.5mL Unknown Completed [facility] Shingrix Unknown Completed [facility] Afluria Afluria Unknown Completed [facility] Prevnar 13 (PCV13) Prevnar 13 (PCV13) Unknown Completed [facility] Afluria (IIV4) - 3 years and older - SDS - 0.5mL Afluria (IIV4) - 3 years and older - SDS - 0.5mL Unknown Completed [facility] Shingrix Unknown Completed [facility] Afluria Afluria Unknown Completed [facility] Prevnar 13 (PCV13) Prevnar 13 (PCV13) Unknown Com[facility] Afluria (IIV4) - 3 years and older - SDS - 0.5mL Afluria (IIV4) - 3 years and older - SDS - 0.5mL Unknown Completed [facility] Shingrix Unknown Completed [facility] Afluria Afluria Unknown Completed [facility] Prevnar 13 (PCV13) Prevnar 13 (PCV13) Unknown Com[facility] Afluria (IIV4) - 3 years and older - SDS - 0.5mL Afluria (IIV4) - 3 years and older - SDS - 0.5mL Unknown Completed [facility] Shingrix Unknown Completed [facility] Afluria Afluria Unknown Completed [facility] Prevnar 13 (PCV13) Prevnar 13 (PCV13) Unknown Com[facility] Afluria (IIV4) - 3 years and older - SDS - 0.5mL Afluria (IIV4) - 3 years and older - SDS - 0.5mL Unknown Completed [facility] Shingrix Unknown Completed [facility] Afluria Afluria Unknown Completed [facility] Prevnar 13 (PCV13) Prevnar 13 (PCV13) Unknown Com[facility] Afluria (IIV4) - 3 years and older - SDS - 0.5mL Afluria (IIV4) - 3 years and older - SDS - 0.5mL Unknown Completed [facility] Shingrix Unknown Completed [facility] Afluria Afluria Unknown Completed [facility] Prevnar 13 (PCV13) Prevnar 13 (PCV13) Unknown Com[facility] Afluria (IIV4) - 3 years and older - SDS - 0.5mL Afluria (IIV4) - 3 years and older - SDS - 0.5mL Unknown Completed [facility] Shingrix Unknown Completed [facility] Afluria Afluria Unknown Completed [facility] Prevnar 13 (PCV13) Prevnar 13 (PCV13) Unknown Completed [facility] Afluria (IIV4) - 3 years and older - SDS - 0.5mL Afluria (IIV4) - 3 years and older - SDS - 0.5mL Unknown Completed [facility] Shingrix Unknown Completed [facility] Afluria Afluria Unknown Completed [facility] Prevnar 13 (PCV13) Prevnar 13 (PCV13) Unknown Completed [facility] Afluria (IIV4) - 3 years and older - SDS - 0.5mL Afluria (IIV4) - 3 years and older - SDS - 0.5mL Unknown Completed [facility] Shingrix Unknown Completed [facility] Afluria Afluria Unknown Completed [facility] Prevnar 13 (PCV13) Prevnar 13 (PCV13) Unknown Com[facility] Afluria (IIV4) - 3 years and older - SDS - 0.5mL Afluria (IIV4) - 3 years and older - SDS - 0.5mL Unknown Completed [facility] Shingrix Unknown Completed [facility] Afluria Afluria Unknown Completed [facility] Prevnar 13 (PCV13) Prevnar 13 (PCV13) Unknown Completed [facility] Afluria (IIV4) - 3 years and older - SDS - 0.5mL Afluria (IIV4) - 3 years and older - SDS - 0.5mL Unknown Completed [facility] Shingrix Unknown Completed [facility] Afluria Afluria Unknown Completed [facility] Prevnar 13 (PCV13) Prevnar 13 (PCV13) Unknown Completed [facility] Afluria (IIV4) - 3 years and older - SDS - 0.5mL Afluria (IIV4) - 3 years and older - SDS - 0.5mL Unknown Completed [facility] Sh[facility] Unknown Completed [facility] Afluria Afluria Unknown Completed [facility] Prevnar 13 (PCV13) Prevnar 13 (PCV13) Unknown Com[facility] Afluria (IIV4) - 3 years and older - SDS - 0.5mL Afluria (IIV4) - 3 years and older - SDS - 0.5mL Unknown Completed [facility] Sh[facility]rix Unknown Completed [facility] Afluria Afluria Unknown Completed [facility] Prevnar 13 (PCV13) Prevnar 13 (PCV13) Unknown Completed [facility] Afluria (IIV4) - 3 years and older - SDS - 0.5mL Afluria (IIV4) - 3 years and older - SDS - 0.5mL Unknown Completed [facility] Shingrix Unknown Completed [facility] Afluria Afluria Unknown Completed [facility] Prevnar 13 (PCV13) Prevnar 13 (PCV13) Unknown Completed [facility] Afluria (IIV4) - 3 years and older - SDS - 0.5mL Afluria (IIV4) - 3 years and older - SDS - 0.5mL Unknown Completed [facility] Shingrix Unknown Completed [facility] Afluria Afluria Unknown Completed [facility] Prevnar 13 (PCV13) Prevnar 13 (PCV13) Unknown Completed [facility] Afluria (IIV4) - 3 years and older - SDS - 0.5mL Afluria (IIV4) - 3 years and older - SDS - 0.5mL Unknown Completed [facility] Shingrix Unknown Completed [facility] Afluria Afluria Unknown Completed [facility] Prevnar 13 (PCV13) Prevnar 13 (PCV13) Unknown Completed [facility] Afluria (IIV4) - 3 years and older - SDS - 0.5mL Afluria (IIV4) - 3 years and older - SDS - 0.5mL Unknown Completed [facility] Sh[facility] Unknown Completed [facility] Afluria Afluria Unknown Completed [facility] Prevnar 13 (PCV13) Prevnar 13 (PCV13) Unknown Completed [facility] Afluria (IIV4) - 3 years and older - SDS - 0.5mL Afluria (IIV4) - 3 years and older - SDS - 0.5mL Unknown Completed [facility] Shingrix Unknown Completed [facility] Afluria Afluria Unknown Completed [facility] Prevnar 13 (PCV13) Prevnar 13 (PCV13) Unknown Completed [facility] Afluria (IIV4) - 3 years and older - SDS - 0.5mL Afluria (IIV4) - 3 years and older - SDS - 0.5mL Unknown Completed [facility] Shingrix Unknown Completed [facility] Afluria Afluria Unknown Completed [facility] Prevnar 13 (PCV13) Prevnar 13 (PCV13) Unknown Completed [facility] Afluria (IIV4) - 3 years and older - SDS - 0.5mL Afluria (IIV4) - 3 years and older - SDS - 0.5mL Unknown Completed [facility] Sh[facility] Unknown Completed [facility] Afluria Afluria Unknown Completed [facility] Prevnar 13 (PCV13) Prevnar 13 (PCV13) Unknown Completed [facility] Afluria (IIV4) - 3 years and older - SDS - 0.5mL Afluria (IIV4) - 3 years and older - SDS - 0.5mL Unknown Completed [facility] Shingrix Unknown Completed [facility] Afluria Afluria Unknown Completed [facility] Prevnar 13 (PCV13) Prevnar 13 (PCV13) Unknown Completed [facility] Fluad (IIV) - SDS - 0.5mL Fluad (IIV) - SDS - 0.5mL Unknown Completed [facility] Afluria single dose Afluria single dose Unknown Completed [facility] Shingrix Unknown Completed [facility] Afluria Afluria Unknown Completed [facility] Prevnar 13 (PCV13) Prevnar 13 (PCV13) Unknown Completed [facility] Prevnar 13 (PCV13) Prevnar 13 (PCV13) Unknown Completed [facility] Shingrix Unknown Completed [facility] Afluria single dose Afluria single dose Unknown Completed [facility] Afluria Afluria Unknown Completed [facility] Afluria single dose Afluria single dose Unknown Completed [facility] Unknown Completed [facility] Afluria Afluria Unknown Completed [facility] Prevnar 13 (PCV13) Prevnar 13 (PCV13) Unknown Completed [facility] Afluria single dose Afluria single dose Unknown Completed [facility] Unknown Completed [facility] Afluria Afluria Unknown Completed [facility] Prevnar 13 (PCV13) Prevnar 13 (PCV13) Unknown Completed [facility] Afluria single dose Afluria single dose Unknown Completed [facility] Shingrix Unknown Completed [facility] Afluria Afluria Unknown Completed [facility] Prevnar 13 (PCV13) Prevnar 13 (PCV13) Unknown Completed [facility] Afluria single dose Afluria single dose Unknown Completed [facility] Unknown Completed [facility] Afluria Afluria Unknown Completed [facility] Prevnar 13 (PCV13) Prevnar 13 (PCV13) Unknown Completed [facility] Afluria single dose Afluria single dose Unknown Completed [facility] Sh[facility] Unknown Completed [facility] Afluria Afluria Unknown Completed [facility] Prevnar 13 (PCV13) Prevnar 13 (PCV13) Unknown Completed [facility] Afluria single dose Afluria single dose Unknown Completed [facility] Unknown Completed [facility] Afluria Afluria Unknown Completed [facility] Prevnar 13 (PCV13) Prevnar 13 (PCV13) Unknown Completed [facility] Afluria single dose Afluria single dose Unknown Completed [facility] Unknown Completed [facility] Afluria Afluria Unknown Completed [facility] Prevnar 13 (PCV13) Prevnar 13 (PCV13) Unknown Completed [facility] Afluria single dose Afluria single dose Unknown Completed [facility] Unknown Completed [facility] Afluria Afluria Unknown Completed [facility] Prevnar 13 (PCV13) Prevnar 13 (PCV13) Unknown Completed [facility] Afluria single dose Afluria single dose Unknown Completed [facility] Unknown Completed [facility] Afluria Afluria Unknown Completed [facility] Prevnar 13 (PCV13) Prevnar 13 (PCV13) Unknown Completed [facility] Afluria single dose Afluria single dose Unknown Completed [facility] Unknown Completed [facility] Afluria Afluria Unknown Completed [facility] Prevnar 13 (PCV13) Prevnar 13 (PCV13) Unknown Completed [facility] Afluria single dose Afluria single dose Unknown Completed [facility] Unknown Completed [facility] Afluria Afluria Unknown Completed [facility] Prevnar 13 (PCV13) Prevnar 13 (PCV13) Unknown Completed [facility] Afluria (IIV4) - 3 years and older - SDS - 0.5mL Afluria (IIV4) - 3 years and older - SDS - 0.5mL Unknown Completed [facility] Shingrix Unknown Completed [facility] Afluria Afluria Unknown Completed [facility] Prevnar 13 (PCV13) Prevnar 13 (PCV13) Unknown Completed [facility] Afluria (IIV4) - 3 years and older - SDS - 0.5mL Afluria (IIV4) - 3 years and older - SDS - 0.5mL Unknown Completed [facility] Shingrix Shingrix Unknown Completed [facility] Afluria Afluria Unknown Completed [facility] Prevnar 13 (PCV13) Prevnar 13 (PCV13) Unknown Completed [facility] Afluria (IIV4) - 3 years and older - SDS - 0.5mL Afluria (IIV4) - 3 years and older - SDS - 0.5mL Unknown Completed [facility] Shingrix Shingrix Unknown Completed [facility] Afluria Afluria Unknown Completed [facility] Prevnar 13 (PCV13) Prevnar 13 (PCV13) Unknown Completed [facility] Vital Signs Vital Name Observation Time Observation Value Comments S ource height 2024-05-17 08:00:00 64 [in_i] Commo n [facility] weight 2024-05-17 08:00:00 279 [lb_av] Comm on [facility] temperature 2024-05-17 08:00:00 97.9 [degF] Com mon [facility] bmi 2024-05-17 08:00:00 47.89 kg/m2 Comm on [facility] oximetry 2024-05-17 08:00:00 99 % Commo n [facility] respiratory rate 2024-05-17 08:00:00 18 /min [facility] blood pressure systolic 2024-05-17 08:00:00 110 mm[Hg] [facility] blood pressure diastolic 2024-05-17 08:00:00 60 mm[Hg] Common [facility] height 2024-04-15 13:00:00 64 [in_i] Commo n [facility] weight 2024-04-15 13:00:00 275.0 [lb_av] Co mmon [facility] temperature 2024-04-15 13:00:00 98.2 [degF] Com mon [facility] bmi 2024-04-15 13:00:00 47.2 kg/m2 Commo n [facility] oximetry 2024-04-15 13:00:00 97 % Commo n [facility] respiratory rate 2024-04-15 13:00:00 18 /min [facility] blood pressure systolic 2024-04-15 13:00:00 108 mm[Hg] [facility] blood pressure diastolic 2024-04-15 13:00:00 57 mm[Hg] [facility] BMI (Body Mass Index) 2024-04-13 00:00:00 47.3 kg/m2 [facility] BP Diastolic 2024-04-13 00:00:00 71 mm[Hg] [facility] Weight 2024-04-13 00:00:00 275.4 [lb_av] [facility] Height 2024-04-13 00:00:00 64 [in_i] [facility] BP Systolic 2024-04-13 00:00:00 130 mm[Hg] [facility] height 2024-04-08 10:00:00 64 [in_i] Commo n [facility] weight 2024-04-08 10:00:00 270.0 [lb_av] Co mmon [facility] temperature 2024-04-08 10:00:00 98.2 [degF] Com [facility] bmi 2024-04-08 10:00:00 46.34 kg/m2 Comm on [facility] oximetry 2024-04-08 10:00:00 100 % Commo n [facility] respiratory rate 2024-04-08 10:00:00 18 /min [facility] blood pressure systolic 2024-04-08 10:00:00 111 mm[Hg] Common [facility] blood pressure diastolic 2024-04-08 10:00:00 60 mm[Hg] [facility] height 2024-01-05 08:00:00 64 [in_i] Commo n [facility] weight 2024-01-05 08:00:00 270.8 [lb_av] Co mmon [facility] temperature 2024-01-05 08:00:00 97.7 [degF] Com [facility] bmi 2024-01-05 08:00:00 46.48 kg/m2 Comm on [facility] oximetry 2024-01-05 08:00:00 97 % Commo n [facility] blood pressure systolic 2024-01-05 08:00:00 120 mm[Hg] Common [facility] blood pressure diastolic 2024-01-05 08:00:00 58 mm[Hg] [facility] height 2024-01-05 08:00:00 64 [in_i] Commo n [facility] weight 2024-01-05 08:00:00 270.8 [lb_av] Co [facility] temperature 2024-01-05 08:00:00 97.7 [degF] Com [facility] bmi 2024-01-05 08:00:00 46.48 kg/m2 Comm on [facility] oximetry 2024-01-05 08:00:00 97 % Commo n [facility] blood pressure systolic 2024-01-05 08:00:00 120 mm[Hg] [facility] blood pressure diastolic 2024-01-05 08:00:00 58 mm[Hg] Common [facility] height 2023-08-26 08:40:00 64 [in_i] Commo n [facility] weight 2023-08-26 08:40:00 273.0 [lb_av] Co [facility] temperature 2023-08-26 08:40:00 97.9 [degF] Com [facility] bmi 2023-08-26 08:40:00 46.86 kg/m2 Comm on [facility] oximetry 2023-08-26 08:40:00 99 % Commo n [facility] respiratory rate 2023-08-26 08:40:00 18 /min [facility] blood pressure systolic 2023-08-26 08:40:00 129 mm[Hg] [facility] blood pressure diastolic 2023-08-26 08:40:00 73 mm[Hg] Common [facility] height 2023-07-15 08:20:00 64 [in_i] Commo n [facility] weight 2023-07-15 08:20:00 279 [lb_av] Comm on [facility] temperature 2023-07-15 08:20:00 97.9 [degF] Com mon [facility] bmi 2023-07-15 08:20:00 47.89 kg/m2 Comm on [facility] oximetry 2023-07-15 08:20:00 99 % Commo n [facility] respiratory rate 2023-07-15 08:20:00 18 /min [facility] blood pressure systolic 2023-07-15 08:20:00 136 mm[Hg] [facility] blood pressure diastolic 2023-07-15 08:20:00 77 mm[Hg] [facility] height 2023-04-27 09:40:00 64 [in_i] Commo n [facility] weight 2023-04-27 09:40:00 304 [lb_av] Comm on [facility] bmi 2023-04-27 09:40:00 52.18 kg/m2 Comm on [facility] blood pressure systolic 2023-04-27 09:40:00 134 mm[Hg] [facility] blood pressure diastolic 2023-04-27 09:40:00 80 mm[Hg] Common [facility] height 2023-01-28 08:50:00 64 [in_i] Commo n [facility] weight 2023-01-28 08:50:00 305.2 [lb_av] Co mmon [facility] temperature 2023-01-28 08:50:00 97.2 [degF] Com mon [facility] bmi 2023-01-28 08:50:00 52.38 kg/m2 Comm on [facility] oximetry 2023-01-28 08:50:00 96 % Commo n [facility] respiratory rate 2023-01-28 08:50:00 16 /min [facility] blood pressure systolic 2023-01-28 08:50:00 138 mm[Hg] [facility] blood pressure diastolic 2023-01-28 08:50:00 79 mm[Hg] [facility] height 2022-10-28 09:30:00 64 [in_i] Commo n [facility] weight 2022-10-28 09:30:00 305.2 [lb_av] Co mmon [facility] temperature 2022-10-28 09:30:00 97.7 [degF] Com mon [facility] bmi 2022-10-28 09:30:00 52.38 kg/m2 Comm on [facility] oximetry 2022-10-28 09:30:00 98 % Commo n [facility] respiratory rate 2022-10-28 09:30:00 16 /min [facility] blood pressure systolic 2022-10-28 09:30:00 136 mm[Hg] [facility] blood pressure diastolic 2022-10-28 09:30:00 82 mm[Hg] [facility] height 2022-10-10 08:20:00 64 [in_i] Commo n [facility] weight 2022-10-10 08:20:00 296 [lb_av] Comm on [facility] temperature 2022-10-10 08:20:00 98.1 [degF] Com mon [facility] bmi 2022-10-10 08:20:00 50.8 kg/m2 Commo n [facility] oximetry 2022-10-10 08:20:00 95 % Commo n [facility] respiratory rate 2022-10-10 08:20:00 18 /min [facility] blood pressure systolic 2022-10-10 08:20:00 135 mm[Hg] [facility] blood pressure diastolic 2022-10-10 08:20:00 75 mm[Hg] [facility] height 2022-08-12 14:00:00 64 [in_i] Commo n [facility] weight 2022-08-12 14:00:00 302.0 [lb_av] Co mmon [facility] temperature 2022-08-12 14:00:00 98.4 [degF] Com [facility] bmi 2022-08-12 14:00:00 51.83 kg/m2 Comm on [facility] oximetry 2022-08-12 14:00:00 97 % Commo n [facility] respiratory rate 2022-08-12 14:00:00 18 /min [facility] blood pressure systolic 2022-08-12 14:00:00 130 mm[Hg] [facility] blood pressure diastolic 2022-08-12 14:00:00 65 mm[Hg] Common [facility] height 2022-07-08 09:40:00 64 [in_i] Commo n [facility] weight 2022-07-08 09:40:00 297.8 [lb_av] Co [facility] temperature 2022-07-08 09:40:00 96.6 [degF] Com [facility] bmi 2022-07-08 09:40:00 51.11 kg/m2 Comm on [facility] oximetry 2022-07-08 09:40:00 99 % Commo n [facility] respiratory rate 2022-07-08 09:40:00 18 /min [facility] blood pressure systolic 2022-07-08 09:40:00 124 mm[Hg] [facility] blood pressure diastolic 2022-07-08 09:40:00 77 mm[Hg] Common [facility] height 2022-03-04 15:50:00 64 [in_i] Commo n [facility] weight 2022-03-04 15:50:00 285.6 [lb_av] Co [facility] temperature 2022-03-04 15:50:00 96.4 [degF] Com mon [facility] bmi 2022-03-04 15:50:00 49.02 kg/m2 Comm on [facility] oximetry 2022-03-04 15:50:00 96 % Commo n [facility] respiratory rate 2022-03-04 15:50:00 17 /min [facility] blood pressure systolic 2022-03-04 15:50:00 138 mm[Hg] [facility] blood pressure diastolic 2022-03-04 15:50:00 71 mm[Hg] [facility] height 2021-11-05 08:30:00 64 [in_i] Commo n [facility] weight 2021-11-05 08:30:00 294.2 [lb_av] Co [facility] temperature 2021-11-05 08:30:00 98.1 [degF] Com [facility] bmi 2021-11-05 08:30:00 50.49 kg/m2 Comm on [facility] oximetry 2021-11-05 08:30:00 97 % Commo n [facility] respiratory rate 2021-11-05 08:30:00 17 /min [facility] blood pressure systolic 2021-11-05 08:30:00 133 mm[Hg] [facility] blood pressure diastolic 2021-11-05 08:30:00 68 mm[Hg] [facility] height 2021-08-07 08:30:00 64 [in_i] Commo n [facility] weight 2021-08-07 08:30:00 298.8 [lb_av] Co [facility] temperature 2021-08-07 08:30:00 97.7 [degF] Com [facility] bmi 2021-08-07 08:30:00 51.28 kg/m2 Comm on [facility] oximetry 2021-08-07 08:30:00 94 % Commo n [facility] respiratory rate 2021-08-07 08:30:00 16 /min [facility] blood pressure systolic 2021-08-07 08:30:00 135 mm[Hg] Common [facility] blood pressure diastolic 2021-08-07 08:30:00 67 mm[Hg] [facility] height 2021-05-06 10:30:00 64 [in_i] Commo n [facility] weight 2021-05-06 10:30:00 293.0 [lb_av] Co mmon [facility] temperature 2021-05-06 10:30:00 98.2 [degF] Com mon [facility] bmi 2021-05-06 10:30:00 50.29 kg/m2 Comm on [facility] oximetry 2021-05-06 10:30:00 96 % Commo n [facility] respiratory rate 2021-05-06 10:30:00 18 /min [facility] blood pressure systolic 2021-05-06 10:30:00 136 mm[Hg] [facility] blood pressure diastolic 2021-05-06 10:30:00 76 mm[Hg] [facility] Procedures Procedure Date / Time Performed Performing Clinicia n Source DXA BONE DENSITY STUDY 1/> SITES AXIAL SKEL 2024-04-13 00:00:00 [facility] Endometrial Ablation [facility] Tubal L[facility] Encounters Start Date/Time End Date/Time Encounter Type Admission Type Attending Clinicians Care Facility Care Department Encounter ID Source 2024-04-14 14:26:00 Outpatient Sandoval[facility] Guadalupe juniorh [facility] [id number] [facility] 2024-02-09 10:58:00 Outpatient SandovalJose Guadalupeh [facility] [id number] [facility] 2024-01-12 09:18:00 Outpatient Sandoval, Alpesh [facility] [id number] [facility] 2023-08-25 13:45:00 Outpatient Sandoval, Alpesh [facility] ST[facility] [id number] [facility] 2023-08-24 13:30:00 Outpatient Sandoval, Alpesh [facility] ST[facility] [id number] [facility] 2023-07-13 07:43:00 Outpatient Sandoval, Alpesh [facility] [id number] [facility] 2023-07-09 14:17:00 Outpatient Sandoval, Alpesh [facility] ST[facility] [id number] [facility] 2023-04-24 09:49:00 Outpatient Sandoval, Alpesh [facility] ST[facility] [id number] [facility] 2023-01-26 08:33:00 Outpatient Sandoval, Alpesh [facility] ST[facility] [id number] [facility] 2022-07-04 10:20:01 Outpatient Sandoval, Alpesh [facility] ST[facility] [id number] [facility] 2021-11-18 14:16:02 Outpatient Sandoval, Alpesh [facility] ST[facility] [id number] [facility] 2021-07-03 13:30:18 Outpatient Sandoval, Alpesh [facility] ST[facility] [id number] [facility] 2021-07-03 12:41:12 Outpatient Sandoval, Alpesh [facility] ST[facility] [id number] [facility] 2024-06-25 00:00:00 2024-06-25 00:00:00 (WEB) [facility]C ST[facility]C [id number] [facility] 2024-05-17 00:00:00 2024-05-17 00:00:00 OFFICE VISIT ESTAB PT LEVEL 4 [facility] [id number] [facility] 2024-05-16 00:00:00 2024-05-16 00:00:00 (TEL) STLMLC STL[facility]C [id number] [facility] 2024-04-25 00:00:00 2024-04-25 00:00:00 (TEL) STLMLC STL[facility]C [id number] [facility] 2024-04-22 07:30:00 2024-04-22 08:30:00 Initial [facility] [place] [id number] [facility] 2024-04-15 00:00:00 2024-04-15 00:00:00 OFFICE VISIT ESTAB PT LEVEL 4 [facility] [id number] [facility] 2024-04-13 00:00:00 2024-04-13 00:00:00 Vesna Gomez, [employer] OFFICER: [address], [address], [place] [address] , Ph. [facility] - GC_GCBZW_[facility]* [id number] [facility] 2024-04-12 00:00:00 2024-04-12 00:00:00 (TEL) STLC STLC [id number] [facility] 2024-04-11 00:00:00 2024-04-11 00:00:00 (TEL) STLC STLC [id number] [facility] 2024-04-08 00:00:00 2024-04-08 00:00:00 OFFICE VISIT ESTAB PT LEVEL 4 [facility] ST[facility]C [id number] [facility] 2024-04-07 00:00:00 2024-04-07 00:00:00 (TEL) STLC STLC [id number] [facility] 2024-04-04 00:00:00 2024-04-04 00:00:00 (WEB) STLMLC STLMLC [id number] [facility] 2024-03-26 00:00:00 2024-03-26 00:00:00 (WEB) STLMLC STLMLC [id number] [facility] 2024-03-18 00:00:00 2024-03-18 00:00:00 (TEL) STLMLC STL[facility]C [id number] [facility] 2024-02-09 00:00:00 2024-02-09 00:00:00 (WEB) STLMLC STL[facility]C [id number] [facility] 2024-01-16 00:00:00 2024-01-16 00:00:00 (WEB) STLMLC STL[facility]C [id number] [facility] 2024-01-09 00:00:00 2024-01-09 00:00:00 (WEB) STLMLC STL[facility]C [id number] [facility] 2024-01-09 00:00:00 2024-01-09 00:00:00 (WEB) STLMLC STLMLC [id number] [facility] 2024-01-08 00:00:00 2024-01-08 00:00:00 (WEB) STLMLC STL[facility]C [id number] [facility] 2024-01-05 00:00:00 2024-01-05 00:00:00 (WELLNESS) Wellness Visit [facility] ST[facility]C [id number] [facility] 2024-01-05 00:00:00 2024-01-05 00:00:00 (TEL) STLMLC STLMLC [id number] [facility] 2023-12-21 00:00:00 2023-12-21 00:00:00 (TEL) STLMLC STLMLC [id number] [facility] 2023-10-21 00:00:00 2023-10-21 00:00:00 (WEB) STLMLC STLMLC [id number] [facility] 2023-10-07 00:00:00 2023-10-07 00:00:00 (WEB) STLMLC STLMLC [id number] [facility] 2023-10-07 00:00:00 2023-10-07 00:00:00 (WEB) STLMLC STLMLC [id number] [facility] 2023-10-03 00:00:00 2023-10-03 00:00:00 (WEB) STLMLC STLMLC [id number] [facility] 2023-10-03 00:00:00 2023-10-03 00:00:00 (WEB) STLMLC STLMLC [id number] [facility] 2023-09-02 00:00:00 2023-09-02 00:00:00 (WEB) STLMLC STLMLC [id number] [facility] 2023-08-26 00:00:00 2023-08-26 00:00:00 OFFICE VISIT ESTAB PT LEVEL 4 [facility] STL[facility]C [id number] [facility] 2023-07-18 00:00:00 2023-07-18 00:00:00 (WEB) STLMLC STLMLC [id number] [facility] 2023-07-18 00:00:00 2023-07-18 00:00:00 (WEB) STLMLC STLMLC [id number] [facility] 2023-07-15 00:00:00 2023-07-15 00:00:00 OFFICE VISIT ESTAB PT LEVEL 4 [facility] STL[facility]C [id number] [facility] 2023-07-09 00:00:00 2023-07-09 00:00:00 (TEL) STLMLC STLMLC [id number] [facility] 2023-06-18 00:00:00 2023-06-18 00:00:00 (WEB) STLMLC STLMLC [id number] [facility] 2023-05-26 08:14:18 2023-05-26 08:14:18 Outpatient [facility] [id number] Shan Fernandez 2023-05-25 00:00:00 2023-05-25 00:00:00 (WEB) STLMLC STLMLC [id number] [facility] 2023-05-22 00:00:00 2023-05-22 00:00:00 (WEB) STLMLC STLMLC [id number] [facility] 2023-05-01 00:00:00 2023-05-01 00:00:00 (WEB) STLMLC STLMLC [id number] [facility] 2023-04-27 00:00:00 2023-04-27 00:00:00 OFFICE VISIT ESTAB PT LEVEL 4 STL[facility]C STL[facility]C [id number] [facility] 2023-03-28 00:00:00 2023-03-28 00:00:00 (WEB) STLMLC STLMLC [id number] [facility] 2023-03-16 00:00:00 2023-03-16 00:00:00 (WEB) STLMLC STLMLC [id number] [facility] 2023-03-11 00:00:00 2023-03-11 00:00:00 Outpatient GC_GCBZW_Ka diyala_[facility] [id number] [facility] 2023-02-24 00:00:00 2023-02-24 00:00:00 (WEB) STLMLC STLMLC [id number] [facility] 2023-02-16 00:00:00 2023-02-16 00:00:00 (WEB) STLMLC STLMLC [id number] [facility] 2023-02-04 00:00:00 2023-02-04 00:00:00 (WEB) STLMLC STLMLC [id number] [facility] 2023-01-29 00:00:00 2023-01-29 00:00:00 (WEB) STLMLC STLMLC [id number] [facility] 2023-01-29 00:00:00 2023-01-29 00:00:00 (WEB) STLMLC STLMLC [id number] [facility] 2023-01-28 00:00:00 2023-01-28 00:00:00 OFFICE VISIT ESTAB PT LEVEL 4 STL[facility]C STLMLC [id number] [facility] 2023-01-28 00:00:00 2023-01-28 00:00:00 (TEL) STLMLC STLMLC [id number] [facility] 2023-01-08 08:44:37 2023-01-08 08:44:37 Outpatient [facility] [id number] Shan Fernandez 2023-01-08 00:00:00 2023-01-08 00:00:00 Outpatient GC_GCBZW_Ka diyala_S PRIV PRIV [id number] [facility] 2023-01-08 00:00:00 2023-01-08 00:00:00 Outpatient GC_GCBZW_Ka diyala_S PRIV PRIV [id number] [facility] 2022-12-26 00:00:00 2022-12-26 00:00:00 (WEB) STLMLC STLMLC [id number] [facility] 2022-12-21 00:00:00 2022-12-21 00:00:00 (WEB) STLMLC STLMLC [id number] [facility] 2022-12-18 00:00:00 2022-12-18 00:00:00 (WEB) STLMLC STLMLC [id number] [facility] 2022-12-12 08:10:50 2022-12-12 08:10:50 Outpatient [facility] [id number] Shan Fernandez 2022-11-29 00:00:00 2022-11-29 00:00:00 (WEB) STLMLC STLMLC [id number] [facility] 2022-11-01 00:00:00 2022-11-01 00:00:00 (WEB) STLMLC STLMLC [id number] [facility] 2022-10-28 00:00:00 2022-10-28 00:00:00 (WELLNESS) Wellness Visit STLMLC STLMLC [id number] [facility] 2022-10-10 00:00:00 2022-10-10 00:00:00 OFFICE VISIT ESTAB PT LEVEL 3 STLMLC STLMLC [id number] [facility] 2022-10-08 00:00:00 2022-10-08 00:00:00 (TEL) STLMLC STLMLC [id number] [facility] 2022-09-29 00:00:00 2022-09-29 00:00:00 (WEB) STLMLC STLMLC [id number] [facility] 2022-09-12 00:00:00 2022-09-12 00:00:00 (WEB) STLMLC STLMLC [id number] [facility] 2022-09-07 00:00:00 2022-09-07 00:00:00 (WEB) STLMLC STLMLC [id number] [facility] 2022-08-13 00:00:00 2022-08-13 00:00:00 (WEB) STLMLC STLMLC [id number] [facility] 2022-08-12 00:00:00 2022-08-12 00:00:00 OFFICE VISIT ESTAB PT LEVEL 3 STLMLC STLMLC [id number] [facility] 2022-07-08 00:00:00 2022-07-08 00:00:00 OFFICE VISIT ESTAB PT LEVEL 4 STL[facility]C STLMLC [id number] [facility] 2022-03-04 00:00:00 2022-03-04 00:00:00 OFFICE VISIT ESTAB PT LEVEL 4 STL[facility]C STLMLC [id number] [facility] 2022-01-23 00:00:00 2022-01-23 00:00:00 (WEB) STLMLC STLMLC [id number] [facility] 2021-12-15 00:00:00 2021-12-15 00:00:00 (WEB) STLMLC STLMLC [id number] [facility] 2021-12-15 00:00:00 2021-12-15 00:00:00 (WEB) STLMLC STLMLC [id number] [facility] 2021-11-22 00:00:00 2021-11-22 00:00:00 (WEB) STLMLC STLMLC [id number] [facility] 2021-11-15 00:00:00 2021-11-15 00:00:00 (TEL) STLMLC STLMLC [id number] [facility] 2021-11-05 00:00:00 2021-11-05 00:00:00 PREV VISIT EST AGE 40-64 STLMLC STLMLC [id number] [facility] 2021-08-25 00:00:00 2021-08-25 00:00:00 (WEB) STLMLC STLMLC [id number] [facility] 2021-08-07 00:00:00 2021-08-07 00:00:00 OFFICE VISIT ESTAB PT LEVEL 4 STL[facility]C STLMLC [id number] [facility] 2021-05-06 00:00:00 2021-05-06 00:00:00 OFFICE VISIT ESTAB PT LEVEL 4 [facility]C STLMLC [id number] [facility] 2021-04-17 00:00:00 2021-04-17 00:00:00 (WEB) STLMLC STLMLC [id number] [facility] 2021-04-17 00:00:00 2021-04-17 00:00:00 (WEB) STLMLC STLMLC [id number] [facility] 2021-02-27 00:00:00 2021-02-27 00:00:00 Outpatient STLMLC STLMLC [id number] [facility] 2021-02-22 00:00:00 2021-02-22 00:00:00 Outpatient STLMLC STLMLC [id number] [facility] 2021-01-22 00:00:00 2021-01-22 00:00:00 Outpatient STLMLC STLMLC [id number] [facility] 2021-01-15 00:00:00 2021-01-15 00:00:00 Outpatient STLMLC STLMLC [id number] [facility] 2021-01-09 00:00:00 2021-01-09 00:00:00 Outpatient STLMLC STLMLC [id number] [facility] 2020-12-31 00:00:00 2020-12-31 00:00:00 Outpatient STLMLC STLMLC [id number] [facility] 2020-12-31 00:00:00 2020-12-31 00:00:00 Outpatient STLMLC STLMLC [id number] [facility] 2020-11-30 00:00:00 2020-11-30 00:00:00 Outpatient STLMLC STLMLC [id number] [facility] 2020-10-19 00:00:00 2020-10-19 00:00:00 Outpatient STLMLC STLMLC [id number] [facility] 2020-10-19 00:00:00 2020-10-19 00:00:00 Outpatient STLMLC STLMLC [id number] [facility] 2020-08-22 00:00:00 2020-08-22 00:00:00 Outpatient STLMLC STLMLC [id number] [facility] Results Test Description Test Time Test Comments Results Result Co mments Source urinalysis, [id number] 13:25:28* Test Item Value Reference Range Interpretation Comme nts Leukocytes (test code = Leukocytes) Negative Nitrite (test code = Nitrite) negative Urobilinogen (test code = Urobilinogen) 0.2 Protein (test code = Protein) Negative pH (test code = pH) 6.0 Blood (test code = Blood) 2+ Specific [place] (test code = Specific [place]) 1.010 Ketone (test code = Ketone) Negative Bilirubin (test code = Bilirubin) Negative Glucose (test code = Glucose) Negative Appearance (test code = Appearance) Clear Color (test code = Color) Yellow [facility] W/AUTO [id number] 00:00:00* Test Item Value Reference Range Interpretation Comme nts NUCLEATED RBCS (test code = 57744-7) 0.0 /100 WBC'S See_Comment [Automated messa ge] The system which generated this result transmitted reference range: 0.0 /100 WBC'S. The reference range was not used to interpret this result as normal/abnormal. ABSOLUTE EOSINOPHILS (test code = 73003-7) 0.11 K/UL See_Comment [Automated messa ge] The system which generated this result transmitted reference range: 0.00-0.50 K/UL. The reference range was not used to interpret this result as normal/abnormal. ABSOLUTE LYMPHOCYTES (test code = 32888-1) 2.30 K/UL See_Comment [Automated messa ge] The system which generated this result transmitted reference range: 1.00-4.00 K/UL. The reference range was not used to interpret this result as normal/abnormal. ABSOLUTE MONOCYTES (test code = 53793-3) 0.82 K/UL See_Comment [Automated messa ge] The system which generated this result transmitted reference range: 0.20-1.00 K/UL. The reference range was not used to interpret this result as normal/abnormal. ABSOLUTE NEUTROPHILS (test code = 53071-8) 3.32 K/UL See_Comment [Automated messa ge] The system which generated this result transmitted reference range: 1.50-7.50 K/UL. The reference range was not used to interpret this result as normal/abnormal. BASOPHILS (test code = 85233-7) 1.6 % EOSINOPHILS (test code = 18101-0) 1.6 % HEMATOCRIT (test code = 94110-3) 36.1 % See_Comment [Automated messa ge] The system which generated this result transmitted reference range: 34.0-45.0 %. The reference range was not used to interpret this result as normal/abnormal. HEMOGLOBIN (test code = 718-7) 11.8 G/DL See_Comment [Automated messa ge] The system which generated this result transmitted reference range: 11.5-15.5 G/DL. The reference range was not used to interpret this result as normal/abnormal. LYMPHOCYTES (test code = 39705-7) 34.0 % MCH (test code = 48360-8) 29.3 PG See_Comment [Automated messa ge] The system which generated this result transmitted reference range: 25.0-33.0 PG. The reference range was not used to interpret this result as normal/abnormal. MCHC (test code = 02446-1) 32.7 G/DL See_Comment [Automated messa ge] The system which generated this result transmitted reference range: 31.0-36.0 G/DL. The reference range was not used to interpret this result as normal/abnormal. MCV (test code = 66533-7) 89.6 fL See_Comment [Automated messa ge] The system which generated this result transmitted reference range: 80.0-99.0 fL. The reference range was not used to interpret this result as normal/abnormal. MONOCYTES (test code = 15742-6) 12.1 % NEUTROPHILS (test code = 04620-4) 49.1 % PLATELET COUNT (test code = 51248-3) 364 K/UL See_Comment [Automated messa ge] The system which generated this result transmitted reference range: 130-400 K/UL. The reference range was not used to interpret this result as normal/abnormal. RBC (test code = 42214-3) 4.03 M/UL See_Comment [Automated messa ge] The system which generated this result transmitted reference range: 3.80-5.40 M/UL. The reference range was not used to interpret this result as normal/abnormal. RDW (test code = 18720-2) 13.3 % See_Comment [Automated messa ge] The system which generated this result transmitted reference range: 11.5-15.0 %. The reference range was not used to interpret this result as normal/abnormal. WBC (test code = 17813-3) 6.8 K/UL See_Comment [Automated messa ge] The system which generated this result transmitted reference range: 3.5-11.0 K/UL. The reference range was not used to interpret this result as normal/abnormal. 3D SCR JENN BILAT W/CAD3D SCR JENN BILAT W/CAD
[2024-07-11] MEDS ORDERED: DIAZEPAM 5 MG TABLET ONE (13:45)
[2024-07-11] MEDS ORDERED: HYDROCODONE/APAP 5/325 MG TAB ONE (13:45)
[2024-07-11 15:27] LABS: Specific Gravity 1.017 (1.005-1.030); Sqamous Epithelial <5 /HPF (None Seen); Urine Bacteria <20 /HPF (<20); Urine Bilirubin NEGATIVE (Negative); Urine Blood 3+ (Negative); Urine Clarity Extremely Turbid (Clear); Urine Color Light-Yellow (Yellow); Urine Crystals Unidentified Few /HPF (None Seen); Urine Culture Reflex Order REFLEXED; Urine Glucose NEGATIVE (Negative); Urine Ketones NEGATIVE (Negative); Urine Microscopic Reflex YN ORDER UMIC; Urine Mucus Slight /HPF (None Seen); Urine Nitrite NEGATIVE (Negative); Urine Protein TRACE (Negative); Urine RBC >50 /HPF (None Seen); Urine Urobilinogen Normal (Normal); Urine WBC 20-50 /HPF (<5); Urine WBC Clump Rare /HPF (None Seen); Urine pH 5.5 (5.0-7.0)
--- NOTE | 2024-07-11 17:30 | EDPHYS ---
Physician Documentation [facility] Name: Bette Soto Age: 64 yrs Sex: Female : 1960 Arrival Date: 07/11/2024 Time: 11:14 Bed 26 Private MD: ED Physician Pete Goins HPI: 07/11 11:58 This 64 yrs old Female presents to ER via Ambulatory with complaints of Low Back Pain, ms3 Urinary Problem. 11:58 Bette Soto is a 64-year-old female who presents to the Emergency Department with ms3 severe left lower back pain, rated as 10 out of 10 in intensity, located right above the hip bone. The pain is unchanged with the use of a muscle relief roller. She reports a history of blood in her urine last weekend and is experiencing some nausea. There are no current fevers, chills, or urinary symptoms such as increased frequency or urgency. . Historical: - Allergies: 11:48 No Known Allergies; jl7 - Home Meds: 11:48 amiodarone 200 mg oral tablet daily [Active]; atorvastatin 10 mg oral tablet [Active]; jl7 Eliquis 5 mg oral tablet [Active]; furosemide 40 mg Oral tablet daily [Active]; lisinopril 10 mg Oral tablet daily [Active]; sertraline 50 mg oral tablet daily [Active]; spironolactone 25 mg Oral tablet daily [Active]; prednisolone acetate-bromfenac 1-0.075 % ophthalmic (eye) drops, suspension [Active]; - PMHx: 11:48 adhd; Anxiety; Bipolar disorder; Cellulitis; depressive disorder; Hypertensive jl7 disorder; lymphedema; kidney injury; Atrial fibrillation; Sepsis; - PSHx: 11:48 section; tubal ligation; jl7 - Immunization history:: Adult Immunizations unknown. - Infectious Disease History:: Denies. - Social history:: Smoking status: Patient denies any tobacco usage or history of. ROS: 11:58 Constitutional: Negative for fever, and chills. Cardiovascular: Negative for chest ms3 pain, and palpitations. Respiratory: Negative for shortness of breath, cough, wheezing, and pleuritic chest pain, Abdomen/GI: Negative for abdominal pain, nausea, vomiting, diarrhea, and constipation, MS/Extremity: Negative for injury and deformity, 11:58 Back: Positive for flank pain, on the left, Exam: 11:58 Constitutional: This is a well developed, well nourished patient who is awake, alert, ms3 and in no acute distress. Cardiovascular: Regular rate and rhythm with a normal S1 and S2. No gallops, murmurs, or rubs. Normal PMI, no JVD. No pulse deficits. Respiratory: Lungs have equal breath sounds bilaterally, clear to auscultation and percussion. No rales, rhonchi or wheezes noted. No increased work of breathing, no retractions or nasal flaring. Abdomen/GI: Soft, non-tender, with normal bowel sounds. No distension or tympany. No guarding or rebound. No evidence of tenderness throughout. Skin: Warm, dry with normal turgor. Normal color with no rashes, no lesions, and no evidence of cellulitis. MS/ Extremity: Pulses equal, no cyanosis. Neurovascular intact. Full, normal range of motion. 11:58 Back: pain, that is severe, of the left low back, ROM is normal, normal spinal alignment noted, CVA tenderness, is absent, vertebral tenderness, is not appreciated, muscle spasm, is appreciated in the left low back, Vital Signs: 11:46 BP 142 / 75; Pulse 75; Resp 17; Temp 97.6; Pulse Ox 99% ; Weight 136.08 kg; Height 5 jl7 ft. 3 in. ; Pain 10/10; 15:02 BP 131 / 72; Pulse 75; Resp 15; Pulse Ox 99% ; Pain 3/10; jl7 16:00 BP 132 / 66; Pulse 82; Resp 16; Pulse Ox 97% on R/A; jb4 18:00 BP 116 / 62; Pulse 87; Resp 16; Pulse Ox 99% on R/A; jb4 11:46 Body Mass Index 53.14 (136.08 kg, 160.02 cm) jl7 11:46 Pain Scale: Adult jl7 15:02 Pain Scale: Adult jl7 MDM: 11:46 Medical Screening Exam initiated ms3 11:58 Differential diagnosis: strain, sciatica, UTI. ms3 17:30 Data reviewed: vital signs, nurses notes, lab test result(s), and as a result, I will ms3 discharge patient. I considered the following discharge prescriptions or medication management in the emergency department Medications were administered in the Emergency Department. See MAR. Counseling: I had a detailed discussion with the patient and/or guardian regarding the historical points, exam findings, and any diagnostic results supporting the discharge/admit diagnosis, lab results, the need for outpatient follow up, to return to the emergency department if symptoms worsen or persist or if there are any questions or concerns that arise at home. Special discussion: I discussed with the patient/guardian in detail that at this point there is no indication for admission to the hospital. It is understood, however, that if the symptoms persist or worsen the patient needs to return immediately for re-evaluation. ED course: Discussed urinalysis results with patient indicative of urinary tract infection. Patient's symptoms improved since arrival to emergency department. Patient to follow-up with primary care physician in 2 to 3 days. Patient understands and agrees with plan. All questions were answered. Return precautions discussed include worsening symptoms, or any other concerns.. 07/11 11:47 Order name: Urinalysis w/ reflexes; Complete Time: 17:26 ms3 07/11 15:30 Order name: Urine Culture EDND 07/11 11:55 Order name: Straight Cath - Urine; Complete Time: 15:02 jl7 Administered Medications: 14:28 Drug: HYDROcodone-acetaminophen PO 5 mg-325 mg 1 tabs PO once Route: PO; jl7 15:01 Follow up: Response: No adverse reaction; Pain is decreased jl7 14:28 Drug: Diazepam PO 5 mg PO once Route: PO; jl7 15:01 Follow up: Response: No adverse reaction; Pain is decreased jl7 18:05 Drug: Rocephin (cefTRIAXone) IM 1 grams IM once Route: IM; Site: right gluteus; jb4 18:33 Follow up: Response: No adverse reaction jb4 18:19 Not Given (Other Intervention Used): rocephin1 grams IV at calculated rate once; Given jb4 slow IV push per pharmacy instructions PUSH Disposition Summary: 07/11/24 17:30 Discharge Ordered Notes: Location: Home ms3 Condition: Stable ms3 Diagnosis - UTI/ Urinary tract infection, site not specified ms3 - Low back pain ms3 Followup: ms3 - With: Alpesh Sandoval, DO - When: 2 - 3 days - Reason: Re-evaluation by your physician Discharge Instructions: - Discharge Summary Sheet ms3 - Acute Back Pain, Adult ms3 - Urinary Tract Infection, Adult ms3 Forms: - Medication Reconciliation Form ms3 - Antibiotic Education ms3 - Prescription Opioid Use ms3 - Patient Portal Instructions ms3 - Leadership Thank You Letter ms3 Prescriptions: - cefpodoxime 200 mg Oral tablet - take 1 tablet ORAL route every 12 hours with food; 20 tablet; Refills: 0, ms3 Product Selection Permitted Signatures: Dispatcher [employer] Chad Fried, RN RN jb4 Jagdeep Fox RN RN jl7 Pete Goins DO DO ms3 Corrections: (The following items were deleted from the chart) 11 11:48 Home Meds: None; jl7 jl7 11:48 PMHx: atrial flutter; 7 jl7 11:48 PMHx: diabetes mellitus; 7 jl7 11:48 PMHx: Right heel diabetic wound; jl7 jl7 11:48 PMHx: Bipolar disorder; 7 jl7
--- NOTE | 2024-07-11 17:30 | ER ---
Nurse's Notes [facility] Name: Bette Soto Age: 64 yrs Sex: Female : 1960 Arrival Date: 07/11/2024 Time: 11:14 Bed 26 Private MD: Diagnosis: UTI/ Urinary tract infection, site not specified;Low back pain Presentation: 07/11 11:46 Chief complaint: Patient states: Left flank pain, dysuria, urine has odor and jl7 intermittent blood x 5 days. Coronavirus screen: At this time, the client does not indicate any symptoms associated with coronavirus-19. Ebola Screen: No symptoms or risks identified at this time. Initial Sepsis Screen: Does the patient meet any 2 criteria? No. Patient's initial sepsis screen is negative. Does the patient have a suspected source of infection? No. Patient's initial sepsis screen is negative. Risk Assessment: Do you want to hurt yourself or someone else? Patient reports no desire to harm self or others. Onset of symptoms was July 06, 2024. 11:46 Method Of Arrival: Ambulatory jl7 11:46 Acuity: JOYCE 3 jl7 Triage Assessment: 11:48 General: Appears in no apparent distress. uncomfortable, Behavior is calm, cooperative, jl7 appropriate for age. Pain: Complains of pain in back Pain currently is 10 out of 10 on a pain scale. : Reports burning with urination. Historical: - Allergies: 11:48 No Known Allergies; jl7 - Home Meds: 11:48 amiodarone 200 mg oral tablet daily [Active]; atorvastatin 10 mg oral tablet [Active]; jl7 Eliquis 5 mg oral tablet [Active]; furosemide 40 mg Oral tablet daily [Active]; lisinopril 10 mg Oral tablet daily [Active]; sertraline 50 mg oral tablet daily [Active]; spironolactone 25 mg Oral tablet daily [Active]; prednisolone acetate-bromfenac 1-0.075 % ophthalmic (eye) drops, suspension [Active]; - PMHx: 11:48 adhd; Anxiety; Bipolar disorder; Cellulitis; depressive disorder; Hypertensive jl7 disorder; lymphedema; kidney injury; Atrial fibrillation; Sepsis; - PSHx: 11:48 section; tubal ligation; jl7 - Immunization history:: Adult Immunizations unknown. - Infectious Disease History:: Denies. - Social history:: Smoking status: Patient denies any tobacco usage or history of. Screenin:00 [facility] ED Fall Risk Assessment (Adult) History of falling in the last 3 months, jb4 including since admission No falls in past 3 months (0 pts) Confusion or Disorientation No (0 pts) Intoxicated or Sedated No (0 pts) Impaired Gait Yes (1 pt) Mobility Assist Device Used Yes (1 pt) Altered Elimination No (0 pt) Score/Fall Risk Level 0 - 2 = Low Risk Oriented to surroundings, Maintained a safe environment. Abuse screen: Denies threats or abuse. Nutritional screening: No deficits noted. Tuberculosis screening: No symptoms or risk factors identified. Assessment: 11:54 Reassessment: pt reports she is unable to provide the urine sample and agrees to a jl7 straight cath. 15:00 Reassessment: Patient appears in no apparent distress at this time. Patient and/or jb4 family updated on plan of care and expected duration. Pain level reassessed. Patient is alert, oriented x 3, equal unlabored respirations, skin warm/dry/pink. 16:00 Reassessment: Patient appears in no apparent distress at this time. Patient and/or jb4 family updated on plan of care and expected duration. Pain level reassessed. Patient is alert, oriented x 3, equal unlabored respirations, skin warm/dry/pink. 18:25 Reassessment: Patient appears in no apparent distress at this time. Patient and/or jb4 family updated on plan of care and expected duration. Pain level reassessed. Patient is alert, oriented x 3, equal unlabored respirations, skin warm/dry/pink. Vital Signs: 11:46 BP 142 / 75; Pulse 75; Resp 17; Temp 97.6; Pulse Ox 99% ; Weight 136.08 kg; Height 5 jl7 ft. 3 in. ; Pain 10/10; 15:02 BP 131 / 72; Pulse 75; Resp 15; Pulse Ox 99% ; Pain 3/10; jl7 16:00 BP 132 / 66; Pulse 82; Resp 16; Pulse Ox 97% on R/A; jb4 18:00 BP 116 / 62; Pulse 87; Resp 16; Pulse Ox 99% on R/A; jb4 11:46 Body Mass Index 53.14 (136.08 kg, 160.02 cm) jl7 11:46 Pain Scale: Adult jl7 15:02 Pain Scale: Adult jl7 ED Course: 11:17 Patient arrived in ED. im 11:20 Gabriele Lowe MD is Attending Physician. ec2 11:32 Attending Physician role handed off by Gabriele Lowe MD ms3 11:32 Pete Goins DO is Attending Physician. ms3 11:48 Triage completed. jl7 11:48 Arm band placed on right wrist. Patient placed in waiting room, Patient notified of jl7 wait time. 14:28 Jagdeep Fox, YELITZA is Primary Nurse. jl7 15:02 Urine collected: straight cath specimen, cloudy. Straight cath inserted, using sterile jl7 technique, 14 Fr. Specimen obtained. Returned cloudy urine. Patient tolerated well. 17:29 Alpesh Sandoval DO is Referral Physician. ms3 18:00 Patient has correct armband on for positive identification. Call light in reach. Side jb4 rails up X 1. Provided Education on: discharge instructions.. 18:00 No provider procedures requiring assistance completed. Patient did not have IV access jb4 during this emergency room visit. Administered Medications: 14:28 Drug: HYDROcodone-acetaminophen PO 5 mg-325 mg 1 tabs PO once Route: PO; jl7 15:01 Follow up: Response: No adverse reaction; Pain is decreased jl7 14:28 Drug: Diazepam PO 5 mg PO once Route: PO; jl7 15:01 Follow up: Response: No adverse reaction; Pain is decreased jl7 18:05 Drug: Rocephin (cefTRIAXone) IM 1 grams IM once Route: IM; Site: right gluteus; jb4 18:33 Follow up: Response: No adverse reaction jb4 18:19 Not Given (Other Intervention Used): rocephin1 grams IV at calculated rate once; Given jb4 slow IV push per pharmacy instructions PUSH Medication: 18:00 VIS not applicable for this client. jb4 Outcome: 17:30 Discharge ordered by . ms3 18:00 Discharged to home ambulatory, jb4 18:00 Condition: stable 18:00 Discharge instructions given to patient, Instructed on discharge instructions, follow up and referral plans. medication usage, Demonstrated understanding of instructions, follow-up care, medications, Prescriptions given X 1, 18:34 Patient left the ED. jb4 Signatures: Chad Carrasco RN RN jb4 Jagdeep Fox RN RN jl7 Pete Goins DO DO ms3 Nikki Box Edwin, MD MD ec2 Corrections: (The following items were deleted from the chart) 11:48 Home Meds: None; [facility] jl7 11:48 PMHx: atrial flutter; [facility] 11:48 PMHx: diabetes mellitus; [facility] 11:48 PMHx: Right heel diabetic wound; [facility] 11:48 PMHx: Bipolar disorder; [facility] jl7
[2024-07-11] MEDS ORDERED: CEFTRIAXONE 1000 MG/VIAL ONE ×2 (17:56→18:11)
[2024-07-11] MEDS ORDERED: WATER FOR INJ,STERILE 10 ML ONE (18:12)
[2024-07-11 18:39] VITALS: TEMP 97.6
[2024-07-11 18:42] VITALS: BP 116/62; O2SAT 99
== END 2024-07-11 18:34 | disposition home or self-care (01) ==
LOC: ER 11:14
DX: N39.0 Urinary tract infection, site not specified (principal)
CPT/HCPCS: 87088; 81001; 87086; J0696

== ENCOUNTER 2024-10-31 20:03 | Emergency (ER) | payer MEDICARE ==
[2024-10-31] MEDS ORDERED: CEPHALEXIN 250 MG CAP ONE (21:18)
[2024-10-31] MEDS ORDERED: DOXYCYCLINE 100 MG CAP PO ONE (21:18)
--- NOTE | 2024-10-31 21:23 | RAD REPORT ---
EXAM:Extremity Venous Uni Ltd HISTORY: Left leg pain TECHNIQUE: Sonographic evaluation left lower extremity performed.Grayscale, color and spectral analys is performed on all vessels COMPARISON: None. FINDINGS: Left common femoral, superficial femoral, greater saphenous, popliteal and posterior tibial veins are compressible and demonstrate augmentation. Doppler demonstrates good flow. IMPRESSION: No evidence of deep venous thrombosis involving the left lower extremity.
--- NOTE | 2024-10-31 21:56 | ER ---
Nurse's Notes [facility] Name: Bette Soto Age: 64 yrs Sex: Female : 1960 Arrival Date: 10/31/2024 Time: 20:03 Bed 14 Private MD: Alpesh Sandoval Diagnosis: Cellulitis of left lower limb Presentation: 10/31 20:11 Chief complaint: LLE redness, pain, and swelling x 2 days. Coronavirus screen: At this hb time, the client does not indicate any symptoms associated with coronavirus-19. Ebola Screen: No symptoms or risks identified at this time. Initial Sepsis Screen: Does the patient meet any 2 criteria? No. Patient's initial sepsis screen is negative. Does the patient have a suspected source of infection? No. Patient's initial sepsis screen is negative. Risk Assessment: Do you want to hurt yourself or someone else? Patient reports no desire to harm self or others. Onset of symptoms was October 30, 2024. 20:11 Method Of Arrival: Ambulatory hb 20:11 Acuity: JOYCE 3 hb Triage Assessment: 21:06 General: Appears in no apparent distress. obese, Behavior is calm, cooperative. Pain: km10 Complains of pain in left calf Alleviated by rest. Neuro: Level of Consciousness is awake, alert, Oriented to person, place, time, situation. Cardiovascular:. Respiratory: Respiratory effort is even, unlabored. Derm: Skin is red, left lower extremity. Derm: Reports "noticed redness and a knot to left calf today". Historical: - Allergies: 20:12 No Known Allergies; hb - PMHx: 20:12 adhd; Bipolar disorder; Hypertensive disorder; depressive disorder; kidney injury; hb Atrial fibrillation; Anxiety; lymphedema; Cellulitis; Sepsis; - PSHx: 20:12 section; tubal ligation; hb - Immunization history:: Adult Immunizations up to date. - Infectious Disease History:: Denies. - Social history:: Smoking status: Patient denies any tobacco usage or history of. Screenin:10 [facility] ED Fall Risk Assessment (Adult) History of falling in the last 3 months, km10 including since admission No falls in past 3 months (0 pts) Confusion or Disorientation No (0 pts) Intoxicated or Sedated No (0 pts) Impaired Gait No (0 pts) Mobility Assist Device Used No (0 pt) Altered Elimination No (0 pt) Score/Fall Risk Level 0 - 2 = Low Risk. Abuse screen: Denies threats or abuse. Denies injuries from another. Nutritional screening: No deficits noted. Tuberculosis screening: No symptoms or risk factors identified. Assessment: 21:24 Reassessment: Patient appears in no apparent distress at this time. km10 22:17 Reassessment: Patient appears in no apparent distress at this time. km10 Vital Signs: 20:11 BP 163 / 76; Pulse 80; Resp 20; Temp 98; Pulse Ox 100% ; Weight 132 kg; Height 5 ft. 3 hb in. ; Pain 7/10; 21:23 BP 124 / 54; Pulse 62; Resp 18; Pulse Ox 100% ; km10 22:17 BP 126 / 57; Pulse 60; Resp 18; Pulse Ox 97% on R/A; km10 20:11 Body Mass Index 51.55 (132.00 kg, 160.02 cm) hb 20:11 Pain Scale: Adult hb ED Course: 20:06 Patient arrived in ED. jj6 20:07 Alpesh Sandoval DO is Private Physician. jj6 20:10 [facility] Leslie [facility]C [facility] kb 20:10 Eusebio Altamirano MD is Attending Physician. kb 20:12 Triage completed. hb 20:13 Arm band placed on. hb 20:46 Jeannie Metz, RN is Primary Nurse. km10 21:10 Patient has correct armband on for positive identification. Call light in reach. Side km10 rails up X2. Provided Education on: plan of care. Door closed. Noise minimized. Warm blanket given. Pillow given. Elevated. 21:19 US Extremity Venous Unilateral Ltd In Process Unspecified. EDMS 22:19 No provider procedures requiring assistance completed. km10 22:19 Patient did not have IV access during this emergency room visit. km10 Administered Medications: 21:22 Drug: Doxycycline PO 100 mg PO once Route: PO; km10 22:20 Follow up: Response: No adverse reaction km10 21:22 Drug: Cephalexin PO 500 mg PO once Route: PO; km10 22:20 Follow up: Response: No adverse reaction km10 Medication: 22:19 VIS not applicable for this client. km10 Outcome: 21:55 Discharge ordered by . kb 22:19 Discharged to home ambulatory, km10 22:19 Condition: stable 22:19 Discharge instructions given to patient, Instructed on discharge instructions, follow up and referral plans. medication usage, Demonstrated understanding of instructions, follow-up care, medications, Prescriptions given X 2, 22:23 Patient left the ED. km10 Signatures: Dispatcher [employer] EDMS Purvi Leslie, WATER [employer]EROBICS INSTRUCTOR-C WATER AEROBICS INSTRUCTOR-Heydi Oneil, RN RN Vera Irahetaj6 Jeannie Metz, YELITZA RN km10
--- NOTE | 2024-10-31 21:56 | EDPHYS ---
Physician Documentation [facility] Name: Bette Soto Age: 64 yrs Sex: Female : 1960 Arrival Date: 10/31/2024 Time: 20:03 Bed 14 Private MD: Alpesh Sandoval ED Physician Eusebio Altamirano HPI: 11/01 00:54 This 64 yrs old Female presents to ER via Ambulatory with complaints of Left leg kb redness, swelling, and pain. 00:54 Patient is a 64-year-old female who presents for redness, pain to left lower extremity kb that started yesterday. Patient states she is always been told to come get evaluated if she develops redness to her leg. Denies fever, malaise, vomiting, shortness of breath.. Historical: - Allergies: 10/31 20:12 No Known Allergies; hb - PMHx: 20:12 adhd; Bipolar disorder; Hypertensive disorder; depressive disorder; kidney injury; hb Atrial fibrillation; Anxiety; lymphedema; Cellulitis; Sepsis; - PSHx: 20:12 section; tubal ligation; hb - Immunization history:: Adult Immunizations up to date. - Infectious Disease History:: Denies. - Social history:: Smoking status: Patient denies any tobacco usage or history of. ROS: 11/01 00:52 Constitutional: As per HPI kb Exam: 00:52 Constitutional: This is a well developed, well nourished patient who is awake, alert, kb and in no acute distress. Head/Face: Normocephalic, atraumatic. ENT: Moist Mucous membranes Cardiovascular: Regular rate Respiratory: Respirations even and unlabored. No increased work of breathing. Talking in full sentences MS/ Extremity: Pulses equal, no cyanosis. Neurovascular intact. Full, normal range of motion. Neuro: Awake and alert, GCS 15, oriented to person, place, time, and situation. 00:52 Skin: cellulitis, that is mild, on the left calf, Vital Signs: 10/31 20:11 BP 163 / 76; Pulse 80; Resp 20; Temp 98; Pulse Ox 100% ; Weight 132 kg; Height 5 ft. 3 hb in. ; Pain 7/10; 21:23 BP 124 / 54; Pulse 62; Resp 18; Pulse Ox 100% ; km10 22:17 BP 126 / 57; Pulse 60; Resp 18; Pulse Ox 97% on R/A; km10 20:11 Body Mass Index 51.55 (132.00 kg, 160.02 cm) hb 20:11 Pain Scale: Adult hb MDM: 20:10 Medical Screening Exam initiated kb 11/01 00:52 Differential diagnosis: Cellulitis, DVT. Data reviewed: vital signs, nurses notes. Test kb considered but Not performed: Labs: CBC, CMP, lactate, blood cultures considered but patient meets no SIRS criteria, afebrile and nontoxic in appearance.. Counseling: I had a detailed discussion with the patient and/or guardian regarding the historical points, exam findings, and any diagnostic results supporting the discharge/admit diagnosis, radiology results, the need for outpatient follow up, a family practitioner, to return to the emergency department if symptoms worsen or persist or if there are any questions or concerns that arise at home. 00:53 ED course: Patient educated on strict return precautions.. kb 10/31 20:13 Order name: US Extremity Venous Unilateral Ltd; Complete Time: 21:24 kb Administered Medications: 10/31 21:22 Drug: Doxycycline PO 100 mg PO once Route: PO; km10 22:20 Follow up: Response: No adverse reaction [facility] 21:22 Drug: Cephalexin PO 500 mg PO once Route: PO; km10 22:20 Follow up: Response: No adverse reaction [facility] Disposition: 11/01 18:47 Co-signature as Attending Physician, Eusebio Altamirano MD I agree with the assessment sp4 and plan of care. I reviewed the patient's care provided by the Advanced Practice Provider and agree with the diagnosis and treatment plan. Disposition Summary: 10/31/24 21:55 Discharge Ordered Notes: Location: Home kb Condition: Stable kb Diagnosis - Cellulitis of left lower limb kb Followup: kb - With: Emergency Department - When: As needed - Reason: Worsening of condition Followup: kb - With: Private Physician - When: 2 - 3 days - Reason: Recheck today's complaints, Continuance of care, Re-evaluation by your physician Discharge Instructions: - Discharge Summary Sheet kb - Cellulitis, Adult, [id number] kb Forms: - Medication Reconciliation Form kb - Antibiotic Education kb - Prescription Opioid Use kb - Patient Portal Instructions kb - Leadership Thank You Letter kb Prescriptions: - Cephalexin 500 mg Oral Capsule - take 1 capsule ORAL route every 8 hours for 10 days; 30 capsule; Refills: 0, kb Product Selection Permitted - Doxycycline Hyclate 100 mg Oral Tablet - take 1 tablet ORAL route every 12 hours; 20 tablet; Refills: 0, Product kb Selection Permitted Signatures: Dispatcher [employer] Purvi Blakely FNP-C Heydi Forrester RN RN Eusebio Altamirano MD MD sp4 Jeannie Metz RN RN km10
[2024-10-31 22:31] VITALS: TEMP 98
[2024-10-31 22:34] VITALS: BP 126/57; O2SAT 97
== END 2024-10-31 22:23 | disposition home or self-care (01) ==
LOC: ER 20:03
DX: L03.116 Cellulitis of left lower limb (principal)
CPT/HCPCS: 93971; 99283